=== PATIENT | male | born 1940 | race Caucasian/White ===

== ENCOUNTER 2018-02-28 09:50 | Day surgery (SDC) | payer OTHER, BC ==
[2018-02-28] MEDS ORDERED: TETRACAINE HCL 0.5% 2ML OPTH ONE (10:12)
[2018-02-28] MEDS ORDERED: BUPIVACAINE 0.25% PF 10 ML VIAL ONE (10:12)
[2018-02-28] MEDS ORDERED: LIDOCAINE HCL/PF 3.5% OPTH GEL ONE (10:12)
[2018-02-28] MEDS ORDERED: NA CHLORIDE 0.9% 500 ML ONE (10:12)
[2018-02-28] MEDS ORDERED: LIDOCAINE 2% INJ, MPF 2 ML 0 ML ONE (10:13)
[2018-02-28] MEDS ORDERED: BALANCED SALT IRRIG PLAIN 500 ML BTL IRR ONE (10:25)
[2018-02-28] MEDS ORDERED: DUOVISC 1 KIT OPTH ONE (10:25)
[2018-02-28] MEDS ORDERED: MOXIFLOXACIN HCL 10 DROPS/ML **OR USE OPTH ONE (10:25)
[2018-02-28] MEDS ORDERED: LIDOCAINE 1% MPF 2 ML AMPULE ONE (10:25)
[2018-02-28] MEDS ORDERED: NS 0.9% VIAL 10 ML ONE (10:25)
[2018-02-28] MEDS: PHENYLEPHRINE 10% OPTH 5ML ONE ×3 (10:27→10:37)
[2018-02-28] MEDS: CYCLOPENTOLATE 1% OPTH 2 ML ONE ×3 (10:27→10:37)
[2018-02-28] MEDS ORDERED: MIDAZOLAM HCL 2 MG/2 ML INJ ONE (10:45)
[2018-02-28] MEDS: EPINEPHRINE/PF 1 MG/ML AMP ONE ×2 (11:29→11:30)
--- NOTE | 2018-02-28 11:52 | P.BOP ---
Preoperative diagnosis: Nuclear sclerotic and posterior subcapsular cataract OD Postoperative diagnosis: Same Primary procedure: Phacoemulsification with IOL OD Estimated blood loss: None Anesthesia: Local (Topical with anesthesia for cataract surgery) Complications: None Implants: ZCB00 +21.5 Transferred to: Other (Day surgery) Condition: Good
--- NOTE | 2018-02-28 23:04 | OP ---
Date of Procedure: 02/28/2018 Surgeon: Deb Gutierrez MD Anesthesiologist: 1. Jessenia Torrez CRNA. 2. Galdino Mcknight M.D. Preoperative Diagnosis: Nuclear sclerotic cataract, and/or cortical cataract and/or posterior subcapsular cataract OD (right eye). Operation Performed: Phacoemulsification with intraocular lens implant, right eye. Anesthesia: Per cataract surgery. Complications: None. Description Of Procedure: In the operating room the patient was prepped and draped in the usual sterile fashion for ophthalmic surgery. A lid speculum was placed in the OD. Two paracentesis sites were made superiorly and inferiorly in the limbal cornea. Viscoat was placed in the anterior chamber and a crescent blade was used to make a corneal groove and tunnel, and a keratome was used to enter the anterior chamber. Provisc was placed in the anterior chamber and a 360 degree capsulotomy was performed with a cystitome. The lens was hydrodissected with BSS and rotated freely. The lens was removed with a stop and chop technique. 7.72 phaco CDE was used to remove the lens. Residual cortex was removed with the irrigation and aspiration. Provisc was placed in the capsular bag. A ZCB00 +21.5 lens was placed in the capsular bag without complications. Irrigation and aspiration were used to remove residual viscoelastic. The paracentesis sites were hydrated with BSS. The wound and paracentesis sites were inspected and found to be watertight. Vigamox 0.07 cc was placed intracamerally at the end of the procedure. The eye was irrigated with balanced salt solution. The eye was patched with a soft cotton patch and Gao metal shield. The patient was returned to day surgery in good condition. Comments: Akten was placed in the eye in Day surgery and irrigated out of the eye with BSS in the OR. Preservative-free 1% epinephrine was placed in the anterior chamber prior to Viscoat. 1:5000 epinephrine was placed in the anterior chamber prior to phacoemulsification due to floppy iris. Discharge Instructions: Mr. Fonseca is discharged to home in good condition. He is to follow up with Dr. Gutierrez in the morning. FEROZL/MODL Voice ID: [id number] Report ID: [id number] MTDD
== END 2018-02-28 11:40 | disposition home or self-care (01) ==
LOC: OR 09:50
PROVIDERS: ATTEND Ophthalmology Retina Specialist
PROC: 08RJ3JZ Replacement of Right Lens with Synthetic Substitute, Percutaneous Approach (ICD-10-PCS; principal; 2018-02-28 10:30)
DX: H25.11 Age-related nuclear cataract, right eye (principal); H25.041 Posterior subcapsular polar age-related cataract, right eye; I10 Essential (primary) hypertension; E78.00 Pure hypercholesterolemia, unspecified; I25.2 Old myocardial infarction; Z98.61 Coronary angioplasty status; Z79.82 Long term (current) use of aspirin; I25.10 Atherosclerotic heart disease of native coronary artery without angina pectoris
CPT/HCPCS: 66984; J0171; J2001; J2250; J3490

== ENCOUNTER 2020-08-12 07:34 | Day surgery (SDC) | payer OTHER, BC ==
[2020-08-07 16:31] LABS: Protime INR 0.98
--- NOTE | 2020-08-07 17:41 | RAD REPORT ---
EXAM DESCRIPTION: Rea Corrales (2 Views)08/07/2020 4:50 pm CLINICAL HISTORY: Preop for cardiac catheterization COMPARISON: 2014 FINDINGS: Postsurgical changes involve the left lung. Lungs appear clear of acute infiltrate. The heart is normal size IMPRESSION: No acute abnormalities displayed
[2020-08-12] MEDS ORDERED: NA CHLORIDE 0.9% 500 ML ONE (07:53)
[2020-08-12] MEDS ORDERED: HEPA 1000U/500MLS 1,000 UNIT/500 ML BAG IV ONE (07:56)
[2020-08-12] MEDS ORDERED: MIDAZOLAM HCL 2 MG/2 ML INJ ONE ×2 (08:15→08:26)
[2020-08-12] MEDS ORDERED: ATROPINE SULF 1 MG/10 ML SYR IV ONE (08:16)
[2020-08-12] MEDS ORDERED: FENTANYL CITR 100 MCG/2 ML ONE (08:16)
[2020-08-12] MEDS ORDERED: NA CHLORIDE 0.9% 0 ML ONE (08:16)
--- NOTE | 2020-08-12 09:28 | OP ---
Surgeon: Bentley Ca MD Adhesive Bandage Machine Operator: Sue Schofield. The patient will go home today after 2 hours of bedrest and see me in the office in the next 2 weeks. Procedure Performed: Admitted to my service as an outpatient on 08/12/2020 for left heart catheteriz ation with selective coronary arteriogram. Indication: Unstable angina. History Of Present Illness: Mr. oFnseca is a patient with hypertension, dyslipidemia, CAD, stat us post thrombectomy of the LAD as well as angioplasty and stent in 1994. Has done very well. Had s ymptoms suggestive of unstable angina, abnormal EKG. Procedure In Detail: Brought to the landscaping and groundskeeping laborer today, prepped and draped in the routine sterile fashio n. Given Versed and fentanyl for sedation. Using the Seldinger technique, 10 cc of Xylocaine and 6- Setswana sheath introduced in the right common femoral artery. Angiography there was normal. StarClos e was used to close the case. Leyad catheters 6-Setswana left and right were used to cannulate the l eft main and the right main respectively. He had moderate disease throughout with 20% stenosis in th e proximal circ and proximal LAD as well as proximal RCA. There was about 30% stenosis in the distal LAD and distal circumflex. He was right dominant. There were no complications. Blood Loss: 5 mL. Postoperative Diagnoses: [id number] coronary artery disease. Plan: Plan is for medical therapy. I will probably put him on beta-martita eventually and have incr eased his atorvastatin to 40 mg daily. Anesthesia: Total conscious sedation was 45 minutes. SANDRA/BIANCAL Voice ID: [id number] Report ID: [id number]
[2020-08-12 11:15] VITALS: TEMP 96.1
[2020-08-12 11:16] VITALS: BP 124/59; O2SAT 98
== END 2020-08-12 11:01 | disposition home or self-care (01) ==
LOC: CCL 07:34
DX: I20.0 Unstable angina (principal); I10 Essential (primary) hypertension; E78.5 Hyperlipidemia, unspecified; Z20.822 Contact with and (suspected) exposure to COVID-19
CPT/HCPCS: 36415; 85610; 85730; 71046; 93454; U0002; C1893; C1760; J2250 ×2; J3010; J7040; J1644; J0583

== ENCOUNTER 2021-06-03 15:24 | Emergency (ER) | payer OTHER, BC ==
[2021-06-03 16:24] LABS: Hematocrit 38.3 % (39.6-49.0); Lymphocytes % 15.3 % (15.3-44.8); MPV 7.9 fL (7.6-11.3); RBC Red Blood Cell Count 4.03 M/uL (4.33-5.43)
[2021-06-03 16:30] LABS: Urine Blood Negative (Negative); Urine Glucose Negative (Negative); Urine Protein Negative (Negative)
--- NOTE | 2021-06-03 16:47 | RAD REPORT ---
EXAM DESCRIPTION: RAD - Chest Single View - 06/03/2021 4:29 pm CLINICAL HISTORY: SOB COMPARISON: August 07 TECHNIQUE: AP portable chest image was obtained 06/03/2021 4:29 pm . FINDINGS: Extensive fibrotic lung changes are present. Postsurgical changes are present in the mid a nd upper left hemithorax. Interstitial and alveolar opacification is increased overall but most prono unced in the right upper lobe. Heart size and vasculature are increased slightly from comparison likely due to differences between AP positioning and prior PA positioning. No measurable pleural effusion and no pneumothorax. No acute bony abnormality seen. No acute aortic findings suspected. IMPRESSION: Right upper lobe pneumonia superimposed on chronic interstitial lung disease.
[2021-06-03 16:54] LABS: Albumin 2.6 g/dL (3.4-5.0); Bilirubin Direct 0.1 mg/dL (0-0.2); Bilirubin Total 0.5 mg/dL (0.2-1.0); Potassium 3.5 mmol/L (3.5-5.1); Protein, Total 9.2 g/dL (6.4-8.2); Thyroid Stimulating Hormone 3.22 uIU/mL (0.360-3.740)
[2021-06-03] MEDS ORDERED: NA CHLORIDE 0.9% 500 ML ONE (17:17)
--- NOTE | 2021-06-03 18:12 | ER ---
Nurse's Notes [facility] Name: Durga Fonseca Age: 80 yrs Sex: Male : 1940 Arrival Date: 06/03/2021 Time: 15:29 Bed 15 Private MD: Diagnosis: Hypercalcemia;Pneumonia, unspecified organism Presentation: 06/03 15:35 Chief complaint: Patient states: "I got some blood work yesterday and they called me aa5 today saying that they had a critical lab and to come to the emergency room". Sent here for Calcium 12.2 and diagnosis of malnutrition and weight loss. Coronavirus screen: At this time, the client does not indicate any symptoms associated with coronavirus-19. Ebola Screen: No symptoms or risks identified at this time. Initial Sepsis Screen: Does the patient meet any 2 criteria? No. Patient's initial sepsis screen is negative. Does the patient have a suspected source of infection? No. Patient's initial sepsis screen is negative. Risk Assessment: Do you want to hurt yourself or someone else? Patient reports no desire to harm self or others. Onset of symptoms was May 2021. 15:35 Acuity: АНДРЕЙ 3 aa5 15:35 Method Of Arrival: Ambulatory aa5 Historical: - Allergies: 15:38 No Known Allergies; aa5 - Home Meds: 15:38 aspirin 81 mg Oral tab daily [Active]; atorvastatin 20 mg oral tab 1 tab once daily aa5 [Active]; triamterene-hydrochlorothiazid 37.5-25 mg Oral cap once daily [Active]; amlodipine 5 mg tab once daily [Active]; multivitamin oral [Active]; - PMHx: 15:38 Hypertensive disorder; Hypercholesterolemia; aa5 - Immunization history:: Client reports receiving the 2nd dose of the Covid vaccine, and booster. - Social history:: Smoking status: Patient denies any tobacco usage or history of. Screenin:22 Abuse screen: Denies threats or abuse. Nutritional screening: No deficits noted. jh6 Tuberculosis screening: No symptoms or risk factors identified. Fall Risk None identified. Assessment: 16:21 General: Appears in no apparent distress. Behavior is calm, cooperative, Smells of. jh6 Pain: Denies pain. Neuro: No deficits noted. Cardiovascular: No deficits noted. Respiratory: No deficits noted. GI: No deficits noted. Abd is soft and non tender Abd is soft. : No deficits noted. EENT: No deficits noted. Musculoskeletal: No deficits noted. Vital Signs: 15:35 BP 147 / 91; Pulse 85; Resp 18 S; Temp 98.0(TE); Pulse Ox 97% on R/A; aa5 [place] Coma Score: 16:22 Eye Response: spontaneous(4). Verbal Response: oriented(5). Motor Response: obeys [facility] commands(6). Total: 15. NIH Stroke Scale Scores: 16:22 NIHSS Score: 0 [facility] ED Course: 15:29 Patient arrived in ED. ds1 15:35 Arm band placed on. aa5 15:36 Triage completed. aa5 15:41 Harry Varner NP is PHCP. pm1 15:41 Jonas Schwartz MD is Attending Physician. pm1 15:41 Connie Diggs RN is Primary Nurse. 6 16:00 Call light in reach. Adult w/ patient. jh6 16:12 Inserted saline lock: 18 gauge in right antecubital area, using aseptic technique. dh4 Blood collected. 16:29 Chest Single View XRAY In Process Unspecified. EDMS 18:27 No provider procedures requiring assistance completed. IV discontinued, intact, jh6 bleeding controlled, No redness/swelling at site. Pressure dressing applied. Administered Medications: 18:20 Discontinued: NS 0.9% 500 ml IV at bolus once jh6 17:31 Drug: NS 0.9% 500 ml Route: IV; Rate: bolus; Site: right antecubital; [facility] 18:43 Drug: Rocephin (cefTRIAXone) 1 grams Route: IV; Rate: calculated rate; Site: right [facility] antecubital; Outcome: 18:12 Discharge ordered by . pm1 18:27 Discharged to home ambulatory. jh6 18:27 Condition: stable 18:27 Discharge instructions given to patient, family, Instructed on discharge instructions, follow up and referral plans. Demonstrated understanding of instructions, follow-up care. 19:23 Patient left the ED. 6 NIH Stroke Scale - NIH Stroke Score Date: 06/03/2021 Time: 16:22 Total Score = 0 1a. Level of Consciousness (LOC) - 0(Alert) 1b. Level of Consciousness (LOC) (Month \\T\\ Age) - 0(Both) 1c. LOC Commands (Open \\T\\ Closes Eyes/Manager [employer]ing) - 0(Both) 2. Best Gaze (Lateral Gaze Paresis) - 0(Normal) 3. Visual Field Loss - 0(No visual loss) 4. Facial Palsy - 0(Normal) 5a. Left Arm: Motor (10-second hold) - 0(No drift) 5b. Right Arm: Motor (10-second hold) - 0(No drift) 6a. Left Leg: Motor (5-second hold - always test supine) - 0(No drift) 6b. Right Leg: Motor (5-second hold - always test supine) - 0(No drift) 7. Limb Ataxia (finger/nose \\T\\ heel/henderson - test with eyes open) - 0(Absent) 8. Sensory Loss (pinprick arms/legs/face) - 0(Normal) 9. Best Language: Aphasia (description/naming/reading) - 0(No aphasia) 10. Dysarthria (speech clarity - read or repeat words) - 0(Normal) 11. Extinction and Inattention (visual/tactile/auditory/spatial/personal) - 0(No abnormality) Initials: jh6 Signatures: Dispatcher [employer] [facility] [place] ds1 Tammy Pritchard, RN RN aa5 Harry Varner, OSBALDO CHAIR LIFT OPERATOR pm1 Darshan Brooks 4 Connie Diggs RN RN jh6 Corrections: (The following items were deleted from the chart) 15:38 15:35 Chief complaint: Patient states: "I got some blood work yesterday and aa5 they called me today saying that they had a critical lab and to come to the emergency room" aa5
--- NOTE | 2021-06-03 18:12 | EDPHYS ---
Physician Documentation [facility] Name: Durga Fonseca Age: 80 yrs Sex: Male : 1940 Arrival Date: 06/03/2021 Time: 15:29 Bed 15 Private MD: ED Physician Jonas Schwartz HPI: 06/03 15:51 This 80 yrs old Male presents to ER via Ambulatory with complaints of Abnormal Lab pm1 Results. 15:51 Patient sent into the ER for evaluation after labs at PCP office drawn yesterday showed pm1 hypercalcemia of 12.2. Severity of symptoms: Pain is currently a 0 / 10. The patient has not experienced similar symptoms in the past. The patient has been recently seen by a physician: the patient's primary care provider, yesterday, with similar presenting complaints. Patient presents to the ER with complaints of abnormal lab values, Hypercalcemia. Patient seen at PCP for complaints of exhaustion and myalgia for multiple months post vaccination, third dose.. Historical: - Allergies: 15:38 No Known Allergies; aa5 - Home Meds: 15:38 aspirin 81 mg Oral tab daily [Active]; atorvastatin 20 mg oral tab 1 tab once daily aa5 [Active]; triamterene-hydrochlorothiazid 37.5-25 mg Oral cap once daily [Active]; amlodipine 5 mg tab once daily [Active]; multivitamin oral [Active]; - PMHx: 15:38 Hypertensive disorder; Hypercholesterolemia; aa5 - Immunization history:: Client reports receiving the 2nd dose of the Covid vaccine, and booster. - Social history:: Smoking status: Patient denies any tobacco usage or history of. ROS: 15:51 Eyes: Negative for injury, pain, redness, and discharge, ENT: Negative for injury, pm1 pain, and discharge, Neck: Negative for injury, pain, and swelling, Cardiovascular: Negative for chest pain, palpitations, and edema. 15:51 Abdomen/GI: Negative for abdominal pain, nausea, vomiting, diarrhea, and constipation, Back: Negative for injury and pain, MS/Extremity: Negative for injury and deformity, Skin: Negative for injury, rash, and discoloration. 15:51 Neuro: Negative for headache, weakness, numbness, tingling, and seizure. 15:51 Constitutional: Positive for fatigue, poor PO intake. 15:51 Respiratory: Positive for shortness of breath, on exertion. 15:51 : Positive for Nocturia, Negative for burning with urination. 15:51 All other systems are negative. Exam: 15:51 Constitutional: This is a well developed, well nourished patient who is awake, alert, pm1 and in no acute distress. Head/Face: Normocephalic, atraumatic. 15:51 Back: No spinal tenderness. No costovertebral tenderness. Full range of motion. Skin: Warm, dry with normal turgor. Normal color with no rashes, no lesions, and no evidence of cellulitis. MS/ Extremity: Pulses equal, no cyanosis. Neurovascular intact. Full, normal range of motion. 15:51 ENT: Exam is negative for acute changes, Mouth: no acute changes, Lips: normal, moist, Oral mucosa: normal, pink and intact, moist. 15:51 Cardiovascular: Exam negative for acute changes, Rate: normal, Rhythm: regular, Pulses: no pulse deficits are appreciated. 15:51 Respiratory: Exam negative for acute changes, respiratory distress, shortness of breath, Breath sounds: are clear throughout. 15:51 Neuro: Exam negative for acute changes, Orientation: is normal, Mentation: is normal, Motor: is normal, moves all fours, Gait: is steady, at a normal pace, without difficulty. Vital Signs: 15:35 BP 147 / 91; Pulse 85; Resp 18 S; Temp 98.0(TE); Pulse Ox 97% on R/A; aa5 NIH Stroke Scale Scores: 16:22 NIHSS Score: 0 jh6 [place] Coma Score: 16:22 Eye Response: spontaneous(4). Verbal Response: oriented(5). Motor Response: obeys jh6 commands(6). Total: 15. MDM: 15:42 Patient medically screened. pm1 18:10 Data reviewed: vital signs. Data interpreted: Pulse oximetry: on room air is 97 %. pm1 Interpretation: normal. Counseling: I had a detailed discussion with the patient and/or guardian regarding: the historical points, exam findings, and any diagnostic results supporting the discharge/admit diagnosis, lab results, the need for outpatient follow up, Endocrinology, to return to the emergency department if symptoms worsen or persist or if there are any questions or concerns that arise at home. 06/03 15:51 Order name: Basic Metabolic Panel; Complete Time: 17:08 pm1 06/03 15:51 Order name: CBC with Diff pm1 06/03 15:51 Order name: Hepatic Function; Complete Time: 17:08 pm1 06/03 15:51 Order name: TSH; Complete Time: 17:08 pm1 06/03 16:30 Order name: Urine Dipstick-Ancillary; Complete Time: 16:39 EDMS 06/03 16:59 Order name: LAB Add On bd 06/03 15:51 Order name: EKG; Complete Time: 15:52 pm1 06/03 15:51 Order name: EKG - Nurse/Tech; Complete Time: 17:32 pm1 06/03 15:51 Order name: Chest Single View XRAY; Complete Time: 17:08 pm1 06/03 15:51 Order name: IV Saline Lock; Complete Time: 16:12 pm1 06/03 15:51 Order name: Labs collected and sent; Complete Time: 16:12 pm1 06/03 17:12 Order name: PTH Intact; Complete Time: 18:08 EDMS 06/03 15:51 Order name: Urine Dipstick-Ancillary (obtain specimen); Complete Time: 16:48 pm1 Administered Medications: 18:20 Discontinued: NS 0.9% 500 ml IV at bolus once [facility] 17:31 Drug: NS 0.9% 500 ml Route: IV; Rate: bolus; Site: right antecubital; [facility] 18:43 Drug: Rocephin (cefTRIAXone) 1 grams Route: IV; Rate: calculated rate; Site: right [facility] antecubital; Disposition: 06/04 08:17 Co-signature as Attending Physician, Jonas Schwartz MD I agree with the assessment and kdr plan of care. Disposition Summary: 06/03/21 18:12 Discharge Ordered Location: Home pm1 Problem: new pm1 Symptoms: have improved pm1 Condition: Stable pm1 Diagnosis - Hypercalcemia pm1 - Pneumonia, unspecified organism pm1 Followup: pm1 - With: Emergency Department - When: As needed - Reason: Worsening of condition Followup: pm1 - With: Private Physician - When: 2 - 3 days - Reason: Recheck today's complaints, Continuance of care, Re-evaluation by your physician Discharge Instructions: - Discharge Summary Sheet pm1 - Hypercalcemia pm1 - Community-Acquired Pneumonia, Adult pm1 - Parathyroid Hormone Test pm1 Forms: - Medication Reconciliation Form pm1 - Thank You Letter pm1 - Antibiotic Education pm1 - Prescription Opioid Use pm1 Prescriptions: - Zithromax Z-Maykel 250 mg Oral Tablet - take 1 tablet by ORAL route as directed for 5 days Day 1 - take two (2) tablets pm1 one time. Day 2, 3, 4 , 5 take one (1) tablet once daily.; 6 tablet; Refills: 0, Product Selection Permitted NIH Stroke Scale - NIH Stroke Score Date: 06/03/2021 Time: 16:22 Total Score = 0 1a. Level of Consciousness (LOC) - 0(Alert) 1b. Level of Consciousness (LOC) (Month \T\ Age) - 0(Both) 1c. LOC Commands (Open \T\ Closes Eyes/Sheet Taker) - 0(Both) 2. Best Gaze (Lateral Gaze Paresis) - 0(Normal) 3. Visual Field Loss - 0(No visual loss) 4. Facial Palsy - 0(Normal) 5a. Left Arm: Motor (10-second hold) - 0(No drift) 5b. Right Arm: Motor (10-second hold) - 0(No drift) 6a. Left Leg: Motor (5-second hold - always test supine) - 0(No drift) 6b. Right Leg: Motor (5-second hold - always test supine) - 0(No drift) 7. Limb Ataxia (finger/nose \T\ heel/henderson - test with eyes open) - 0(Absent) 8. Sensory Loss (pinprick arms/legs/face) - 0(Normal) 9. Best Language: Aphasia (description/naming/reading) - 0(No aphasia) 10. Dysarthria (speech clarity - read or repeat words) - 0(Normal) 11. Extinction and Inattention (visual/tactile/auditory/spatial/personal) - 0(No abnormality) Initials: jh6 Signatures: Dispatcher [employer] EDMS Jonas Schwartz MD MD [facility] Tammy Pritchard RN RN aa5 Harry Varner NP EMERGENCY MANAGER pm1 Connie Diggs RN RN jh6
[2021-06-03] MEDS ORDERED: CEFTRIAXONE 1000 MG/VIAL ONE (18:31)
[2021-06-03] MEDS ORDERED: NA CHLORIDE 0.9% 100 ML ONE (18:31)
[2021-06-03 20:34] LABS: Blood Morphology Comment NOT SEEN (NOT SEEN); Platelet Estimate ADEQ
[2021-06-04 03:10] VITALS: BP 147/91; TEMP 98; O2SAT 97
--- NOTE | 2021-06-04 08:04 | EKG ---
Test Date: 2021-06-03 Test Time: 17:25:53 [place] Knitting Machine Operator: MEASUREMENT RESULTS: Intervals: Rate: 70 IN: 168 QRSD: 158 QT: 440 QTc: 475 [place]: P: 20 IN: 168 QRS: 32 T: -38 INTERPRETIVE STATEMENTS: Normal sinus rhythm Right bundle branch block T wave abnormality, consider inferior ischemia Abnormal ECG Compared to ECG 01/29/2005 08:45:00 T-wave abnormality now present Possible ischemia now present Electronically Signed On 06-04-21 08:03:08 RELIEF CAPTAIN by Bentley Ca
== END 2021-06-03 19:23 | disposition home or self-care (01) ==
LOC: ER 15:24
DX: J18.9 Pneumonia, unspecified organism (principal); I10 Essential (primary) hypertension; E78.00 Pure hypercholesterolemia, unspecified; Z79.82 Long term (current) use of aspirin
CPT/HCPCS: 93005; 85025; 80048; 36415; 80076; 84443; 81003; 83970; 71045; 96374; 99284; J7040

== ENCOUNTER 2021-12-13 12:12 | Observation (INO) | payer OTHER, BC ==
--- OUTSIDE RECORDS SUMMARY | 2021-12-13 12:20 | XMS REPORT | Clinical Summary ---
:1940 Author Organization [facility] MD Munoz [facility] Address [address] [place] [address] Care Team Providers Name Role Phone Pretty Rees Unavailable Allergies No known active allergies Medications Medication Sig Dispensed Refills Start Date End Date Status atorvastatin (LIPITOR) Take 40 mg by 0 07/08/2021 Active 40 mg tablet mouth at bedtime. aspirin 81 mg EC tablet Take 81 mg by 0 Active mouth daily. predniSONE (DELTASONE) Take 1 tablet 30 tablet 0 09/19/2021 Active 10 mg tabletIndications: (10 mg) by mouth Immunoglobulin G4 daily. related disease Additional Information Patient taking differently: 5 mg oral Daily, Reason: No longer taking, Reported on 11/25/2021 amLODIPine (NORVASC) Take 10 mg by 0 Active 10 mg tablet mouth daily. traMADol (Ultram) 50 Take 1 tablet (50 15 tablet 0 Active mg tabletIndications: mg) by mouth 022 Primary every 6 (six) 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dism, hours as needed Acute postoperative for moderate pain pain. amLODIPine (NORVASC) 5 Take 5 mg by 0 07/12/ Discontinued mg tablet mouth daily. 021 022 (Reorde r) triamterene-hydroCHLOR Take 1 tablet by 0 Discontinued (Stop Othiazide (MAXZIDE-25) mouth every 021 022 Taking at 37.5 mg-25 mg per morning. Di sofia) tablet amLODIPine (NORVASC) 5 Take 2 tablets 60 tablet 0 Discontinued mg tabletIndications: (10 mg) by mouth 022 0 22 Hypertension daily. amLODIPine (NORVASC) 5 TAKE 2 TABLETS(10 180 tablet 0 Discontinued mg tabletIndications: MG) BY MOUTH 022 022 Hypertension DAILY ipratropium-albuterol Inhale 1 puff by 4 g 0 0 Discontinued (Other (COMBIVENT RESPIMAT) mouth every 6 022 022 ) 20 mcg-100 mcg/puff (six) hours as inhalerIndications: needed for Cough, unspecified wheezing or shortness of breath. HYDROcodone-homatropin Take 5 mL by 473 mL 0 09/15/2 /0 01/10 Discontinued e (HYCODAN) syrup mouth every 6 022 022 5-1.5 (six) hours as mg/5mLIndications: needed for cough. Cough, unspecified HYDROcodone-homatropin Take 5 mL by 473 mL 0 09/15/2 /0 01/10 Discontinued e (HYCODAN) syrup mouth every 6 022 022 5-1.5 (six) hours as mg/5mLIndications: needed for cough. Cough, unspecified HYDROcodone-homatropin Take 5 mL by 473 mL 0 09/15/2 /0 01/10 Discontinued e (HYCODAN) syrup mouth every 6 022 022 5-1.5 (six) hours as mg/5mLIndications: needed for cough. Cough, unspecified HYDROcodone-homatropin Take 5 mL by 473 mL 0 09/15/2 03/0 72 Discontinued e (HYCODAN) syrup mouth every 6 022 022 5-1.5 (six) hours as mg/5mLIndications: needed for cough. Cough, unspecified HYDROcodone-homatropin Take 5 mL by 473 mL 0 //2 03/0 7/2 Discontinued (Stop e (HYCODAN) syrup mouth every 6 022 022 Taking at 5-1.5 (six) hours as Disch arge) mg/5mLIndications: needed for cough. Cough, unspecified HYDROcodone-homatropin Take 5 mL by 473 mL 0 04/0 12/11 Discontinued (Other e (Hydromet) 5 mg-1.5 mouth every 6 022 022 ) mg/5 mL (six) hours as syrupIndications: needed for cough. Cough, unspecified predniSONE (DELTASONE) Take 3 tablets 30 tablet 0 Discontinued 10 mg (30 mg) by mouth 022 022 (Re order) tabletIndications: daily. Immunoglobulin G4 related disease amLODIPine (NORVASC) 5 TAKE 2 TABLETS(10 30 tablet 0 Discontinued mg tabletIndications: MG) BY MOUTH 022 022 (Therapy completed) Hypertension DAILY Active Problems Problem Noted Date Primary 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dism 09/15/2021 Hypercalcemia 09/14/2021 Dyspnea on exertion 09/14/2021 Last Assessment & Plan: Formatting of th is note might be different from the original. Former smoker (16-pack year) with no ebony gnosis of COPD but diagnostic imaging shows signs of emphysema. Clinically, patient reports no respirato ry symptoms since starting on Prednisone. PFTs and 6MWT are within normal limits. Patient will be placed in pending at thi s time. He has been encouraged to contact clinic if any respiratory symptoms develop. 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); 2 MD Primary hyperpa rathyroidism; Hypertension Travel 2 Orders Only Rheumatology Taz Virgen Immunoglobul in G4 2 MD related disease (Primary Dx) Orders Only Rheumatology Taz Virgen Immunoglobul in G4 2 related disease (Primary Dx) Orders Only Endocrine Surgery Rogelio, Primary 2 Katie Geeta, PA hyperparathyr oidism (Primary Dx) Telephone Endocrine Surgery Rogelio, 2 Katie L, PA Orders Only Endocrinology CesarAshley Primary hyper parathyroidism (Primary Dx); 2 E, CAUSTICISER Hypercalcemia; Osteoporosis; Other specified counseling Surgery Ambulatory Surgery Jhon Sonia PARATHYR OIDECTOMY & 2 MD Juan Jose EXPLORATION OF PARATHYROID(S) Anesthesia Event Ambulatory Surgery Jimi Templeton, 2 Ken Encarnacion [facility] Hospital Encounter Ambulatory Surgery Sonia Ferreira Hy percalcemia (Primary Dx); 2 MD Juan Jose Primary hyperpa rathyroidism Orders Only Endocrine Surgery Rogelio, Primary 2 Katie L, PA hyperparathyr oidism (Primary Dx) Orders Only Endocrine Surgery Rogelio, Acute post operative pain (Primary Dx); 2 Katie Connor, PA Primary hyper parathyroidism Travel 2 Anesthesia Event Anesthesiology Kaylynn Nieto, Ayde CAUSTICISER POEM Appointments Anesthesiology Madera, Primary 2 Katie L, PA hyperparathyr oidism Orders Only Internal Medicine Iliescu, Immunoglob ulin G4 2 MD Noa related disease (Primary Dx) Clinical Support Velid Rogelio, Suspicion ( Primary Dx); 2 Katie Geeta, PA Primary 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dism Elizabeth Delgado MA Travel 2 Telemedicine Rheumatology Taz Virgen, 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); 2 Primary hyperpa rathyroidism; Hypertension Office Visit Lymphoma and Lowell Croft, Gammopathy 2 Myeloma Travel 2 Ancillary Radiology Lowell Croft, Non-Hodgkin ly mphoma, unspecified, extranodal and solid organ sites ; 2 Procedure MD Gammopathy; Non-Hodgkin lym phoma, unspecified, extranodal and solid organ sites Travel 2 Telephone Oncology Windy Diane 2 T, RN Office Visit Endocrine Surgery JhonSonia Primary 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dism (Primary Dx); 2 MD Juan Jose Osteoporosis Travel 2 Orders Only Melanoma Surgery Rogelio, Primary 2 JAYA Cole hyperparathyr oidism (Primary Dx) Prep for Surgery Endocrine Surgery Madera, Primar y 2 JAYA Cole hyperparathyr oidism (Primary Dx) Refill Internal Medicine Senechalle Hypertensi on 2 Linda Chand MD Travel 2 Ancillary Radiology Primary 2 Procedure 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 Ancillary Radiology Puls, Ashley Primary 2 Procedure E, CAUSTICISER 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 Travel 2 Telemedicine Rheumatology Taz Virgen, Immunoglobul in G4 2 MD related disease Telemedicine Endocrinology Karen Coates MD Primary hyperp arathyroidism (Primary Dx); 2 Hypercalcemia; Osteoporosis; Other specified counseling; Abnormal result of thyroid function study Telephone Rheumatology Robles, 2 Izabella Santos RN Telephone Endocrinology Puls, Ashley 2 E, CAUSTICISER Ancillary Radiology Puls, Ashley Primary 2 Procedure E, CAUSTICISER 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 Ancillary Radiology Puls, Ashley Primary 2 Procedure E, CAUSTICISER 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 Office Visit Pulmonology Conaty, Jasety Dyspnea on ex ertion (Primary Dx); 2 Y, CAUSTICISER Emphysema, not otherwise specified Hospital Encounter Pulmonology Mackenney, Shortness of breath 2 [facility] En[facility] Pulmonology Mackenney, Shortness of breath 2 AGUSTIN [facility] Encounter Lab Taz Virgen, Immuno globulin G4 related disease; 2 Primary hyperpa rathyroidism Orders Only Internal Medicine Iliescu, Lung mass (Primary Dx) 2 MD Noa Travel 2 Telemedicine Lymphoma and Lowell Croft, Gammopathy (Pr imary Dx); 2 Myeloma Non-Hodgkin lym phoma, unspecified, extranodal and solid organ sites Documentation Lymphoma and Kylee Mcintosh, 2 Myeloma PA Orders Only Endocrinology Ashley Guerrero Primary 2 E, CAUSTICISER 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 (Primary Dx) Telemedicine Internal Medicine Desmond, Immunoglob ulin G4 related disease (Primary Dx); 2 Latira, CAUSTICISER Hypercalcemia; Hyponatremia; Gammopathy; Lymphadenopathy Consult Rheumatology Ang Ayers MD Immunoglobulin G4 2 Taz Virgen, related dise ilana [facility] Encounter Lab Desmond, Hypercalc emia; 2 Latira, CAUSTICISER Hyponatremia Travel 2 Telephone Internal Medicine Alon [facility] kendra 2 Mirta Rader MA Telephone Internal Medicine Clyde, Ayde Latham MD Orders Only Internal Medicine Ilicris, Immunoglob ulin G4 2 MD Noa related disease (Primary Dx) Orders Only Pulmonology Mackenney, Shortness of br eath 2 Lo, PROFESSOR OF ENGINEERING (Primary Dx) Telephone Internal Medicine Ayde Tang MD Orders Only Internal Medicine Desmond, 2 Latira, CAUSTICISER Telephone Frances Flores, Discharge Castro l 2 RN Orders Only Internal Medicine Desmond, Hypercalce jesus (Primary Dx); 2 Latira, CAUSTICISER Hyponatremia Emergency Clinical Decision Ana, Pattie, Lung canc er (Primary Dx); 2 - Cough, unspecified; Chaftari, Dyspnea; 2 MD Harry Hypercalcemia; Emphysema, not otherwise specified Orders Only Lymphoma and Troy, October 2 Myeloma L, 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 Travel 2 Telephone Internal Medicine Ayde Tang MD Orders Only Internal Medicine Ilicris, Immunoglob ulin G4 2 MD Noa related disease (Primary Dx) Ancillary Radiology Stacy April Cancer 2 Joseph Mcmanus MD Telephone Internal Medicine Clyde, Ayde Latham MD Telephone Parisa Verde Discharge Call 2 GINA Arvizu Anesthesia Event Ricardo, MD Brandon Medina Pranthi, MD Surgery David Boyer, BIOPSY OR EXC ISION OF 2 MD LYMPH NODE(S); OPEN, INGUINOFEMORAL NODE(S) Hospital Encounter David Boyer, Lung ma ss found on 2 MD diagnostic imag ing of lung Hospital Encounter Lab Iliescu, Lymphaden opathy 2 MD Noa Travel 2 Orders Only Internal Medicine Iliescu, Lymphadeno chris (Primary 2 MD Noa Dx) Anesthesia Event Anesthesiology Raza, 2 MD Meg POEM Appointments Anesthesiology Lexi Lockett, Media stinal 2 CAUSTICISER lymphadenopathy Clinical Support Covid Leix Lockett, Suspecte d COVID-19 (Primary Dx); 2 CAUSTICISER Lung mass found on diagnostic imaging of lung Man Mina RN Travel 2 Consult Thoracic Surgery David Boyer, Mediastin al 2 lymphadenopathy Travel 2 Documentation Pulmonology Jayesh, Ayde Collins MD Orders Only Internal Medicine Iliescu, Mediastina l 2 MD Noa lymphadenopathy (Primary Dx) Nutrition Nutrition Senechalle Influenza; 2 Sibille, Dehydration; MD Linda Patient on oxygen; Cira, Misty Lung cancer; C, RD Hyposmolality a nd/or hyponatremia; Influenzal pneu monia; Lung mass found on diagnostic imaging of lung; Hypertension; Acute respirato ry failure with hypoxia; Acute kidney in jury due to hypovolemia Anesthesia Event Pulmonology Dorcas Centeno 2 MD Surgery Pulmonology Jayesh, BRONCHOSCOPY WI TH EBUS 2 MD Dennis PERIPHERAL LESI ON-RADIAL PROBE Hospital Encounter Pulmonology Jayesh, Lung mass found on 2 MD Dennis diagnostic imag ing of lung Travel 2 Anesthesia Event Anesthesiology Ranjit, 2 Ann Lo RN Consult Pulmonology Jayesh, Mediastinal lym phadenopathy (Primary Dx); 2 MD Dennis Lung mass found on diagnostic imaging of lung; Abnormal findin gs on diagnostic imaging of lung POEM Appointments Anesthesiology 2 Travel 2 Clinical Support Nelson Leon, Suspicion ( Primary Dx); 2 Lo, PROFESSOR OF ENGINEERING Lung mass found on diagnostic imaging of lung Dior Gant MA Ancillary Radiology Desmond, Lung mass found on 2 Procedure Latira, CAUSTICISER diagnostic imag ing of lung Travel 2 Prep for Surgery Pulmonology Edward, Lung mass f ound on 2 Lo, PROFESSOR OF ENGINEERING diagnostic imag ing of lung (Primary D x) Hospital Encounter Lab Desmond, Lung mass found on 2 Latira, CAUSTICISER diagnostic imag ing of lung Office Visit Internal Medicine Edwardo Tang (Primary Dx); 2 MD Noa Lung mass found on diagnostic imaging of lung; Hyponatremia Travel 2 Ancillary Radiology Senechalle Cancer 2 Procedure Linda Chand MD Ancillary Radiology Senechalle Cancer 2 Procedure Linda Chand MD Ancillary Radiology Senechalle Cancer 2 Procedure Linda Chand MD Ancillary Radiology Senechalle Cancer 2 Procedure Linda Chand MD Ancillary Radiology Senechalle Cancer 2 Procedure Linda Chand MD Refill Internal Medicine Senechalle Hypertensi on 2 Linda Chand MD Anesthesia Event Radiology Ayde Bond III, MD Orders Only Radiology Milan Timmons, Ayde RT Hospital Encounter GIM/Phase 1 Mark Jonas MD Lung mass found on diagnostic imaging of lung (Primary Dx); 2 - Grace Hopeo, Influenza; Dehydration; 2 Pedro Wilson Patient on ox ygen; MD Katherin Lung cancer; Odaro, Orhue, Hyposmolality and/or hyponatremia; Influenzal pneumonia; Senechalle Hypertension; Jarguti, Acute respirato ry failure with hypoxia; MD Linda Acute kidney in jury due to hypovolemia Travel 2 Telephone Patient Access Ayde [employer] Rah Turner RN Travel 2 after 12/13/2020 Immunizations Name Administration Dates Next Due Pfizer SARS-CoV-2 Vaccination 10/14/2021, 03/10/2021, 2020, 08/21/2020 Surgical History Surgery Date Site/Laterality Comments IA [facility] EBUS DX/TX 08/15/2021 Pro cedure: BRONCHOSCOPY WITH INTERVENTION PERPH LES EBUS MELISA PHERAL LESION-RADIAL PROBE; Surgeon: Dennis Mcconnell MD; Lo cation: MAIN PULM PROC; Serv ice: PULMONARY IA OPEN BIOPSY/EXCISION 09/03/2021 Right Procedur e: BIOPSY OR EXCISION INGUINOFEMORAL NODES OF LYMPH NO DE(S); OPEN, INGUINOFEMORAL N ODE(S); Surgeon: David pearce MD; Location: [facility]; Service: THRCV - THORACIC SURGERY IA EXPLORE PARATHYROID 11/25/2021 Neck/Midline Procedure : PARATHYROIDECTOMY & GLANDS EXPLORATION OF P ARATHYROID(S); Surgeon: Sonia Ferreira MD; Location: [facility]; Service: SURG ONC - ENDOC RINE Medical History Medical History Date Comments History of myocardial infarction Hypertension Hyperlipidemia Acute respiratory failure with hypoxia 07/19/2021 Family History Medical History Relation Name Comments -Unknown cancer Father -Unknown cancer Sister 1 -Unknown cancer Sister 2 Relation Name Status Comments Father Sister 1 Sister 2 Social History Tobacco Use Types Packs/Day Years Used Date Former Smoker Cigarettes 0.5 Quit: 07/23/18 80 Smokeless Tobacco: Never Used Alcohol Use Standard Drinks/Week Comments Never 0 (1 standard drink = 0.6 oz pure alcoho l) Alcohol Habits Answer Date Recorded How often do you have a drink containing alcohol? Never 08/07/2021 How many drinks containing alcohol do you have on a typical Not asked day when you are drinking? How often do you have six or more drinks on one occasion? No t asked Comment: Not asked Sex Assigned at Date Recorded Male 07/15/2021 1:01 PM [employer] Job Start Date Occupation Industry Not on file Not on file Not on file COVID-19 Exposure Response Date Recorded In the last 10 days, have you been in contact with No / Unsu re 12/04/2021 2:47 PM CDT someone who was confirmed or suspected to have Coronavirus/COVID-19? Obstetrics History Last Filed Vital Signs Vital Sign Reading Time Taken Comments Blood Pressure 157/73 11/25/2021 11:00 AM CDT Pulse 91 11/25/2021 11:00 AM CDT Temperature 36.6 C (97.9 F) 11/25/2021 10:15 AM CDT Respiratory Rate 18 11/25/2021 11:00 AM CDT Oxygen Saturation 94% 11/25/2021 11:00 AM CDT Inhaled Oxygen Concentration - - Weight 63 kg (138 lb 14.2 oz) 11/13/2021 12:50 PM CDT Height 167.1 cm (5' 5.79") 11/12/2021 10:13 AM CDT Body Mass Index 22.56 11/12/2021 10:13 AM CDT Plan of Treatment Date Type Specialty Care Team Description 12/18/2021 Office Visit Endocrine Surgery Sonia Ferreira MD [address] [place] [address] [phone] (Wo rk) 01/05/2022 Ancillary Procedure Radiology Carla Tang MD [address] [place] [address] [phone] (Wo rk) 01/06/2022 Telemedicine Lymphoma and Myeloma Terrie Croft MD [address] [place] [address] [phone] (Wo rk) 06/11/2022 Lab Lab Katie Mercado PA [facility] [place], [place] 7703 (Wo rk) 06/11/2022 Office Visit Endocrine Surgery Sonia Ferreira MD [address] [place] [address] [phone] (Wo rk) Health Maintenance Due Date Last Done Comments COVID-19 Vaccination Completed 10/14/2021, 03/10/2021, 09/2020, Additional history exists Procedures Procedure Name Priority Date/Time Associated Diagnosis Comme nts IGG SUBCLASSES, SERUM Routine 12/04/2021 Immunoglobulin G4 R esults for 2:57 PM CDT related disease this procedu re are in the results section. C REACTIVE PROTEIN Routine 12/04/2021 Immunoglobulin G4 Resu lts for 2:57 PM CDT related disease this procedu re are in the results section. INTRAOPERATIVE PTHI Now 11/25/2021 Results for SPEC 2 8:25 AM CDT this procedure are in the results section. INTRAOPERATIVE PTHI STAT 11/25/2021 Results for SPEC 1 8:22 AM CDT this procedure are in the results section. PATHOLOGY SURGICAL Routine 11/25/2021 Primary Results f or INTERPRETATION 8:13 AM CDT 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dism this p rocedure are in the results section. INTRAOPERATIVE PTHI STAT 11/25/2021 Results for BASELINE 7:38 AM CDT this procedure are in the results section. PARATHYROIDECTOMY OR 11/25/2021 Primary EXPLORATION OF 6:30 AM CDT 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dism PARATHYROID(S) Case Notes PATIENT PREOPERATIVE ASSESSM ENT/INTERVIEW COMPLETED BY ANTONIO KRAUS RN Special Needs VS [facility] RODRIGUEZ POC GLUCOSE SCREEN Routine 11/25/2021 Results f or 6:28 AM CDT this procedure are in the results section. COVID-19 (SARS-COV-2) Routine 11/21/2021 Suspicion Result s for PCR-ASYMPTOMATIC MC 2:09 PM CDT this procedure are in the results section. PETCT SUBSEQUENT Routine 11/12/2021 Non-Hodgkin lymphoma, Re sults for TREATMENT STRATEGY 12:00 PM CDT unspecified, extranoda l this and solid organ sites procedure are Gammopathy in the results section. .DR. RODRIGUEZ PROT Routine 11/12/2021 Results f or ELEC PATH REVIEW 9:28 AM CDT this procedure are in the results section. .DR. RODRIGUEZ SULEMAN Routine 11/12/2021 Results fo r PATH REVIEW 9:28 AM CDT this procedure are in the results section. IMMUNOFIXATION Routine 11/12/2021 Results for ELECTROPHORESIS 9:28 AM CDT this procedure are in the results section. .GLOMERULAR Routine 11/12/2021 Gammopathy Results for FILTRATION RATE 9:28 AM CDT this procedure are in the results section. SERUM CREATININE Routine 11/12/2021 Gammopathy Results for 9:28 AM CDT this procedure are in the results section. MANUAL DIFFERENTIAL Routine 11/12/2021 Gammopathy Results for 9:28 AM CDT this procedure are in the results section. Results CBC Routine 11/12/2021 Gammopathy Results for 9:28 AM CDT this procedure are in the results section. PROTHROMBIN TIME Routine 11/12/2021 Primary Results for 9:28 AM CDT 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dism this procedure are in the results section. HEMOGLOBIN A1C Routine 11/12/2021 Primary Results for 9:28 AM CDT 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dism this procedure are in the results section. SEDIMENTATION RATE Routine 11/12/2021 Immunoglobulin G4 Resu lts for NON-AUTOMATED 9:28 AM CDT related disease this procedure are in the results section. C REACTIVE PROTEIN Routine 11/12/2021 Immunoglobulin G4 Resu lts for 9:28 AM CDT related disease this procedure are in the results section. C4 COMPLEMENT Routine 11/12/2021 Immunoglobulin G4 Results f or 9:28 AM CDT related disease this procedure are in the results section. C3 COMPLEMENT Routine 11/12/2021 Immunoglobulin G4 Results f or 9:28 AM CDT related disease this procedure are in the results section. BETA 2 MICROGLOBULIN Routine 11/12/2021 Gammopathy Results for 9:28 AM CDT this procedure are in the results section. IMMUNOGLOBULIN G Routine 11/12/2021 Gammopathy Results for SERUM 9:28 AM CDT this procedure are in the results section. IMMUNOGLOBULIN M Routine 11/12/2021 Gammopathy Results for SERUM 9:28 AM CDT this procedure are in the results section. IMMUNOGLOBULIN A Routine 11/12/2021 Gammopathy Results for SERUM 9:28 AM CDT this procedure are in the results section. PROTEIN Routine 11/12/2021 Gammopathy Results for ELECTROPHORESIS, 9:28 AM CDT this SERUM procedure are in the results section. VITAMIN D 25 HYDROXY Routine 11/12/2021 Gammopathy Results for LEVEL 9:28 AM CDT this procedure are in the results section. ELECTROLYTE PANEL Routine 11/12/2021 Gammopathy Results fo r 9:28 AM CDT this procedure are in the results section. ASPARTATE Routine 11/12/2021 Gammopathy Results for AMINOTRANSFERASE 9:28 AM CDT this procedure are in the results section. MAGNESIUM LEVEL Routine 11/12/2021 Gammopathy Results for 9:28 AM CDT this procedure are in the results section. ALANINE Routine 11/12/2021 Gammopathy Results for AMINOTRANSFERASE 9:28 AM CDT this procedure are in the results section. LACTATE DEHYDROGENASE Routine 11/12/2021 Gammopathy Result s for 9:28 AM CDT this procedure are in the results section. ALKALINE PHOSPHATASE Routine 11/12/2021 Gammopathy Results for 9:28 AM CDT this procedure are in the results section. FRACTIONATED Routine 11/12/2021 Gammopathy Results for BILIRUBIN 9:28 AM CDT this procedure are in the results section. URIC ACID Routine 11/12/2021 Gammopathy Results for 9:28 AM CDT this procedure are in the results section. SERUM CREATININE Routine 11/12/2021 Gammopathy 9:28 AM CDT BLOOD UREA NITROGEN Routine 11/12/2021 Gammopathy Results for 9:28 AM CDT this procedure are in the results section. GLUCOSE, RANDOM Routine 11/12/2021 Gammopathy Results for 9:28 AM CDT this procedure are in the results section. PHOSPHORUS LEVEL Routine 11/12/2021 Gammopathy Results for 9:28 AM CDT this procedure are in the results section. CALCIUM LEVEL TOTAL Routine 11/12/2021 Gammopathy Results for 9:28 AM CDT this procedure are in the results section. ALBUMIN LEVEL Routine 11/12/2021 Gammopathy Results for 9:28 AM CDT this procedure are in the results section. TOTAL PROTEIN Routine 11/12/2021 Gammopathy Results for 9:28 AM CDT this procedure are in the results section. COMPLETE BLOOD COUNT Routine 11/12/2021 Gammopathy W/ DIFFERENTIAL 9:28 AM CDT COMPLEMENT TOTAL Routine 11/12/2021 Gammopathy Results for 9:28 AM CDT this procedure are in the results section. IGG SUBCLASSES, SERUM Routine 11/12/2021 Gammopathy Result s for 9:28 AM CDT this procedure are in the results section. EKG, 12-LEAD Routine 11/12/2021 Primary (SCHEDULED) 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dism .TOTAL VOLUME Routine 10/20/2021 Results for 6:00 AM CDT this procedure are in the results section. .TOTAL VOLUME Routine 10/20/2021 Results for 6:00 AM CDT this procedure are in the results section. SODIUM 24 HOUR URINE Routine 10/20/2021 Primary Results for 6:00 AM CDT 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dism this procedure are in the results section. CREATININE 24 HOUR Routine 10/20/2021 Primary Results f or URINE 6:00 AM CDT 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dism this procedure are in the results section. CALCIUM LEVEL 24 HOUR Routine 10/20/2021 Primary Result s for URINE 6:00 AM CDT 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dism this procedure are in the results section. CT 4D NECK Routine 10/16/2021 Primary Results for (ASSOCIATED WITH NM 3:18 PM CDT 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dism t his STUDY) procedure are in the results section. NM SESTAMIBI Routine 10/16/2021 Primary Results for PARATHYROID SPECT/CT 3:17 PM CDT 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dism this (WITH 4D NECK CT) procedure are in the results section. .GLOMERULAR Routine 10/16/2021 Primary Results for FILTRATION RATE 12:25 PM CDT 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dism this procedure are in the results section. SERUM CREATININE Routine 10/16/2021 Primary Results for 12:25 PM CDT 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dism this procedure are in the results section. PTH INTACT Routine 10/16/2021 Primary Results for 12:25 PM CDT 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dism this procedure are in the results section. SERUM CREATININE Routine 10/16/2021 Primary 12:25 PM CDT 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dism BLOOD UREA NITROGEN Routine 10/16/2021 Primary Results for 12:25 PM CDT 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dism this procedure are in the results section. PHOSPHORUS LEVEL Routine 10/16/2021 Primary Results for 12:25 PM CDT 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dism this procedure are in the results section. ALBUMIN LEVEL Routine 10/16/2021 Primary Results for 12:25 PM CDT 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dism this procedure are in the results section. CALCIUM LEVEL TOTAL Routine 10/16/2021 Primary Results for 12:25 PM CDT 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dism this procedure are in the results section. FREE THYROXINE Routine 10/16/2021 Primary Results for 12:25 PM CDT 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d ism this Abnormal result of procedure are thyroid function study in th e results section. THYROID STIMULATING Routine 10/16/2021 Primary Results for HORMONE 12:25 PM CDT 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d ism this Abnormal result of procedure are thyroid function study in th e results section. GENERAL LABORATORY STAT 10/14/2021 Primary Results f or ADD ON TEST 2:12 PM CDT 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d ism this Hypercalcemia procedure are in the results section. DEXA BONE MINERAL Routine 10/13/2021 Primary Results fo r DENSITY BOTH HIPS AND 3:34 PM CDT 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dism this SPINE procedure are in the results section. US HEAD NECK SOFT Routine 10/13/2021 Primary Results fo r TISSUE 10:13 AM CDT 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dism this procedure are in the results section. SPIROMETRY W/O Routine 10/13/2021 Shortness of breath Result s for DILATORS, DLCO AND 8:55 AM CDT this BODY PLETHSMOGRAPHIC procedu re are LUNG VOLUMES in the results section. 6 MINUTE WALK TEST Routine 10/13/2021 Shortness of breath 8:55 AM CDT FRACTIONATED Routine 10/13/2021 Primary Results for BILIRUBIN 7:58 AM CDT 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dism this procedure are in the results section. TOTAL PROTEIN Routine 10/13/2021 Primary Results for 7:58 AM CDT 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dism this procedure are in the results section. ASPARTATE Routine 10/13/2021 Primary Results for AMINOTRANSFERASE 7:58 AM CDT 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dism this procedure are in the results section. ALANINE Routine 10/13/2021 Primary Results for AMINOTRANSFERASE 7:58 AM CDT 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dism this procedure are in the results section. ALKALINE PHOSPHATASE Routine 10/13/2021 Primary Results for 7:58 AM CDT 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dism this procedure are in the results section. ALBUMIN LEVEL Routine 10/13/2021 Primary Results for 7:58 AM CDT 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dism this procedure are in the results section. CALCIUM LEVEL TOTAL Routine 10/13/2021 Primary Results for 7:58 AM CDT 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dism this procedure are in the results section. ELECTROLYTE PANEL Routine 10/13/2021 Primary Results fo r 7:58 AM CDT 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dism this procedure are in the results section. GLUCOSE LEVEL Routine 10/13/2021 Primary Results for 7:58 AM CDT 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dism this procedure are in the results section. 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 SERUM CREATININE Routine 10/13/2021 Immunoglobulin G4 Result s for 7:58 AM CDT related disease this procedure are in the results section. MANUAL DIFFERENTIAL Routine 10/13/2021 Immunoglobulin G4 Res ults for 7:58 AM CDT related disease this procedure are in the results section. Results CBC Routine 10/13/2021 Immunoglobulin G4 Results fo r 7:58 AM CDT related disease this procedure are in the results section. ALKALINE PHOSPHATASE Routine 10/13/2021 Primary Results for BONE 7:58 AM CDT 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dism this procedure are in the results section. OSTEOCALCIN Routine 10/13/2021 Primary Results for 7:58 AM CDT 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dism this procedure are in the results section. CTX BETA CROSSLAPS Routine 10/13/2021 Primary Results f or 7:58 AM CDT 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dism this procedure are in the results section. DIHYDROXY VITAMIN D 1 Routine 10/13/2021 Primary Result s for 25 LEVEL 7:58 AM CDT 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dism this procedure are in the results section. VITAMIN D 25 HYDROXY Routine 10/13/2021 Primary Results for LEVEL 7:58 AM CDT 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dism this procedure are in the results section. PHOSPHORUS LEVEL Routine 10/13/2021 Primary Results for 7:58 AM CDT 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dism this procedure are in the results section. MAGNESIUM LEVEL Routine 10/13/2021 Primary Results for 7:58 AM CDT 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dism this procedure are in the results section. COMPREHENSIVE Routine 10/13/2021 Primary METABOLIC PANEL 7:58 AM CDT 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dism IGG SUBCLASSES, SERUM Routine 10/13/2021 Immunoglobulin G4 R esults for 7:58 AM CDT related disease this procedure are in the results section. C4 COMPLEMENT Routine 10/13/2021 Immunoglobulin G4 Results f or 7:58 AM CDT related disease this procedure are in the results section. C3 COMPLEMENT Routine 10/13/2021 Immunoglobulin G4 Results f or 7:58 AM CDT related disease this procedure are in the results section. LIPASE LEVEL Routine 10/13/2021 Immunoglobulin G4 Results fo r 7:58 AM CDT related disease this procedure are in the results section. AMYLASE LEVEL Routine 10/13/2021 Immunoglobulin G4 Results f or 7:58 AM CDT related disease this procedure are in the results section. RHEUMATOID FACTOR Routine 10/13/2021 Immunoglobulin G4 Resul ts for QUANTITATIVE 7:58 AM CDT related disease this procedure are in the results section. CYCLIC CITRULLINE Routine 10/13/2021 Immunoglobulin G4 Resul ts for ANTIBODY IGG 7:58 AM CDT related disease this procedure are in the results section. SEDIMENTATION RATE Routine 10/13/2021 Immunoglobulin G4 Resu lts for NON-AUTOMATED 7:58 AM CDT related disease this procedure are in the results section. C REACTIVE PROTEIN Routine 10/13/2021 Immunoglobulin G4 Resu lts for 7:58 AM CDT related disease this procedure are in the results section. SERUM CREATININE Routine 10/13/2021 Immunoglobulin G4 7:58 AM CDT related disease COMPLETE BLOOD COUNT Routine 10/13/2021 Immunoglobulin G4 W/ DIFFERENTIAL 7:58 AM CDT related disease BLOOD UREA NITROGEN Routine 10/13/2021 Immunoglobulin G4 Res ults for 7:58 AM CDT related disease this procedure are in the results section. ANCA PANEL FOR Routine 10/13/2021 Immunoglobulin G4 Results for VASCULITIS, SERUM 7:58 AM CDT related disease this procedure are in the results section. FRACTIONATED Routine 09/19/2021 Hypercalcemia Results for BILIRUBIN 8:58 AM CLEAN IN PLACES OPERATOR Hyponatremia this procedure are in the results section. TOTAL PROTEIN Routine 09/19/2021 Hypercalcemia Results for 8:58 AM CLEAN IN PLACES OPERATOR Hyponatremia this procedure are in the results section. ASPARTATE Routine 09/19/2021 Hypercalcemia Results for AMINOTRANSFERASE 8:58 AM CLEAN IN PLACES OPERATOR Hyponatremia this procedure are in the results section. ALANINE Routine 09/19/2021 Hypercalcemia Results for AMINOTRANSFERASE 8:58 AM CLEAN IN PLACES OPERATOR Hyponatremia this procedure are in the results section. ALKALINE PHOSPHATASE Routine 09/19/2021 Hypercalcem ia Results for 8:58 AM CLEAN IN PLACES OPERATOR Hyponatremia this procedure are in the results section. ALBUMIN LEVEL Routine 09/19/2021 Hypercalcemia Results for 8:58 AM CLEAN IN PLACES OPERATOR Hyponatremia this procedure are in the results section. CALCIUM LEVEL TOTAL Routine 09/19/2021 Hypercalcemi a Results for 8:58 AM CLEAN IN PLACES OPERATOR Hyponatremia this procedure are in the results section. .GLOMERULAR Routine 09/19/2021 Hypercalcemia Results for FILTRATION RATE 8:58 AM CLEAN IN PLACES OPERATOR Hyponatremia this procedure are in the results section. SERUM CREATININE Routine 09/19/2021 Hypercalcemia Results for 8:58 AM CLEAN IN PLACES OPERATOR Hyponatremia this procedure are in the results section. ELECTROLYTE PANEL Routine 09/19/2021 Hypercalcemia Results for 8:58 AM CLEAN IN PLACES OPERATOR Hyponatremia this procedure are in the results section. BLOOD UREA NITROGEN Routine 09/19/2021 Hypercalcemi a Results for 8:58 AM CLEAN IN PLACES OPERATOR Hyponatremia this procedure are in the results section. GLUCOSE LEVEL Routine 09/19/2021 Hypercalcemia Results for 8:58 AM CLEAN IN PLACES OPERATOR Hyponatremia this procedure are in the results section. COMPREHENSIVE Routine 09/19/2021 Hypercalcemia METABOLIC PANEL 8:58 AM CLEAN IN PLACES OPERATOR Hyponatremia GENERAL LABORATORY Now 09/15/2021 Results f or ADD ON TEST 7:24 PM CLEAN IN PLACES OPERATOR this procedure are in the results section. SORIANO MISCELLANEOUS STAT 09/15/2021 Results f or TEST 5:04 PM CLEAN IN PLACES OPERATOR this procedure are in the results section. DIHYDROXY VITAMIN D 1 STAT 09/15/2021 Result s for 25 LEVEL 5:04 PM CLEAN IN PLACES OPERATOR this procedure are in the results section. NM LUNG PERFUSION STAT 09/15/2021 Results fo r 10:27 AM CLEAN IN PLACES OPERATOR this procedure are in the results section. GENERAL LABORATORY STAT 09/15/2021 Results f or ADD ON TEST 7:11 AM CLEAN IN PLACES OPERATOR this procedure are in the results section. ALBUMIN LEVEL AM 09/15/2021 Results for 2:42 AM CLEAN IN PLACES OPERATOR this procedure are in the results section. MANUAL DIFFERENTIAL AM 09/15/2021 Results for 2:42 AM CLEAN IN PLACES OPERATOR this procedure are in the results section. Results CBC AM 09/15/2021 Results for 2:42 AM CLEAN IN PLACES OPERATOR this procedure are in the results section. CALCIUM LEVEL TOTAL AM 09/15/2021 Results for 2:42 AM CLEAN IN PLACES OPERATOR this procedure are in the results section. .GLOMERULAR AM 09/15/2021 Results for FILTRATION RATE 2:42 AM CLEAN IN PLACES OPERATOR this procedure are in the results section. SERUM CREATININE AM 09/15/2021 Results for 2:42 AM CLEAN IN PLACES OPERATOR this procedure are in the results section. ELECTROLYTE PANEL AM 09/15/2021 Results fo r 2:42 AM CLEAN IN PLACES OPERATOR this procedure are in the results section. BLOOD UREA NITROGEN AM 09/15/2021 Results for 2:42 AM CLEAN IN PLACES OPERATOR this procedure are in the results section. GLUCOSE LEVEL AM 09/15/2021 Results for 2:42 AM CLEAN IN PLACES OPERATOR this procedure are in the results section. COMPLETE BLOOD COUNT AM 09/15/2021 W/ DIFFERENTIAL 2:42 AM CLEAN IN PLACES OPERATOR PHOSPHORUS LEVEL AM 09/15/2021 Results for 2:42 AM CLEAN IN PLACES OPERATOR this procedure are in the results section. MAGNESIUM LEVEL AM 09/15/2021 Results for 2:42 AM CLEAN IN PLACES OPERATOR this procedure are in the results section. BASIC METABOLIC AM 09/15/2021 PANEL, CALCIUM TOTAL 2:42 AM CLEAN IN PLACES OPERATOR PTH INTACT AM 09/15/2021 Results for 2:42 AM CLEAN IN PLACES OPERATOR this procedure are in the results section. EKG, 12-LEAD STAT 09/15/2021 (PORTABLE) CT CHEST WO CONTRAST STAT 09/14/2021 Results for 8:22 PM CLEAN IN PLACES OPERATOR this procedure are in the results section. TROPONIN T STAT 09/14/2021 Results for 6:14 PM CLEAN IN PLACES OPERATOR this procedure are in the results section. FRACTIONATED Now 09/14/2021 Results for BILIRUBIN 11:04 AM CLEAN IN PLACES OPERATOR this procedure are in the results section. TOTAL PROTEIN Now 09/14/2021 Results for 11:04 AM CLEAN IN PLACES OPERATOR this procedure are in the results section. ASPARTATE Now 09/14/2021 Results for AMINOTRANSFERASE 11:04 AM CLEAN IN PLACES OPERATOR this procedure are in the results section. ALANINE Now 09/14/2021 Results for AMINOTRANSFERASE 11:04 AM CLEAN IN PLACES OPERATOR this procedure are in the results section. ALKALINE PHOSPHATASE Now 09/14/2021 Results for 11:04 AM CLEAN IN PLACES OPERATOR this procedure are in the results section. ALBUMIN LEVEL Now 09/14/2021 Results for 11:04 AM CLEAN IN PLACES OPERATOR this procedure are in the results section. CALCIUM LEVEL TOTAL Now 09/14/2021 Results for 11:04 AM CLEAN IN PLACES OPERATOR this procedure are in the results section. .GLOMERULAR Now 09/14/2021 Results for FILTRATION RATE 11:04 AM CLEAN IN PLACES OPERATOR this procedure are in the results section. SERUM CREATININE Now 09/14/2021 Results for 11:04 AM CLEAN IN PLACES OPERATOR this procedure are in the results section. ELECTROLYTE PANEL Now 09/14/2021 Results fo r 11:04 AM CLEAN IN PLACES OPERATOR this procedure are in the results section. BLOOD UREA NITROGEN Now 09/14/2021 Results for 11:04 AM CLEAN IN PLACES OPERATOR this procedure are in the results section. GLUCOSE LEVEL Now 09/14/2021 Results for 11:04 AM CLEAN IN PLACES OPERATOR this procedure are in the results section. MANUAL DIFFERENTIAL STAT 09/14/2021 Results for 11:04 AM CLEAN IN PLACES OPERATOR this procedure are in the results section. Results CBC STAT 09/14/2021 Results for 11:04 AM CLEAN IN PLACES OPERATOR this procedure are in the results section. D DIMER Now 09/14/2021 Results for 11:04 AM CLEAN IN PLACES OPERATOR this procedure are in the results section. APTT Now 09/14/2021 Results for 11:04 AM CLEAN IN PLACES OPERATOR this procedure are in the results section. PROTHROMBIN TIME Now 09/14/2021 Results for 11:04 AM CLEAN IN PLACES OPERATOR this procedure are in the results section. NT PRO BNP Now 09/14/2021 Results for 11:04 AM CLEAN IN PLACES OPERATOR this procedure are in the results section. CARDIAC PANEL Timed Study 09/14/2021 Results for 11:04 AM CLEAN IN PLACES OPERATOR this procedure are in the results section. PHOSPHORUS LEVEL Now 09/14/2021 Results for 11:04 AM CLEAN IN PLACES OPERATOR this procedure are in the results section. MAGNESIUM LEVEL Now 09/14/2021 Results for 11:04 AM CLEAN IN PLACES OPERATOR this procedure are in the results section. COMPREHENSIVE Now 09/14/2021 METABOLIC PANEL 11:04 AM CLEAN IN PLACES OPERATOR COMPLETE BLOOD COUNT Now 09/14/2021 W/ DIFFERENTIAL 11:04 AM CLEAN IN PLACES OPERATOR RESPIRATORY VIRAL Now 09/14/2021 Results fo r PANEL + COVID-19, 11:04 AM CLEAN IN PLACES OPERATOR this NASOPHARYNGEAL SWAB procedur e are in the results section. XR CHEST 1 VW Routine 09/14/2021 Results for 11:01 AM CLEAN IN PLACES OPERATOR this procedure are in the results section. PATHOLOGY SURGICAL Routine 09/03/2021 Lung mass found on Res ults for INTERPRETATION 3:57 PM CLEAN IN PLACES OPERATOR diagnostic imaging of this lung procedure are in the results section. BIOPSY OR EXCISION OF 09/03/2021 Lung mass found on LYMPH NODE(S); OPEN, 3:05 PM CLEAN IN PLACES OPERATOR diagnostic imaging o f INGUINOFEMORAL lung NODE(S) Special Needs 120minsNY @ [address] RODRIGUEZ SULEMAN PATH Routine 09/03/2021 12:24 R esults for REVIEW PM CLEAN IN PLACES OPERATOR this procedure are in the results section. .DR. RODRIGUEZ PROT Routine 09/03/2021 12:24 Resul ts for ELEC PATH REVIEW PM CLEAN IN PLACES OPERATOR this proced ure are in the results section. FREE KAPPA/FREE LAMBDA Routine 09/03/2021 12:24 R esults for RATIO PM CLEAN IN PLACES OPERATOR this procedure are in the results section. IMMUNOGLOBULIN G SERUM Routine 09/03/2021 12:24 Lymphadenopath y Results for PM CLEAN IN PLACES OPERATOR this procedure are in the results section. JOSEPH JOSEPH VIRUS Routine 09/03/2021 12:24 Lymphadenopathy Re sults for PANEL PM CLEAN IN PLACES OPERATOR this procedure are in the results section. IMMUNOGLOBULIN M SERUM Routine 09/03/2021 12:24 Lymphadenopath y Results for PM CLEAN IN PLACES OPERATOR this procedure are in the results section. IMMUNOGLOBULIN A SERUM Routine 09/03/2021 12:24 Lymphadenopath y Results for PM CLEAN IN PLACES OPERATOR this procedure are in the results section. IMMUNOFIXATION Routine 09/03/2021 12:24 Lymphadenopathy Result s for ELECTROPHORESIS PM CLEAN IN PLACES OPERATOR this procedu re are in the results section. FREE LAMBDA LIGHT Routine 09/03/2021 12:24 Lymphadenopathy Res ults for CHAIN PM CLEAN IN PLACES OPERATOR this procedure are in the results section. FREE KAPPA LIGHT CHAIN Routine 09/03/2021 12:24 Lymphadenopath y Results for PM CLEAN IN PLACES OPERATOR this procedure are in the results section. IGG SUBCLASSES, SERUM Routine 09/03/2021 12:24 Lymphadenopathy Results for PM CLEAN IN PLACES OPERATOR this procedure are in the results section. PROTEIN Routine 09/03/2021 12:24 Lymphadenopathy Results for ELECTROPHORESIS, SERUM PM CLEAN IN PLACES OPERATOR this procedure are in the results section. JOSEPH JOSEPH VIRUS Routine 09/03/2021 12:24 Resul ts for PANEL PATH REVIEW PM CLEAN IN PLACES OPERATOR this proce dure are in the results section. TMP INTERPRETATION Routine 09/01/2021 1:48 Resul ts for MANUAL ANTIBODY SCREEN PM CLEAN IN PLACES OPERATOR this procedure NEGATIVE are in the results section. TMP ABORH DISCREPANCY Routine 09/01/2021 1:48 Re sults for INTERPRETATION PM CLEAN IN PLACES OPERATOR this procedur e are in the results section. CLOT EXPIRATION DATE Routine 09/01/2021 1:48 Res ults for PM CLEAN IN PLACES OPERATOR this procedure are in the results section. ABORH MANUAL Routine 09/01/2021 1:48 Results for PM CLEAN IN PLACES OPERATOR this procedure are in the results section. ANTIBODY SCREEN MANUAL Routine 09/01/2021 1:48 R esults for PM CLEAN IN PLACES OPERATOR this procedure are in the results section. MANUAL DIFFERENTIAL Routine 09/01/2021 1:48 Mediastinal Resu lts for PM CLEAN IN PLACES OPERATOR lymphadenopathy this procedu re are in the results section. Results CBC Routine 09/01/2021 1:48 Mediastinal Results for PM CLEAN IN PLACES OPERATOR lymphadenopathy this procedu re are in the results section. FRACTIONATED BILIRUBIN Routine 09/01/2021 1:48 Mediastinal R esults for PM CLEAN IN PLACES OPERATOR lymphadenopathy this procedu re are in the results section. TOTAL PROTEIN Routine 09/01/2021 1:48 Mediastinal Results fo r PM CLEAN IN PLACES OPERATOR lymphadenopathy this procedu re are in the results section. ASPARTATE Routine 09/01/2021 1:48 Mediastinal Results for AMINOTRANSFERASE PM CLEAN IN PLACES OPERATOR lymphadenopathy this pro cedure are in the results section. ALANINE Routine 09/01/2021 1:48 Mediastinal Results for AMINOTRANSFERASE PM CLEAN IN PLACES OPERATOR lymphadenopathy this pro cedure are in the results section. ALKALINE PHOSPHATASE Routine 09/01/2021 1:48 Mediastinal Res ults for PM CLEAN IN PLACES OPERATOR lymphadenopathy this procedu re are in the results section. ALBUMIN LEVEL Routine 09/01/2021 1:48 Mediastinal Results fo r PM CLEAN IN PLACES OPERATOR lymphadenopathy this procedu re are in the results section. CALCIUM LEVEL TOTAL Routine 09/01/2021 1:48 Mediastinal Resu lts for PM CLEAN IN PLACES OPERATOR lymphadenopathy this procedu re are in the results section. .GLOMERULAR FILTRATION Routine 09/01/2021 1:48 Mediastinal R esults for RATE PM CLEAN IN PLACES OPERATOR lymphadenopathy this procedu re are in the results section. SERUM CREATININE Routine 09/01/2021 1:48 Mediastinal Results for PM CLEAN IN PLACES OPERATOR lymphadenopathy this procedu re are in the results section. ELECTROLYTE PANEL Routine 09/01/2021 1:48 Mediastinal Result s for PM CLEAN IN PLACES OPERATOR lymphadenopathy this procedu re are in the results section. BLOOD UREA NITROGEN Routine 09/01/2021 1:48 Mediastinal Resu lts for PM CLEAN IN PLACES OPERATOR lymphadenopathy this procedu re are in the results section. GLUCOSE LEVEL Routine 09/01/2021 1:48 Mediastinal Results fo r PM CLEAN IN PLACES OPERATOR lymphadenopathy this procedu re are in the results section. COMPREHENSIVE Routine 09/01/2021 1:48 Mediastinal METABOLIC PANEL PM CLEAN IN PLACES OPERATOR lymphadenopathy COMPLETE BLOOD COUNT Routine 09/01/2021 1:48 Mediastinal W/ DIFFERENTIAL PM CLEAN IN PLACES OPERATOR lymphadenopathy THYROID STIMULATING Routine 09/01/2021 1:48 Mediastinal Resu lts for HORMONE PM CLEAN IN PLACES OPERATOR lymphadenopathy this procedu re are in the results section. FREE THYROXINE Routine 09/01/2021 1:48 Mediastinal Results f or PM CLEAN IN PLACES OPERATOR lymphadenopathy this procedu re are in the results section. HEMOGLOBIN A1C Routine 09/01/2021 1:48 Mediastinal Results f or PM CLEAN IN PLACES OPERATOR lymphadenopathy this procedu re are in the results section. APTT Routine 09/01/2021 1:48 Mediastinal Results for PM CLEAN IN PLACES OPERATOR lymphadenopathy this procedu re are in the results section. PROTHROMBIN TIME Routine 09/01/2021 1:48 Mediastinal Results for PM CLEAN IN PLACES OPERATOR lymphadenopathy this procedu re are in the results section. TMP ABORH DISCREPANCY Routine 09/01/2021 1:44 Re sults for INTERPRETATION PM CLEAN IN PLACES OPERATOR this procedur e are in the results section. MANUAL CONFIRM ABORH Routine 09/01/2021 1:44 Res ults for PM CLEAN IN PLACES OPERATOR this procedure are in the results section. COVID-19 Routine 09/01/2021 1:28 Suspected COVID-19 Resul ts for (SARS-COV-2) PCR PM CLEAN IN PLACES OPERATOR this proced ure ASYMPTOMATIC are in the results section. HP FC LYMPHOMA B Routine 08/15/2021 4:45 HODGKIN INTERPRETATION PM CLEAN IN PLACES OPERATOR AND REPORT HP FC FLOW CYTOMETRY Routine 08/15/2021 4:45 Res ults for BLOOD COLLECTION PM CLEAN IN PLACES OPERATOR this proced ure are in the results section. CYTOLOGY IMAGE-GUIDED Routine 08/15/2021 2:05 Lung mass found on Results for FNA INTERPRETATION PM CLEAN IN PLACES OPERATOR diagnostic imaging of this procedure lung are in the results section. CYTOLOGY IMAGE-GUIDED Routine 08/15/2021 1:58 Lung mass found on Results for FNA INTERPRETATION PM CLEAN IN PLACES OPERATOR diagnostic imaging of this procedure lung are in the results section. CYTOLOGY IMAGE-GUIDED Routine 08/15/2021 1:52 Lung mass found on Results for FNA INTERPRETATION PM CLEAN IN PLACES OPERATOR diagnostic imaging of this procedure lung are in the results section. BRONCHOSCOPY WITH EBUS 08/15/2021 1:04 Lung mass foun d on PERIPHERAL PM CLEAN IN PLACES OPERATOR diagnostic imaging of LESION-RADIAL PROBE lung COVID-19 Routine 08/13/2021 10:58 Suspicion Results for (SARS-COV-2) PCR AM CLEAN IN PLACES OPERATOR this proced ure ASYMPTOMATIC are in the results section. SODIUM URINE Routine 08/13/2021 10:35 Hyponatremia Results for AM CLEAN IN PLACES OPERATOR this procedure are in the results section. POTASSIUM LEVEL URINE Routine 08/13/2021 10:35 Hyponatremia Re sults for AM CLEAN IN PLACES OPERATOR this procedure are in the results section. OSMOLALITY URINE Routine 08/13/2021 10:35 Hyponatremia Results for AM CLEAN IN PLACES OPERATOR this procedure are in the results section. CALCIUM LEVEL TOTAL Routine 08/13/2021 10:32 Hyponatremia Resu lts for AM CLEAN IN PLACES OPERATOR this procedure are in the results section. .GLOMERULAR FILTRATION Routine 08/13/2021 10:32 Hyponatremia R esults for RATE AM CLEAN IN PLACES OPERATOR this procedure are in the results section. SERUM CREATININE Routine 08/13/2021 10:32 Hyponatremia Results for AM CLEAN IN PLACES OPERATOR this procedure are in the results section. ELECTROLYTE PANEL Routine 08/13/2021 10:32 Hyponatremia Result s for AM CLEAN IN PLACES OPERATOR this procedure are in the results section. BLOOD UREA NITROGEN Routine 08/13/2021 10:32 Hyponatremia Resu lts for AM CLEAN IN PLACES OPERATOR this procedure are in the results section. GLUCOSE LEVEL Routine 08/13/2021 10:32 Hyponatremia Results fo r AM CLEAN IN PLACES OPERATOR this procedure are in the results section. OSMOLALITY Routine 08/13/2021 10:32 Hyponatremia Results for AM CLEAN IN PLACES OPERATOR this procedure are in the results section. BASIC METABOLIC PANEL, Routine 08/13/2021 10:32 Hyponatremia CALCIUM TOTAL AM CLEAN IN PLACES OPERATOR PETCT INITIAL Routine 08/13/2021 10:09 Lung mass found on Resu lts for TREATMENT STRATEGY AM CLEAN IN PLACES OPERATOR diagnostic imaging of this procedure lung are in the results section. TMP HCVAB INTERP Routine 08/07/2021 12:08 Results for PM CLEAN IN PLACES OPERATOR this procedure are in the results section. HEPATITIS B SURFACE AG Routine 08/07/2021 12:08 R esults for W/CONFIRM PM CLEAN IN PLACES OPERATOR this procedure are in the results section. HEPATITIS B CORE TOTAL Routine 08/07/2021 12:08 R esults for ANTIBODY PM CLEAN IN PLACES OPERATOR this procedure are in the results section. MANUAL DIFFERENTIAL Routine 08/07/2021 12:08 Lung mass found o n Results for PM CLEAN IN PLACES OPERATOR diagnostic imaging of this p rocedure lung are in the results section. Results CBC Routine 08/07/2021 12:08 Lung mass found on Resul ts for PM CLEAN IN PLACES OPERATOR diagnostic imaging of this p rocedure lung are in the results section. FRACTIONATED BILIRUBIN Routine 08/07/2021 12:08 Lung mass foun d on Results for PM CLEAN IN PLACES OPERATOR diagnostic imaging of this p rocedure lung are in the results section. TOTAL PROTEIN Routine 08/07/2021 12:08 Lung mass found on Resu lts for PM CLEAN IN PLACES OPERATOR diagnostic imaging of this p rocedure lung are in the results section. ASPARTATE Routine 08/07/2021 12:08 Lung mass found on Resul ts for AMINOTRANSFERASE PM CLEAN IN PLACES OPERATOR diagnostic imaging of th is procedure lung are in the results section. ALANINE Routine 08/07/2021 12:08 Lung mass found on Resul ts for AMINOTRANSFERASE PM CLEAN IN PLACES OPERATOR diagnostic imaging of th is procedure lung are in the results section. ALKALINE PHOSPHATASE Routine 08/07/2021 12:08 Lung mass found on Results for PM CLEAN IN PLACES OPERATOR diagnostic imaging of this p rocedure lung are in the results section. ALBUMIN LEVEL Routine 08/07/2021 12:08 Lung mass found on Resu lts for PM CLEAN IN PLACES OPERATOR diagnostic imaging of this p rocedure lung are in the results section. CALCIUM LEVEL TOTAL Routine 08/07/2021 12:08 Lung mass found o n Results for PM CLEAN IN PLACES OPERATOR diagnostic imaging of this p rocedure lung are in the results section. .GLOMERULAR FILTRATION Routine 08/07/2021 12:08 Lung mass foun d on Results for RATE PM CLEAN IN PLACES OPERATOR diagnostic imaging of this p rocedure lung are in the results section. SERUM CREATININE Routine 08/07/2021 12:08 Lung mass found on R esults for PM CLEAN IN PLACES OPERATOR diagnostic imaging of this p rocedure lung are in the results section. ELECTROLYTE PANEL Routine 08/07/2021 12:08 Lung mass found on Results for PM CLEAN IN PLACES OPERATOR diagnostic imaging of this p rocedure lung are in the results section. BLOOD UREA NITROGEN Routine 08/07/2021 12:08 Lung mass found o n Results for PM CLEAN IN PLACES OPERATOR diagnostic imaging of this p rocedure lung are in the results section. GLUCOSE LEVEL Routine 08/07/2021 12:08 Lung mass found on Resu lts for PM CLEAN IN PLACES OPERATOR diagnostic imaging of this p rocedure lung are in the results section. PROSTATE SPECIFIC Routine 08/07/2021 12:08 Lung mass found on Results for ANTIGEN PM CLEAN IN PLACES OPERATOR diagnostic imaging of this p rocedure lung are in the results section. THYROID STIMULATING Routine 08/07/2021 12:08 Lung mass found o n Results for HORMONE PM CLEAN IN PLACES OPERATOR diagnostic imaging of this p rocedure lung are in the results section. HEPATITIS C VIRUS Routine 08/07/2021 12:08 Lung mass found on Results for ANTIBODY PM CLEAN IN PLACES OPERATOR diagnostic imaging of this p rocedure lung are in the results section. HEPATITIS B CORE Routine 08/07/2021 12:08 Lung mass found on R esults for ANTIBODY PM CLEAN IN PLACES OPERATOR diagnostic imaging of this p rocedure lung are in the results section. HEPATITIS B SURFACE Routine 08/07/2021 12:08 Lung mass found o n Results for ANTIGEN, SERUM PM CLEAN IN PLACES OPERATOR diagnostic imaging of this procedure lung are in the results section. APTT Routine 08/07/2021 12:08 Lung mass found on Resul ts for PM CLEAN IN PLACES OPERATOR diagnostic imaging of this p rocedure lung are in the results section. PROTHROMBIN TIME Routine 08/07/2021 12:08 Lung mass found on R esults for PM CLEAN IN PLACES OPERATOR diagnostic imaging of this p rocedure lung are in the results section. COMPLETE BLOOD COUNT Routine 08/07/2021 12:08 Lung mass found on W/ DIFFERENTIAL PM CLEAN IN PLACES OPERATOR diagnostic imaging of lung COMPREHENSIVE Routine 08/07/2021 12:08 Lung mass found on METABOLIC PANEL PM CLEAN IN PLACES OPERATOR diagnostic imaging of lung GENERAL LABORATORY ADD STAT 08/07/2021 11:44 Lung mass foun d on Results for ON TEST AM CLEAN IN PLACES OPERATOR diagnostic imaging of this p rocedure lung are in the results section. MANUAL DIFFERENTIAL AM 07/24/2021 6:51 Resu lts for AM CLEAN IN PLACES OPERATOR this procedure are in the results section. Results CBC AM 07/24/2021 6:51 Results for AM CLEAN IN PLACES OPERATOR this procedure are in the results section. FRACTIONATED BILIRUBIN AM 07/24/2021 6:51 R esults for AM CLEAN IN PLACES OPERATOR this procedure are in the results section. TOTAL PROTEIN AM 07/24/2021 6:51 Results fo r AM CLEAN IN PLACES OPERATOR this procedure are in the results section. ASPARTATE AM 07/24/2021 6:51 Results for AMINOTRANSFERASE AM CLEAN IN PLACES OPERATOR this proced ure are in the results section. ALANINE AM 07/24/2021 6:51 Results for AMINOTRANSFERASE AM CLEAN IN PLACES OPERATOR this proced ure are in the results section. ALKALINE PHOSPHATASE AM 07/24/2021 6:51 Res ults for AM CLEAN IN PLACES OPERATOR this procedure are in the results section. ALBUMIN LEVEL AM 07/24/2021 6:51 Results fo r AM CLEAN IN PLACES OPERATOR this procedure are in the results section. CALCIUM LEVEL TOTAL AM 07/24/2021 6:51 Resu lts for AM CLEAN IN PLACES OPERATOR this procedure are in the results section. .GLOMERULAR FILTRATION AM 07/24/2021 6:51 R esults for RATE AM CLEAN IN PLACES OPERATOR this procedure are in the results section. SERUM CREATININE AM 07/24/2021 6:51 Results for AM CLEAN IN PLACES OPERATOR this procedure are in the results section. ELECTROLYTE PANEL AM 07/24/2021 6:51 Result s for AM CLEAN IN PLACES OPERATOR this procedure are in the results section. BLOOD UREA NITROGEN AM 07/24/2021 6:51 Resu lts for AM CLEAN IN PLACES OPERATOR this procedure are in the results section. GLUCOSE LEVEL AM 07/24/2021 6:51 Results fo r AM CLEAN IN PLACES OPERATOR this procedure are in the results section. PROTHROMBIN TIME AM 07/24/2021 6:51 Results for AM CLEAN IN PLACES OPERATOR this procedure are in the results section. COMPREHENSIVE AM 07/24/2021 6:51 METABOLIC PANEL AM CLEAN IN PLACES OPERATOR COMPLETE BLOOD COUNT AM 07/24/2021 6:51 W/ DIFFERENTIAL AM CLEAN IN PLACES OPERATOR PHOSPHORUS LEVEL AM 07/24/2021 6:51 Results for AM CLEAN IN PLACES OPERATOR this procedure are in the results section. MAGNESIUM LEVEL AM 07/24/2021 6:51 Results for AM CLEAN IN PLACES OPERATOR this procedure are in the results section. IR CHEST XRAY 1 VIEW Routine 07/23/2021 2:36 Res ults for PM CLEAN IN PLACES OPERATOR this procedure are in the results section. IR CHEST XRAY 1 VIEW Routine 07/23/2021 11:56 Res ults for AM CLEAN IN PLACES OPERATOR this procedure are in the results section. PATHOLOGY BIOPSY Routine 07/23/2021 11:12 Influenza Results for INTERPRETATION AM CLEAN IN PLACES OPERATOR Dehydration this procedure Patient on oxyge n are in the Lung cancer results Hyposmolality and/or section . 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 MANUAL DIFFERENTIAL AM 07/23/2021 6:10 Resu lts for AM CLEAN IN PLACES OPERATOR this procedure are in the results section. Results CBC AM 07/23/2021 6:10 Results for AM CLEAN IN PLACES OPERATOR this procedure are in the results section. FRACTIONATED BILIRUBIN AM 07/23/2021 6:10 R esults for AM CLEAN IN PLACES OPERATOR this procedure are in the results section. TOTAL PROTEIN AM 07/23/2021 6:10 Results fo r AM CLEAN IN PLACES OPERATOR this procedure are in the results section. ASPARTATE AM 07/23/2021 6:10 Results for AMINOTRANSFERASE AM CLEAN IN PLACES OPERATOR this proced ure are in the results section. ALANINE AM 07/23/2021 6:10 Results for AMINOTRANSFERASE AM CLEAN IN PLACES OPERATOR this proced ure are in the results section. ALKALINE PHOSPHATASE AM 07/23/2021 6:10 Res ults for AM CLEAN IN PLACES OPERATOR this procedure are in the results section. ALBUMIN LEVEL AM 07/23/2021 6:10 Results fo r AM CLEAN IN PLACES OPERATOR this procedure are in the results section. CALCIUM LEVEL TOTAL AM 07/23/2021 6:10 Resu lts for AM CLEAN IN PLACES OPERATOR this procedure are in the results section. .GLOMERULAR FILTRATION AM 07/23/2021 6:10 R esults for RATE AM CLEAN IN PLACES OPERATOR this procedure are in the results section. SERUM CREATININE AM 07/23/2021 6:10 Results for AM CLEAN IN PLACES OPERATOR this procedure are in the results section. ELECTROLYTE PANEL AM 07/23/2021 6:10 Result s for AM CLEAN IN PLACES OPERATOR this procedure are in the results section. BLOOD UREA NITROGEN AM 07/23/2021 6:10 Resu lts for AM CLEAN IN PLACES OPERATOR this procedure are in the results section. GLUCOSE LEVEL AM 07/23/2021 6:10 Results fo r AM CLEAN IN PLACES OPERATOR this procedure are in the results section. PROTHROMBIN TIME AM 07/23/2021 6:10 Results for AM CLEAN IN PLACES OPERATOR this procedure are in the results section. COMPREHENSIVE AM 07/23/2021 6:10 METABOLIC PANEL AM CLEAN IN PLACES OPERATOR COMPLETE BLOOD COUNT AM 07/23/2021 6:10 W/ DIFFERENTIAL AM CLEAN IN PLACES OPERATOR PHOSPHORUS LEVEL AM 07/23/2021 6:10 Results for AM CLEAN IN PLACES OPERATOR this procedure are in the results section. MAGNESIUM LEVEL AM 07/23/2021 6:10 Results for AM CLEAN IN PLACES OPERATOR this procedure are in the results section. XR SHOULDER 2+ VW Routine 07/22/2021 12:46 Result s for RIGHT PM CLEAN IN PLACES OPERATOR this procedure are in the results section. XR HUMERUS 2 VIEWS Routine 07/22/2021 12:43 Resul ts for MINIMUM RIGHT PM CLEAN IN PLACES OPERATOR this procedure are in the results section. MANUAL DIFFERENTIAL AM 07/22/2021 5:27 Resu lts for AM CLEAN IN PLACES OPERATOR this procedure are in the results section. Results CBC AM 07/22/2021 5:27 Results for AM CLEAN IN PLACES OPERATOR this procedure are in the results section. FRACTIONATED BILIRUBIN AM 07/22/2021 5:27 R esults for AM CLEAN IN PLACES OPERATOR this procedure are in the results section. TOTAL PROTEIN AM 07/22/2021 5:27 Results fo r AM CLEAN IN PLACES OPERATOR this procedure are in the results section. ASPARTATE AM 07/22/2021 5:27 Results for AMINOTRANSFERASE AM CLEAN IN PLACES OPERATOR this proced ure are in the results section. ALANINE AM 07/22/2021 5:27 Results for AMINOTRANSFERASE AM CLEAN IN PLACES OPERATOR this proced ure are in the results section. ALKALINE PHOSPHATASE AM 07/22/2021 5:27 Res ults for AM CLEAN IN PLACES OPERATOR this procedure are in the results section. ALBUMIN LEVEL AM 07/22/2021 5:27 Results fo r AM CLEAN IN PLACES OPERATOR this procedure are in the results section. CALCIUM LEVEL TOTAL AM 07/22/2021 5:27 Resu lts for AM CLEAN IN PLACES OPERATOR this procedure are in the results section. .GLOMERULAR FILTRATION AM 07/22/2021 5:27 R esults for RATE AM CLEAN IN PLACES OPERATOR this procedure are in the results section. SERUM CREATININE AM 07/22/2021 5:27 Results for AM CLEAN IN PLACES OPERATOR this procedure are in the results section. ELECTROLYTE PANEL AM 07/22/2021 5:27 Result s for AM CLEAN IN PLACES OPERATOR this procedure are in the results section. BLOOD UREA NITROGEN AM 07/22/2021 5:27 Resu lts for AM CLEAN IN PLACES OPERATOR this procedure are in the results section. GLUCOSE LEVEL AM 07/22/2021 5:27 Results fo r AM CLEAN IN PLACES OPERATOR this procedure are in the results section. VITAMIN D 25 HYDROXY AM 07/22/2021 5:27 Res ults for LEVEL AM CLEAN IN PLACES OPERATOR this procedure are in the results section. COMPREHENSIVE AM 07/22/2021 5:27 METABOLIC PANEL AM CLEAN IN PLACES OPERATOR COMPLETE BLOOD COUNT AM 07/22/2021 5:27 W/ DIFFERENTIAL AM CLEAN IN PLACES OPERATOR PHOSPHORUS LEVEL AM 07/22/2021 5:27 Results for AM CLEAN IN PLACES OPERATOR this procedure are in the results section. MAGNESIUM LEVEL AM 07/22/2021 5:27 Results for AM CLEAN IN PLACES OPERATOR this procedure are in the results section. PTH-RELATED PEPTIDE Routine 07/21/2021 3:30 Resu lts for PM CLEAN IN PLACES OPERATOR this procedure are in the results section. .DR. MERON MOSQUEDAFE PATH Now 07/21/2021 3:00 Res ults for REVIEW PM CLEAN IN PLACES OPERATOR this procedure are in the results section. .DR. CHANCE U PROT ELEC Routine 07/21/2021 3:00 R esults for PATH REVIEW PM CLEAN IN PLACES OPERATOR this procedure are in the results section. IMMUNOFIXATION Now 07/21/2021 3:00 Results f or ELECTROPHORESIS URINE PM CLEAN IN PLACES OPERATOR this p rocedure are in the results section. .TOTAL VOLUME Routine 07/21/2021 3:00 Results fo r PM CLEAN IN PLACES OPERATOR this procedure are in the results section. URINE TOTAL PROTEIN Routine 07/21/2021 3:00 Resu lts for PM CLEAN IN PLACES OPERATOR this procedure are in the results section. PROTEIN Now 07/21/2021 3:00 Results for ELECTROPHORESIS URINE PM CLEAN IN PLACES OPERATOR this p rocedure are in the results section. ECHOCARDIOGRAM 2D Routine 07/21/2021 12:26 Result s for COMPLETE W CONTRAST PM CLEAN IN PLACES OPERATOR this pro cedure are in the results section. .DR. JIMY SHELL PATH Routine 07/21/2021 6:14 Resu lts for REVIEW AM CLEAN IN PLACES OPERATOR this procedure are in the results section. .DR. AHN PROT ELEC Routine 07/21/2021 6:14 Res ults for PATH REVIEW AM CLEAN IN PLACES OPERATOR this procedure are in the results section. IMMUNOFIXATION Routine 07/21/2021 6:14 Results f or ELECTROPHORESIS AM CLEAN IN PLACES OPERATOR this procedu re are in the results section. FREE KAPPA/FREE LAMBDA Routine 07/21/2021 6:14 R esults for RATIO AM CLEAN IN PLACES OPERATOR this procedure are in the results section. MANUAL DIFFERENTIAL AM 07/21/2021 6:14 Resu lts for AM CLEAN IN PLACES OPERATOR this procedure are in the results section. Results CBC AM 07/21/2021 6:14 Results for AM CLEAN IN PLACES OPERATOR this procedure are in the results section. FRACTIONATED BILIRUBIN AM 07/21/2021 6:14 R esults for AM CLEAN IN PLACES OPERATOR this procedure are in the results section. TOTAL PROTEIN AM 07/21/2021 6:14 Results fo r AM CLEAN IN PLACES OPERATOR this procedure are in the results section. ASPARTATE AM 07/21/2021 6:14 Results for AMINOTRANSFERASE AM CLEAN IN PLACES OPERATOR this proced ure are in the results section. ALANINE AM 07/21/2021 6:14 Results for AMINOTRANSFERASE AM CLEAN IN PLACES OPERATOR this proced ure are in the results section. ALKALINE PHOSPHATASE AM 07/21/2021 6:14 Res ults for AM CLEAN IN PLACES OPERATOR this procedure are in the results section. ALBUMIN LEVEL AM 07/21/2021 6:14 Results fo r AM CLEAN IN PLACES OPERATOR this procedure are in the results section. CALCIUM LEVEL TOTAL AM 07/21/2021 6:14 Resu lts for AM CLEAN IN PLACES OPERATOR this procedure are in the results section. .GLOMERULAR FILTRATION AM 07/21/2021 6:14 R esults for RATE AM CLEAN IN PLACES OPERATOR this procedure are in the results section. SERUM CREATININE AM 07/21/2021 6:14 Results for AM CLEAN IN PLACES OPERATOR this procedure are in the results section. ELECTROLYTE PANEL AM 07/21/2021 6:14 Result s for AM CLEAN IN PLACES OPERATOR this procedure are in the results section. BLOOD UREA NITROGEN AM 07/21/2021 6:14 Resu lts for AM CLEAN IN PLACES OPERATOR this procedure are in the results section. GLUCOSE LEVEL AM 07/21/2021 6:14 Results fo r AM CLEAN IN PLACES OPERATOR this procedure are in the results section. COMPREHENSIVE AM 07/21/2021 6:14 METABOLIC PANEL AM CLEAN IN PLACES OPERATOR COMPLETE BLOOD COUNT AM 07/21/2021 6:14 W/ DIFFERENTIAL AM CLEAN IN PLACES OPERATOR PHOSPHORUS LEVEL AM 07/21/2021 6:14 Results for AM CLEAN IN PLACES OPERATOR this procedure are in the results section. MAGNESIUM LEVEL AM 07/21/2021 6:14 Results for AM CLEAN IN PLACES OPERATOR this procedure are in the results section. FREE LAMBDA LIGHT Routine 07/21/2021 6:14 Result s for CHAIN AM CLEAN IN PLACES OPERATOR this procedure are in the results section. FREE KAPPA LIGHT CHAIN Routine 07/21/2021 6:14 R esults for AM CLEAN IN PLACES OPERATOR this procedure are in the results section. PROTEIN Routine 07/21/2021 6:14 Results for ELECTROPHORESIS, SERUM AM CLEAN IN PLACES OPERATOR this procedure are in the results section. PTH INTACT Routine 07/21/2021 6:14 Results for AM CLEAN IN PLACES OPERATOR this procedure are in the results section. MANUAL DIFFERENTIAL AM 07/20/2021 7:14 Resu lts for AM CLEAN IN PLACES OPERATOR this procedure are in the results section. Results CBC AM 07/20/2021 7:14 Results for AM CLEAN IN PLACES OPERATOR this procedure are in the results section. FRACTIONATED BILIRUBIN AM 07/20/2021 7:14 R esults for AM CLEAN IN PLACES OPERATOR this procedure are in the results section. TOTAL PROTEIN AM 07/20/2021 7:14 Results fo r AM CLEAN IN PLACES OPERATOR this procedure are in the results section. ASPARTATE AM 07/20/2021 7:14 Results for AMINOTRANSFERASE AM CLEAN IN PLACES OPERATOR this proced ure are in the results section. ALANINE AM 07/20/2021 7:14 Results for AMINOTRANSFERASE AM CLEAN IN PLACES OPERATOR this proced ure are in the results section. ALKALINE PHOSPHATASE AM 07/20/2021 7:14 Res ults for AM CLEAN IN PLACES OPERATOR this procedure are in the results section. ALBUMIN LEVEL AM 07/20/2021 7:14 Results fo r AM CLEAN IN PLACES OPERATOR this procedure are in the results section. CALCIUM LEVEL TOTAL AM 07/20/2021 7:14 Resu lts for AM CLEAN IN PLACES OPERATOR this procedure are in the results section. .GLOMERULAR FILTRATION AM 07/20/2021 7:14 R esults for RATE AM CLEAN IN PLACES OPERATOR this procedure are in the results section. SERUM CREATININE AM 07/20/2021 7:14 Results for AM CLEAN IN PLACES OPERATOR this procedure are in the results section. ELECTROLYTE PANEL AM 07/20/2021 7:14 Result s for AM CLEAN IN PLACES OPERATOR this procedure are in the results section. BLOOD UREA NITROGEN AM 07/20/2021 7:14 Resu lts for AM CLEAN IN PLACES OPERATOR this procedure are in the results section. GLUCOSE LEVEL AM 07/20/2021 7:14 Results fo r AM CLEAN IN PLACES OPERATOR this procedure are in the results section. COMPREHENSIVE AM 07/20/2021 7:14 METABOLIC PANEL AM CLEAN IN PLACES OPERATOR COMPLETE BLOOD COUNT AM 07/20/2021 7:14 W/ DIFFERENTIAL AM CLEAN IN PLACES OPERATOR PHOSPHORUS LEVEL AM 07/20/2021 7:14 Results for AM CLEAN IN PLACES OPERATOR this procedure are in the results section. MAGNESIUM LEVEL AM 07/20/2021 7:14 Results for AM CLEAN IN PLACES OPERATOR this procedure are in the results section. GENERAL LABORATORY ADD Now 07/19/2021 3:12 R esults for ON TEST PM CLEAN IN PLACES OPERATOR this procedure are in the results section. CT CHEST PULMONARY STAT 07/19/2021 1:15 Resul ts for EMBOLISM W CONTRAST PM CLEAN IN PLACES OPERATOR this pro cedure are in the results section. XR CHEST 1 VW PORTABLE STAT 07/19/2021 11:16 R esults for AM CLEAN IN PLACES OPERATOR this procedure are in the results section. PROCALCITONIN Now 07/19/2021 10:43 Results fo r AM CLEAN IN PLACES OPERATOR this procedure are in the results section. FRACTIONATED BILIRUBIN Now 07/19/2021 10:43 R esults for AM CLEAN IN PLACES OPERATOR this procedure are in the results section. TOTAL PROTEIN Now 07/19/2021 10:43 Results fo r AM CLEAN IN PLACES OPERATOR this procedure are in the results section. ASPARTATE Now 07/19/2021 10:43 Results for AMINOTRANSFERASE AM CLEAN IN PLACES OPERATOR this proced ure are in the results section. ALANINE Now 07/19/2021 10:43 Results for AMINOTRANSFERASE AM CLEAN IN PLACES OPERATOR this proced ure are in the results section. ALKALINE PHOSPHATASE Now 07/19/2021 10:43 Res ults for AM CLEAN IN PLACES OPERATOR this procedure are in the results section. ALBUMIN LEVEL Now 07/19/2021 10:43 Results fo r AM CLEAN IN PLACES OPERATOR this procedure are in the results section. CALCIUM LEVEL TOTAL Now 07/19/2021 10:43 Resu lts for AM CLEAN IN PLACES OPERATOR this procedure are in the results section. .GLOMERULAR FILTRATION Now 07/19/2021 10:43 R esults for RATE AM CLEAN IN PLACES OPERATOR this procedure are in the results section. SERUM CREATININE Now 07/19/2021 10:43 Results for AM CLEAN IN PLACES OPERATOR this procedure are in the results section. ELECTROLYTE PANEL Now 07/19/2021 10:43 Result s for AM CLEAN IN PLACES OPERATOR this procedure are in the results section. BLOOD UREA NITROGEN Now 07/19/2021 10:43 Resu lts for AM CLEAN IN PLACES OPERATOR this procedure are in the results section. GLUCOSE LEVEL Now 07/19/2021 10:43 Results fo r AM CLEAN IN PLACES OPERATOR this procedure are in the results section. MANUAL DIFFERENTIAL STAT 07/19/2021 10:43 Resu lts for AM CLEAN IN PLACES OPERATOR this procedure are in the results section. Results CBC STAT 07/19/2021 10:43 Results for AM CLEAN IN PLACES OPERATOR this procedure are in the results section. D DIMER Now 07/19/2021 10:43 Results for AM CLEAN IN PLACES OPERATOR this procedure are in the results section. APTT Now 07/19/2021 10:43 Results for AM CLEAN IN PLACES OPERATOR this procedure are in the results section. PROTHROMBIN TIME Now 07/19/2021 10:43 Results for AM CLEAN IN PLACES OPERATOR this procedure are in the results section. NT PRO BNP Now 07/19/2021 10:43 Results for AM CLEAN IN PLACES OPERATOR this procedure are in the results section. CARDIAC PANEL Timed Study 07/19/2021 10:43 Results fo r AM CLEAN IN PLACES OPERATOR this procedure are in the results section. PHOSPHORUS LEVEL Now 07/19/2021 10:43 Results for AM CLEAN IN PLACES OPERATOR this procedure are in the results section. MAGNESIUM LEVEL Now 07/19/2021 10:43 Results for AM CLEAN IN PLACES OPERATOR this procedure are in the results section. COMPREHENSIVE Now 07/19/2021 10:43 METABOLIC PANEL AM CLEAN IN PLACES OPERATOR COMPLETE BLOOD COUNT Now 07/19/2021 10:43 W/ DIFFERENTIAL AM CLEAN IN PLACES OPERATOR RESPIRATORY VIRAL Now 07/19/2021 10:43 Result s for PANEL + COVID-19, AM CLEAN IN PLACES OPERATOR this proce dure NASOPHARYNGEAL SWAB are in t he results section. EKG, 12-LEAD STAT 07/19/2021 (PORTABLE) OSI CHEST Routine 07/08/2021 11:55 Cancer Results for PM CLEAN IN PLACES OPERATOR this procedure are in the results section. OSI BONE DENSITY STUDY Routine 07/08/2021 11:54 Cancer R esults for PM CLEAN IN PLACES OPERATOR this procedure are in the results section. OSI CHEST Routine 06/19/2021 11:54 Cancer Results for PM CLEAN IN PLACES OPERATOR this procedure are in the results section. OSI CHEST Routine 06/03/2021 11:55 Cancer Results for PM CLEAN IN PLACES OPERATOR this procedure are in the results section. after 12/13/2020 Results (ABNORMAL) IgG Subclasses (12/04/2021 2:57 PM CDT)Only the most recent of4 resultswithin the time period is included. athologist Signature IgG Total-[place] 4150 (H) 767 - 1590 [place] mg/dL [facility] IgG1-[place] 2850 (H) 341 - 894 [place] mg/dL [facility] IgG2-[place] 288 171 - 632 [place] mg/dL [facility] IgG3-[place] 46.4 18.4 - [place] MD 106.0 [place] mg/dL [facility] IgG4-[place] 28.3 2.4 - [place] 121.0 [place] mg/dL [facility] Comment: Test Performed by: [facility] [address] [place], [place] [address] Laundry Tub Maker: Sajan Field M.D. Ph. D.; CLIA# [id number] Specimen Anatomical Collection Method Collection Time Receive d Time (Source) Location / / Volume Laterality Blood 12/04/2021 2:57 12/04/2021 PM CDT 2:57 PM CDT Taz Virgen MD LAB BLOOD ORDERABLES Performing Organization Address City/State/ZIP Code Phon e Number [facility] Unless otherwise noted, [place] [address] CENTER all lab tests performed by: Division of Pathology and Laboratory Medicine [address] [place] CRP (12/04/2021 2:57 PM CDT)Only the most recent of3 resultswithin the time period is included. athologist Signature CRP 16.03 mg/L [facility] Comment: Reference ranges for HS CRP assay are as follows: Reference ranges when used to assess ca rdiac risk: <1.00 mg/L Low cardiovascular risk 1.00-3.00 mg/L Average cardiovascular risk >3.00 mg/L High cardiovascular risk. Reference ranges when used to assess inf lammatory responses: Less than or equal to 10.00 mg/L. [facility], [address] [place] [id number] Specimen Anatomical Collection Method Collection Time Receive d Time (Source) Location / / Volume Laterality Blood 12/04/2021 2:57 12/04/2021 PM CDT 2:57 PM CDT Taz Virgen MD LAB BLOOD ORDERABLES Performing Organization Address City/[facility] Phon e Number [facility] [place] [address] [place] [address] Intraoperative PTHi Spec 2 (11/25/2021 8:25 AM CDT) athologist Signature IO PTHI S2 35.9 pg/mL [facility] Comment: No reference range has been established Testing Performed at [facility] [employer] Director [facility], [address], Unit [address], [place] [address] % Drop S2 53.4 >=50.0 % [facility] Comment: Note: New Methodology and Reference Ra nge change effective 10/28/2017 at 1400 % drop of intraoperative PTH is calculat ed as: ((Baseline PTH Post Sample) Baseline PTH) x 100 Testing Performed at B [employer] Director [facility], [address], [address], [place] [address] Specimen Anatomical Collection Method Collection Time Receive d Time (Source) Location / / Volume Laterality Blood 11/25/2021 8:25 11/25/2021 AM CDT 8:34 AM CDT Sonia Ferreira MD LAB BLOOD ORDERABLES Performing Organization Address City/[facility]/ZIP [facility] Phon e Number [facility] [address] [facility] [place] [address] [address] (ABNORMAL) Intraoperative PTHi Spec 1 (11/25/2021 8:22 AM CDT) athologist [facility] IO PTHI S1 39.2 pg/mL [facility] Comment: No reference range has been established Testing Performed at [facility], [facility] [facility], [address], [place] [id number] % Drop S1 49.2 (L) >=50.0 % [facility] Comment: Note: New Methodology and Reference Ra nge change effective 10/28/2017 at 1400 % drop of intraoperative PTH is calculat ed as: ((Baseline PTH Post Sample) Baseline PTH) x 100 Testing Performed at [facility] [employer] Director [facility], [address] [facility] [address] [facility], [address], [place] [address] Specimen Anatomical Collection Method Collection Time Receive d Time (Source) Location / / Volume Laterality Blood 11/25/2021 8:22 11/25/2021 AM CDT 8:34 AM CDT Sonia Ferreira MD LAB BLOOD ORDERABLES Performing Organization Address City/[facility] Phon e Number [facility] [address] [facility] [place] [address] [address] Pathology Surgical Interpretation (11/25/2021 8:13 AM CDT)Only the most recent of2 resultswithin the time period is included. Component Value Ref Test Analysis Performed Pathologis t Range Method Time At Signature Submitted Primary 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dism [E21.0] 11/10 [facility] Clinical History 2 9:25 LABS Per EMR: Imaging shows a lar ge abnormal cystic lesion in the RIGHT paravertebral area at the level of the inferior thyroid (sestamibi and CT scan). 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 AM CDT Diagnosis A: Parathyroid gland, right superior, parathyroidectomy: [facility] Electronically Enlarged, hypercellular para thyroid gland consistent with nodular parathyroid hyperplasia 2 9:25 LABS signed by Sayed Size: 3.2 x 1.8 x 0.5 cm AM CDT Jenaro Weight: 1.703 g Remington valencia MD on Percent stromal fat: Less than 5% 11/28/2021 at Cell type: chief cells (70%) and oncocytic cells (30%) 9:25 AM [facility] Gross A: [facility] AP Description Parathyroid, right, right baca perior parathyroid gland: A 3.2 x 1.8 x 0.5 cm medley, partially cystic soft tissue fragment that weighs 1.703 g. Touch prep is performed. 2 9:25 LABS SECTION CODE: A1-representat alexandr sections submitted for frozen section diagnosis and permanent diagnosis; A2-remainder of specimen. KR AM CDT Intraoperative A: [facility] AP Evaluation Parathyroid, right, right superior parathyroid gland: 2 9:25 LABS Hypercellular parathyroid tissue. AM CDT Signed by Dr. Hyman. KR Disclaimer "Some tests reported [facility] here may have been 2 9:25 LABS developed and AM CDT performance characteristics determined by [facility] Pathology and Laboratory Medicine. These tests have not been specifically cleared or approved by the U.S. Food and Drug Administration. If applicable, controls were reviewed and showed appropriate reactivity." Specimen Anatomical Collection Method Collection Time Receive d Time (Source) Location / / Volume Laterality Tissue 11/25/2021 8:13 11/25/2021 (Parathyroid, AM CDT 8:19 AM CDT Right) Comment: [facility] 3 Sonia Ferreira MD LAB PATHOLOGY ORDERABLES Performing Organization Address City/State/ZIP Code Phon e Number [facility] AP LABS [facility] [place] [address] [address] [facility] (ABNORMAL) Intraoperative PTHi Baseline (11/25/2021 7:38 AM CDT) P athologist Signature IO PTHI BL 77.1 (H) 15.0 - 65.0 [facility] pg/mL Comment: Note: New Methodology and Reference Ra nge change effective 10/28/2017 at 1400 Testing Performed at [facility] [employer] Director Bldg, [address] [facility], [address], [place] [address] Specimen Anatomical Collection Method Collection Time Receive d Time (Source) Location / / Volume Laterality Blood 11/25/2021 7:38 11/25/2021 AM CDT 7:46 AM CDT Sonia Ferreira MD LAB BLOOD ORDERABLES Performing Organization Address City/State/ZIP Code Phon e Number [facility] [address] [place] [place] [address] [address] (ABNORMAL) POC Glucose Screen (11/25/2021 6:28 AM CDT) athologist Signature POC Glucose 102 (H) 70 - 99 POC [facility] mg/dL Comment: RN Notified Capillary blood samples, e.g. obtained b y fingerstick, may have inaccurate results in patients with decreased peripheral blood flow. Method description: All results are jeff ured using Electrochemistry test methodology. The glucose in the sample mixes with the reagents on the test strip. The reaction produces an electric current. The amount of current produced is proportion al to the glucose concentration in the blood. PO Sample Type Venous POC [facility] Performing Lab [facility] POC TEL[facility] R Comment: [facility], [address] [place] [id number]; Lab Direct or: Denia Mcclellan MD Specimen Anatomical Collection Method Collection Time Receive d Time (Source) Location / / Volume Laterality Blood 11/25/2021 6:28 11/25/2021 AM CDT 6:28 AM CDT Sonia Ferreira MD POCT ORDERABLES - DEVICE Performing Organization Address City/State/ZIP Code Phon e Number POC [facility] COVID-19 (SARS-CoV-2) PCR-Asymptomatic [facility] (11/21/2021 2:09 PM CDT) [facility] gist Method Time Signature COVID19 (SARS Not Detected Not Detected NIKOLE CHU CoVGiulia2) [facility] Comment: This test is a qualitative reverse-trans criptase polymerase chain reaction (RT- PCR) developed for the [employer] ORA 6800 system and intended for qualitative detection of SARS CoV-2 RNA in nasopharyngeal a nd oropharyngeal swab specimens collecte d from any individuals, including those suspected o f COVID-19 by their healthcare provider, and those without symptoms or other reasons to suspect COVID-19. A fact sheet for patients provided by the paper cap machine operator ( [employer]) can be rev iewed at: https://www.SwipeToSpin.gov/media/060451/downloa d. A fact sheet for Health Care providers is provided by the paper cap machine operator ([employer]) and can be reviewed at: https://www.fda.gov/media/473668/download Results must be interpreted within the c ontext of all relevant clinical and laboratory findings and should not form the sole basis for a diagnosis or treatment decision. Positive results do not rule out bacterial infection or co- infection with other viruses. Negative results do not rule ou t SARS-CoV-2 and must be combined with clinical observations, patient history, and/or epidemiological information. "Presumptive Positive" results are due t o partial amplification of SARS-CoV-2 targets and indicates low amounts of virus present in the specimen at or near the limit of detection. Regardless, individuals with "Presumptive Positive" results should be managed per institutional guidelines as individuals positive for SARS-CoV-2 virus, including use of appropriate infection control protocols. Internal controls are included to assess for possible amplification inhibitors. If inhibition is detected, testing is repeated and if inhibition is confirmed the specimen is resulted as "Invalid". When an "Invalid" result occurs, it is recomm ended to wait 3 days before submitting a new spec imen for testing if clinically indicated. This assay has been approved by the FDA for use only under Emergency Use Authorization (EUA) in laboratories that have been CLIA-certified to perform moderate-complexity and high-complexity tests. The performance characteristics of this assay were verified by the Microbiology Laboratory at [facility], CLIA Accreditation #: [id number] and CAP Accreditation #: [id number]. COVID19 SARS Source CAUSTICISER Swab [place] MD [facility] COVID19 SARS Indication Pre-Out of OR Procedure [facility] Specimen (Source) Anatomical Collection Method Collection Time Re ceived Time Location / / Volume Laterality Nasopharyngeal Swab 11/21/2021 2:09 0509/2021 PM CDT 6:26 PM CDT Sonia Ferreira MD MICROBIOLOGY - GENERAL ORDER GIGI Performing Organization Address City/State/ZIP Code Phon e Number [facility] Unless otherwise noted, [place] [address] CENTER all lab tests performed by: Division of Pathology and Laboratory Medicine [address] [place] PETCT Subsequent Treatment Strategy (11/12/2021 12:00 PM CDT) Anatomical Region Laterality Modality Whole Body Positron Emission To mography (PET) Specimen (Source) Anatomical Collection Method Collection Time Re ceived Time Location / / Volume Laterality 11/13/2021 9:57 AM CDT Impressions 11/13/2021 10:35 AM CDT 1. Interval decrease in the size and FDG uptake of multicompartmental adenopathy above and below the diaphragm. Numerous mildly enlarged nodes remain FDG avid. Lymphoma scale: 4. 2. Interval decrease in the size and F DG uptake of the right lower lobe mass that is consistent with rounded pneumonia/atelectasis. There has been an overall decrease in the FDG uptake of the pulmonar y parenchyma and pleura, consistent with a resolving infectious or inflammatory process. Narrative 11/13/2021 10:35 AM CDT FULL RESULT: Examination: PETCT SUBSEQUENT TREATMENT STRATEGY [[id number]], 11/12/2021 12:00 PM. Clinical History: Non-Hodgkin lymphoma, unspecified, extranodal and solid organ sites Gammopathy Right parathyroid adenoma Indication: Lymphoma Comparison: PET/CT August 13, 2021 Technique: Approximately 1 hour 3 minute s following intravenous administration of 11.3 mCi of F-18 FDG, PET was obtained from the vertex of the skull to the upper thighs. Noncontrast CT was obtained for the purposes of attenuation correction and diagnosis. The dose was administered at the level of the left hand. PETCT SUBSEQUENT TREATMENT STRATEGY [[id number]]. Findings: Head and Neck: The known parathyroid juliana noma is occult on PET/CT. No worrisome cervical adenopathy is currently detected. Chest: Emphysematous changes are again v isualized bilaterally. A mass adjacent to the right posterior mediastinal pleura is again visualized in the right lower lobe with a "swirling" pattern of adjacent bronchovascular structures that is comm only seen with rounded pneumonia/atelectasis. It currently measures approximately 3.0 x 5.2 cm on series 4 image 136 (previously 3.8 x 6.6 cm). SUV max is 4.9 on image 136 (previously 8.6). The lingula is better aerated with decre ased consolidation/atelectasis as compared to August 13, 2021. SUV max is 1.5 (previously 2.8). There has been an overall decrease in inflammatory FDG uptake in the lungs bilaterally. Decreased pleural FDG uptake in the amou nt and extent of metabolic activity. For example, a small residual focus of increased FDG uptake is seen in the posterior pleura of the right lung on image 119 with an SUV max of 4.3 (previously 7.5). The small right-sided pleural effusion h as diminished in size. A small pericardial effusion is again visualized. Interval decrease in the size and FDG up take of axillary and mediastinal adenopathy. The subcarinal node is the most avid with an SUV max of 4.1 on image 120 (previously 5.9). It currently measures appr oximately 2.0 cm (previously approximate ly 2.4 cm). Abdomen/Pelvis: Interval decrease in ret roperitoneal, iliac and inguinal adenopathy. For example, a right periaortic lymph node slightly above the level of the bifurcation currently measures approximate ly 0.9 cm on series 3 image 189. It is u nchanged in size. SUV max is 3.8 (previously 4.8). The most avid node in the pelvis is righ t external iliac adjacent to the medial cortex of the supra-acetabular iliac bone on the right. It measures 1.1 cm on series 3 image 237 (previously 1.3 cm). SUV max is currently 4.7 (previously 6.4). No suspicious uptake in the liver, splee n, adrenal glands, kidneys, pancreas or bowel. Musculoskeletal: No FDG avid intraosseou s lesions. Procedure Note Thalia Guerrero MD - 11/13/2021Forma tting of this note might be different from the original. FULL RESULT: Examination: PETCT SUBSEQUENT TREATMENT STRATEGY [[id number]], 11/12/2021 12:00 PM. Clinical History: Non-Hodgkin lymphoma, unspecified, extranodal and solid organ sites Gammopathy Right parathyroid adenoma Indication: Lymphoma Comparison: PET/CT August 13, 2021 Technique: Approximately 1 hour 3 minute s following intravenous administration of 11.3 mCi of F-18 FDG, PET was obtained from the vertex of the skull to the upper thighs. Noncontrast CT was obtained for the purposes of attenuation correction and d iagnosis. The dose was administered at the level of the left hand. PETCT SUBSEQUENT TREATMENT STRATEGY [[id number]]. Findings: Head and Neck: The known parathyroid juliana noma is occult on PET/CT. No worrisome cervical adenopathy is currently detected. Chest: Emphysematous changes are again v isualized bilaterally. A mass adjacent to the right posterior mediastinal pleura is again visualized in the right lower lobe with a "swirling" pattern of adjacent bronchovascular structures that is commonly seen with ro unded pneumonia/atelectasis. It currently measures approximately 3.0 x 5.2 cm on series 4 image 136 (previously 3.8 x 6.6 cm). SUV max is 4.9 on image 136 (previously 8.6). The lingula is better aerated with decre ased consolidation/atelectasis as compared to August 13, 2021. SUV max is 1.5 (previously 2.8). There has been an overall decrease in inflammatory FDG uptake in the lungs bilaterally. Decreased pleural FDG uptake in the amou nt and extent of metabolic activity. For example, a small residual focus of increased FDG uptake is seen in the posterior pleura of the right lung on image 119 with an SUV max of 4.3 (previously 7.5). The small right-sided pleural effusion h as diminished in size. A small pericardial effusion is again visualized. Interval decrease in the size and FDG up take of axillary and mediastinal adenopathy. The subcarinal node is the most avid with an SUV max of 4.1 on image 120 (previously 5.9). It currently measures approximately 2.0 cm (previously approximately 2.4 cm). Abdomen/Pelvis: Interval decrease in ret roperitoneal, iliac and inguinal adenopathy. For example, a right periaortic lymph node slightly above the level of the bifurcation currently measures approximately 0.9 cm on series 3 image 189. It is unchanged in size. BACA V max is 3.8 (previously 4.8). The most avid node in the pelvis is righ t external iliac adjacent to the medial cortex of the supra-acetabular iliac bone on the right. It measures 1.1 cm on series 3 image 237 (previously 1.3 cm). SUV max is currently 4.7 (previously 6.4). No suspicious uptake in the liver, splee n, adrenal glands, kidneys, pancreas or bowel. Musculoskeletal: No FDG avid intraosseou s lesions. IMPRESSION: 1. Interval decrease in the size and FD G uptake of multicompartmental adenopathy above and below the diaphragm. Numerous mildly enlarged nodes remain FDG avid. Lymphoma scale: 4. 2. Interval decrease in the size and FD G uptake of the right lower lobe mass that is consistent with rounded pneumonia/atelectasis. There has been an overall decrease in the FDG uptake of the pulmonary parenchyma and pleura, consistent with a resolving infe ctious or inflammatory process. Lowell Croft MD IMG PETCT ORDERABLES Glucose, Random (11/12/2021 9:28 AM CDT) athologist Signature Glucose Random 98 70 - 199 [facility] mg/dL Comment: Effective 02/05/16, the glucose reference intervals have been updated based on [place] [employer] guidelines (Standards of Medical Care in Diabetes 2016. Diabetes Care 2016; 39: S13-S22) Fasting blood glucose: Normal: 70-99 mg/dL Impaired fasting glucose (increased risk for diabetes or pre-diabetes): 100-125 mg/dL Diabetes mellitus: >/= 126 mg/dL Random blood glucose: Normal: 70-199 mg/dL Note: Random glucose >100 mg/dL is assoc iated with increased risk for diabetes [facility], [address] [place] [address] Specimen Anatomical Collection Method Collection Time Receive d Time (Source) Location / / Volume Laterality Blood 11/12/2021 9:28 11/12/2021 AM CDT 9:29 AM CDT Lowell Croft MD LAB BLOOD ORDERABLES Performing Organization Address City/State/ZIP Code Phon e Number TANISHA RIZO MD [facility] [place] [address] [place] [address] .Serum Creatinine (11/12/2021 9:28 AM CDT)Only the most recent of15 results within the time period is included. athologist Signature Creatinine 1.05 0.67 - 1.17 [facility] mg/dL Comment: Testing performed at [facility], [address] [place] [address] Specimen Anatomical Collection Method Collection Time Receive d Time (Source) Location / / Volume Laterality Blood 11/12/2021 9:28 11/12/2021 AM CDT 9:29 AM CDT Lowell Croft MD LAB BLOOD ORDERABLES Performing Organization Address City/State/ZIP Code Phon e Number [facility], [place] [address] [place] [address] (ABNORMAL) .CBC (11/12/2021 9:28 AM CDT)Only the most recent of12 resultswithin the time period is included. athologist Signature WBC 8.1 4.0 - 11.0 [facility] K/uL Comment: All components of the CBC perfo rmed at [facility], [address] [place] [address] 77 3 RBC 3.95 (L) 4.50 - 6.00 M/uL [facility] Comment: All components of the CBC perfo rmed at [facility], [address] [place] [address] 77 3 Hgb 13.1 (L) 14.0 - 18.0 gm/dL [facility] Comment: As part of CBC or as an individ ual orderable testing performed at [facility], [address] [place] [address], [place] [address] Hct 38.9 (L) 40.0 - 54.0 % [facility] Comment: As part of CBC testing performe d at [facility], [address] [place] [address] MCV 98 82 - 98 fL [facility] Comment: As part of CBC testing performe d at [facility], [address] [place] [address] MCH 33.2 (H) 27.0 - 31.0 pg [facility] Comment: As part of CBC testing performe d at [facility], [address] [place] [address] MCHC 33.7 31.0 - 36.0 gm/dL [facility] Comment: As part of CBC testing performe d at [facility], [address] [place] [address], [place] [address] RDW-SD 51.1 (H) 35.1 - 46.3 fL [facility] Comment: As part of CBC testing performe d at [facility], [address] [place] [address], [place] [address] RDW-CV 14.9 12.0 - 15.5 % [facility] Comment: As part of CBC testing performe d at [facility], [address] [place] [address], [place] [address] Platelet count 346 140 - 440 K/uL [facility] Y Comment: As part of CBC or an individual orderable testing performed at [facility], [address] [place] [address] MPV 8.9 4.0 - 10.4 fL [facility] Comment: As part of CBC testing performe d at [facility], [address] [place] [address] Specimen Anatomical Collection Method Collection Time Receive d Time (Source) Location / / Volume Laterality Blood 11/12/2021 9:28 11/12/2021 AM CDT 9:29 AM CDT Lowell Croft MD LAB BLOOD ORDERABLES Performing Organization Address City/State/ZIP Code Phon e Number [place], [place] [id number] [place] [address] Protein Electrophoresis Path Review (11/12/2021 9:28 AM CDT)Only the most recent of2 resultswithin the time period is included. 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 If a paraproteinemia is suspected clinically, serum free light chain bahman NIKOLE Whyte dies, serum protein SULEMAN studies, serum immunoglobulin MARYA quantitation and urine Bence-Mancia protein studies are recom mended. [facility] Comment: MD Giulia BONILLA Dictated by: MD Giulia BONILLA Dictated Date/Time: 11.16.2021 17:04 PM CDT Transcribed Date/Time: 11.16.2021 17:04 PM CDT Electronically Signed By: MD Giulia DANIEL on 11.16.2021 17:04 PM Specimen Anatomical Collection Method Collection Time Receive d Time (Source) Location / / Volume Laterality Blood 11/12/2021 9:28 11/13/2021 AM CDT 12:57 PM CDT Lowell Croft MD LAB BLOOD ORDERABLES Performing Organization Address City/State/ZIP Code Phon e Number [place] [facility] Unless otherwise noted, [address] all lab tests performed by: Division of Pathology and Laboratory Medicine [facility]5 [facility] SULEMAN Path Review (11/12/2021 9:28 AM CDT)Only the most recent of2 resultswithin the time period is included. Component Value Ref Test Analysis Performed At [facility] gist Range Method Time Signature SULEMAN Path Int The follow-up serum protein immunofixation electrophoretic patterns NIKOLE CHU obtained with the use of antisera against IgG, IgA, IgM, MARYA bound kappa and bound lambda light chain proteins do not show definite evidence of a monoclonal gammopathy, although the application point is prominent with IgA, IgM and bound kappa light chain antisera CANCER and there are indistinct linear densities seen CENTER with bound lambda light luis antonio n antiserum. The significance of these findings is unknown. Suggest close follow up, if clinically indicated. Comment: MD Giulia BONILLA Dictated by: MD Giulia BONILLA Dictated Date/Time: 11.16.2021 17:04 PM CDT Transcribed Date/Time: 11.16.2021 17:04 PM CDT Electronically Signed By: MD Giulia DANIEL on 11.16.2021 17:04 PM Specimen Anatomical Collection Method Collection Time Receive d Time (Source) Location / / Volume Laterality Blood 11/12/2021 9:28 11/13/2021 AM CDT 12:57 PM CDT Lowell Croft MD LAB BLOOD ORDERABLES Performing Organization Address City/State/ZIP Code Phon e Number [facility] Unless otherwise noted, [place] [address] [place] all lab tests performed by: Division of Pathology and Laboratory Medicine [address] [facility] Glomerular Filtration Rate (11/12/2021 9:28 AM CDT)Only the most recent of15 resultswithin the time period is included. athologist Signature eGFR-AA 76 >=60 [facility] mL/min/1.73 sq. m Comment: Normal eGFR >= 60 mL/min/1.73 m2 Note: The eGFR is calculated using the C KD-EPI equation. The eGFR declines with age. eGFR <60 mL/min/1.73 m2 is considered as "decreased". This equation should only be used for patients 18 and older. According to the National Kidney Foundat ion's Kidney Disease Outcome Quality Initiative (KDOQI) classification and 2012 Kidney Disease Improving Global Outcomes (KDIGO) Clinical Practice Guideline, the stage of CKD should be categorized based on estimated GFR. Stage Description GFR mL/min/1. 73 m2 1 Normal or high GFR >=90 2 Mildly decreased GFR 60-89 3a Mildly to moderately decreased GFR 45-59 3b Moderately to severely decreased GFR 30-44 4 Severely decreased GFR 15-29 5 Kidney failure <15 [facility], [address] [place] [address] eGFR-TRACI 63 >=60 mL/min/1.73 sq. m WALDO Comment: Normal eGFR >= 60 mL/min/1.73 m2 Note: The eGFR is calculated using the C KD-EPI equation. The eGFR declines with age. eGFR <60 mL/min/1.73 m2 is considered as "decreased". This equation should only be used for patients 18 and older. According to the National Kid[employer] ion's Kidney Disease Outcome Quality Initiative (KDOQI) classification and 2012 Kidney Disease Improving Global Outcomes (KDIGO) Clinical Practice Guideline, the stage of CKD should be categorized based on estimated GFR. Stage Description GFR mL/min/1. 73 m2 1 Normal or high GFR >=90 2 Mildly decreased GFR 60-89 3a Mildly to moderately decreased GFR 45-59 3b Moderately to severely decreased GFR 30-44 4 Severely decreased GFR 15-29 5 Kidney failure <15 Testing performed at [facility], [address] [place] [address] Specimen Anatomical Collection Method Collection Time Receive d Time (Source) Location / / Volume Laterality Blood 11/12/2021 9:28 11/12/2021 AM CDT 9:29 AM CDT Lowell Croft MD LAB BLOOD ORDERABLES Performing Organization Address City/State/[place] [address] [place] [address] Fractionated Bilirubin (11/12/2021 9:28 AM CDT)Only the most recent of12 resultswithin the time period is included. athologist Signature Bili Total 0.5 <=1.2 mg/dL WALDO Comment: Indocyanine Green (ICG) may cause falsel y elevated bilirubin results. Total and direct bilirubin must not be measured from samples containing indocyanine green. False elevation of total bilirubin can b e seen in patients with IgG concentrations above 28 g/L. Testing performed at [facility], [address] [place] [address] Bili Direct <0.2 <=0.3 mg/dL WALDO Comment: Indocyanine Green (ICG) may cause falsel y elevated bilirubin results. Total and direct bilirubin must not be measured from samples containing indocyanine green. Testing performed at [facility], [address] [place] [address] Bili Indirect See Note 0.0 - 0.9 mg/dL [facility] Y Comment: Unable to calculate Indirect Bilirubin r esult due to some parameters are outside reportable range Testing performed at [facility], [address] [place] [address] Specimen Anatomical Collection Method Collection Time Receive d Time (Source) Location / / Volume Laterality Blood 11/12/2021 9:28 11/12/2021 AM CDT 9:29 AM CDT Lowell Croft MD LAB BLOOD ORDERABLES Performing Organization Address City/[facility]/[place] [address] [place] [address] Vitamin D 25OH (11/12/2021 9:28 AM CDT)Only the most recent of3 resultswithin the time period is included. athologist [facility] Vitamin D 25 OH 49 30 - 100 WALDO ng/mL Comment: Reference Range: Deficiency: <10 ng/mL Insufficiency: 10-29 ng/mL Sufficiency: 30-100 ng/mL Potential toxicity: >100 ng/mL Testing performed at [facility], [address] [place] [address] Specimen Anatomical Collection Method Collection Time Receive d Time (Source) Location / / Volume Laterality Blood 11/12/2021 9:28 11/12/2021 AM CDT 9:29 AM CDT Lowell Croft MD LAB BLOOD ORDERABLES Performing Organization Address City/[facility]/[place] [address] [place] [address] (ABNORMAL) Differential (11/12/2021 9:28 AM CDT)Only the most recent of12 resultswithin the time period is included. athologist [facility] Neutrophil % 75.2 (H) 42.0 - WALDO 66.0 % Comment: All components of the Different ial performed at [facility], [address] [place], [place] [id number] Lymphocyte % 13.6 (L) 24.0 - 44.0 % WALDO Comment: As part of the Differential miguel ting performed at [facility], [address] [place] [address] Monocyte % 8.8 (H) 2.0 - 7.0 % WALDO Comment: As part of the Differential miguel ting performed at [facility], [address] [place] [address] Eosinophil % 1.6 1.0 - 4.0 % WALDO Comment: As part of the Differential miguel ting performed at [facility], [address] [place] [address] Basophil % 0.6 0.0 - 1.0 % WALDO Comment: As part of the Differential migeul ting performed at [facility], [address] [place] [address] IGRE % 0.2 0.0 - 0.4 % WALDO Comment: IGRE % count includes Metamyelocytes, My elocytes, and Promyelocytes. As part of the Differential testing perf ormed at [facility], [address] [place] [address] Neutrophil Abs 6.09 1.70 - 7.30 K/uL [facility] Comment: As part of the Differential miguel ting performed at [facility], [address] [place] [address] Lymphocyte Abs 1.10 1.00 - 4.80 K/uL [facility] ITY Comment: As part of the Differential miguel ting performed at [facility], [address] [place] [address] Monocyte Abs 0.71 (H) 0.08 - 0.70 K/uL [facility] Comment: As part of the Differential miguel ting performed at [facility], [address] [place] [address] Eosinophil Abs 0.13 0.04 - 0.40 K/uL [facility] Comment: As part of the Differential miguel ting performed at [facility], [address] [place] [address] Basophil Abs 0.05 0.00 - 0.10 K/uL [facility] Comment: As part of the Differential miguel ting performed at [facility], [address] [place] [address] IG Abs 0.02 0.00 - 0.04 K/uL WALDO Comment: As part of the Differential miguel ting performed at [facility], [address] [place] [address] Specimen Anatomical Collection Method Collection Time Receive d Time (Source) Location / / Volume Laterality Blood 11/12/2021 9:28 11/12/2021 AM CDT 9:29 AM CDT Lowell Croft MD LAB BLOOD ORDERABLES Performing Organization Address City/[facility] Phon e Number [place], [place] [id number] [place] [address] (ABNORMAL) Sed Rate (11/12/2021 9:28 AM CDT)Only the most recent of2 results within the time period is included. athologist Signature Sed Rate 35 (H) 0 - 9 mm/hr WALDO Comment: Performed at [facility], [address] [place] [address] Specimen Anatomical Collection Method Collection Time Receive d Time (Source) Location / / Volume Laterality Blood 11/12/2021 9:28 11/12/2021 AM CDT 9:29 AM CDT Taz Virgen MD LAB BLOOD ORDERABLES Performing Organization Address City/[facility] Code Phon e Number [address] (ABNORMAL) Prothrombin Time with INR (11/12/2021 9:28 AM CDT)Only the most recent of7 resultswithin the time period is included. athologist Signature PT 14.0 (H) 11.5 - 13.9 WALDO second(s) Comment: Testing performed at [facility], [address] [place] [address] INR 1.11 (H) 0.90 - 1.10 WALDO Comment: Testing performed at [facility], [address] [place] [address] Specimen Anatomical Collection Method Collection Time Receive d Time (Source) Location / / Volume Laterality Blood 11/12/2021 9:28 11/12/2021 AM CDT 9:29 AM CDT Narrative WALDO - 11/12/2021 9:54 AM CDT This lab cannot be scheduled at the [facility] locations due to collection/proccessing restrictions: [facility] and [facility]. [place] LAB BLOOD ORDERABLES Performing Organization Address City/State/ZIP Code Phon e Number [facility] [place] [address] [address] [facility] SULEMAN (11/12/2021 9:28 AM CDT)Only the most recent of3 resultswithin the time period is included. athologist [facility] SULEMAN See Comment [facility] Specimen Anatomical Collection Method Collection Time Receive d Time (Source) Location / / Volume Laterality Blood 11/12/2021 9:28 11/12/2021 AM CDT 2:17 PM CDT Lowell Croft MD LAB BLOOD ORDERABLES Performing Organization Address City/[facility]/ZIP Code Phon e Number [facility] CANCER Unless otherwise noted, [address] all lab tests performed by: Division of Pathology and Laboratory Medicine [address] [place] (ABNORMAL) Complement Total (11/12/2021 9:28 AM CDT) athologist [facility] Complement <3 (L) 30 - 75 [facility] Tot-Soriano unit/mL [facility] Comment: Test Performed by: [facility] [employer] [address] [address] 90 Laundry Tub Maker: Sajan Field M.D. Ph. D.; CLIA# [id number] Specimen Anatomical Collection Method Collection Time Receive d Time (Source) Location / / Volume Laterality Blood 11/12/2021 9:28 11/12/2021 AM CDT 9:29 AM CDT Lowell Croft MD LAB BLOOD ORDERABLES Performing Organization Address City/State/ZIP Code Phon e Number [facility] CANCER Unless otherwise noted, [address] all lab tests performed by: Division of Pathology and Laboratory Medicine [address] [place] (ABNORMAL) C3 Complement (11/12/2021 9:28 AM CDT)Only the most recent of2 resultswithin the time period is included. athologist Signature C3-[place] 64 (L) 75 - 175 [facility] mg/dL [facility] Comment: Test Performed by: [facility] [place] [address] Laundry Tub Maker: Sajan Field M.D. Ph. D.; CLIA# [id number] Specimen Anatomical Collection Method Collection Time Receive d Time (Source) Location / / Volume Laterality Blood 11/12/2021 9:28 11/12/2021 AM CDT 9:29 AM CDT Taz Virgen MD LAB BLOOD ORDERABLES Performing Organization Address City/[facility] Phon e Number [facility] CANCER Unless otherwise noted, [address] all lab tests performed by: Division of Pathology and Laboratory Medicine [facility] [place] (ABNORMAL) C4 Complement (11/12/2021 9:28 AM CDT)Only the most recent of2 resultswithin the time period is included. athologist Signature C4-Soriano <3 (L) 14 - 40 [facility] mg/dL [facility] Comment: Test Performed by: [place] [address] Laundry Tub Maker: Sajan Field M.D. Ph. D.; CLIA# [id number] Specimen Anatomical Collection Method Collection Time Receive d Time (Source) Location / / Volume Laterality Blood 11/12/2021 9:28 11/12/2021 AM CDT 9:29 AM CDT Taz Virgen MD LAB BLOOD ORDERABLES Performing Organization Address City/[facility] Phon e Number [facility] CANCER Unless otherwise noted, [address] all lab tests performed by: Division of Pathology and Laboratory Medicine [facility] [address] [place] Uric Acid (11/12/2021 9:28 AM CDT) athologist Signature Uric Acid 5.2 3.4 - 7.0 WALDO mg/dL Comment: Testing performed at [facility], [address] [place] [address] Specimen Anatomical Collection Method Collection Time Receive d Time (Source) Location / / Volume Laterality Blood 11/12/2021 9:28 11/12/2021 AM CDT 9:29 AM CDT Lowell Croft MD LAB BLOOD ORDERABLES Performing Organization Address City/State/[facility] Phon [place], [place] [address] [place] [address] BUN (11/12/2021 9:28 AM CDT)Only the most recent of15 resultswithin the time period is included. P athologist Signature BUN 16 6 - 23 mg/dL [facility]ALDO Comment: Testing performed at [facility], [address] [place] [address] Specimen Anatomical Collection Method Collection Time Receive d Time (Source) Location / / Volume Laterality Blood 11/12/2021 9:28 11/12/2021 AM CDT 9:29 AM CDT Lowell Croft MD LAB BLOOD ORDERABLES Performing Organization Address City/[facility] Phon e [address] Alanine Aminotransferase (11/12/2021 9:28 AM CDT)Only the most recent of12 resultswithin the time period is included. athologist Signature ALT 14 <=41 U/L WALDO Comment: Testing performed at [facility], [address] [place] [address] Specimen Anatomical Collection Method Collection Time Receive d Time (Source) Location / / Volume Laterality Blood 11/12/2021 9:28 11/12/2021 AM CDT 9:29 AM CDT Lowell Croft MD LAB BLOOD ORDERABLES Performing Organization Address City/[facility] Phon e [address] Aspartate Aminotransferase (11/12/2021 9:28 AM CDT)Only the most recent of12 resultswithin the time period is included. P athologist Signature AST 20 <=40 U/L WALDO Comment: Testing performed at [facility], [address] [place] [address] Specimen Anatomical Collection Method Collection Time Receive d Time (Source) Location / / Volume Laterality Blood 11/12/2021 9:28 11/12/2021 AM CDT 9:29 AM CDT Lowell Croft MD LAB BLOOD ORDERABLES Performing Organization Address City/[facility]/ZIP Code Phon e Number [facility] [place] [address] [address] [facility] (ABNORMAL) SPEP (11/12/2021 9:28 AM CDT)Only the most recent of3 resultswithin the time period is included. P athologist Signature TOT PROTEIN 10.0 (H) 6.4 - 8.3 [place] MD gm/dL [facility] Albumin 3.4 (L) 3.6 - 5.4 [place] MD gm/dL [facility] Alpha 1 0.4 0.2 - 0.4 [facility] Globulin gm/dL [facility] Alpha 2 1.1 (H) 0.5 - 1.0 [facility] Globulin gm/dL [facility] Beta Globulin 1.1 0.5 - 1.1 [facility] gm/dL [facility] Gamma Globulin 4.0 (H) 0.7 - 1.6 [facility] gm/dL [facility] Specimen Anatomical Collection Method Collection Time Receive d Time (Source) Location / / Volume Laterality Blood 11/12/2021 9:28 11/12/2021 AM CDT 2:17 PM CDT Lowell Croft MD LAB BLOOD ORDERABLES Performing Organization Address City/[facility]/ZIP Code Phon e Number [facility] CANCER Unless otherwise noted, [place] [address] [place] all lab tests performed by: Division of Pathology and Laboratory Medicine [address] [place] [address] (ABNORMAL) Total Protein (11/12/2021 9:28 AM CDT)Only the most recent of12 resultswithin the time period is included. P athologist Signature Total Protein 10.0 (H) 6.4 - 8.3 WALDO g/dL Comment: Testing performed at [facility], [address] [place] [address], [place] [address] Specimen Anatomical Collection Method Collection Time Receive d Time (Source) Location / / Volume Laterality Blood 11/12/2021 9:28 11/12/2021 AM CDT 9:29 AM CDT Lowell Croft MD LAB BLOOD ORDERABLES Performing Organization Address City/State/[facility] Phon e Number [address] (ABNORMAL) Phosphorus Level (11/12/2021 9:28 AM CDT)Only the most recent of11 resultswithin the time period is included. athologist Signature Phosphorus 2.4 (L) 2.5 - 4.5 WALDO mg/dL Comment: Testing performed at [facility], [address] [place] [address] Specimen Anatomical Collection Method Collection Time Receive d Time (Source) Location / / Volume Laterality Blood 11/12/2021 9:28 11/12/2021 AM CDT 9:29 AM CDT Lowell Croft MD LAB BLOOD ORDERABLES Performing Organization Address City/[facility]/ZIP [facility] Phon e Number [address] Alkaline Phosphatase (11/12/2021 9:28 AM CDT)Only the most recent of12 results within the time period is included. athologist Signature Alk Phos 75 40 - 129 U/L [facility]ALDO Comment: Testing performed at [facility], [address] [place] [address] Specimen Anatomical Collection Method Collection Time Receive d Time (Source) Location / / Volume Laterality Blood 11/12/2021 9:28 11/12/2021 AM CDT 9:29 AM CDT Lowell Croft MD LAB BLOOD ORDERABLES Performing Organization Address City/[facility]/ZIP Code Phon e Number [address] Magnesium Level (11/12/2021 9:28 AM CDT)Only the most recent of10 resultswithin the time period is included. athologist Signature Magnesium 2.2 1.6 - 2.6 WALDO mg/dL Comment: Testing performed at [facility], [address] [place] [address] Specimen Anatomical Collection Method Collection Time Receive d Time (Source) Location / / Volume Laterality Blood 11/12/2021 9:28 11/12/2021 AM CDT 9:29 AM CDT Lowell Croft MD LAB BLOOD ORDERABLES Performing Organization Address City/State/ZIP Code Phon e Number [place], [place] [phone] [place] [address] LDH (11/12/2021 9:28 AM CDT) athologist Signature LDH 214 135 - 225 WALDO U/L Comment: Results greater than 1651 U/L may not be reliable due to matrix effect with extended dilution as it exceeds the paper cap machine operator's recommended limit. Caution should be exercised when interpreting such values and done in conjunction with clinical context. Testing performed at [facility], [address] [place] [address] Specimen Anatomical Collection Method Collection Time Receive d Time (Source) Location / / Volume Laterality Blood 11/12/2021 9:28 11/12/2021 AM CDT 9:29 AM CDT Lowell Crfot MD LAB BLOOD ORDERABLES Performing Organization Address City/[facility]/ZIP Code Phon e Number [place], [place] [phone] [place] [address] Hemoglobin A1c (11/12/2021 9:28 AM CDT)Only the most recent of2 resultswithin the time period is included. [facility] Signature A1C 5.3 4.3 - 5.6 % WALDO Comment: HbA1c values >=6.5% are diagnostic of di abetes mellitus. Diagnosis should be confirmed by repeat testing. Therapeutic Action suggested: >8.0% HbA1 c; Goal of therapy: <7.0% HbA1c Testing performed at [facility], [address] [place] [address] Specimen Anatomical Collection Method Collection Time Receive d Time (Source) Location / / Volume Laterality Blood 11/12/2021 9:28 11/12/2021 AM CDT 9:29 AM CDT [place] LAB BLOOD ORDERABLES Performing Organization Address City/[facility]/[place] [address] [address] [facility] IgA (11/12/2021 9:28 AM CDT)Only the most recent of2 resultswithin the time period is included. P athologist Signature IgA 273 85 - 499 [facility] mg/dL [facility] Specimen Anatomical Collection Method Collection Time Receive d Time (Source) Location / / Volume Laterality Blood 11/12/2021 9:28 11/12/2021 AM CDT 2:17 PM CDT Lowell Croft MD LAB BLOOD ORDERABLES Performing Organization Address City/State/ZIP Code Phon e Number [facility] CANCER Unless otherwise noted, [address] all lab tests performed by: Division of Pathology and Laboratory Medicine [facility] [address] [place] IgM (11/12/2021 9:28 AM CDT)Only the most recent of2 resultswithin the time period is included. athologist Signature IgM 79 35 - 242 [facility] mg/dL [facility] Specimen Anatomical Collection Method Collection Time Receive d Time (Source) Location / / Volume Laterality Blood 11/12/2021 9:28 11/12/2021 AM CDT 2:17 PM CDT Lowell Croft MD LAB BLOOD ORDERABLES Performing Organization Address City/[facility]/ZIP Code Phon e Number [facility] CANCER Unless otherwise noted, [address] all lab tests performed by: Division of Pathology and Laboratory Medicine [facility] [address] [place] (ABNORMAL) IgG (11/12/2021 9:28 AM CDT)Only the most recent of2 resultswithin the time period is included. athologist Signature IgG 3,950 (H) 610 - 1,616 [facility] mg/dL [facility] Specimen Anatomical Collection Method Collection Time Receive d Time (Source) Location / / Volume Laterality Blood 11/12/2021 9:28 11/12/2021 AM CDT 2:17 PM CDT Lowell Croft MD LAB BLOOD ORDERABLES Performing Organization Address City/State/ZIP Code Phon e Number [facility] CANCER Unless otherwise noted, [address] all lab tests performed by: Division of Pathology and Laboratory Medicine [facility] [place] (ABNORMAL) Calcium Level (11/12/2021 9:28 AM CDT)Only the most recent of15 resultswithin the time period is included. athologist Signature Calcium Lvl 10.3 (H) 8.4 - 10.2 [facility]DO mg/dL Comment: Testing performed at [facility], [address] [place] [address] Specimen Anatomical Collection Method Collection Time Receive d Time (Source) Location / / Volume Laterality Blood 11/12/2021 9:28 11/12/2021 AM CDT 9:29 AM CDT Lowell Croft MD LAB BLOOD ORDERABLES Performing Organization Address City/State/ZIP Code Phon e Number [address] (ABNORMAL) Beta 2 Microglobulin (11/12/2021 9:28 AM CDT) athologist Signature Beta2 4.8 (H) 0.8 - 2.3 [facility] Microglob mg/L [facility] Specimen Anatomical Collection Method Collection Time Receive d Time (Source) Location / / Volume Laterality Blood 11/12/2021 9:28 11/12/2021 AM CDT 2:17 PM CDT Lowell Croft MD LAB BLOOD ORDERABLES Performing Organization Address City/State/ZIP Code Phon e Number [facility] CANCER Unless otherwise noted, [address] all lab tests performed by: Division of Pathology and Laboratory Medicine [address] [place] Albumin Level (11/12/2021 9:28 AM CDT)Only the most recent of14 resultswithin the time period is included. athologist Signature Albumin Lvl 3.6 3.5 - 5.2 [facility]DO gm/dL Comment: Testing performed at [facility], [address] [place] [address] Specimen Anatomical Collection Method Collection Time Receive d Time (Source) Location / / Volume Laterality Blood 11/12/2021 9:28 11/12/2021 AM CDT 9:29 AM CDT Lowell Croft MD LAB BLOOD ORDERABLES Performing Organization Address [facility] Phon e Number [place], [place] [phone] [place] [address] (ABNORMAL) Electrolyte Panel (11/12/2021 9:28 AM CDT)Only the most recent of14 resultswithin the time period is included. athologist Signature Sodium Lvl 135 (L) 136 - 145 [facility] mEq/L Comment: Testing performed at [facility], [address] [place] [address] Potassium Lvl 4.0 3.5 - 5.1 mEq/L [facility] CIT Y Comment: Testing performed at [facility], [address] [place] [address] Chloride 103 98 - 107 mEq/L [facility]DO Comment: Testing performed at [facility], [address] [place] [address] CO2 24 22 - 29 mEq/L [facility] Comment: Testing performed at [facility], [address] [place] [address] Anion Gap 8 4 - 14 mEq/L [facility] Comment: Testing performed at [facility], [address] [place] [address] Specimen Anatomical Collection Method Collection Time Receive d Time (Source) Location / / Volume Laterality Blood 11/12/2021 9:28 11/12/2021 AM CDT 9:29 AM CDT Lowell Croft MD LAB BLOOD ORDERABLES Performing Organization Address City/[facility]/ZIP Code Phon e Number [place], [place] [phone] [place] [address] EKG, 12-Lead (Scheduled) (11/12/2021) Specimen (Source) Anatomical Location Collection Method / Collectio n Time Received Time / Laterality Volume Narrative This result has an attachment that is no t available. [place] ECG ORDERABLES Performing Organization Address City/[facility]/ZIP Code Phon e Number ADAN IECG (ABNORMAL) Total Volume (10/20/2021 6:00 AM CDT)Only the most recent of3 resultswithin the time period is included. athologist Signature Total Volume 2,050 (H) 1,200 - [facility] [place] 1,500 [place] mL/24 h [facility] Comment: Collection date/time has been modified t o: 06:00:00. Previous collection date/time: 09:24:15. Corrected from 2049 mL/24 h [HI] on 10/10 08/02 15:19:05 CDT by Kena Thompson. Hrs Collected [facility] Comment: Collection date/time has been modified t o: 06:00:00. Previous collection date/time: 09:24:15. Corrected from [NA] on 10/20/21 15:19 :05 CDT by Kena Thompson. Start Date 10/19/2021 [facility] Comment: Collection date/time has been modified t o: 06:00:00. Previous collection date/time: 09:24:15. Corrected from 10/19/21 0:00:00 CDT [NA] on 10/20/21 15:19:05 CDT by eKna Thompson. End Date 10/20/2021 [facility] Comment: Collection date/time has been modified t o: 06:00:00. Previous collection date/time: 09:24:15. Corrected from 10/20/21 0:00:00 CDT [NA] on 10/20/21 15:19:05 CDT by Kena Thompson. U24 Comment 6am to 6am [place] [facility] Comment: Collection date/time has been modified t o: 06:00:00. Previous collection date/time: 09:24:15. Corrected from 6am to 6am [NA] on 15:19:05 CDT by Kena Thompson. Specimen Anatomical Collection Method Collection Time Receive d Time (Source) Location / / Volume Laterality Urine 24 Hr 10/20/2021 6:00 10/20/2021 AM CDT 3:18 PM CDT Karen Coates MD URINE ORDERABLES Performing Organization Address City/State/ZIP Code Phon e Number [facility] Unless otherwise noted, [address] all lab tests performed by: Division of Pathology and Laboratory Medicine Yogesh Hughes Sodium 24 HR Urine (10/20/2021 6:00 AM CDT) athologist Signature U Sodium 94 mEq/L [facility] Comment: Normal range not available for collections less than 24 hours in duration. U24 Sodium 193 40 - 220 mEq/24 hr [place] MD [facility] Specimen Anatomical Collection Method Collection Time Receive d Time (Source) Location / / Volume Laterality Urine 24 Hr 10/20/2021 6:00 10/20/2021 AM CDT 4:16 PM CDT Narrative [facility] - 2 6:00 PM CDT Drop off urine on 10/20 at [facility] Karen Coates MD URINE ORDERABLES Performing Organization Address City/State/ZIP Code Phon e Number [facility] Unless otherwise noted, [address] all lab tests performed by: Division of Pathology and Laboratory Medicine Yogesh Hughes (ABNORMAL) Calcium 24 HR Urine (10/20/2021 6:00 AM CDT) athologist Signature U Calcium 3.0 mg/dL [facility] Comment: Normal range not available for collections less than 24 hours in duration. U24 Calcium 61.5 (L) 100.0 - 300.0 mg/24hr [facility] Specimen Anatomical Collection Method Collection Time Receive d Time (Source) Location / / Volume Laterality Urine 24 Hr 10/20/2021 6:00 10/20/2021 AM CDT 4:16 PM CDT Narrative [facility] - 2 6:00 PM CDT Drop off urine on 10/20 at [facility] Karen Coates MD URINE ORDERABLES Performing Organization Address City/State/ZIP Code Phon e Number [facility] Unless otherwise noted, [address] all lab tests performed by: Division of Pathology and Laboratory Medicine [address] [facility] Creatinine 24 HR Urine (10/20/2021 6:00 AM CDT) athologist Signature U Creatinine 48.8 40.0 - [facility] 278.0 mg/dL [facility] Comment: The reference range listed is f or first morning urine collection. U24 Creatinine 1,000.4 980.0 - 2,200.0 mg/24hr U [facility] Specimen Anatomical Collection Method Collection Time Receive d Time (Source) Location / / Volume Laterality Urine 24 Hr 10/20/2021 6:00 10/20/2021 AM CDT 4:16 PM CDT Narrative [facility] - 6:00 PM CDT Drop off urine on 10/20 at [facility] Karen Coates MD URINE ORDERABLES Performing Organization Address City/State/ZIP Code Phon e Number [facility] Unless otherwise noted, [place] [address] [place] all lab tests performed by: Division of Pathology and Laboratory Medicine [address] [facility] [place] CT 4D Neck (associated with Sestamibi Parathyroid) (10/16/2021 3:18 PM CDT) Anatomical Region Laterality Modality Neck Single-Photon Emissi on Computed Tomography (SPECT) Specimen (Source) Anatomical Collection Method Collection Time Re ceived Time Location / / Volume Laterality 10/20/2021 6:23 AM CDT Impressions 10/20/2021 8:04 AM CDT 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 Narrative 10/20/2021 8:04 AM CDT FULL RESULT: Examination: CT 4D NECK (ASSOCIATED WITH NM STUDY) on 10/16/2021 3:18 PM Clinical History: Primary hyperparathyro idism; Indication: primary 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dism; localization of abnormal parathyroid gland. Comparison: None Technique: Axial CT images were acquired from the aortic aortic arch to the mandible without and with contrast in a multiphasic fashion. Multiplanar maximal intensity projection images were generated on an independent workstation for interpretation. Findings: A cystic 1.4 x 1.3 cm extrathyroidal les ion with mural nodule that demonstrates avid early contrast enhancement with washout is present in RIGHT paraesophageal region deep and slightly inferior to the t hyroid gland (series 7 image 73). The le esequiel measures 1.8 cm in craniocaudal dimension and suspected for parathyroid adenoma. I would classify this as a type B or C superior gland. No definite parathyro id lesion is detected on the contralater al side based on enhancement characteristics. Small lymph nodes in the RIGHT tracheoesophageal groove. Patient has emphysematous changes in the upper lungs. Procedure Note Vince Babcock MD - 10/20/2021 FULL RESULT: Examination: CT 4D NECK (ASSOCIATED WITH NM STUDY) on 10/16/2021 3:18 PM Clinical History: Primary hyperparathyro idism; Indication: primary 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dism; localization of abnormal parathyroid gland. Comparison: None Technique: Axial CT images were acquired from the aortic aortic arch to the mandible without and with contrast in a multiphasic fashion. Multiplanar maximal intensity projection images were generated on an independent workstation for interpretation. Findings: A cystic 1.4 x 1.3 cm extrathyroidal les ion with mural nodule that demonstrates avid early contrast enhancement with washout is present in RIGHT paraesophageal region deep and slightly inferior to the thyroid gland (series 7 image 73). The lesion me asures 1.8 cm in craniocaudal dimension and suspected for parathyroid adenoma. I would classify this as a type B or C superior gland. No definite parathyroid lesion is detected on the contralateral side based on enhan cement characteristics. Small lymph nodes in the RIGHT tracheoesophageal groove. Patient has emphysematous changes in the upper lungs. 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 Ashley Geurrero NP IMG CT ORDERABLES NM Sestamibi Parathyroid SPECT/CT (With 4D Neck CT) (10/16/2021 3:17 PM CDT) Anatomical Region Laterality Modality Neck Single-Photon Emissi on Computed Tomography (SPECT) Specimen (Source) Anatomical Collection Method Collection Time Re ceived Time Location / / Volume Laterality 10/16/2021 4:48 PM CDT Impressions 10/16/2021 4:59 PM CDT Parathyroid adenoma is seen along the right tracheoesophageal groove. Narrative 10/16/2021 4:59 PM CDT FULL RESULT: Examination: Parathyroid Scintigraphy, 10/16/2021 3:17 PM Clinical History: 51-year-old patient wi primary 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dism Indication: Localization of parathyroid adenoma Comparison: Ultrasound of the neck Technique: Following the intravenous adm inistration of 25.0 mCi of technetium- 99m sestamibi, early and delayed anterior and posterior images of the neck and upper thorax were obtained. SPECT/CT images of the thorax were obtained prior to th e delayed planar image. Findings: 1.5 cm soft tissue nodule is s een in the right tracheoesophageal groove with increased MIBI retention in keeping with a parathyroid adenoma. Additional CT findings: Please see the d iagnostic CT scan of the neck performed today. Procedure Note Christopher Hale MD - 10/16/2021Format ting of this note might be different from the original. FULL RESULT: Examination: Parathyroid Scintigraphy, 10/16/2021 3:17 PM Clinical History: 51-year-old patient wi primary 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dism Indication: Localization of parathyroid adenoma Comparison: Ultrasound of the neck Technique: Following the intravenous adm inistration of 25.0 mCi of technetium- 99m sestamibi, early and delayed anterior and posterior images of the neck and upper thorax were obtained. SPECT/CT images of the thorax were obtained prior to the delayed plana r image. Findings: 1.5 cm soft tissue nodule is s een in the right tracheoesophageal groove with increased MIBI retention in keeping with a parathyroid adenoma. Additional CT findings: Please see the d iagnostic CT scan of the neck performed today. IMPRESSION: Parathyroid adenoma is seen along the ri t tracheoesophageal groove. Ashley Guerrero NP IMG NM ORDERABLES (ABNORMAL) PTH Intact (10/16/2021 12:25 PM CDT)Only the most recent of3 results within the time period is included. athologist Signature PTH Intact 112.5 (H) 15.0 - [facility] 65.0 pg/mL [facility] Specimen Anatomical Collection Method Collection Time Receive d Time (Source) Location / / Volume Laterality Blood 10/16/2021 12:25 10/16/2021 PM CDT 8:02 PM CDT Narrative [facility] - 8:17 PM CDT At [facility] Karen Coates MD LAB BLOOD ORDERABLES Performing Organization Address City/State/ZIP Code Phon e Number [facility] Unless otherwise noted, [place] [address] CENTER all lab tests performed by: Division of Pathology and Laboratory Medicine [address] TSH (10/16/2021 12:25 PM CDT)Only the most recent of3 resultswithin the time period is included. athologist Signature TSH 3.56 0.27 - 4.20 [place] mcunit/mL Comment: Testing performed at [facility], [address] [place] [address] Specimen Anatomical Collection Method Collection Time Receive d Time (Source) Location / / Volume Laterality Blood 10/16/2021 12:25 10/16/2021 PM CDT 12:37 PM CDT [facility] - 10/16/2021 1:13 PM CDT At [facility] Karen Coates MD LAB BLOOD ORDERABLES Performing Organization Address City/State/ZIP Code Phon e Number [place], [place] [id number] [place] [address] Free T4 (10/16/2021 12:25 PM CDT)Only the most recent of2 resultswithin the time period is included. [facility] T4 Free 1.15 0.93 - 1.70 [place] ng/dL Comment: Testing performed at [facility], [address] [place] [id number] Specimen Anatomical Collection Method Collection Time Receive d Time (Source) Location / / Volume Laterality Blood 10/16/2021 12:25 10/16/2021 PM CDT 12:37 PM CDT [facility] - 10/16/2021 1:13 PM CDT At [facility] Karen Coates MD LAB BLOOD ORDERABLES Performing Organization Address City/State/ZIP Code Phon e Number [place], [place] [id number] [place] [address] General Laboratory Add-On Test (10/14/2021 2:12 PM CDT)Only the most recent of5 resultswithin the time period is included. P athologist Signature Ordered Test Not [facility] Comment: no specimen container to add it on to, notified Ashley Guerrero 10/14/2021 2:29:19 PM CDT. JPA Test Needed PTH [facility] Specimen Anatomical Collection Method Collection Time Receive d Time (Source) Location / / Volume Laterality Existing 10/14/2021 2:12 10/14/2021 PM CDT 2:12 PM CDT Ashley Guerrero CAUSTICISER LAB BLOOD ORDERABLES Performing Organization Address City/State/ZIP Code Phon e Number [facility] Unless otherwise noted, [place] [address] [place] all lab tests performed by: Division of Pathology and Laboratory Medicine [address] [facility] Bone Mineral Density Both Hips and Spine (10/13/2021 3:34 PM CDT) Anatomical Region Laterality Modality Spine Nuclear Medicine Specimen (Source) Anatomical Collection Method Collection Time Re ceived Time Location / / Volume Laterality 10/13/2021 3:38 PM CDT Impressions 10/13/2021 3:54 PM CDT Osteoporosis. I personally reviewed these image(s) aline monteiro with the resident's/fellow's interpretations, certify that if a procedure was performed I was physically present, and agree with the final report. Narrative 10/13/2021 3:54 PM CDT Examination: Bone Mineral Density (DXA), 10/13/2021 Clinical History: 81-year-old male patie nt with primary 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dism. Indication: Assessment of bone mineral d ensity. Comparison: None. Technique: Bone mineral density was obta ined using Hologic dual-energy X-ray absorptiometry. The nondominant left distal forearm was included for imaging and analysis. Findings: The findings are provided in t he below table(s). FULL RESULT: Bone Density: Region Exam Date BMD T- Z- g/cm2 Score Score AP Spine (L1-L4) 10/13/2021 0. 783 -2.8 -1.5 Femoral Neck (Left) 10/13/2021 0. 480 -3.3 -1.7 Total Hip (Left) 10/13/2021 0. 538 -3.3 -2.1 Femoral Neck (Right) 10/13/2021 0. 561 -2.7 -1.1 Total Hip (Right) 10/13/2021 0. 607 -2.8 -1.6 1/3 Forearm (Left) 10/13/2021 0. 462 -6.7 -4.4 For postmenopausal women and men age 50 and over, the World Health Organization criteria for BMD interpreta tion classify patients as: Normal (T-score at or above -1.0), Osteopenia ( T-score between -1.0 and -2.5), or Osteoporosis (T-score at or be low -2.5). Procedure Note Christopher Hale MD - 10/13/2021Format ting of this note might be different from the original. Examination: Bone Mineral Density (DXA), 10/13/2021 Clinical History: 81-year-old male patie nt with primary 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dism. Indication: Assessment of bone mineral d ensity. Comparison: None. Technique: Bone mineral density was obta ined using Hologic dual-energy X-ray absorptiometry. The nondominant left distal forearm was included for imaging and analysis. Findings: The findings are provided in t he below table(s). FULL RESULT: Bone Density: Region Exam Date BMD T- Z- g/c m2 Score Score AP Spine (L1-L4) 10/13/2021 0.783 -2. 8 -1.5 Femoral Neck (Left) 10/13/2021 0.480 -3. 3 -1.7 Total Hip (Left) 10/13/2021 0.538 -3. 3 -2.1 Femoral Neck (Right) 10/13/2021 0.561 -2. 7 -1.1 Total Hip (Right) 10/13/2021 0.607 -2. 8 -1.6 1/3 Forearm (Left) 10/13/2021 0.462 -6. 7 -4.4 For postmenopausal women and men age 50 and over, the World Health Organization criteria for BMD interpreta tion classify patients as: Normal (T-score at or above -1.0), Osteopenia ( T-score between -1.0 and -2.5), or Osteoporosis (T-score at or be low -2.5). IMPRESSION: Osteoporosis. I personally reviewed these image(s) aline monteiro with the resident's/fellow's interpretations, certify that if a procedure was performed I was physically present, and agree with the final report. Ashley Guerrero NP IMG DXA ORDERABLES US Head Neck Soft Tissue (10/13/2021 10:13 AM CDT) Anatomical Region Laterality Modality Head, Neck Ultrasound Specimen (Source) Anatomical Collection Method Collection Time Re ceived Time Location / / Volume Laterality 10/13/2021 9:52 AM CDT Impressions 10/13/2021 10:28 AM CDT 1. A 1.2 cm hypervascular nodule sandwiched between the left mid thyroid lobe and left common carotid artery is compatible with a parathyroid adenoma. 2. No suspicious thyroid nodule. 3. No suspicious cervical adenopathy. Narrative 10/13/2021 10:28 AM CDT FULL RESULT: Examination: ULTRASOUND SOFT TISSUE HEAD &NECK on 10/13/2021 9:52 AM Clinical History: Primary hyperparathyro idism 81-year-old male with history of primary 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dism. Indication: Other:, primary hyperparathy roidism Comparison: None. This is a baseline Pretty [place]so [place] examination. Technique: Grayscale and color Doppler u ltrasound of the soft tissues of the neck. Findings: Sandwiched between the left mid thyroid lobe and the left common carotid artery, there is a mixed solid cystic nodule measuring 1.2 x 1.1 x 0.3 cm. It is associated with a prominent polar feeding vessel and is compatible with a parathyroid adenoma. No definable thyroid nodule is identifie d. The right lobe of the thyroid gland measures 4.2 x 1.3 x 1.3 cm. The left lobe of the thyroid gland measures 3.8 x 1.2 x 0.9 cm. There is no suspicious adenopathy in the lateral compartment of the neck. No suspicious submandibular, submental, delphian, or suprasternal lymph node is seen. Procedure Note Daivd Kang MD - 10/13/2021 FULL RESULT: Examination: ULTRASOUND SOFT TISSUE HEAD &NECK on 10/13/2021 9:52 AM Clinical History: Primary hyperparathyro idism 81-year-old male with history of primary 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dism. Indication: Other:, primary hyperparathy roidism Comparison: None. This is a baseline [place] examination. Technique: Grayscale and color Doppler u ltrasound of the soft tissues of the neck. Findings: Sandwiched between the left mid thyroid lobe and the left common carotid artery, there is a mixed solid cystic nodule measuring 1.2 x 1.1 x 0.3 cm. It is associated with a prominent polar feeding vessel and is compatible with a parathyroid adenoma. No definable thyroid nodule is identifie d. The right lobe of the thyroid gland measures 4.2 x 1.3 x 1.3 cm. The left lobe of the thyroid gland measures 3.8 x 1.2 x 0.9 cm. There is no suspicious adenopathy in the lateral compartment of the neck. No suspicious submandibular, submental, delphian, or suprasternal lymph node is seen. IMPRESSION: 1. A 1.2 cm hypervascular nodule sandwi ched between the left mid thyroid lobe and left common carotid artery is compatible with a parathyroid adenoma. 2. No suspicious thyroid nodule. 3. No suspicious cervical adenopathy. Ashley Guerrero NP IMDanny US ORDERABLES (ABNORMAL) SPIROMETRY W/O DILATORS, DLCO AND BODY PLETHSMOGRAPHIC LUNG VOLUMES (10/13/2021 8:55 AM CDT) Analysis Performed At Patho logist Time Signature FVC (L) pre 3.495 2.384 - 10/13/2021 [place] 4.028 L 8:51 AM CDT FEV1 (L) pre 2.390 1.524 - 10/13/2021 [place] 2.914 L 8:51 AM CDT FEV1/FVC (%) 68.393 61.240 - 10/13/2021 [place] pre 80.596 % 8:51 AM CDT DLCO_SB 10.835 4.507 - 10/13/2021 [place] ml/(min*mmHg) 21.093 8:51 AM CDT ml/(min*mm Hg) TLC (L) 5.592 5.112 - 10/13/2021 [place] 7.415 L 8:51 AM CDT RV (L) 2.007 (L) 2.109 - 10/13/2021 [place] 3.458 L 8:51 AM CDT RV/TLC (%) 35.891 (L) 37.348 - 10/13/2021 [place] 55.312 % 8:51 AM CDT FVC (% pred) 109 % 10/13/2021 [place] pre 8:51 AM CDT FEV1 (%pred) 108 % 10/13/2021 [place] pre 8:51 AM CDT FEV1/FVC (% 96 % 10/13/2021 [place] pred) pre 8:51 AM CDT TLC (% pred) 89 % 10/13/2021 [place] 8:51 AM CDT RV (% pred) 72 % 10/13/2021 [place] 8:51 AM CDT RV/TLC (% 77 % 10/13/2021 [place] pred) 8:51 AM CDT DLCO_SB (% 85 % 10/13/2021 [place] pred) 8:51 AM CDT Specimen (Source) Anatomical Collection Method Collection Time Re ceived Time Location / / Volume Laterality 10/13/2021 8:12 AM CDT Narrative This result has an attachment that is no t available. Lo Leon PROFESSOR OF ENGINEERING PFT ORDERABLES Performing Organization Address City/State/ZIP Code Phon e Number [place] 6 minute walk test (10/13/2021 8:55 AM CDT) Specimen (Source) Anatomical Collection Method Collection Time Re ceived Time Location / / Volume Laterality 10/13/2021 8:24 AM CDT Narrative This result has an attachment that is no t available. Lo Leon PROFESSOR OF ENGINEERING PFT ORDERABLES Performing Organization Address City/State/ZIP Code Phon e Number [place] Dihydroxyvitamin D 1,25 Level (10/13/2021 7:58 AM CDT)Only the most recent of2 resultswithin the time period is included. athologist Signature 1,25-Vitamin 55 18 - 64 [place] MARY[place] D-[place] pg/mL [facility]ENTER Comment: ADDITIONAL INFORMATIO N This test was developed and its performa nce characteristics determined by [facility] in a manner co nsistent with CLIA requirements. This test has not been tristan ared or approved by the U.S. Food and Drug Administration. Test Performed by: [facility] [address] [place] [phone] Laundry Tub Maker: Sajan Field M.D. Ph. D.; CLIA# [id number] Specimen Anatomical Collection Method Collection Time Receive d Time (Source) Location / / Volume Laterality Blood 10/13/2021 7:58 10/13/2021 AM CDT 9:16 AM CDT Ashley Guerrero CAUSTICISER LAB BLOOD ORDERABLES Performing Organization Address City/[facility]/ZIP Code Phon e Number [facility] Unless otherwise noted, [address] all lab tests performed by: Division of Pathology and Laboratory Medicine [address] [place] [address] CTX Beta Crosslaps (10/13/2021 7:58 AM CDT) athologist [facility] CTX 159 10 - 854 [facility] pg/mL [facility]ENTER Comment: Males: <30 years: not established 30-50 years: 16 - 584 pg/mL 51-70 years: 10 - 704 pg/mL >70 years: 10 - 854 pg/mL Females: Premenopausal: 25 - 573 pg/mL Postmenopausal: 104 - 1008 pg/mL Specimen Anatomical Collection Method Collection Time Receive d Time (Source) Location / / Volume Laterality Blood 10/13/2021 7:58 10/13/2021 AM CDT 8:50 AM CDT Ashley Guerrero CAUSTICISER LAB BLOOD ORDERABLES Performing Organization Address City/[facility]/ZIP Code Phon e Number [facility] Unless otherwise noted, [address] all lab tests performed by: Division of Pathology and Laboratory Medicine [address] [place] [address] Anti-Neutrophil Cytoplasmic Antibodies Vascultitis Panel (10/13/2021 7:58 AM CDT) athologist Signature Myeloperox <0.2 <0.4 [facility] (Negative) CAN[facility]ER CENTER Units Proteinase 3 <0.2 <0.4 [facility] (Negative) CAN[facility]ER CENTER Units Comment: Test Performed by: [facility] [address] [place], [place] [address] Laundry Tub Maker: Sajan Field M.D. Ph. D.; CLIA# [id number] Specimen Anatomical Collection Method Collection Time Receive d Time (Source) Location / / Volume Laterality Blood 10/13/2021 7:58 10/13/2021 AM CDT 9:16 AM CDT Taz Virgen MD LAB BLOOD ORDERABLES Performing Organization Address City/State/ZIP Code Phon e Number [facility] Unless otherwise noted, [address] all lab tests performed by: Division of Pathology and Laboratory Medicine [address] [place] [address] Cyclic Citrullinated Peptide Ab (10/13/2021 7:58 AM CDT) [place] Hospitalologist [facility] CCP Ab-[place] <15.6 <20.0 [facility] (Negative) CAN[facility]ER CENTER Units Comment: Test Performed by: [facility] [address] [place] [address] Laundry Tub Maker: Sajan Field M.D. Ph. D.; CLIA# [id number] Specimen Anatomical Collection Method Collection Time Receive d Time (Source) Location / / Volume Laterality Blood 10/13/2021 7:58 10/13/2021 AM CDT 9:16 AM CDT Taz Virgen MD LAB BLOOD ORDERABLES Performing Organization Address City/State/ZIP Code Phon e Number [facility] Unless otherwise noted, [address] all lab tests performed by: Division of Pathology and Laboratory Medicine [address] [place] [address] Alk Phos Bone (10/13/2021 7:58 AM CDT) athologist [facility] AlkPhos 8.8 0 - 20 [facility] [place] mcg/L [facility] Comment: ADDITIONAL INFORMATIO N Liver-derived alkaline phosphatase (ALP) increases apparent measured bone alkaline phosphatase (BAP) in this assay by 2.5 mcg/L to 5.8 mcg/L for every 100 U/L of liver ALP. Accordingly, serum specimens with signif icant elevations of liver ALP activity may yield artificiall y elevated results in the BAP assay. Test Performed by: [facility] [address] [address] Laundry Tub Maker: Sajan Field M.D. Ph. D.; CLIA# [id number] Specimen Anatomical Collection Method Collection Time Receive d Time (Source) Location / / Volume Laterality Blood 10/13/2021 7:58 10/13/2021 AM CDT 9:16 AM CDT Ashley Guerrero NP LAB BLOOD ORDERABLES Performing Organization Address City/[facility]/ZIP Code Phon e Number [facility] CANCER Unless otherwise noted, [address] all lab tests performed by: Division of Pathology and Laboratory Medicine [address] [place] Osteocalcin (10/13/2021 7:58 AM CDT) athologist Signature Osteocalcin 10 9 - 42 [facility] ng/mL [facility] CENTER Specimen Anatomical Collection Method Collection Time Receive d Time (Source) Location / / Volume Laterality Blood 10/13/2021 7:58 10/13/2021 AM CDT 8:49 AM CDT Ashley Guerrero NP LAB BLOOD ORDERABLES Performing Organization Address [facility] Phon e Number [facility] Unless otherwise noted, [address] all lab tests performed by: Division of Pathology and Laboratory Medicine [facility] [place] (ABNORMAL) Rheumatoid Factor Quant (10/13/2021 7:58 AM CDT) athologist Signature Rheumatoid 75 (H) <=14 IU/mL [facility] Specimen Anatomical Collection Method Collection Time Receive d Time (Source) Location / / Volume Laterality Blood 10/13/2021 7:58 10/13/2021 AM CDT 8:50 AM CDT Taz Virgen MD LAB BLOOD ORDERABLES Performing Organization Address City/[facility]/ZIP Code Phon e Number [facility] CANCER Unless otherwise noted, [address] all lab tests performed by: Division of Pathology and Laboratory Medicine [address] [place] Lipase Level (10/13/2021 7:58 AM CDT) athologist Signature Lipase Lvl 34 13 - 60 U/L [facility] Specimen Anatomical Collection Method Collection Time Receive d Time (Source) Location / / Volume Laterality Blood 10/13/2021 7:58 10/13/2021 AM CDT 8:18 AM CDT Taz Virgen MD LAB BLOOD ORDERABLES Performing Organization Address City/[facility]/ZIP Code Phon e Number [facility] DIAGNOSTIC Unless otherwise noted, [address] all lab tests performed by: Division of Pathology and Laboratory Medicine [address] [place] (ABNORMAL) Glucose Level (10/13/2021 7:58 AM CDT)Only the most recent of13 resultswithin the time period is included. athologist Signature Glucose Level 102 (H) 70 - 99 [facility] mg/dL DIAGNOSTIC CENTER Comment: Effective 02/05/16, the glucose reference intervals have been updated based on [place] [employer] guidelines (Standards of Medical Care in Diabetes 2016. Diabetes Care 2016; 39: S13-S22). Fasting blood glucose: Normal: 70-99 mg/dL Impaired fasting glucose (increased risk for diabetes or pre-diabetes): 100- 125 mg/dL Diabetes mellitus: >/=126 mg/dL Random blood glucose: Normal: 70-199 mg/dL Note: Random glucose >100 mg/dL is assoc iated with increased risk for diabetes Specimen Anatomical Collection Method Collection Time Receive d Time (Source) Location / / Volume Laterality Blood 10/13/2021 7:58 10/13/2021 AM CDT 8:17 AM CDT Ashley Guerrero NP LAB BLOOD ORDERABLES Performing Organization Address City/[facility]/ZIP Code Phon e Number [facility] DIAGNOSTIC Unless otherwise noted, [address] all lab tests performed by: Division of Pathology and Laboratory Medicine [address] [place] Amylase Level (10/13/2021 7:58 AM CDT) athologist Signature Amylase Lvl 75 28 - 100 [facility] U/L DIAGNOSTIC CENTER Specimen Anatomical Collection Method Collection Time Receive d Time (Source) Location / / Volume Laterality Blood 10/13/2021 7:58 10/13/2021 AM CDT 8:18 AM CDT Taz Virgen MD LAB BLOOD ORDERABLES Performing Organization Address City/[facility]/ZIP Code Phon e Number [facility] DIAGNOSTIC Unless otherwise noted, [address] all lab tests performed by: Division of Pathology and Laboratory Medicine [address] [place] (ABNORMAL) Soriano Miscellaneous Test (09/15/2021 5:04 PM CLEAN IN PLACES OPERATOR) [place] gist Method Time Signature [place] RL Test See Footnote [facility] (A) [facility] Comment: Test Result Flag Unit RefValue Immunoglobulin Subclass 1610 .0 H mg/dL 2.4 - 121.0 IgG4, S Test Performed by: [facility] [address] [place] [address] Laundry Tub Maker: Sajan Iglesias Ph.D.; CLIA# [id number] Specimen Anatomical Collection Method Collection Time Receive d Time (Source) Location / / Volume Laterality Varies 09/15/2021 5:04 09/16/2021 PM CLEAN IN PLACES OPERATOR 7:18 PM CLEAN IN PLACES OPERATOR Narrative [facility] - 5:44 PM CLEAN IN PLACES OPERATOR Immunoglobulin Subclass IgG4 Bolivar Crisostomo NP LAB BLOOD ORDERABLES Performing Organization Address City/State/ZIP Code Phon e Number [facility] CANCER Unless otherwise noted, [place] [address] [place] all lab tests performed by: Division of Pathology and Laboratory Medicine [address] [place] [address] Lung Perfusion (09/15/2021 10:27 AM CLEAN IN PLACES OPERATOR) Anatomical Region Laterality Modality Lung Single-Photon Emissi on Computed Tomography (SPECT) Specimen (Source) Anatomical Collection Method Collection Time Re ceived Time Location / / Volume Laterality 09/15/2021 10:49 AM CLEAN IN PLACES OPERATOR Impressions 09/15/2021 10:52 AM CLEAN IN PLACES OPERATOR Low probability of pulmonary embolism. Narrative 09/15/2021 10:52 AM CLEAN IN PLACES OPERATOR FULL RESULT: Examination: Lung Perfusion Study, 022 10:27 AM Clinical History: Patient with shortness of breath and lung cancer Indication: Evaluation for PE. Comparison: CT scan of the chest Technique: Following the intravenous adm inistration of 5.5 mCi of technetium-99m MAA, multiple planar and SPECT/CTimages of the thorax were obtained. Findings: The planar images show areas o f reduced perfusion in the superior segment of the right lower lobe. Nonsegmental perfusion defects are seen particularly in the major fissure of the left lung. S PECT-CT scan demonstrates reduced perfus ion corresponding to areas of consolidation in the right lower lung which may represent tumor effect on perfusion. Procedure Note Christopher Hale MD - 09/15/2021Format ting of this note might be different from the original. FULL RESULT: Examination: Lung Perfusion Study, 10:27 AM Clinical History: Patient with shortness of breath and lung cancer Indication: Evaluation for PE. Comparison: CT scan of the chest Technique: Following the intravenous adm inistration of 5.5 mCi of technetium-99m MAA, multiple planar and SPECT/CTimages of the thorax were obtained. Findings: The planar images show areas o f reduced perfusion in the superior segment of the right lower lobe. Nonsegmental perfusion defects are seen particularly in the major fissure of the left lung. SPECT-CT scan demonstrates reduced perfusion correspon ding to areas of consolidation in the right lower lung which may represent tumor effect on perfusion. IMPRESSION: Low probability of pulmonary embolism. Christopher Hale MD IMG NM ORDERABLES EKG, 12-Lead (09/15/2021)Only the most recent of2 resultswithin the time period is included. Specimen (Source) Anatomical Location Collection Method / Collectio n Time Received Time / Laterality Volume Narrative This result has an attachment that is no t available. Bolivar Crisostomo NP ECG ORDERABLES Performing Organization Address City/State/ZIP Code Phon e Number [facility] IECG CT Chest without Contrast (09/14/2021 8:22 PM CLEAN IN PLACES OPERATOR) Anatomical Region Laterality Modality Chest Computed Tomography Specimen (Source) Anatomical Collection Method Collection Time Re ceived Time Location / / Volume Laterality 09/14/2021 9:06 PM CLEAN IN PLACES OPERATOR Impressions 09/14/2021 9:16 PM CLEAN IN PLACES OPERATOR Tumor and treatment effects are essentia lly stable over the past couple of months but some individual lesions slightly better and worse. No superimposed pneumonia. Narrative 09/14/2021 9:16 PM CLEAN IN PLACES OPERATOR FULL RESULT: Examination: CT CHEST WO CONTRAST, 8:22 PM Clinical History: Lung cancer Indication: Negative COVID-19 Test Resul t, shortness of breath. Cough. Comparison: PET/CT 08/13/[address] 07/19/2021 Technique: CT of the chest was performed without intravenous contrast. Findings: Small to borderline bilateral axillary l ymph nodes are seen again and were mildly FDG avid in August. Numerous small mediastinal lymph nodes are present again with enlarged subcarinal and borderline r ight and left paratracheal lymph nodes a s before. Many of these were FDG avid in August presumably representing tumor involvement. Cardiac chamber sizes are normal. Severe multivessel coronary calcifi cations are present. A small pericardial effusion is present, increased from August. Consolidation in the posterior lower right lung is seen again including a inferior masslike component in these prob ably represent a combination of tumor an d treatment effects, not obviously changed back to July. Severe emphysema and scarring in both lungs is seen again.. Multiple nodular lesions are seen in both lungs including relatively well-defined nodules and others spiculated nodules with air bronchograms. These are not significantly changed from the July exam overall although some individual lesions are slightly larger and others slightly smaller today. No new areas of consolidation. No pleural effusion. The visualized upper abdomen is unremarkable. Degenerative disc changes in the spine. No suspicious bone lesions. Procedure Note Hitesh Hernandez MD - 09/14/2021Formatt ing of this note might be different from the original. FULL RESULT: Examination: CT CHEST WO CONTRAST, 022 8:22 PM Clinical History: Lung cancer Indication: Negative COVID-19 Test Resul t, shortness of breath. Cough. Comparison: PET/CT 08/13/[address] 07/19/2021 Technique: CT of the chest was performed without intravenous contrast. Findings: Small to borderline bilateral axillary l ymph nodes are seen again and were mildly FDG avid in August. Numerous small mediastinal lymph nodes are present again with enlarged subcarinal and borderline right and left paratracheal lymph nodes as before. Many of these were FDG avid in August presumably representing tumor involvement. Cardiac chamber sizes are normal. Severe multivessel coronary calcifications are present. A small pericardial effusion is present, i ncreased from August. Consolidation in the posterior lower right lung is seen again including a inferior masslike component in these probably represent a combination of tumor and treatment effects, not obvious ly changed back to July. Severe emphysema and scarring in both lungs is seen again.. Multiple nodular lesions are seen in both lungs including relatively well-defined nodules and others spiculated nodules with air b ronchograms. These are not significantly changed from the July exam overall although some individual lesions are slightly larger and others slightly smaller today. No new areas of consolidation. No pleural effusion. The visualized upper abdomen is unremarkable. Degenerative disc changes in the spine. No suspicious bone lesions. IMPRESSION: Tumor and treatment effects are essentia lly stable over the past couple of months but some individual lesions slightly better and worse. No superimposed pneumonia. Bolivar Crisostomo NP IMG CT ORDERABLES (ABNORMAL) Troponin T (In-House) (09/14/2021 6:14 PM CLEAN IN PLACES OPERATOR) athologist Signature Troponin T 26 (H) <=18 ng/L [facility] Comment: < 19 ng/L Suggest retest at 3 to 6 hours later to rule out myocardial infarction >= 19 to <=52 ng/L Pos sible myocardial injury. Suggest retest at 3 hours. - a change of < 20 ng/L, retest at 6 hours - a change of >= 20 ng/L, suggestive of myocardial infarction > 52 ng/L Suggestive of myocardial infarction Critical value will be reported when cTn T is > 52 ng/L and only reported for the first in a series. Hemolyzed specimens with Hemolysis Index >100 (100 mg/dl or moderate hemolysis) may cause interferences and falsely low results. Specimen Anatomical Collection Method Collection Time Receive d Time (Source) Location / / Volume Laterality Blood 09/14/2021 6:14 09/14/2021 PM CLEAN IN PLACES OPERATOR 6:21 PM CLEAN IN PLACES OPERATOR Bolivar Crisostomo NP LAB BLOOD ORDERABLES Performing Organization Address City/State/ZIP Code Phon e Number [facility] CANCER Unless otherwise noted, [place] [address] [place] all lab tests performed by: Division of Pathology and Laboratory Medicine [facility] [place] Respiratory Viral Panel + COVID-19, Nasopharyngeal Swab (09/14/2021 11:04 AM CLEAN IN PLACES OPERATOR)Only the most recent of2 resultswithin the time period is included. Patholo gist Method Time Signature Adenovirus Not Not NIKOLE CHU Detected Detected [facility] Coronavirus 229E Not Not NIKOLE CHU Detected Detected [facility] Coronavirus HKU1 Not Not [facility] MD Detected Detected [facility] Coronavirus NL63 Not Not [facility] MD Detected Detected [facility] Coronavirus OC43 Not Not [facility] MD Detected Detected [facility] COVID19 Not Not [facility] (SARS-CoV-2) Detected Detected [facility] Human Not Not [facility] MD Metapneumovirus Detected Detected [facility] Human Not Not [facility] MD Rhinovirus/Enterov Detected Detected [facility] Influenza A Not Not [facility] MD Detected Detected [facility] Influenza A H1 Not Not [facility] MD Detected Detected [facility] Influenza A H1 Not Not [facility] MD 2009 Detected Detected [facility] Influenza A H3 Not Not [facility] MD Detected Detected [facility] Influenza B Not Not [facility] MD Detected Detected [facility] Parainfluenza 1 Not Not [facility] MD Detected Detected [facility] Parainfluenza 2 Not Not [facility] MD Detected Detected [facility] Parainfluenza 3 Not Not [facility] MD Detected Detected [facility] Parainfluenza 4 Not Not [facility] MD Detected Detected [facility] Respiratory Not Not [facility] MD Syncytial Virus Detected Detected [facility] Bordetella Not Not [facility] Parapertussis Detected Detected [facility] Bordetella Not Not [facility] MD pertussis Detected Detected [facility] Chlamydiophila Not Not [facility] pneumoniae Detected Detected [facility] Mycoplasma Not Not [facility] MD pneumoniae Detected Detected [facility] Specimen (Source) Anatomical Collection Method Collection Time Re ceived Time Location / / Volume Laterality Nasopharyngeal Swab 09/14/2021 11:04 03/0 12/2021 AM CLEAN IN PLACES OPERATOR 11:15 AM CLEAN IN PLACES OPERATOR Narrative [facility] - 12:13 PM CLEAN IN PLACES OPERATOR The BioFire RP2.1 is a real-time, nested multiplexed polymerase chain reaction test designed to simul taneously identify nucleic acids from 22 different viruses and bacteria associated with respiratory tract infection, including SARS-CoV-2, from a single nasopharyngeal swab (EYELET CUTTER) specimen obtai vini from individuals suspected of respiratory tract infections, including COVID-19. Results must be interpreted within the c ontext of all relevant clinical and laboratory findings and should not form the sole basis for a diagnosis or treatment decision. Positive results do not rule out coninfection with other organisms. Nega tive results in the setting of a respiratory illness may be due to infection with pathogens that are not detected by this panel, or a lower respiratory tract infection that may not be detected by an EYELET CUTTER specimen. Internal controls are used to monitor al l stages of the test process and assess for possible amplification inhibitors. If inhibition is detected, testing is repeated and if inhibition is confirmed the s pecimen is resulted as "Invalid". When a n "Invalid" result occurs, it is recommended to wait 3 days before submitting a new specimen for testing if clinically indicated. This assay has been approved by the FDA for use in laboratories that have been CLIA-certified to perform moderate-complexity and high-complexity tests. The Microbiology Laboratory at [facility], CLIA Accreditation #[id number] and CAP Accreditation #[id number], verified the per formance characteristics of this assay. [facility]biology Laboratory at [facility] performs the assay using the [employer] System. Pattie Perez MD MICROBIOLOGY - GENERAL ORDER GIGI Performing Organization Address City/State/ZIP Code Phon e Number [facility] CANCER Unless otherwise noted, [place] [address] [place] all lab tests performed by: Division of Pathology and Laboratory Medicine [address] [facility] (ABNORMAL) Cardiac Panel (09/14/2021 11:04 AM CLEAN IN PLACES OPERATOR)Only the most recent of2 resultswithin the time period is included. P athologist Signature CK 18 (L) 39 - 308 [facility] U/L [facility] CK MB <2.0 <=10.4 [facility] ng/mL [facility] Troponin T 29 (H) <=18 ng/L [facility] Comment: < 19 ng/L Suggest retest at 3 to 6 hours later to rule out myocardial infarction >= 19 to <=52 ng/L Pos sible myocardial injury. Suggest retest at 3 hours. - a change of < 20 ng/L, retest at 6 hours - a change of >= 20 ng/L, suggestive of myocardial infarction > 52 ng/L Suggestive of myocardial infarction Critical value will be reported when cTn T is > 52 ng/L and only reported for the first in a series. Hemolyzed specimens with Hemolysis Index >100 (100 mg/dl or moderate hemolysis) may cause interferences and falsely low results. Specimen Anatomical Collection Method Collection Time Receive d Time (Source) Location / / Volume Laterality Blood 09/14/2021 11:04 09/14/2021 AM CLEAN IN PLACES OPERATOR 11:24 AM CLEAN IN PLACES OPERATOR Pattie Perez MD LAB BLOOD ORDERABLES Performing Organization Address [facility] Phon e Number [facility] CANCER Unless otherwise noted, [address] all lab tests performed by: Division of Pathology and Laboratory Medicine [address] (ABNORMAL) aPTT (09/14/2021 11:04 AM CLEAN IN PLACES OPERATOR)Only the most recent of4 resultswithin the time period is included. P athologist Signature aPTT 23.7 (L) 24.7 - 36.[address] [facility](s) [facility] Specimen Anatomical Collection Method Collection Time Receive d Time (Source) Location / / Volume Laterality Blood 09/14/2021 11:04 09/14/2021 AM CLEAN IN PLACES OPERATOR 11:14 AM CLEAN IN PLACES OPERATOR Pattie Perez MD LAB BLOOD ORDERABLES Performing Organization Address [facility] Phon e Number [facility] CANCER Unless otherwise noted, [address] all lab tests performed by: Division of Pathology and Laboratory Medicine [facility] (ABNORMAL) NT-Pro BNP (In-House) (09/14/2021 11:04 AM CLEAN IN PLACES OPERATOR)Only the most recent of2 resultswithin the time period is included. athologist Signature NT ProBNP 953 (H) <=450 pg/mL [facility] Specimen Anatomical Collection Method Collection Time Receive d Time (Source) Location / / Volume Laterality Blood 09/14/2021 11:04 09/14/2021 AM CLEAN IN PLACES OPERATOR 11:18 AM CLEAN IN PLACES OPERATOR Pattie Perez MD LAB BLOOD ORDERABLES Performing Organization Address [facility] Phon e Number [facility] CANCER Unless otherwise noted, [address] all lab tests performed by: Division of Pathology and Laboratory Medicine [facility] (ABNORMAL) D-dimer (09/14/2021 11:04 AM CLEAN IN PLACES OPERATOR)Only the most recent of2 results within the time period is included. P athologist Signature D-Dimer 1.08 (H) 0.10 - 0.50 [facility] mcg/ml U CAN[facility]ER CENTER Comment: The cut off value for exclusion of venou s thromboembolism is <0.51 mcg/mL FEUs (fibrinogen equival ent units). Specimen Anatomical Collection Method Collection Time Receive d Time (Source) Location / / Volume Laterality Blood 09/14/2021 11:04 09/14/2021 AM CLEAN IN PLACES OPERATOR 11:14 AM CLEAN IN PLACES OPERATOR Pattie Perez MD LAB BLOOD ORDERABLES Performing Organization Address City/State/ZIP Code Phon e Number [facility] CANCER Unless otherwise noted, [place] [address] CENTER all lab tests performed by: Division of Pathology and Laboratory Medicine [address] [place] X-ray Chest 1 View (09/14/2021 11:01 AM CLEAN IN PLACES OPERATOR) Anatomical Region Laterality Modality Chest Digital Radiography Specimen (Source) Anatomical Collection Method Collection Time Re ceived Time Location / / Volume Laterality 09/14/2021 11:24 AM CLEAN IN PLACES OPERATOR Impressions 09/14/2021 11:27 AM CLEAN IN PLACES OPERATOR Right hilar mass and parahilar opacities. Bilateral pulmonary parenchymal opacities similar prior studies of July 23, 2021. Narrative 09/14/2021 11:27 AM CLEAN IN PLACES OPERATOR FULL RESULT: Examination: XR CHEST 1 VW, 09/14/2021 11: 01 AM Clinical History: Lung cancer shortness of breath Indication: Other:, Chest pain/Shortness of Breath Comparison: Chest radiography July. Technique: Anteroposterior radiograph of the chest. Findings: Right hilar mass extending in the right parahilar lung as well as multiple bilateral pulmonary parenchymal reticulonodular opacities similar to prior studies of July 23, 2021. There is no pleural eff usion or pneumothorax. Cardiac silhoue tte is stable. Procedure Note Mark Bentley MD - 09/14/2021Formattin g of this note might be different from the original. FULL RESULT: Examination: XR CHEST 1 VW, 09/14/2021 11: 01 AM Clinical History: Lung cancer shortness of breath Indication: Other:, Chest pain/Shortness of Breath Comparison: Chest radiography July. Technique: Anteroposterior radiograph of the chest. Findings: Right hilar mass extending in the right parahilar lung as well as multiple bilateral pulmonary parenchymal reticulonodular opacities similar to prior studies of July 23, 2021. There is no pleural effusion or pneumothorax. Cardiac silhouette is stable. IMPRESSION: Right hilar mass and parahilar opacities . Bilateral pulmonary parenchymal opacities similar prior studies of July 23, 2021. Pattie Perez MD IMG DIAGNOSTIC IMAGING ORDER GIGI (ABNORMAL) Free Megargel/Free Lambda Ratio (09/03/2021 12:24 PM CLEAN IN PLACES OPERATOR)Only the most recent of2 resultswithin the time period is included. P athologist Signature FKap/FLam RT 3.75 (H) 0.26 - [place] MD [facility] Specimen Anatomical Collection Method Collection Time Receive d Time (Source) Location / / Volume Laterality Blood 09/03/2021 12:24 09/03/2021 PM CLEAN IN PLACES OPERATOR 1:08 PM CLEAN IN PLACES OPERATOR Nao Tang MD LAB BLOOD ORDERABLES Performing Organization Address City/State/ZIP Code Phon e Number [place] MD [facility] Unless otherwise noted, [place], [place] [id number] [place] [address] all lab tests performed by: Division of Pathology and Laboratory Medicine [facility] Joseph Joseph Virus Panel Path Review (09/03/2021 12:24 PM CLEAN IN PLACES OPERATOR) Component Value Ref Test Analysis Performed At Patholo gist Range Method Time Signature EBV Panel IA EBV serology (positive VCA I gG & EBNA IgG) most compatible with past infection. Interpret with caution if the patient is receiving IVIG. [place] MD Praful [facility] Reviewed and Electronically signed by Pathologist: CANCER Zana Quiñones MD, PhD #[id number] CE NTER Comment: Test performed by immunoassay intended f or the qualitative detection of IgG and IgM antibodies to the viral capsid antigen (VCA) of the Joseph-Joseph virus (EBV) and IgG antibodies to the EBV nuclear antigen (EBNA). When equivocal results are obtained, ano ther specimen should be collected 10-14 days later. ZANA QUIÑONES MD, PhD - [id number] Dictated by: ZANA QUIÑONES MD, PhD - [phone] Dictated Date/Time: 09.07.2021 11:43 AM CLEAN IN PLACES OPERATOR Transcribed Date/Time: 09.07.2021 11:43 AM CLEAN IN PLACES OPERATOR Electronically Signed By: ZANA QUIÑONES MD, PhD - [id number] on 09.07.2021 11:43 AM Specimen Anatomical Collection Method Collection Time Receive d Time (Source) Location / / Volume Laterality Blood 09/03/2021 12:24 09/05/2021 PM CLEAN IN PLACES OPERATOR 8:54 AM CLEAN IN PLACES OPERATOR Noa Tang MD MICROBIOLOGY - GENERAL ORDER GIGI Performing Organization Address City/[facility] Phon e Number [facility]CER Unless otherwise noted, [address] all lab tests performed by: Division of Pathology and Laboratory Medicine [facility] [place] Ellen (ABNORMAL) Free Lambda Light Chain (09/03/2021 12:24 PM CLEAN IN PLACES OPERATOR)Only the most recent of2 resultswithin the time period is included. athologist Signature Free Lambda 240.29 (H) 5.71 - [facility] 26.30 mg/L [facility] Specimen Anatomical Collection Method Collection Time Receive d Time (Source) Location / / Volume Laterality Blood 09/03/2021 12:24 09/03/2021 PM CLEAN IN PLACES OPERATOR 1:08 PM CLEAN IN PLACES OPERATOR Noa Tang MD LAB BLOOD ORDERABLES Performing Organization Address City/[facility] Phon e Number [facility] Unless otherwise noted, [address] all lab tests performed by: Division of Pathology and Laboratory Medicine [facility] Lalojorge Hughes (ABNORMAL) Free Megargel Light Chain (09/03/2021 12:24 PM CLEAN IN PLACES OPERATOR)Only the most recent of2 resultswithin the time period is included. athologist Signature Free Megargel 901.50 (H) 3.30 - [facility] 19.40 mg/L [facility] Specimen Anatomical Collection Method Collection Time Receive d Time (Source) Location / / Volume Laterality Blood 09/03/2021 12:24 09/03/2021 PM CLEAN IN PLACES OPERATOR 1:08 PM CLEAN IN PLACES OPERATOR Noa Tang MD LAB BLOOD ORDERABLES Performing Organization Address City/[facility] Phon e Number [facility] CANCER Unless otherwise noted, [address] all lab tests performed by: Division of Pathology and Laboratory Medicine [address] [place] [address] [place] (ABNORMAL) EBV Antibody Panel (09/03/2021 12:24 PM CLEAN IN PLACES OPERATOR) athologist Signature VCA-M Int Negative Negative [facility] VCA-G Int Positive (A) Negative [facility] EBNA Int Positive (A) Negative [facility] Specimen Anatomical Collection Method Collection Time Receive d Time (Source) Location / / Volume Laterality Blood 09/03/2021 12:24 09/03/2021 PM CLEAN IN PLACES OPERATOR 3:43 PM CLEAN IN PLACES OPERATOR Noa Tang MD LAB BLOOD ORDERABLES Performing Organization Address City/[facility]/ZIP [facility] Phon e Number [facility] Unless otherwise noted, [address] all lab tests performed by: Division of Pathology and Laboratory Medicine [address] [place], [place] [address]ulevard TMP Interpretation Manual Antibody Screen Negative (09/01/2021 1:48 PM CLEAN IN PLACES OPERATOR) [facility] TMP Neg ABSC At the [facility] patient plasma shows no evidence of RBC alloantibodi es. Comment: MD Giulia RAMON [id number] Dictated by: MD Giulia RAMON [id number] Dictated Date/Time: 09.02.2021 12:52 PM CLEAN IN PLACES OPERATOR Transcribed Date/Time: 09.02.2021 12:52 PM CLEAN IN PLACES OPERATOR Electronically Signed By: MD Giulia ARMON [id number] on 09.02.2021 12:52 PM Specimen Anatomical Collection Method Collection Time Receive d Time (Source) Location / / Volume Laterality Blood 09/01/2021 1:48 09/01/2021 PM CLEAN IN PLACES OPERATOR 8:03 PM CLEAN IN PLACES OPERATOR Lexi Lockett NP BLOOD BANK TEST ORDERABLES Performing Organization Address City/[facility]/ZIP Code Phon e Number [facility] Unless otherwise noted, [address] all lab tests performed by: Division of Pathology and Laboratory Medicine [address] [place] [address] Ellen Clot Expiration Date (09/01/2021 1:48 PM CLEAN IN PLACES OPERATOR) [facility] Signature T & S 09/04/2021 [facility] Specimen Anatomical Collection Method Collection Time Receive d Time (Source) Location / / Volume Laterality Blood 09/01/2021 1:48 09/01/2021 PM CLEAN IN PLACES OPERATOR 8:03 PM CLEAN IN PLACES OPERATOR Lexi Levy CAUSTICISER BLOOD BANK TEST ORDERABLES Performing Organization Address City/State/ZIP Code Phon e Number [facility] Unless otherwise noted, [address] all lab tests performed by: Division of Pathology and Laboratory Medicine [address] [facility] Antibody Screen Manual (09/01/2021 1:48 PM CLEAN IN PLACES OPERATOR) Patholo gist Method Time Signature ABSC Interp Negative ABSC [facility] Specimen Anatomical Collection Method Collection Time Receive d Time (Source) Location / / Volume Laterality Blood 09/01/2021 1:48 09/01/2021 PM CLEAN IN PLACES OPERATOR 8:03 PM CLEAN IN PLACES OPERATOR Lexi Lockett CAUSTICISER BLOOD BANK TEST ORDERABLES Performing Organization Address City/[facility]/ZIP [facility] Phon e Number [facility] Unless otherwise noted, [address] all lab tests performed by: Division of Pathology and Laboratory Medicine [address] [facility] ABORh Manual (09/01/2021 1:48 PM CLEAN IN PLACES OPERATOR) P athologist Signature ABORh Manual A POS [facility] Specimen Anatomical Collection Method Collection Time Receive d Time (Source) Location / / Volume Laterality Blood 09/01/2021 1:48 09/01/2021 PM CLEAN IN PLACES OPERATOR 8:03 PM CLEAN IN PLACES OPERATOR Lexi Levy CAUSTICISER BLOOD BANK TEST ORDERABLES Performing Organization Address City/[facility]/ZIP [facility] Phon e Number [facility] Unless otherwise noted, [address] all lab tests performed by: Division of Pathology and Laboratory Medicine [address] [facility] TMP Interpretation ABORh Discrepancy (09/01/2021 1:48 PM CLEAN IN PLACES OPERATOR)Only the most recent of2 resultswithin the time period is included. P athologist Signature TMP ABORh Disc . [facility] Comment: REMIGIOMD Giulia OQUENDO [id number] Dictated by: MD Giulia RAMON [id number] Dictated Date/Time: 09.02.2021 12:52 PM CLEAN IN PLACES OPERATOR Transcribed Date/Time: 09.02.2021 12:52 PM CLEAN IN PLACES OPERATOR Electronically Signed By: MD Giulia RAMON [id number] on 09.02.2021 12:52 PM Specimen Anatomical Collection Method Collection Time Receive d Time (Source) Location / / Volume Laterality Blood 09/01/2021 1:48 09/01/2021 PM CLEAN IN PLACES OPERATOR 8:03 PM CLEAN IN PLACES OPERATOR Lexi Lockett NP BLOOD BANK TEST ORDERABLES Performing Organization Address City/State/ZIP Code Phon e Number [facility] Unless otherwise noted, [address] all lab tests performed by: Division of Pathology and Laboratory Medicine Yogesh Hughes Manual Confirm ABORh (09/01/2021 1:44 PM CLEAN IN PLACES OPERATOR) athologist Signature Confirm ABORh A POS [facility] Specimen Anatomical Collection Method Collection Time Receive d Time (Source) Location / / Volume Laterality Blood 09/01/2021 1:44 09/01/2021 PM CLEAN IN PLACES OPERATOR 8:03 PM CLEAN IN PLACES OPERATOR Lexi Lockett NP BLOOD BANK TEST ORDERABLES Performing Organization Address City/State/ZIP Code Phon e Number [facility]ER Unless otherwise noted, [address] all lab tests performed by: Division of Pathology and Laboratory Medicine Yogesh Hughes MD COVID-19 (JAMEL-CoV-2) PCR Asymptomatic (09/01/2021 1:28 PM CLEAN IN PLACES OPERATOR)Only the most recent of2 resultswithin the time period is included. Component Value Ref Range Test Analysis Performed Pathologis t Method Time At Signature COVID19 SARS Pre-OR Procedure UT Indication [facility] COVID19 SARS Not Detected Not NIKOLE CHU Result Detected [facility] COVID19 SARS SARS-CoV-2 NOT Detected. [place] Interpretation [place] Reference Range: Not Detected [facility] Methodology: The [employer] Real Time SARS-CoV-2 assay is a qualitative real-time reverse gunstock repairer polymerase chain reaction (wireless sales consultant-PCR) test to detect RNA from SARS-CoV-2 in nasal, nasopharyngeal and oropharyngeal swabs from patients with signs and symptoms of infection who ar e suspected of COVID-19 by their health care provider. The [employer] RealTime SARS-CoV-2 performed on the [employer] System is a dual target assay with primers and probes for the RdRp and N genes. Results must be interpreted within the context of all relevant clinical and laboratory findings, and epidemiological risk factors. Positive results are indicative of the presence of SARS-CoV-2 RNA; clinical correlation with patient history and other diagnostic information is ne cessary to determine patient infection status. Positive results do not rule out bacterial infection or co-infection with other viruses. Negative results do not preclude SARS- CoV-2 infection and should not be used as the sole basis for patient management decisions. The [employer] RealTime SARS-CoV -2 assay is for in vitro diagnostic use under FDA Emergency Use Authorization only. Testing is limited to laboratories certified under the Clinical Laboratory Improvement Tanya ndments of 1988 (CLIA), 42U.S.C. 263a, to perform high complexity tests. The T est was performed by the CLIA-certified, high- complexity Molecular Diagnostics Laboratory (MDL) at [facility] under the Food and Drug Administration (FDA) s Emergency Use Authorization. Factsheet for patients: https://www.TandemLaunchnderson.org/AbbottFac tSheetPatients Factsheet for healthcare pro viders: https://www.mdanderson.org/AbbottFactSheetHCP Test performed by: The [facility] Molecular Diagnostic Lab [address] [place] [address] Specimen (Source) Anatomical Collection Method Collection Time Re ceived Time Location / / Volume Laterality Nasopharyngeal Swab 09/01/2021 1:28 08/13 PM CLEAN IN PLACES OPERATOR 5:56 PM CLEAN IN PLACES OPERATOR David Boyer MD MICROBIOLOGY - GENERAL ORDER GIGI Performing Organization Address City/State/ZIP Code Phon e Number [facility] CANCER Unless otherwise noted, [place] [id number] [place] all lab tests performed by: Division of Pathology and Laboratory Medicine [facility]5 Lalo CARTER Lymphoma B Hodgkin Interpretation and Report (08/15/2021 4:45 PM CLEAN IN PLACES OPERATOR) Specimen Anatomical Collection Method Collection Time Receive d Time (Source) Location / / Volume Laterality 08/15/2021 4:45 08/15/2021 PM CLEAN IN PLACES OPERATOR 5:58 PM CLEAN IN PLACES OPERATOR Narrative This result has an attachment that is no t available. Dennis Mcconnell MD, MDA HP FLOW CYTOMETRY (HP FC ) Flow Cytometry Specimen Collection -Fine Needle Asp (08/15/2021 4:45 PM CLEAN IN PLACES OPERATOR) P athologist Signature Flow Cytometry Yes [facility] (Received) [facility]ENTER Comment: Test performed by: The [facility] Flow Cytometry Laboratory [address] [place] [address] Beaker Ap Link [id number] [facility] Specimen Anatomical Collection Method Collection Time Receive d Time (Source) Location / / Volume Laterality Fine Needle Asp 08/15/2021 4:45 08/15/19 22 PM CLEAN IN PLACES OPERATOR 5:58 PM CLEAN IN PLACES OPERATOR Dennis Mcconnell MD, MDA HP FC NONBLOOD COLLECTIO NS Performing Organization Address City/State/ZIP Code Phon e Number [facility] CANCER Unless otherwise noted, [place] [address] CENTER all lab tests performed by: Division of Pathology and Laboratory Medicine [address] [place] [address] Cytology Image-Guided FNA Interpretation (08/15/2021 2:05 PM CLEAN IN PLACES OPERATOR)Only the most recent of3 resultswithin the time period is included. Component Value Ref Test Analysis Performed Pathologis t Range Method Time At Signature Gross A: 08/19/2021 [facility] Description Specimens procured: 4:13 PM 5 Diff Quik; 5 Pap Stain Slides CLEAN IN PLACES OPERATOR 5 ml, slightly bloody fluid in RPMI 1 Cell Block Date/Time Placed in Formalin: 08/15/21 6:09 PM Size: 1.52 cm Specimen adequacy was performed by CARLOS Geronimo(ASCP). Immediate Adequate 08/19/2021 [facility] Assessment cellularity 4:13 PM CLEAN IN PLACES OPERATOR Major [facility]/benign 08/19/2021 [facility] Elect ronically Classification 4:13 PM gerson d by Ina Sun MD on 08/19/2021 a t 4:13 PM Diagnosis A. Lymph node, left interlobar, 11L, fine needle aspir ation: 08/19/2021 [facility] Electronically 4:13 PM signed by Ina No metastatic carcinoma identified CHANTEL Sun MD on Polymorphous lymphocytes and scattered tingible-body macrophages present, favor reactive lymph node (see comment) 08/19/2021 at 4:13 PM Comment The aspirate smears show a p olymorphous lymphoid population consisting of predominantly small lymphocytes and scattered tingible-body macrophages. No atypical large cells are seen to suggest Hodgkin lym 0 08/19/2021 [facility] phoma. No granulomatous dise ase or metastatic carcinoma is present. No foci of necrosis or acute inflammation are present. Flow cytometry performed on the concurrent lymph node fine needle aspiration (C 4:13 PM [id number]) shows no immunophenotypic support for a B-cell ne oplasm. CLEAN IN PLACES OPERATOR The cell block preparation w as not contributory towards making the above diagnosis. Retained/Biomark SR: 10 S, 2 CB 08/19/2021 [facility] er Testing 4:13 PM CLEAN IN PLACES OPERATOR Informational Some tests 08/19/2021 [facility] Points reported here may 4:13 PM have been CLEAN IN PLACES OPERATOR developed and performance characteristics determined by [facility] Pathology and Laboratory Medicine. These tests have not been specifically cleared or approved by the U.S. Food and Drug Administration. Specimen Anatomical Collection Method Collection Time Receive d Time (Source) Location / / Volume Laterality Fine Needle Asp 08/15/2021 2:05 08/15/19 22 (Lymph Node(s), PM CLEAN IN PLACES OPERATOR 5:17 PM CLEAN IN PLACES OPERATOR Left, Interlobar, 11L) Comment: 11L - 15.2 mm Dennis Mcconnell MD LAB CYTOLOGY ORDERABLES Performing Organization Address City/State/ZIP Code Phon e Number [facility] [place] [address] [address] [place] Sodium Level, Urine (08/13/2021 10:35 AM CLEAN IN PLACES OPERATOR) athologist Signature U Sodium 47 mEq/L [facility] Comment: Normal range not available for collections less than 24 hours in duration. Specimen Anatomical Collection Method Collection Time Receive d Time (Source) Location / / Volume Laterality Urine 08/13/2021 10:35 08/13/2021 AM CLEAN IN PLACES OPERATOR 2:14 PM CLEAN IN PLACES OPERATOR Chalo Logan NP URINE ORDERABLES Performing Organization Address City/[facility]/ZIP Code Phon e Number [facility] CANCER Unless otherwise noted, [place] [address] CENTER all lab tests performed by: Division of Pathology and Laboratory Medicine [address] [place] Potassium Urine (08/13/2021 10:35 AM CLEAN IN PLACES OPERATOR) athologist Signature U Potassium 29 mEq/L [facility] Comment: Normal range not available for collections less than 24 hours in duration. Specimen Anatomical Collection Method Collection Time Receive d Time (Source) Location / / Volume Laterality Urine 08/13/2021 10:35 08/13/2021 AM CLEAN IN PLACES OPERATOR 2:14 PM CLEAN IN PLACES OPERATOR Chalo Logan CAUSTICISER URINE ORDERABLES Performing Organization Address [facility] Phon e Number [facility] CANCER Unless otherwise noted, [address] all lab tests performed by: Division of Pathology and Laboratory Medicine [address] [place] [address] [place] Osmolality Urine (08/13/2021 10:35 AM CLEAN IN PLACES OPERATOR) athologist Signature U Osmolality 259 50 - 1,400 [facility] mOsm/kg H2O [facility] Comment: Urinary osmolality may vary widely, depe nding on the state of hydration. Random urine osmolality can range from 50 to 1400 mOsm/kg H2O depending on fluid intake. In individuals on average fluid intake, urine osmolality is typically 300-900 mO sm/kg H2O. Units of measure: mOsm per Kg of water. Specimen Anatomical Collection Method Collection Time Receive d Time (Source) Location / / Volume Laterality Urine 08/13/2021 10:35 08/13/2021 AM CLEAN IN PLACES OPERATOR 2:03 PM CLEAN IN PLACES OPERATOR Chalo Logan CAUSTICISER URINE ORDERABLES Performing Organization Address [facility] Phon e Number [facility] CANCER Unless otherwise noted, [address] all lab tests performed by: Division of Pathology and Laboratory Medicine [address] [place] [address] [place] Osmolality (08/13/2021 10:32 AM CLEAN IN PLACES OPERATOR) athologist Signature Osmolality 291 275 - 300 [facility] mOsm/kg H2O [facility] Comment: Units in mOsm per kg of water. Specimen Anatomical Collection Method Collection Time Receive d Time (Source) Location / / Volume Laterality Blood 08/13/2021 10:32 08/13/2021 AM CLEAN IN PLACES OPERATOR 2:03 PM CLEAN IN PLACES OPERATOR Chalo Logan NP LAB BLOOD ORDERABLES Performing Organization Address [facility] Phon e Number [facility] CANCER Unless otherwise noted, [address] all lab tests performed by: Division of Pathology and Laboratory Medicine [address] [place] [address] Ellen PETCT Initial Treatment Strategy (08/13/2021 10:09 AM CLEAN IN PLACES OPERATOR) Anatomical Region Laterality Modality Whole Body Positron Emission To mography (PET) Specimen (Source) Anatomical Collection Method Collection Time Re ceived Time Location / / Volume Laterality 08/13/2021 12:25 PM CLEAN IN PLACES OPERATOR Impressions 08/13/2021 1:11 PM CLEAN IN PLACES OPERATOR There are consolidative opacities in the lungs suspicious for infection. The masslike consolidation in the right lower lobe may represent an area of rounded pneumonia or rounded atelectasis. There are enlarged lymph nodes in the me diastinum and prominent lymph nodes in the abdomen and pelvis suspicious for lymphoproliferative disorder. Narrative 08/13/2021 1:11 PM CLEAN IN PLACES OPERATOR FULL RESULT: Examination: FDG PET/CT, 08/13/2021 10:09 AM Clinical History: Lung malignancy Indication: Evaluation of disease status for treatment strategy Comparison: 07/19/2021 Technique: F-18 fluorodeoxyglucose (FDG) 9.1 mCi was administered intravenously via right hand. To allow for distribution and uptake of radiotracer, the patient was asked to rest quietly for approxima tely 60-90 minutes. PET/CT imaging was performed from the skull to the thighs . Serum blood glucose at the time of the injection was 104 mg/dL. CT scanning was done for attenuation correction, image r egistration, and diagnosis with scan par ameters optimized to minimize radiation exposure to the patient. SUV measurements are reported as maximum SUV based on body weight unless otherwise specified. Findings: Head and Neck: Small lymph nodes with lo w grade FDG uptake. Chest: There are extensive emphysematous changes of the lungs. There are dense consolidative opacities with increase in metabolic activity, involving the posterior and peripheral aspect of the upper lob es, lingula and superior segment of the right lower lobe suspicious for infectious process. Nodular opacity in the left upper lung on image 129,1.0 cm and irregular nodular opacity in the middle lobe on image 150, 2.9cm may represent part of same infectious process. Elongated masslike consolidation in the paramediastinal aspect of the right lower lobe with air bronchogram and homogeneous FDG uptake (SUV 8.8) is stable in size, biopsy was negative for malignancy. There are multicompartmental mediastinal lymph nodes with increase in metabolic activity. For example, upper mediastinal lymph node on image 97 measures 1.1 cm (SUV 4.3), subcarinal lymph node measures 1.6 cm (SUV 6.0) and left paratracheal l ymph node measures 1.6 cm (SUV 4.7). The right ventricle is dilated. There is a stable small loculated right pleural effusion. Unchanged small pericardial effusion. There are postsurgical changes in the le ft lower lung. Abdomen and Pelvis: No FDG avid lesions in the liver, spleen or adrenal glands. No hydronephrosis. There are lymph nodes in the upper abdomen and retroperitoneum less than 10 mm in short axis with low g rade FDG uptake. For example, a lymph no de adjacent to the celiac axis on image 165 measures 0.7 cm (SUV 2.4), left parahilar aortic lymph node on image 199 measures 0.9 cm (SUV 3.7), interaortocaval ly mph node on image 179 measures 0.9 cm (S UV 4.8). There are also FDG-avid common, internal and external iliac lymph nodes. Lymph nodes in the inguinal regions jeff uring up to 0.8 cm (SUV 2.8). Diverticular disease. No diverticulitis. There is diffuse FDG uptake in the prostate gland with areas of calcification. Musculoskeletal: No FDG avid lesions. Procedure Note Hortencia Reno MD - 08/13/19 22 FULL RESULT: Examination: FDG PET/CT, 08/13/2021 10:09 AM Clinical History: Lung malignancy Indication: Evaluation of disease status for treatment strategy Comparison: 07/19/2021 Technique: F-18 fluorodeoxyglucose (FDG) 9.1 mCi was administered intravenously via right hand. To allow for distribution and uptake of radiotracer, the patient was asked to rest quietly for approximately 60-90 minutes. PET/CT imaging was performed f rom the skull to the thighs . Serum blood glucose at the time of the injection was 104 mg/dL. CT scanning was done for attenuation correction, image registration, and diagnosis with scan parameters optimized to minimize radiation exposure to the patient. SUV measurements are reported as maximum SUV based on body weight unless otherwise specified. Findings: Head and Neck: Small lymph nodes with lo w grade FDG uptake. Chest: There are extensive emphysematous changes of the lungs. There are dense consolidative opacities with increase in metabolic activity, involving the posterior and peripheral aspect of the upper lobes, lingula and superior segment of the right lower lobe suspicious for infectious process. Nodular opacity in the left upper lung on image 129,1.0 cm and irregular nodular opacity in the middle lobe on image 150, 2.9cm may represent part of same infectious proces s. Elongated masslike consolidation in the paramediastinal aspect of the right lower lobe with air bronchogram and homogeneous FDG uptake (SUV 8.8) is stable in size, biopsy was negative for malignancy. There are multicompartmental mediastinal lymph nodes with increase in metabolic activity. For example, upper mediastinal lymph node on image 97 measures 1.1 cm (SUV 4.3), subcarinal lymph node measures 1.6 cm (SUV 6.0) and left paratracheal lymph node measure s 1.6 cm (SUV 4.7). The right ventricle is dilated. There is a stable small loculated right pleural effusion. Unchanged small pericardial effusion. There are postsurgical changes in the le ft lower lung. Abdomen and Pelvis: No FDG avid lesions in the liver, spleen or adrenal glands. No hydronephrosis. There are lymph nodes in the upper abdomen and retroperitoneum less than 10 mm in short axis with low grade FDG uptake. For example, a lymph node adjacent to th e celiac axis on image 165 measures 0.7 cm (SUV 2.4), left parahilar aortic lymph node on image 199 measures 0.9 cm (SUV 3.7), interaortocaval lymph node on image 179 measures 0.9 cm (SUV 4.8). There are als o FDG-avid common, internal and external iliac lymph nodes. Lymph nodes in the inguinal regions jeff uring up to 0.8 cm (SUV 2.8). Diverticular disease. No diverticulitis. There is diffuse FDG uptake in the prostate gland with areas of calcification. Musculoskeletal: No FDG avid lesions. IMPRESSION: There are consolidative opacities in the lungs suspicious for infection. The masslike consolidation in the right lower lobe may represent an area of rounded pneumonia or rounded atelectasis. There are enlarged lymph nodes in the me diastinum and prominent lymph nodes in the abdomen and pelvis suspicious for lymphoproliferative disorder. Chalo Logan NP IMG PETCT ORDERABLES Hepatitis B Core Total Antibody (08/07/2021 12:08 PM CLEAN IN PLACES OPERATOR) P athologist Signature HBc Total Negative Negative [facility] Comment: Test Performed by: [facility] [address] [place], [place] [address] Laundry Tub Maker: Sajan Field M.D. Ph. D.; CLIA# [id number] Specimen Anatomical Collection Method Collection Time Receive d Time (Source) Location / / Volume Laterality Blood 08/07/2021 12:08 08/07/2021 PM CLEAN IN PLACES OPERATOR 1:23 PM CLEAN IN PLACES OPERATOR Chalo Logan NP LAB BLOOD ORDERABLES Performing Organization Address City/State/ZIP Code Phon e Number [facility] Unless otherwise noted, [place] [address] CENTER all lab tests performed by: Division of Pathology and Laboratory Medicine [address] [place] [address] HCV Ab Path Interp (08/07/2021 12:08 PM CLEAN IN PLACES OPERATOR) [facility] Signature HCV Ab Path There is NO [facility] serologic [facility]ENTER evidence of Hepatitis C virus antibody. Comment: MD Giulia RAMON [id number] Dictated by: MD Giulia RAMON [id number] Dictated Date/Time: 08.08.2021 8:[address] Transcribed Date/Time: 08.08.2021 8:21 AM CLEAN IN PLACES OPERATOR Electronically Signed By: MD Giulia RAMON [id number] on 08.08.2021 8:21 AM C Specimen Anatomical Collection Method Collection Time Receive d Time (Source) Location / / Volume Laterality Blood 08/07/2021 12:08 08/07/2021 PM CLEAN IN PLACES OPERATOR 5:53 PM CLEAN IN PLACES OPERATOR Chalo Logan NP LAB BLOOD ORDERABLES Performing Organization Address City/State/ZIP Code Phon e Number [facility] [place] [address] [place] [address] Hepatitis C Virus Ab (08/07/2021 12:08 PM CLEAN IN PLACES OPERATOR) Patholo gist Method Time Signature HCVAb. Non Reactive Non Reactive [facility] [place] Comment: Antibody detection in the immunocompromi sed and immunosuppressed population may be delayed or absent entirely. Therefore serial testing, correlation with other clinical findings, and supplemental testin g (if available) should be taken into co nsideration when interpreting the results. Performed at: [facility] [address] [place] [id number] Specimen Anatomical Collection Method Collection Time Receive d Time (Source) Location / / Volume Laterality Blood 08/07/2021 12:08 08/07/2021 PM CLEAN IN PLACES OPERATOR 5:53 PM CLEAN IN PLACES OPERATOR Chalo Logan NP LAB BLOOD ORDERABLES Performing Organization Address City/[facility]/ZIP Code Phon e Number [facility] [address] [address] Hepatitis B Surface Ag w/Confirm (08/07/2021 12:08 PM CLEAN IN PLACES OPERATOR) athologist [facility] Hep Bs Ag-[place] Negative Negative [facility] Comment: Test Performed by: [facility] [address] [place] [id number] Laundry Tub Maker: Sajan Field M.D. Ph. D.; CLIA# [id number] Specimen Anatomical Collection Method Collection Time Receive d Time (Source) Location / / Volume Laterality Blood 08/07/2021 12:08 08/07/2021 PM CLEAN IN PLACES OPERATOR 1:23 PM CLEAN IN PLACES OPERATOR Chalo Logan NP LAB BLOOD ORDERABLES Performing Organization Address City/State/ZIP Code Phon e Number [facility] Unless otherwise noted, [place], [place] [id number] [place] [address] all lab tests performed by: Division of Pathology and Laboratory Medicine [address] [place] [address] Hepatitis B Total Ig Core Ab (SCREENING) (anti-HBc total Ig; HBcAb total Ig) (08/07/2021 12:08 PM CLEAN IN PLACES OPERATOR) athologist [facility] HBcAb Received See Note [facility] Comment: HBcAb was sent to a reference l ab for testing. Expect results on Hepatitis B Core Total Ab within 96 hours. Specimen Anatomical Collection Method Collection Time Receive d Time (Source) Location / / Volume Laterality Blood 08/07/2021 12:08 08/07/2021 PM CLEAN IN PLACES OPERATOR 1:23 PM CLEAN IN PLACES OPERATOR Chalo Logan NP LAB BLOOD ORDERABLES Performing Organization Address City/[facility]/ZIP Code Phon e Number [facility] Unless otherwise noted, [address] all lab tests performed by: Division of Pathology and Laboratory Medicine [address] [place] [address] Hepatitis B Surface Ag (08/07/2021 12:08 PM CLEAN IN PLACES OPERATOR) athologist Signature HBsAg Received See Note [facility] Comment: HBsAg was sent to a reference l ab for testing. Expect results on Hepatitis B Surface Antigen w/ Confirm within 96 h ours. Specimen Anatomical Collection Method Collection Time Receive d Time (Source) Location / / Volume Laterality Blood 08/07/2021 12:08 08/07/2021 PM CLEAN IN PLACES OPERATOR 1:23 PM CLEAN IN PLACES OPERATOR Chalo Logan NP LAB BLOOD ORDERABLES Performing Organization Address [facility] Phon e Number [facility] Unless otherwise noted, [address] all lab tests performed by: Division of Pathology and Laboratory Medicine [address] [place] [address] PSA (08/07/2021 12:08 PM CLEAN IN PLACES OPERATOR) athologist [facility] PSA 0.1 0.0 - 4.0 [facility] ng/mL CANCER CENTER Comment: Results greater than 4519 ng/mL may not be reliable due to matrix effect with extended dilution as it exceeds the paper cap machine operator's recommended limit. Caution should be exercised when interpreting baca ch values and done in conjunction with clinical context. PSA Indication Screening [facility] Specimen Anatomical Collection Method Collection Time Receive d Time (Source) Location / / Volume Laterality Blood 08/07/2021 12:08 08/07/2021 PM CLEAN IN PLACES OPERATOR 12:29 PM CLEAN IN PLACES OPERATOR Chalo Logan NP LAB BLOOD ORDERABLES Performing Organization Address City/[facility]/ZIP [facility] Phon e Number [facility] Unless otherwise noted, [address] all lab tests performed by: Division of Pathology and Laboratory Medicine [address] [place] [address] IR CHEST XRAY 1 VIEW (07/23/2021 2:36 PM CLEAN IN PLACES OPERATOR)Only the most recent of2 results within the time period is included. Anatomical Region Laterality Modality Chest Digital Radiography Specimen (Source) Anatomical Location Collection Method / Collectio n Time Received Time / Laterality Volume Narrative 07/24/2021 9:26 AM CLEAN IN PLACES OPERATOR Date of Procedure: 07/23/21 Attending Physician: Dr. Vogel Sustainability Officer: Chidi Woodard Pre Procedure Diagnosis: Lung mass fou nd on diagnostic imaging of lung [[id number]] Post Procedure Diagnosis: Unchanged Indication: New mass / nodule for tiss ue diagnosis Protocol Number: N/A Title of Procedure: Percutaneous CT-Guided Biopsy Operative Findings: 1. Percutaneous image-guided biopsy of 8 .7 x 3.6 cm lesion in the posterior medial aspect of the right low er lobe, pleural based 2. The follow-up chest x-rays show no ev idence of pneumothorax Consent: The procedure, risks, indicat ions and alternatives were explained. All questions were answered a nd informed consent was obtained. I have reviewed the history and physical dictated by the mid-level practitioner/fellow. Sedation/Anesthesia: Anesthesia provid ed by Anesthesia Department. Procedure in Detail: A time out was performed prior to the st art of the procedure and the correct patient, procedure, presence of consent, site, and side were confirmed with all members of the team. With the patient in the prone position, the skin overlying the area of interest was prepped and draped in the u sual sterile fashion. Lidocaine 1% was used for local anesthesia. Using a posterior approach under CT imag e-guidance, a 19 gauge needle was advanced down to the lesion in the right lung. An image was obtained and placed into the medical record. Samples were obtained for evaluation. Sampling: Core Biopsy: A 20 gauge needle used to obtain samples for surgical pathology evaluation. Total number of samples: 4 Biosentry: N/A Post-biopsy radiographs: 1. The initial follow-up chest radiograp h demonstrates: No pneumothorax. 2. A subsequent follow-up chest radiogra ph was obtained 3 hours after the initial and demonstrates: No pneumotho rax. Specimens Disposition: Diagnostic Biopsy: The biopsy sampl es were submitted to pathology. Additional Comments: None Estimated Blood Loss: Minimal Immediate Complications: None Disposition: PACU Plan: No follow-up with Interventional Radi ology required. Linda Chand MD IMG IR ORDERABLES Pathology Biopsy Interpretation (07/23/2021 11:12 AM CLEAN IN PLACES OPERATOR) Component Value Ref Test Analysis Performed Pathologis t Range Method Time At Signature Submitted Influenza [J11.1] 07/24/2021 [facility] Clinical Dehydration [E86.0] 8:28 AM History Patient on oxygen [Z99.81] CLEAN IN PLACES OPERATOR Lung cancer [C34.90] Hyposmolality and/or hyponatremia [E87.1] Influenzal pneumonia [J12.9] Lung mass found on diagnostic imaging of lung [R91.8] Diagnosis A. Lung, right lower lobe, biopsy: 07/24 [facility] Electronically 8:28 AM signed by Fragments of lung parenchyma with extensive sclerotic scarring; negative for tumor CLEAN IN PLACES OPERATOR Alvarado Ghosh MD AW/FMT on 07/24/19 22 at 07/24/2021 8:28 AM Gross A: 07/24/2021 [facility] Description Lung, right lower lobe, biop sy: Four white-medley soft tissue cores ranging from 0.6cm to 1.4 cm in length and 0.1 cm in diameter, entirely submitted in A1. ET 8:28 AM CLEAN IN PLACES OPERATOR Biomarker N/A. 07/24/2021 [facility] Block(s) 8:28 AM CLEAN IN PLACES OPERATOR Disclaimer "Some tests 07/24/2021 [facility] reported here may 8:28 AM have been CLEAN IN PLACES OPERATOR developed and performance characteristics determined by [facility] Pathology and Laboratory Medicine. These tests have not been specifically cleared or approved by the U.S. Food and Drug Administration. If applicable, controls were reviewed and showed appropriate reactivity." Specimen Anatomical Collection Method Collection Time Receive d Time (Source) Location / / Volume Laterality Tissue (Lung, 07/23/2021 11:12 07/23/2021 Right Lower AM CLEAN IN PLACES OPERATOR 12:09 PM CLEAN IN PLACES OPERATOR Lobe) Maryanne Blanco MD LAB PATHOLOGY ORDERABLES Performing Organization Address City/State/ZIP Code Phon e Number [facility] [place] [address] [address] [facility] [address] GUIDED BIOPSY LUNG/MEDIASTINAL (07/23/2021 11:01 AM CLEAN IN PLACES OPERATOR) Anatomical Region Laterality Modality Chest Computed Tomography Specimen (Source) Anatomical Location Collection Method / Collectio n Time Received Time / Laterality Volume Narrative 07/24/2021 9:26 AM CLEAN IN PLACES OPERATOR Date of Procedure: 07/23/21 Attending Physician: Dr. Vogel Sustainability Officer: Chidi Woodard Pre Procedure Diagnosis: Lung mass fou nd on diagnostic imaging of lung [[id number]] Post Procedure Diagnosis: Unchanged Indication: New mass / nodule for tiss ue diagnosis Protocol Number: N/A Title of Procedure: Percutaneous CT-Guided Biopsy Operative Findings: 1. Percutaneous image-guided biopsy of 8 .7 x 3.6 cm lesion in the posterior medial aspect of the right low er lobe, pleural based 2. The follow-up chest x-rays show no ev idence of pneumothorax Consent: The procedure, risks, indicat ions and alternatives were explained. All questions were answered a nd informed consent was obtained. I have reviewed the history and physical dictated by the mid-level practitioner/fellow. Sedation/Anesthesia: Anesthesia provid ed by Anesthesia Department. Procedure in Detail: A time out was performed prior to the st art of the procedure and the correct patient, procedure, presence of consent, site, and side were confirmed with all members of the team. With the patient in the prone position, the skin overlying the area of interest was prepped and draped in the u sual sterile fashion. Lidocaine 1% was used for local anesthesia. Using a posterior approach under CT imag e-guidance, a 19 gauge needle was advanced down to the lesion in the right lung. An image was obtained and placed into the medical record. Samples were obtained for evaluation. Sampling: Core Biopsy: A 20 gauge needle used to obtain samples for surgical pathology evaluation. Total number of samples: 4 Biosentry: N/A Post-biopsy radiographs: 1. The initial follow-up chest radiograp h demonstrates: No pneumothorax. 2. A subsequent follow-up chest radiogra ph was obtained 3 hours after the initial and demonstrates: No pneumotho rax. Specimens Disposition: Diagnostic Biopsy: The biopsy sampl es were submitted to pathology. Additional Comments: None Estimated Blood Loss: Minimal Immediate Complications: None Disposition: PACU Plan: No follow-up with Interventional Radi ology required. Maryanne Blanco MD IMG IR ORDERABLES X-ray Shoulder 2+ Views Right (07/22/2021 12:46 PM CLEAN IN PLACES OPERATOR) Anatomical Region Laterality Modality Shoulder, Extremity Digital Radiography Specimen (Source) Anatomical Collection Method Collection Time Re ceived Time Location / / Volume Laterality 07/22/2021 12:53 PM CLEAN IN PLACES OPERATOR Impressions 07/22/2021 12:59 PM CLEAN IN PLACES OPERATOR 1. No acute bone or joint abnormality. 2. Glenohumeral and acromioclavicular joint osteoarthritis. 3. No suspicious bone lesion on conven tional radiography. Narrative 07/22/2021 12:59 PM CLEAN IN PLACES OPERATOR FULL RESULT: Examination: XR SHOULDER 2+ VW RIGHT, XR HUMERUS 2 VIEWS MINIMUM RIGHT, 07/22/2021 12:46 PM. Clinical history: Lung cancer. Indication: "Right arm pain." Comparison: CT chest from 07/19/2021 (no p rior dedicated imaging of the right shoulder or humerus). Technique: A total of 7 images, portable technique. 1. Frontal (internal and external rota tion) and Y views of the right shoulder. 2. Frontal and lateral views of the ri ght humerus. Findings: Right shoulder: There is no acute fractu re or dislocation. No suspicious bone lesion is identified. There is acromioclavicular joint osteophyte formation with impingement on the superior rotator cuff. T here is moderate glenohumeral joint oste oarthritis. The visualized portions of the right ribs are unremarkable. There is diffuse emphysema and an area of ill- defined opacity in the right lower lobe that are better assessed on CT from 07/19/2021. Right humerus: There is no acute fractur e or dislocation. No suspicious bone lesion is identified on conventional radiography. There is moderate glenohumeral joint osteoarthritis. The visualized portion s of the right ribs are unremarkable. Th ere is diffuse emphysema and an area of ill-defined opacity in the right lower lobe that are better assessed on CT from 07/19/2021. Procedure Note Kaylee Tomlin MD PhD - 07/22/2021Forma tting of this note might be different from the original. FULL RESULT: Examination: XR SHOULDER 2+ VW RIGHT, XR HUMERUS 2 VIEWS MINIMUM RIGHT, 07/22/2021 12:46 PM. Clinical history: Lung cancer. Indication: "Right arm pain." Comparison: CT chest from 07/19/2021 (no p rior dedicated imaging of the right shoulder or humerus). Technique: A total of 7 images, portable technique. 1. Frontal (internal and external rotat ion) and Y views of the right shoulder. 2. Frontal and lateral views of the rig ht humerus. Findings: Right shoulder: There is no acute fractu re or dislocation. No suspicious bone lesion is identified. There is acromioclavicular joint osteophyte formation with impingement on the superior rotator cuff. There is moderate glenohumeral joint osteoarthritis. The v isualized portions of the right ribs are unremarkable. There is diffuse emphysema and an area of ill-defined opacity in the right lower lobe that are better assessed on CT from 07/19/2021. Right humerus: There is no acute fractur e or dislocation. No suspicious bone lesion is identified on conventional radiography. There is moderate glenohumeral joint osteoarthritis. The visualized portions of the right ribs are unremarkable. There is diffuse emphysema and an area of ill-defined opacity in the right lower lobe that are better assessed on CT from 07/19/2021. IMPRESSION: 1. No acute bone or joint abnormality. 2. Glenohumeral and acromioclavicular j oint osteoarthritis. 3. No suspicious bone lesion on convent ional radiography. Linda Chand MD [facility] DIAGNOSTIC IMAGING ORDERABLES XR Humerus 2 Views Minimum Right (07/22/2021 12:43 PM CLEAN IN PLACES OPERATOR) Anatomical Region Laterality Modality Arm, Extremity Digital Radiography Specimen (Source) Anatomical Collection Method Collection Time Re ceived Time Location / / Volume Laterality 07/22/2021 12:53 PM CLEAN IN PLACES OPERATOR Impressions 07/22/2021 12:59 PM CLEAN IN PLACES OPERATOR 1. No acute bone or joint abnormality. 2. Glenohumeral and acromioclavicular joint osteoarthritis. 3. No suspicious bone lesion on conven tional radiography. Narrative 07/22/2021 12:59 PM CLEAN IN PLACES OPERATOR FULL RESULT: Examination: XR SHOULDER 2+ VW RIGHT, XR HUMERUS 2 VIEWS MINIMUM RIGHT, 07/22/2021 12:46 PM. Clinical history: Lung cancer. Indication: "Right arm pain." Comparison: CT chest from 07/19/2021 (no p rior dedicated imaging of the right shoulder or humerus). Technique: A total of 7 images, portable technique. 1. Frontal (internal and external rota tion) and Y views of the right shoulder. 2. Frontal and lateral views of the ri ght humerus. Findings: Right shoulder: There is no acute fractu re or dislocation. No suspicious bone lesion is identified. There is acromioclavicular joint osteophyte formation with impingement on the superior rotator cuff. T here is moderate glenohumeral joint oste oarthritis. The visualized portions of the right ribs are unremarkable. There is diffuse emphysema and an area of ill- defined opacity in the right lower lobe that are better assessed on CT from 07/19/2021. Right humerus: There is no acute fractur e or dislocation. No suspicious bone lesion is identified on conventional radiography. There is moderate glenohumeral joint osteoarthritis. The visualized portion s of the right ribs are unremarkable. Th ere is diffuse emphysema and an area of ill-defined opacity in the right lower lobe that are better assessed on CT from 07/19/2021. Procedure Note Kaylee Tomlin MD PhD - 07/22/2021Forma tting of this note might be different from the original. FULL RESULT: Examination: XR SHOULDER 2+ VW RIGHT, XR HUMERUS 2 VIEWS MINIMUM RIGHT, 07/22/2021 12:46 PM. Clinical history: Lung cancer. Indication: "Right arm pain." Comparison: CT chest from 07/19/2021 (no p rior dedicated imaging of the right shoulder or humerus). Technique: A total of 7 images, portable technique. 1. Frontal (internal and external rotat ion) and Y views of the right shoulder. 2. Frontal and lateral views of the rig ht humerus. Findings: Right shoulder: There is no acute fractu re or dislocation. No suspicious bone lesion is identified. There is acromioclavicular joint osteophyte formation with impingement on the superior rotator cuff. There is moderate glenohumeral joint osteoarthritis. The v isualized portions of the right ribs are unremarkable. There is diffuse emphysema and an area of ill-defined opacity in the right lower lobe that are better assessed on CT from 07/19/2021. Right humerus: There is no acute fractur e or dislocation. No suspicious bone lesion is identified on conventional radiography. There is moderate glenohumeral joint osteoarthritis. The visualized portions of the right ribs are unremarkable. There is diffuse emphysema and an area of ill-defined opacity in the right lower lobe that are better assessed on CT from 07/19/2021. IMPRESSION: 1. No acute bone or joint abnormality. 2. Glenohumeral and acromioclavicular j oint osteoarthritis. 3. No suspicious bone lesion on convent ional radiography. Linda Chand MD IMG DIAGNOSTIC IMAGING ORDERABLES PTH-Related Peptide (07/21/2021 3:30 PM CLEAN IN PLACES OPERATOR) P athologist Signature PTH 0.7 < or = 4.2 [place] MD MALHOTRA Peptide-[place] pmol/L [facility] Comment: ADDITIONAL INFORMATIO N This test was developed and its performa nce characteristics determined by [facility] in a manner co nsistent with CLIA requirements. This test has not been tristan ared or approved by the U.S. Food and Drug Administration. Test Performed by: [facility] [address] [place] [id number] Laundry Tub Maker: Sajan Field M.D. Ph. D.; CLIA# [id number] Specimen Anatomical Collection Method Collection Time Receive d Time (Source) Location / / Volume Laterality Blood 07/21/2021 3:30 07/21/2021 PM CLEAN IN PLACES OPERATOR 4:50 PM CLEAN IN PLACES OPERATOR Linda Chand MD LAB BLOOD ORDERABLES Performing Organization Address City/State/ZIP Code Phon e Number [place] MD [facility] Unless otherwise noted, [place] [address] [place] all lab tests performed by: Division of Pathology and Laboratory Medicine [address] [place] [address] Urine SULEMAN Path Review (07/21/2021 3:00 PM CLEAN IN PLACES OPERATOR) Component Value Ref Test Analysis Performed At Patholo gist Range Method Time Signature UIFE Path Int The urine protein immunofixa tion electrophoretic patterns obtained with the use of antisera against IgG, IgA, IgM, bound kappa and bound lambda light chains, free kappa and free lambda light chains show AK diffuse polyclonal-appearing protein, but do not MARYA show definitive evidence of a Bence-Mancia proteinuria. Follow-up Bence-Mancia protein studies are suggested, however, if clinically indicated. [facility] Comment: MD Giulia CHEN [id number] Dictated by: MD Giulia [id number] Dictated Date/Time: 07.29.2021 10:50 AM CLEAN IN PLACES OPERATOR Transcribed Date/Time: 07.29.2021 10:50 AM CLEAN IN PLACES OPERATOR Electronically Signed By: MD Giulia CHEN84 on 07.29.2021 10:50 AM Specimen Anatomical Collection Method Collection Time Receive d Time (Source) Location / / Volume Laterality Urine 24 Hr 07/21/2021 3:00 07/24/2021 PM CLEAN IN PLACES OPERATOR 10:21 AM CLEAN IN PLACES OPERATOR Maryanne Blanco MD URINE ORDERABLES Performing Organization Address City/[facility] Phon e Number [facility] Unless otherwise noted, [address] all lab tests performed by: Division of Pathology and Laboratory Medicine Sandra Lalo Hughes Urine Prot Electrophoresis Path Review (07/21/2021 3:00 PM CLEAN IN PLACES OPERATOR) Component Value Ref Test Analysis Performed At [facility] gist Range Method Time Signature U ProE Path The urine protein [place] [facility] pattern shows CANCER indistinct peaks CENTER from the alpha-1 through the gamma region. Please see concurrent immunofixation results. Comment: MD Giulia CHEN [id number] Dictated by: MD Giulia CHEN [id number] Dictated Date/Time: 07.29.2021 10:50 AM CLEAN IN PLACES OPERATOR Transcribed Date/Time: 07.29.2021 10:50 AM CLEAN IN PLACES OPERATOR Electronically Signed By: MD Giulia CHEN84 on 07.29.2021 10:50 AM Specimen Anatomical Collection Method Collection Time Receive d Time (Source) Location / / Volume Laterality Urine 24 Hr 07/21/2021 3:00 07/24/2021 PM CLEAN IN PLACES OPERATOR 10:21 AM CLEAN IN PLACES OPERATOR Maryanne Blanco MD URINE ORDERABLES Performing Organization Address City/[facility]/ZIP Code Phon e Number [facility] Unless otherwise noted, [address] all lab tests performed by: Division of Pathology and Laboratory Medicine [facility] [place] (ABNORMAL) 24hr Urine Total Protein (07/21/2021 3:00 PM CLEAN IN PLACES OPERATOR) athologist [facility] UTP 47 mg/dL [facility] Comment: Caution is advised when interpreting campos ues greater than 555 mg/dL. Results requiring extended dilution beyo nd the paper cap machine operator's recommended limit may not dilute linearly due to pot ential matrix effect. Correlation with clinical context is rec ommended. UTP 24 728 (H) <=149 mg/24hr [facility] Specimen Anatomical Collection Method Collection Time Receive d Time (Source) Location / / Volume Laterality Urine 24 Hr 07/21/2021 3:00 07/22/2021 PM CLEAN IN PLACES OPERATOR 11:50 AM CLEAN IN PLACES OPERATOR Maryanne Blanco MD URINE ORDERABLES Performing Organization Address City/[facility] Phon e Number [facility] Unless otherwise noted, [address] all lab tests performed by: Division of Pathology and Laboratory Medicine [facility] [place] Protein Electrophoresis Urine (07/21/2021 3:00 PM CLEAN IN PLACES OPERATOR) [facility] U Albumin % 9.3 % [facility] U Globulin% 90.7 % [facility] Specimen Anatomical Collection Method Collection Time Receive d Time (Source) Location / / Volume Laterality Urine 24 Hr 07/21/2021 3:00 07/22/2021 PM CLEAN IN PLACES OPERATOR 12:41 PM CLEAN IN PLACES OPERATOR Maryanne Blanco MD URINE ORDERABLES Performing Organization Address City/[facility]/ZIP [facility] Phon e Number [facility] Unless otherwise noted, [address] all lab tests performed by: Division of Pathology and Laboratory Medicine [address] [place] SULEMAN Urine (07/21/2021 3:00 PM CLEAN IN PLACES OPERATOR) athologist [facility] UIFE See Comment [facility] Specimen Anatomical Collection Method Collection Time Receive d Time (Source) Location / / Volume Laterality Urine 24 Hr 07/21/2021 3:00 07/22/2021 PM CLEAN IN PLACES OPERATOR 12:41 PM CLEAN IN PLACES OPERATOR Maryanne Blanco MD URINE ORDERABLES Performing Organization Address City/[facility] Phon e Number [facility] Unless otherwise noted, [address] all lab tests performed by: Division of Pathology and Laboratory Medicine [address] [place] Echocardiogram 2D Complete with Contrast (07/21/2021 12:26 PM CLEAN IN PLACES OPERATOR) Specimen (Source) Anatomical Collection Method Collection Time Re ceived Time Location / / Volume Laterality 07/21/2021 11:37 AM CLEAN IN PLACES OPERATOR Narrative ISCV - 07/21/2021 3:28 PM CLEAN IN PLACES OPERATOR Echocardiographic Report Interpretation Summary A two-dimensional transthoracic echocard iogram with M-mode and Doppler was performed. The study was technically adequate. There is no comparison study available. Normal left ventricular size and systoli c function. LV ejection fraction calculated using th e bi-plane method of disks is 60-65%. The RV is dilated. The right ventricular systolic function is normal. There is mild to moderate tricuspid regu rgitation. Right ventricular systolic pressure is e levated at 40-50mmHg. Minimal pericardial effusion with no ech o evidence of Tamponade. Left Ventricle: Normal left ventricular size and systoli c function. LV ejection fraction calculated using the bi-plane method of disks is 60-65%. I WMSI = 1.00 % Normal = 1 00 Segments Size X - Cannot 2 - 1-2 small Interpret 1 - Normal Hypokine tic 3 - Akinetic 4 - Dyskinetic3- 5 moderate 5 - Aneurysmal 6-14 large 15-16 diffuse Diastology: The transmitral spectral Doppler flow pa ttern is suggestive of impaired LV relaxation. Right Ventricle: The RV is dilated. The right ventricular systolic function is normal. Atria: Atria are normal in size. Mitral Valve: The mitral valve is normal. There is tra ce mitral regurgitation. Tricuspid Valve: The tricuspid valve is not well visualiz ed, but is grossly normal. Right ventricular systolic pressure is elevated at 40-50mmHg. There is mild to moderate tricuspid regurgitation. Aortic Valve: The aortic valve is trileaflet. The aort ic valve opens well. Pulmonic Valve: The pulmonic valve is not well visualize d. Great Vessels: The aortic root is normal size. The infe rior vena cava demonstrates normal size and normal respiratory variation. Pericardium/Pleural: Minimal pericardial effusion with no ech o evidence of Tamponade. MMode/2D Measurements IVSd: 0.62 cm LVIDd: 3.6 cm LVIDs: 2.5 cm LVPWd: 0.63 cm FS: 31.8 % Ao root diam: 3.2 cm Ao root area: 8.2 cm2 LVOT diam: 2.3 cm EDV(MOD-A4C): 64.2 ml LVOT area: 4.0 cm2 ESV(MOD-A4C): 21.5 ml EF(MOD-A4C): 66.6 % EDV(MOD-A2C): 57.2 ml ESV(MOD-A2C): 20.2 ml EDV(MOD-bp): 62.2 ml EF(MOD-A2C): 64.7 % ESV(MOD-bp): 22.1 ml EF(MOD-bp): 64.5 % EDV (MOD-bp) Index: 37.0 ml/m2 ESV (MOD-bp) Index: 13.2 ml/m2 RWT: 0.35 cm TAPSE (>1.6): 2.1 cm Doppler Measurements MV E max ravin: 51.4 cm/sec MV V2 max: 83.0 cm/sec MV A max ravin: 76.9 cm/sec MV max P.8 mmHg MV E/A: 0.67 MV V2 mean: 44.6 cm/sec MV mean P.89 mmHg MV V2 VTI: 13.9 cm MVA(VTI): 5.0 cm2 MV P1/2t max ravin: 51.4 cm/sec Ao V2 max: 109.4 cm/sec MV P1/2t: 85.2 msec Ao max P.8 mmHg Ao V2 mean: 74.6 cm/sec MVA(P1/2t): 2.6 cm2 Ao mean P.4 mmHg MV dec slope: 176.8 cm/sec2 Ao V2 VTI: 19.5 cm ANABELA(I,D): 3.6 cm2 ANABELA(V,D): 3.6 cm2 LV V1 max P.8 mmHg SV(LVOT): 70.1 ml LV V1 mean P.9 mmHg LV V1 max: 97.1 cm/sec LV V1 mean: 66.9 cm/sec LV V1 VTI: 17.3 cm PA V2 max: 77.1 cm/sec Med Peak E' Ravin: 7.9 cm/sec PA max P.4 mmHg PA V2 mean: 51.9 cm/sec PA mean P.2 mmHg PA V2 VTI: 13.0 cm Lat Peak E' Ravin: 8.3 cm/sec TR max ravin: 307.3 cm/sec TR max P.8 mmHg RVSP(TR): 40.8 mmHg RAP systole: 3.0 mmHg ANABELA Index (I,D): 2.1 ANABELA Index (V,D): 2.1 Dimensionless Index: 0.89 E/e' (avg): 6.3 E/e' (lat): 6.2 E/e' (sept): 6.5 Procedure Note Devang Joe MD - 07/21/2021Formatti ng of this note might be different from the original. Echocardiographic Report Interpretation Summary A two-dimensional transthoracic echocard iogram with M-mode and Doppler was performed. The study was technically adequate. There is no comparison study available. Normal left ventricular size and systoli c function. LV ejection fraction calculated using th e bi-plane method of disks is 60-65%. The RV is dilated. The right ventricular systolic function is normal. There is mild to moderate tricuspid regu rgitation. Right ventricular systolic pressure is e levated at 40-50mmHg. Minimal pericardial effusion with no ech o evidence of Tamponade. Left Ventricle: Normal left ventricular size and systoli c function. LV ejection fraction calculated using the bi-plane method of disks is 60-65%. I WMSI = 1.00 % Normal = 100 Segments Size X - Cannot 2 - 1-2 small Interpret 1 - Normal Hypokinetic 3 - Akinetic 4 - Dyskinetic3-5 moderate 5 - Aneurysmal 6-14 large 15-16 diffuse Diastology: The transmitral spectral Doppler flow pa ttern is suggestive of impaired LV relaxation. Right Ventricle: The RV is dilated. The right ventricular systolic function is normal. Atria: Atria are normal in size. Mitral Valve: The mitral valve is normal. There is tra ce mitral regurgitation. Tricuspid Valve: The tricuspid valve is not well visualiz ed, but is grossly normal. Right ventricular systolic pressure is elevated at 40-50mmHg. There is mild to moderate tricuspid regurgitation. Aortic Valve: The aortic valve is trileaflet. The aort ic valve opens well. Pulmonic Valve: The pulmonic valve is not well visualize d. Great Vessels: The aortic root is normal size. The infe rior vena cava demonstrates normal size and normal respiratory variation. Pericardium/Pleural: Minimal pericardial effusion with no ech o evidence of Tamponade. MMode/2D Measurements IVSd: 0.62 cm LVIDd: 3.6 cm LVIDs: 2.5 cm LVPWd: 0.63 cm FS: 31.8 % Ao root diam: 3 .2 cm Ao root area: 8 .2 cm2 LVOT diam: 2.3 cm EDV(MOD-A4C): 6 4.2 ml LVOT area: 4.0 cm2 ESV(MOD-A4C): 2 1.5 ml EF(MOD-A4C): 66 .6 % EDV(MOD-A2C): 57.2 ml ESV(MOD-A2C): 20.2 ml EDV(MOD-bp): 62 .2 ml EF(MOD-A2C): 64.7 % ESV(MOD-bp): 22 .1 ml EF(MOD-bp): 64. 5 % EDV (MOD-bp) Index: 37.0 ml/m2 ESV (MOD-bp) In dex: 13.2 ml/m2 RWT: 0.35 cm TAPSE (>1.6): 2 .1 cm Doppler Measurements MV E max ravin: 51.4 cm/sec MV V2 max: 83.0 cm/sec MV A max ravin: 76.9 cm/sec MV max P.8 mmHg MV E/A: 0.67 MV V2 mean: 44.6 cm/sec MV amish n P.89 mmHg MV V2 VTI: 13.9 cm MVA(VT I): 5.0 cm2 MV P1/2t max ravin: 51.4 cm/sec Ao V2 max: 109.4 cm/sec MV P1/2t: 85.2 msec Ao max P.8 mmHg Ao V2 mean: 74.6 cm/sec MVA(P1/2t): 2.6 cm2 Ao amish n P.4 mmHg MV dec slope: 176.8 cm/sec2 Ao V2 VTI: 19.5 cm ANABELA(I, D): 3.6 cm2 ANABELA(V, D): 3.6 cm2 LV V1 max P.8 mmHg SV(LVO T): 70.1 ml LV V1 mean P.9 mmHg LV V1 max: 97.1 cm/sec LV V1 mean: 66.9 cm/sec LV V1 VTI: 17.3 cm PA V2 max: 77.1 cm/sec Med Pe ak E' Ravin: 7.9 cm/sec PA max P.4 mmHg PA V2 mean: 51.9 cm/sec PA mean P.2 mmHg PA V2 VTI: 13.0 cm Lat Peak E' Ravin: 8.3 cm/sec TR max ravin: 307.3 cm/sec TR max P.8 mmHg RVSP(T R): 40.8 mmHg RAP systole: 3.0 mmHg ANABELA In dex (I,D): 2.1 ANABELA Index (V,D): 2.1 Dimens ionless Index: 0.89 E/e' (avg): 6.3 E/e' ( lat): 6.2 E/e' (sept): 6.5 Maryanne Blanco MD CV ECHO ORDERABLES Performing Organization Address City/State/ZIP Code Phon e Number [facility] Protein Electrophoresis Path Review (07/21/2021 6:14 AM CLEAN IN PLACES OPERATOR) Component Value Ref Test Analysis Performed Pathologis t Range Method Time At Signature SPE Path 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 There is no definitive evidence of an M- protein peak. AK Interp If a paraproteinemia is susp ected clinically, serum protein immunofixation, serum immunoglobulin quantification, and urine Bence-Mancia protein studies are recommended. [facility] Comment: [place] [id number] Dictated by: [place] [id number] Dictated Date/Time: 07.25.2021 10:38 AM CLEAN IN PLACES OPERATOR Transcribed Date/Time: 07.25.2021 10:38 AM CLEAN IN PLACES OPERATOR Electronically Signed By: [place] [id number] on 07.25.2021 10:38 AM Specimen Anatomical Collection Method Collection Time Receive d Time (Source) Location / / Volume Laterality Blood 07/21/2021 6:14 07/21/2021 AM CLEAN IN PLACES OPERATOR 2:57 PM CLEAN IN PLACES OPERATOR Maryanne Blanco MD LAB BLOOD ORDERABLES Performing Organization Address City/[facility] Phon e Number [place] [facility] Unless otherwise noted, [address] all lab tests performed by: Division of Pathology and Laboratory Medicine [address] [place] [address] SULEMAN Path Review (07/21/2021 6:14 AM CLEAN IN PLACES OPERATOR) Component Value Ref Test Analysis Performed At [facility] gist Range Method Time Signature SULEMAN Path Int The serum protein immunofixa tion electrophoretic patterns obtained with the use of antisera against IgG, IgA, IgM, bound Megargel and bound Lambda light chain proteins show intense but diffuse staining in NIKOLE CHU the IgG, kappa, and lambda lanes despite dilution. MARYA Although there is no definit alexandr evidence of a monoclonal gammopathy clinical correlation and close follow-up studies are recommended. [facility] Comment: [place] [id number] Dictated by: [place] [id number] Dictated Date/Time: 07.25.2021 10:38 AM CLEAN IN PLACES OPERATOR Transcribed Date/Time: 07.25.2021 10:38 AM CLEAN IN PLACES OPERATOR Electronically Signed By: [place] [id number] on 07.25.2021 10:38 AM Specimen Anatomical Collection Method Collection Time Receive d Time (Source) Location / / Volume Laterality Blood 07/21/2021 6:14 07/21/2021 AM CLEAN IN PLACES OPERATOR 2:57 PM CLEAN IN PLACES OPERATOR Maryanne Blanco MD LAB BLOOD ORDERABLES Performing Organization Address City/[facility] Phon e Number [place] [facility] Unless otherwise noted, [address] all lab tests performed by: Division of Pathology and Laboratory Medicine [address] [place] [address] CT Chest Pulmonary Embolism with Contrast (07/19/2021 1:15 PM CLEAN IN PLACES OPERATOR) Anatomical Region Laterality Modality Chest Computed Tomography Specimen (Source) Anatomical Collection Method Collection Time Re ceived Time Location / / Volume Laterality 07/19/2021 1:28 PM CLEAN IN PLACES OPERATOR Impressions 07/19/2021 1:46 PM CLEAN IN PLACES OPERATOR 1. No evidence of pulmonary thromboemb olic disease. 2. Right atrial and ventricular dilata tion may reflect chronic right heart disease. Echocardiography may be helpful. 3. Right lower lobe paravertebral mass is suspicious for a primary lung malignancy. Superimposed pneumonia is not excluded. Multifocal bilateral lung opacities may represent pneumonia versus metastatic or synchronous disease. 4. Right paratracheal, subcarinal and right hilar lymphadenopathy. 5. Small right pleural effusion. Small pericardial effusion. Narrative 07/19/2021 1:46 PM CLEAN IN PLACES OPERATOR FULL RESULT: Examination: CT CHEST PULMONARY EMBOLISM W CONTRAST, 07/19/2021 1:15 PM Clinical History: Hypercalcemia of unkno wn etiology COVID-19 PCR test on 07/19/2021 is negat alexandr. Respiratory viral panel 07/19/2021 is po sitive for influenza A and A H3 Indication: D-dimer elevated, 5 days of productive cough and shortness of breath Comparison: Chest portable 07/19/2021 Technique: Spiral CT of the chest is per formed using intravenous contrast. Findings: The pulmonary arteries arteries are well -opacified. No intravascular filling defect is identified. The main pulmonary trunk is top normal in diameter. The heart demonstrates dilatation of the right atrium and ventricle. The RV: LV ratio is greater than 1. 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 The thoracic aorta has normal caliber. A right lower paratracheal lymph node is 17 mm (image 176, series 8). A subcarinal lymph node is 20 mm (image 199). Right hilar adenopathy is 16 mm (image 198) and there is right inferior hilar adenopat hy (image 243). A left hilar node is 13 mm (image 189). The lungs are emphysematous. There is a consolidative opacity in the paravertebral right lower lobe measuring 74 x 36 x 71 mm (AP x TR x CC) (image 255, series 8 and coronal image 155, series 12). Assoc iated subsegmental airways are occluded. There is irregular subpleural opacity in the posterior segment right upper lobe (image 72, series 13) and irregular focal consolidations in the left upper lobe ( images 49-65) and the superior segment l eft lower lobe (image 59). A discrete 14 mm left upper lobe nodule is partially calcified (image 70). An irregular peribronchial left upper lobe lesion is 27 mm (image 76). Small right pleural fluid is present. The esophagus is nondistended and normal in course. Images through the upper abdomen demonstrate normal adrenal gland morphology. The spleen is normal in size. No focal hepatic lesion on early arterial phase imaging. The bones are osteopenic. 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 No bone lesion or acute bone fracture in the thorax. Gynecomastia is asymmetric to the right. Procedure Note Mariah Caceres MD - 07/19/2021Forma tting of this note might be different from the original. FULL RESULT: Examination: CT CHEST PULMONARY EMBOLISM W CONTRAST, 07/19/2021 1:15 PM Clinical History: Hypercalcemia of unkno wn etiology COVID-19 PCR test on 07/19/2021 is negat alexandr. Respiratory viral panel 07/19/2021 is po sitive for influenza A and A H3 Indication: D-dimer elevated, 5 days of productive cough and shortness of breath Comparison: Chest portable 07/19/2021 Technique: Spiral CT of the chest is per formed using intravenous contrast. Findings: The pulmonary arteries arteries are well -opacified. No intravascular filling defect is identified. The main pulmonary trunk is top normal in diameter. The heart demonstrates dilatation of the right atrium and ventricle. The RV: LV ratio is greater than 1. 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 The thoracic aorta has normal caliber. A right lower paratracheal lymph node is 17 mm (image 176, series 8). A subcarinal lymph node is 20 mm (image 199). Right hilar adenopathy is 16 mm (image 198) and there is right inferior hilar adenopathy (image 243). A left hilar node is 13 mm (image 189). The lungs are emphysematous. There is a consolidative opacity in the paravertebral right lower lobe measuring 74 x 36 x 71 mm (AP x TR x CC) (image 255, series 8 and coronal image 155, series 12). Associated subsegmental airways are occluded. There is irregular subpleural opacity in the posterior segment right upper lobe (image 72, series 13) and irregular focal consolidations in the left upper lobe (images 49-65) and the superior segment left lower lobe (im age 57). A discrete 14 mm left upper lobe nodule is partially calcified (image 70). An irregular peribronchial left upper lobe lesion is 27 mm (image 76). Small right pleural fluid is present. The esophagus is nondistended and normal in course. Images through the upper abdomen demonstrate normal adrenal gland morphology. The spleen is normal in size. No focal hepatic lesion on early arterial phase imaging. The bones are osteopenic. 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 No bone lesion or acute bone fracture in the thorax. Gynecomastia is asymmetric to the right. IMPRESSION: 1. No evidence of pulmonary thromboembo lic disease. 2. Right atrial and ventricular dilatat ion may reflect chronic right heart disease. Echocardiography may be helpful. 3. Right lower lobe paravertebral mass is suspicious for a primary lung malignancy. Superimposed pneumonia is not excluded. Multifocal bilateral lung opacities may represent pneumonia versus metastatic or synchronous disease. 4. Right paratracheal, subcarinal and r ight hilar lymphadenopathy. 5. Small right pleural effusion. Small pericardial effusion. Mark Jonas MD IMG CT ORDERABLES XR Chest 1 View Portable (07/19/2021 11:16 AM CLEAN IN PLACES OPERATOR) Anatomical Region Laterality Modality Chest Digital Radiography Specimen (Source) Anatomical Collection Method Collection Time Re ceived Time Location / / Volume Laterality 07/19/2021 11:51 AM CLEAN IN PLACES OPERATOR Impressions 07/19/2021 11:56 AM CLEAN IN PLACES OPERATOR 1. Bilateral interstitial-type pulmonary opacities are suspicious for emphysema. Superimposed infiltrate cannot be excluded. Comparison to prior chest imaging would be helpful. 2. A mass is visualized in the right l ower lung field that is worrisome for tumor. Chest CT is recommended for further evaluation. Narrative 07/19/2021 11:56 AM CLEAN IN PLACES OPERATOR FULL RESULT: Examination: XR CHEST 1 VW PORTABLE, 07/19 11:16 AM Clinical History: Shortness of breath Indication: Shortness of Breath, Suspect ed COVID-19, Results Pending, 2 Comparison: None Technique: Single portable anteroposteri or radiograph of the chest. Findings: Bilateral interstitial-type pulmonary op acities may represent emphysema. A superimposed infiltrate cannot be excluded. The opacities also diminished the sensitivity of the examination for the detection of pulmonary nodules. A mass measuring at least 7 cm is visual ized in the medial aspect of the right lower lung field and is worrisome for tumor. Surgical staple lines are visualized in the left upper and the left mid lung vazquez, consistent with prior left thoracotomy. Please correlate clinically. Procedure Note Thalia Guerrero MD - 07/19/2021Forma tting of this note might be different from the original. FULL RESULT: Examination: XR CHEST 1 VW PORTABLE, 07/19 11:16 AM Clinical History: Shortness of breath Indication: Shortness of Breath, Suspect ed COVID-19, Results Pending, 2 Comparison: None Technique: Single portable anteroposteri or radiograph of the chest. Findings: Bilateral interstitial-type pulmonary op acities may represent emphysema. A superimposed infiltrate cannot be excluded. The opacities also diminished the sensitivity of the examination for the detection of pulmonary nodules. A mass measuring at least 7 cm is visual ized in the medial aspect of the right lower lung field and is worrisome for tumor. Surgical staple lines are visualized in the left upper and the left mid lung vazquez, consistent with prior left thoracotomy. Please correlate clinically. IMPRESSION: 1. Bilateral interstitial-type pulmonar y opacities are suspicious for emphysema. Superimposed infiltrate cannot be excluded. Comparison to prior chest imaging would be helpful. 2. A mass is visualized in the right lo wer lung field that is worrisome for tumor. Chest CT is recommended for further evaluation. Mark Jonas MD [facility] DIAGNOSTIC IMAGING ORDER GIGI (ABNORMAL) Procalcitonin (07/19/2021 10:43 AM CLEAN IN PLACES OPERATOR) P athologist Signature Procalcitonin 0.13 (H) <=0.08 AK ng/mL [facility] Comment: Procalcitonin > 2.00 ng/mL: Procalcit onin levels above 2.00 ng/mL are highly suggestive of a high risk for systematic bacterial infection/ severe sepsis and/or septic shock. Procalcitonin < 0.50 ng/mL: Procalcito kathryn levels below 0.50 ng/mL are at low risk for progression to severe sepsis and/ or septic shock. Procalcitonin (ProCT) between 0.15 and 2 .0 ng/mL do not exclude infection, because localized infections (without systemic signs) may be associated with such low levels. Results greater than 400 ng/mL may not b e reliable due to the matrix effect with extended dilution as it exceeds the paper cap machine operator's recommended limit. Caution should be exercised when interpreting such values and done in conjunction with clinical context. Specimen Anatomical Collection Method Collection Time Receive d Time (Source) Location / / Volume Laterality Blood 07/19/2021 10:43 07/19/2021 AM CLEAN IN PLACES OPERATOR 11:01 AM CLEAN IN PLACES OPERATOR Mark Jonas MD LAB BLOOD ORDERABLES Performing Organization Address City/State/ZIP Code Phon e Number [facility] Unless otherwise noted, [address] all lab tests performed by: Division of Pathology and Laboratory Medicine [address] [facility] OSI Chest (07/08/2021 11:55 PM CLEAN IN PLACES OPERATOR)Only the most recent of3 resultswithin the time period is included. Specimen (Source) Anatomical Location Collection Method / Collectio n Time Received Time / Laterality Volume Narrative Systemgenerated, Documentation - 022 11:55 PM CLEAN IN PLACES OPERATOR Study acquired at another institution. For comparison only. No MD Malhotra originated interpretation requested or a vailable. Linda Chand MD IMG OUTSIDE IMAGE ORDER GIGI OSI Bone Density Study (07/08/2021 11:54 PM CLEAN IN PLACES OPERATOR) Specimen (Source) Anatomical Location Collection Method / Collectio n Time Received Time / Laterality Volume Narrative Systemgenerated, Documentation - 022 11:54 PM CLEAN IN PLACES OPERATOR Study acquired at another institution. For comparison only. No MD Malhotra originated interpretation requested or a vailable. 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
--- OUTSIDE RECORDS SUMMARY | 2021-12-13 12:21 | XMS REPORT | Continuity of Care Document ---
:1940 Author Organization [facility] Address [address] [place] [address] [address] [place] [address] Care Team Providers Name Role Phone SYSTEM, NOT IN Attending Clinician Unavailable ZIYAD CARRION Attending Clinician Unavailable Juan Jose GONZALEZ Attending Clinician Unavailable HORTENCIA Attending Clinician Unavailable HARPREET Attending Clinician Unavailable PULS, E Attending Clinician Unavailable PELON Attending Clinician Unavailable Michelet KENT Attending Clinician Unavailable JOCELINE Attending Clinician Unavailable ADAMA Attending Clinician Unavailable RADHA Attending Clinician Unavailable SIDNEY VAN Attending Clinician Unavailable LEONOR Attending Clinician Unavailable JACINTA Attending Clinician Unavailable YUE Attending Clinician Unavailable DON HUNT Attending Clinician Unavailable SHIKHA Attending Clinician Unavailable GURMEET Attending Clinician Unavailable Juan Jose GONZALEZ Admitting Clinician Unavailable RADHA Admitting Clinician Unavailable LEONOR Admitting Clinician Unavailable SHIKHA Admitting Clinician Unavailable JERROD Admitting Clinician Unavailable Payers Payer Name Policy Type Policy Number Effective Date Expiration Date [facility] PART A AND [id number] 2003 B 00:00:00 BCBS NON CONTRACTED [id number] 2014 00:00:00 Problems This patient has no known problems. Allergies, Adverse Reactions, Alerts This patient has no known allergies or adverse reactions. Medications This patient has no known medications. Procedures This patient has no known procedures. Encounters Start End Encounter Admission Attending Care Care Encounter Source Date/Time Date/Time Type Type Clinicians Facility Department ID 2021-11-04 Outpatient SYSTEMSREEDHAR MDA [id number] 10:20:16 PROVIDER Estuardo morris 2021-09-08 Outpatient SYSTEMSREEDHAR MDA [id number] 09:27:17 PROVIDER Estuardo morris 2021-07-10 Outpatient SYSTEMSREEDHAR MDA [id number] 18:01:53 PROVIDER Estuardo morris 2021-12-04 2021-12-04 Outpatient EL YASSINE CARRION MDA MDA [id number] 14:48:15 14:50:55 Estuardo o arturo 2021-11-25 2021-11-25 Outpatient EL CARLOS, MDA Adonis Endo [id number] MD 05:53:00 14:06:00 RAMÓN Hammonders o arturo 2021-11-13 2021-11-13 Outpatient EL HORTENCIA, MDA MDA [id number] 12:47:31 12:47:31 DANIEL Marte o arturo 2021-10-22 2021-10-22 Outpatient EL CARLOS, MDA MDA [id number] 09:48:47 11:12:17 RAMÓN Marte o arturo 2021-10-20 2021-10-20 Outpatient EL HARPREET GREY MDA MDA [id number] 09:17:54 09:21:00 Estuardo o arturo 2021-10-16 2021-10-16 Outpatient EL MDA MDA [id number] 14:16:43 14:16:43 Estuardo o arturo 2021-10-16 2021-10-16 Outpatient EL PULS, MDA MDA [id number] 12:42:04 12:42:04 BIENVENIDO Marte o arturo 2021-10-16 2021-10-16 Outpatient STACY BENSONI MDA MDA [id number] 12:25:35 12:31:18 Estuardo o arturo 2021-10-15 2021-10-15 Outpatient YASSINE WEAVER MDA MDA [id number] 13:02:17 13:31:07 Estuardo o arturo 2021-10-15 2021-10-15 Outpatient NABIL MULLINS, GREY MDA MDA [id number] 10:22:48 11:08:46 Estuardo o arturo 2021-10-13 2021-10-13 Outpatient EL MACKENNEMichelet, MDA MDA [id number] 08:03:39 23:59:00 ITZ Marte o arturo 2021-10-13 2021-10-13 Outpatient EL PULS, MDA MDA [id number] 14:13:58 14:13:58 BIENVENIDO Marte o arturo 2021-10-13 2021-10-13 Outpatient EL CONATY, MDA MDA [id number] 12:06:48 13:20:00 KODI ford arturo 2021-10-13 2021-10-13 Outpatient EL PULS, MDA MDA [id number] MD 09:16:58 09:16:58 BIENVENIDOKENNY Marte o arturo 2021-10-13 2021-10-13 Outpatient EL PELON, MDA MDA [id number] 08:00:00 08:02:00 ITZ Marte o arturo 2021-10-13 2021-10-13 Outpatient EL SHEYLA, SANG MDA MDA [id number] 07:41:46 07:59:00 Estuardo o arturo 2021-09-30 2021-09-30 Outpatient EL BURNETT, MDA MDA [id number] MD 09:35:47 10:14:14 DANIEL Marte o arturo 2021-09-19 2021-09-19 Outpatient EL JOCELINE, MDA MDA [id number] 08:36:44 23:59:00 ALY Marte o arturo 2021-09-19 2021-09-19 Outpatient EL ZACLEONOR MOSELEY MDA MDA [id number] 09:04:36 09:52:43 Estuardo o arturo 2021-09-14 2021-09-15 Outpatient ER RADHA, MDA Emergency [id number] 10:04:00 18:15:00 ROBERTH Maret o arturo 2021-09-05 2021-09-05 Outpatient EL CARLOTA, MDA MDA [id number] 11:17:44 11:17:44 VALERY Marte o arturo 2021-09-03 2021-09-03 Outpatient EL SEPESI, MDA Thoracic [id number] 12:36:00 18:29:00 ALANNA Marte o arturo 2021-09-03 2021-09-03 Outpatient EL ILIMALIHACU, MDA MDA [id number] 12:15:42 12:35:00 FIONA Marte o arturo 2021-09-02 2021-09-02 Outpatient EL YUE, MDA MDA [id number] 07:27:06 07:27:06 SKYLAR Munoz so n 2021-09-01 2021-09-01 Outpatient EL YUE, MDA MDA [id number] 13:14:49 13:45:54 SKYLAR Munoz so n 2021-09-01 2021-09-01 Outpatient EL YUE, MDA MDA [id number] MD 13:35:53 13:36:17 SKYLAR Munoz so n 2021-08-26 2021-08-26 Outpatient EL LEONOR, MDA MDA [id number] MD 10:25:28 12:11:52 ALANNA Marte o arturo 2021-08-18 2021-08-18 Outpatient EL DON MDA MDA [id number] 11:20:27 11:20:27 Alexander HUNT 2021-08-15 2021-08-15 Outpatient EL SHIKHA, MDA Pul Med [id number] MD 09:49:00 15:54:00 WAYNE Marte o arturo 2021-08-14 2021-08-14 Outpatient EL SHIKHA, MDA MDA [id number] 13:40:49 15:35:35 WAYNE Marte o arturo 2021-08-14 2021-08-14 Outpatient EL MDA MDA [id number] 07:13:20 07:13:20 Estuardo o arturo 2021-08-13 2021-08-13 Outpatient EL PELON, MDA MDA [id number] 10:35:52 10:58:13 ITZ Marte o arturo 2021-08-13 2021-08-13 Outpatient EL JOCELINE, MDA MDA [id number] 10:15:05 10:24:59 ALY Marte o arturo 2021-08-13 2021-08-13 Outpatient EL JOCELINE, MDA MDA [id number] 08:18:42 08:18:42 ALY Marte o arturo 2021-08-07 2021-08-07 Outpatient EL JOCELINE, MDA MDA [id number] 11:47:19 23:59:00 ALY Marte o arturo 2021-08-07 2021-08-07 Outpatient EL JACINTA, MDA MDA [id number] MD 10:00:50 11:37:50 FIONA Marte o arturo 2021-07-29 2021-07-29 Outpatient EL MAHNAZE MDA MDA [id number] 21:49:30 21:49:30 Alexander HUNT 2021-07-29 2021-07-29 Outpatient EL SENECHALLE MDA MDA [id number] 21:49:29 21:49:29 Alexander HUNT 2021-07-29 2021-07-29 Outpatient EL SENECHALLE MDA MDA [id number] 21:49:28 21:49:28 Alexander HUNT 2021-07-29 2021-07-29 Outpatient EL SENECHALLE MDA MDA [id number] 21:49:28 21:49:28 Alexander HUNT 2021-07-29 2021-07-29 Outpatient EL SENECHALLE MDA MDA [id number] 21:49:27 21:49:27 Alexander HUNT 2021-07-19 2021-07-24 Inpatient UR SENABIGAILALLE MDA Hosp Med [id number] 10:08:00 14:35:00 Alexander HUNT 2021-07-23 2021-07-23 Inpatient EL GURMEET, MDA MDA [id number] 08:54:06 16:34:03 RUCHI morris 2021-07-22 2021-07-22 Inpatient EL SENECHALLE MDA MDA [id number] 15:42:48 16:07:21 Alexander HUNT Results This patient has no known results.
[2021-12-13] MEDS ORDERED: ONDANSETRON 4 MG/2 ML VIAL ONE ×2 (12:38→15:57)
[2021-12-13] MEDS ORDERED: NA CHLORIDE 0.9% 1,000 ML ONE (12:38)
[2021-12-13] MEDS ORDERED: MORPHINE 4 MG/ML SYR ONE ×2 (12:38→15:57)
[2021-12-13 13:07] LABS: Absolute Lymphocytes (CBC) 2.4 K/uL (0.7-4.9); Hematocrit 36.8 % (39.6-49.0); Lymphocytes % 24.5 % (15.3-44.8); MPV 7.7 fL (7.6-11.3); RBC Red Blood Cell Count 3.98 M/uL (4.33-5.43)
[2021-12-13 13:15] LABS: Albumin 2.7 g/dL (3.4-5.0); Bilirubin Total 0.7 mg/dL (0.2-1.0); Potassium 3.4 mmol/L (3.5-5.1); Protein, Total 10.7 g/dL (6.4-8.2)
--- NOTE | 2021-12-13 14:07 | RAD REPORT ---
EXAM DESCRIPTION: CT - Abdomen Pelvis Wo Contrast - 12/13/2021 1:52 pm CLINICAL HISTORY: Abdominal pain COMPARISON: None TECHNIQUE: Computed axial tomography of the abdomen and pelvis was obtained. IV and oral contrast we re not requested. All CT scans are performed using dose optimization technique as appropriate and may include automated exposure control or mA/KV adjustment according to patient size. FINDINGS: The evaluation of solid organs, vessels and bowel is limited secondary to the lack of con trast administration. Multiple small gallstones. Gallbladder wall does not appear thickened The liver, spleen, pancreas, adrenals and right kidney appear grossly normal. Tiny nonobstructing left renal calculus The appendix is normal. There is no evidence of diverticulitis. Small to moderate pericardial effusion Spondylosis lumbar spine results in spinal stenosis IMPRESSION: Cholelithiasis Small to moderate pericardial effusion
--- NOTE | 2021-12-13 14:55 | RAD REPORT ---
EXAM DESCRIPTION: US - Abdomen Exam Limited - 12/13/2021 2:38 pm CLINICAL HISTORY: Abdominal pain. COMPARISON: None. FINDINGS: The gallbladder wall is not thickened. The patient's known small gallstones are not visualized on this exam The biliary tree is normal caliber. IMPRESSION: No evidence of cholecystitis. Patient's small gallstones seen on December 13, 2021 cat scan are not visualized on this exam likely secon seymour to technical factors.
--- NOTE | 2021-12-13 15:45 | ER ---
Nurse's Notes [facility] Name: Durga Fonseca Age: 81 yrs Sex: Male : 1940 Arrival Date: 12/13/2021 Time: 12:15 Bed 14 Private MD: Diagnosis: Acute Pancreatitis Presentation: 12/13 12:26 Chief complaint: Patient states: Abd pain with nausea all morning, and had 1 episode ll1 yesterday afternoon. No known fever. Parathyroid SX November 25. Coronavirus screen: Vaccine status: Patient reports receiving the 2nd dose of the covid vaccine. Client denies travel out of the [place] in the last 14 days. fatigue, nausea, Client presents with at least one sign or symptom that may indicate coronavirus-19. Standard/surgical mask placed on the client. Ebola Screen: Patient denies travel to an Ebola-affected area in the 21 days before illness onset. Initial Sepsis Screen: Does the patient meet any 2 criteria? HR > 90 bpm. No. Patient's initial sepsis screen is negative. Does the patient have a suspected source of infection? Yes: Acute abdominal pain. Risk Assessment: Do you want to hurt yourself or someone else? Patient reports no desire to harm self or others. Onset of symptoms was December 12, 2021. 12:26 Method Of Arrival: Wheelchair ll1 12:26 Acuity: АНДРЕЙ 3 ll1 Triage Assessment: 12:28 General: Appears uncomfortable, ill, Behavior is cooperative, appropriate for age. ll1 Pain: Complains of pain in abdomen Pain currently is 10 out of 10 on a pain scale. Quality of pain is described as aching, pressure. GI: Reports lower abdominal pain, upper abdominal pain, nausea. Historical: - Allergies: 12:26 No Known Allergies; ll1 - PMHx: 12:26 Hypercholesterolemia; Hypertensive disorder; IgG4; ll1 - PSHx: 12: Parathyroid SX; ll1 - Immunization history:: Adult Immunizations up to date. - Social history:: Smoking status: Patient/guardian denies using tobacco, the patient reports quitting approximately 40 years ago. Screenin:05 Abuse screen: Denies threats or abuse. Denies injuries from another. Nutritional ph screening: No deficits noted. Tuberculosis screening: No symptoms or risk factors identified. Fall Risk None identified. Assessment: 13:00 General: Appears in no apparent distress. uncomfortable, slender, well groomed, ph Behavior is cooperative, appropriate for age, Denies fever, chills. Pain: Complains of pain in right lower quadrant. Neuro: Level of Consciousness is awake, alert, obeys commands, Oriented to person, place, time, situation. Cardiovascular: Capillary refill < 3 seconds in bilateral fingers Patient's skin is warm and dry. Respiratory: Airway is patent Respiratory effort is even, unlabored. GI: Abdomen is flat, non-distended, Reports lower abdominal pain, nausea, Patient currently denies diarrhea, vomiting. :. Derm: Skin is intact, is healthy with good turgor, Skin is pink, warm \\T\\ dry. Musculoskeletal: Circulation, motion, and sensation intact. Range of motion: intact in all extremities. 14:46 Reassessment: Patient appears in no apparent distress at this time. Patient and/or ph family updated on plan of care and expected duration. Pain level reassessed. Patient is alert, oriented x 3, equal unlabored respirations, skin warm/dry/pink. 16:00 Reassessment: Patient appears in no apparent distress at this time. Patient and/or ph family updated on plan of care and expected duration. Pain level reassessed. Patient is alert, oriented x 3, equal unlabored respirations, skin warm/dry/pink. Pt reports that pain is increasing, also c/o nausea, ERP notified, see MAR. Vital Signs: 12:26 BP 158 / 63; Pulse 91; Resp 19; Temp 98.3; Weight 62.6 kg; Height 5 ft. 9 in. (175.26 ll1 cm); Pain 10/10; 12:28 Pulse Ox 96% on R/A; ph 13:05 BP 143 / 63; Pulse 93; Resp 16; Pulse Ox 89% on R/A; ph 14:47 BP 132 / 58; Pulse 95; Resp 18; Pulse Ox 97% on R/A; ph 16:10 BP 153 / 63; Pulse 101; Resp 18; Pulse Ox 96% on R/A; ph 17:00 BP 147 / 64; Pulse 92; Resp 18; Temp 98.5; Pulse Ox 97% on 2 lpm NC; ph 12:26 Body Mass Index 20.38 (62.60 kg, 175.26 cm) ll1 13:05 after IV morphine, pt placed on NC at 2L ph ED Course: 12:15 Patient arrived in ED. jj6 12:18 Mariah Alvarez, RN is Primary Nurse. ph 12:19 Jose Carlos Coulter PA is PHCP. jmm 12:19 Vladimir Schmitt MD is Attending Physician. jmm 12:26 Arm band placed on Patient placed in an exam room, on a stretcher. ll1 12:28 Triage completed. ll1 12:45 Initial lab(s) drawn, by me, sent to lab. Inserted saline lock: 22 gauge in right ph forearm, using aseptic technique. Blood collected. 13:05 Patient has correct armband on for positive identification. Bed in low position. Call ph light in reach. Side rails up X 1. Pulse ox on. NIBP on. Door closed. Noise minimized. Warm blanket given. 13:54 Abdomen In Process Unspecified. EDMS 14:40 US Abdomen Limited In Process Unspecified. EDMS 14:59 Troponin High Sensitivity Sent. mb7 15:43 Anders Noel is Hospitalizing Provider. jmm 16:02 SARS-COV-2 RT PCR (Document "Date of Onset" if Symptomatic) Sent. mb7 18:30 No provider procedures requiring assistance completed. Patient admitted, IV remains in ww place. Administered Medications: 12:45 Drug: NS 0.9% 1000 ml Route: IV; Rate: 1 bolus; Site: right forearm; ph 15:00 Follow up: Response: No adverse reaction; IV Intake: 1000ml ph 15:00 Follow up: IV Status: Completed infusion ph 12:45 Drug: Zofran (Ondansetron) 4 mg Route: IVP; Site: right forearm; ph 13:00 Follow up: Response: No adverse reaction ph 12:47 Drug: morphine 4 mg Route: IVP; Infused Over: 4 mins; Site: right forearm; ph 13:15 Follow up: Response: No adverse reaction; RASS: Drowsy (-1) ph 16:09 Drug: Zofran (Ondansetron) 4 mg Route: IVP; Site: right antecubital; ph 16:30 Follow up: Response: No adverse reaction; Nausea is decreased ph 16:11 Drug: morphine 4 mg Route: IVP; Infused Over: 4 mins; Site: right antecubital; ph 16:30 Follow up: Response: No adverse reaction; Pain is decreased; RASS: Drowsy (-1) ph Medication: 13:05 VIS not applicable for this client. ph Intake: 15:00 IV: 1000ml; Total: 1000ml. ph Outcome: 15:44 Decision to Hospitalize by Provider. paris 18:30 Admitted to Med/surg Report called to Lissa gee 18:30 Condition: stable 18:30 Instructed on the need for admit. 18:47 Patient left the ED. eb Signatures: Dispatcher [employer] EDMS Jose Carlos Coulter PA PA jmm Hall, Patricia, RN RN Gwendolyn Vasquez Lynsay RN RN ll1 Connie Oakley Mary mb7 Wood, Whitney, RN RN ww Corrections: (The following items were deleted from the chart) 12:32 12:26 Social history: Smoking status: Patient denies any tobacco usage or history of. ll1 ll1 12:33 12:26 BP 158 / 63; Pulse 91bpm; Resp 19bpm; Temp 98.3F; Pain 10/10; ll1 ll1
--- NOTE | 2021-12-13 15:45 | EDPHYS ---
Physician Documentation [facility] Name: Durga Fonseca Age: 81 yrs Sex: Male : 1940 Arrival Date: 12/13/2021 Time: 12:15 Bed 14 Private MD: MACHO Physician Vladimir Schmitt HPI: 12/13 12:21 This 81 yrs old Male presents to ER via Wheelchair with complaints of Nausea/Vomiting, jmm Abdominal Cramping, Chest Pain, Post Surgical Pain. 12:21 The patient presents to the emergency department with nausea, vomiting, abdominal pain. jmm Onset: The symptoms/episode began/occurred acutely, last night. Possible causes: unknown. The symptoms are aggravated by nothing. The symptoms are alleviated by nothing. Associated signs and symptoms: Pertinent positives: abdominal pain. This is an 81 year old male with a history of IgG4, htn, hlp that presents to the ED with complaints of diffuse abdominal pain, vomiting beginning last night. Patient is approx 3 week s/p parathyroidectomy performed at [facility]. . Historical: - Allergies: 12:26 No Known Allergies; ll1 - PMHx: 12:26 Hypercholesterolemia; Hypertensive disorder; IgG4; ll1 - PSHx: 12:26 Parathyroid SX; ll1 - Immunization history:: Adult Immunizations up to date. - Social history:: Smoking status: Patient/guardian denies using tobacco, the patient reports quitting approximately 40 years ago. ROS: 12:21 Constitutional: Negative for fever, chills, and weight loss, Cardiovascular: Negative jmm for chest pain, palpitations, and edema, Respiratory: Negative for shortness of breath, cough, wheezing, and pleuritic chest pain. 12:21 Abdomen/GI: Positive for abdominal pain, nausea and vomiting. 12:21 All other systems are negative. Exam: 12:21 Constitutional: This is a well developed, well nourished patient who is awake, alert, jmm and in no acute distress. Head/Face: atraumatic. Eyes: EOMI, no conjunctival erythema appreciated ENT: Moist Mucus Membranes Neck: Trachea midline, Supple Chest/axilla: Normal chest wall appearance and motion. Cardiovascular: Regular rate and rhythm. No edema appreciated Respiratory: Normal respirations, no respiratory distress appreciated 12:21 Back: Normal ROM Skin: General appearance color normal MS/ Extremity: Moves all extremities, no obvious deformities appreciated, no edema noted to the lower extremities Neuro: Awake and alert Psych: Behavior is normal, Mood is normal, Patient is cooperative and pleasant 12:21 Abdomen/GI: Inspection: abdomen appears normal, Bowel sounds: normal, Palpation: soft, moderate abdominal tenderness, in the right lower quadrant and left lower quadrant. Vital Signs: 12:26 BP 158 / 63; Pulse 91; Resp 19; Temp 98.3; Weight 62.6 kg; Height 5 ft. 9 in. (175.26 ll1 cm); Pain 10/10; 12:28 Pulse Ox 96% on R/A; ph 13:05 BP 143 / 63; Pulse 93; Resp 16; Pulse Ox 89% on R/A; ph 14:47 BP 132 / 58; Pulse 95; Resp 18; Pulse Ox 97% on R/A; ph 16:10 BP 153 / 63; Pulse 101; Resp 18; Pulse Ox 96% on R/A; ph 17:00 BP 147 / 64; Pulse 92; Resp 18; Temp 98.5; Pulse Ox 97% on 2 lpm NC; ph 12:26 Body Mass Index 20.38 (62.60 kg, 175.26 cm) ll1 13:05 after IV morphine, pt placed on NC at 2L ph MDM: 12:21 Patient medically screened. alva 15:42 Data reviewed: vital signs, nurses notes. Counseling: I had a detailed discussion with [facility] the patient and/or guardian regarding: the historical points, exam findings, and any diagnostic results supporting the discharge/admit diagnosis, lab results, the need for further work-up and treatment in the hospital. ED course: I discussed the patient with Dr. Matute and Dr. Noel whom accepted the patient for admission. . 12/13 12:26 Order name: CBC with Diff; Complete Time: 13:[address] [facility] 12/13 12:26 Order name: CMP; Complete Time: 13:[address] [facility] 12/13 12:26 Order name: Lipase; Complete Time: 13:[address] [facility] 12/13 12:36 Order name: CT Abd/Pelvis - IV Contrast Only [facility] 12/13 14:50 Order name: Troponin High Sensitivity; Complete Time: 15:[address] [facility] 12/13 15:40 Order name: SARS-COV-2 RT PCR (Document "Date of Onset" if Symptomatic); Complete Time: [facility] 16:56 12/13 13:18 Order name: US Abdomen Limited; Complete Time: 15:[address] [facility] 12/13 13:22 Order name: Abdomen ; Complete Time: 14:49 [facility] 12/13 12:26 Order name: IV Saline Lock; Complete Time: 13:[address] [facility] 12/13 12:26 Order name: Labs collected and sent; Complete Time: 13:[address] [facility] Administered Medications: 12:45 Drug: NS 0.9% 1000 ml Route: IV; Rate: 1 bolus; Site: right forearm; ph 15:00 Follow up: Response: No adverse reaction; IV Intake: 1000ml ph 15:00 Follow up: IV Status: Completed infusion ph 12:45 Drug: Zofran (Ondansetron) 4 mg Route: IVP; Site: right forearm; ph 13:00 Follow up: Response: No adverse reaction ph 12:47 Drug: morphine 4 mg Route: IVP; Infused Over: 4 mins; Site: right forearm; ph 13:15 Follow up: Response: No adverse reaction; RASS: Drowsy (-1) ph 16:09 Drug: Zofran (Ondansetron) 4 mg Route: IVP; Site: right antecubital; ph 16:30 Follow up: Response: No adverse reaction; Nausea is decreased ph 16:11 Drug: morphine 4 mg Route: IVP; Infused Over: 4 mins; Site: right antecubital; ph 16:30 Follow up: Response: No adverse reaction; Pain is decreased; RASS: Drowsy (-1) ph Disposition Summary: 12/13/21 15:44 Hospitalization Ordered Hospitalization Status: Observation [facility] Provider: Anders Noel Location: Telemetry/MedSurg (observation) [facility] Condition: Stable [facility] Problem: new [facility] Symptoms: are unchanged [facility] Bed/Room Type: Standard [facility] Room Assignment: 211(12/13/21 17:48) eb Diagnosis - Acute Pancreatitis [facility] Forms: - Medication Reconciliation Form [facility] - SBAR form [facility] Signatures: Dispatcher [employer] EDVladimir Li MD MD cha Mickail, Joel, PA PA jm Mariah Alvarez RN RN Vasquez, Gwendolyn eb Sascha, Lynsay, RN RN ll1 Corrections: (The following items were deleted from the chart) 12:32 12:26 Social history: Smoking status: Patient denies any tobacco usage or history of. ll1 ll1 13:22 12:40 Abdomen ordered. EDMS EDMS 17:48 15:44 jmm eb
--- NOTE | 2021-12-13 17:30 | P.HP ---
Certification for Inpatient Patient admitted to: Inpatient With expected LOS: >2 Midnights Practitioner: I am a practitioner with admitting privileges, knowledge of patient current condition, hospital course, and medical plan of care. Services: Services provided to patient in accordance with Admission requirements found in Title 42 Section 412.3 of the Code of Federal Regulations Patient History Date of Service: 12/13/21 Reason for admission: Abdominal pain History of Present Illness: 81-year-old gentleman with a history of IgA for gammaglobulin anemia presented to the emergency department with a complaint of abdominal pain of sudden onset this morning. Patient reported excruciating abdominal pain, no relieving or aggravating factors, associated with nausea and diarrhea. Patient denied any fever. Blood work done in the emergency department demonstrated elevated lipase. CT abdomen and pelvis demonstrated cholelithiasis, normal caliber CBD, no radiographic evidence of pancreatitis. Patient was still experiencing abdominal pain during my examination in the ED. He is hospitalized for further management of acute pancreatitis. Allergies No Known Allergies Allergy (Verified 08/07/20 16:35) Home Medications: Amlodipine Besylate 5 mg PO DAILY 02/25/18 Aspirin [Aspirin EC 81 MG] 81 mg PO DAILY 02/25/18 Atorvastatin Calcium [Lipitor*] 20 mg PO BEDTIME 02/25/18 Multivitamin [Multivitamins] 1 each PO DAILY 02/25/18 Triamterene/Hydrochlorothiazid [Triamterene-Hctz 37.5-25 mg Cp] 1 each PO DAILY 02/25/18 - Past Medical/Surgical History -: IgG4, gammaglobulinemia -: Hypertension -: Hyperlipidemia - Family History Father -: Cancer - Social History Smoking Status: Former smoker CD- Drugs: No Place of Residence: Home Review of Systems Other: Except as documented, all other systems reviewed and negative. Physical Examination - Physical Exam General: Alert, In no apparent distress, Oriented x3 HEENT: Mucous membr. moist/pink Neck: Supple, JVD not distended Respiratory: Clear to auscultation bilaterally, Normal air movement Cardiovascular: No edema, Regular rate/rhythm, Normal S1 S2, No murmurs Gastrointestinal: Normal bowel sounds, Soft and benign, Non-distended, Tenderness (Mid abdomen) Musculoskeletal: No swelling Integumentary: No rashes Neurological: Normal speech, Normal strength at 5/5 x4 extr, Cranial nerves 3-12 intact Lymphatics: No axilla or inguinal lymphadenopathy - Studies Laboratory Data (last 24 hrs) 12/13/21 12:45: Sodium 136, Potassium 3.4 L, BUN 19 H, Creatinine 1.79 H, Glucose 163 H, Total Bilirubin 0.7, AST 23, ALT 18, Alkaline Phosphatase 78, Lipase 1073 H 12/13/21 12:45: WBC 9.8, Hgb 12.5 L, Hct 36.8 L, Plt Count 403 Assessment and Plan - Problems (Diagnosis) (1) Acute pancreatitis Current Visit: Yes Status: Acute (2) IgG4-related pancreatitis Current Visit: Yes Status: Acute (3) 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 Admit to the medical floor. Supportive measures with IV fluid. Keep n.p.o. today. Monitor lipase level Check lipid profile Hold oral medications for now. Monitor electrolytes. Opioids as needed for pain, antiemetics. - Advance Directives Does patient have a Living Will: Yes Does patient have a Durable POA for Healthcare: Yes
[2021-12-13 20:15] LABS: Urine Appearance Clear (Clear); Urine Bilirubin Negative (Negative); Urine Blood Negative (Negative); Urine Color Yellow (Yellow); Urine Glucose Negative (Negative); Urine Protein 1+ (Negative); Urine Specific Gravity 1.025 (1.005-1.030); Urine Urobilinogen 0.2 mg/dL (0.2-1.0); Urine pH 5.5 (5.0-7.0)
[2021-12-13 20:24] LABS: Urine Microscopic Reflex ORDER UMIC
[2021-12-13] MEDS: HYDROMORPHONE HCL 1 MG/ML INJ IV PRN (20:36)
[2021-12-13] MEDS: D5 0.9 NS 1,000 ML IV SCH (20:37)
[2021-12-13 21:00] VITALS: BMI 22.5
[2021-12-13 21:26] LABS: Urine Bacteria <20 /HPF (NONE SEEN); Urine RBC NONE SEEN /HPF (NONE SEEN)
[2021-12-14] MEDS: D5 0.9 NS 1,000 ML IV SCH ×2 (04:00→11:17)
[2021-12-14 06:15] LABS: Absolute Lymphocytes (CBC) 0.5 K/uL (0.7-4.9); Hematocrit 33.1 % (39.6-49.0); Lymphocytes % 5.9 % (15.3-44.8); MPV 7.3 fL (7.6-11.3); RBC Red Blood Cell Count 3.39 M/uL (4.33-5.43)
[2021-12-14 06:30] LABS: Protime INR 1.22
[2021-12-14 06:34] LABS: Albumin 1.9 g/dL (3.4-5.0); Bilirubin Total 0.4 mg/dL (0.2-1.0); Phosphorus 2.4 mg/dL (2.5-4.9); Potassium 3.7 mmol/L (3.5-5.1); Protein, Total 8.1 g/dL (6.4-8.2); Thyroid Stimulating Hormone 0.984 uIU/mL (0.360-3.740)
[2021-12-14] MEDS ORDERED: POTASSIUM PHOS 22 MEQ in NA CHLORIDE 0.9% 250 ML IV ONE (08:30)
[2021-12-14] MEDS: HYDROMORPHONE HCL 1 MG/ML INJ IV PRN (09:21)
[2021-12-14 09:29] LABS: Urine Appearance Clear (Clear); Urine Bilirubin Negative (Negative); Urine Blood Trace-intact (Negative); Urine Color Yellow (Yellow); Urine Glucose Negative (Negative); Urine Protein 1+ (Negative); Urine Specific Gravity 1.025 (1.005-1.030); Urine Urobilinogen 0.2 mg/dL (0.2-1.0); Urine pH 5.5 (5.0-7.0)
[2021-12-14 09:58] LABS: Urine Microscopic Reflex ORDER UMIC
[2021-12-14 10:12] LABS: Urine Bacteria <20 /HPF (NONE SEEN); Urine Mucus 1+ /HPF (NONE SEEN); Urine RBC <5 /HPF (NONE SEEN)
[2021-12-14 10:38] VITALS: O2SAT 91
[2021-12-14 11:09] LABS: Albumin 1.9 g/dL (3.4-5.0); Bilirubin Total 0.4 mg/dL (0.2-1.0); Protein, Total 8.1 g/dL (6.4-8.2)
--- NOTE | 2021-12-14 11:31 | CON ---
Date of Consultation: 12/14/2021 Brief History Of Present Illness: The patient is an 81-year-old male with a medical history signific ant for IgG hypergammaglobulinemia diagnosis at [facility] recently. The patient had presented with complaints of abdominal pain in the general infraumbilical position in a bandlike distribution, anjana p, severe and unrelenting. It had a crescendo-decrescendo type characteristic and he had associated diarrhea. No other associated complaints. The pain is significantly improved since being presented to the hospital with IV medications; however, the pain continues to be present, but is less severe as it was yesterday upon this initiation. He did not note any food triggers, any associations with amish ls, timing of meals. No sick contacts. No recent travel. No new food exposures. Past Medical History: Significant for IgG gammaglobulinemia, hypertension, hyperlipidemia. Allergies: NO KNOWN DRUG ALLERGIES. Home Medications: Include amlodipine, aspirin, Lipitor, multivitamins, hydrochlorothiazide/triamtere ne. Review of Systems: Ten-point review of systems other than HPI, denies. Social History: He is a former smoker. Denies alcohol or recreational drug use. Laboratory Data: He had a laboratory exam, which revealed a white blood cell count of 9.8, hemoglobi n 12.5, hematocrit 36.8, platelet count was 403. PT 13.5, INR 1.22. His sodium was 136, potassium 3 .4, chloride 106, carbon dioxide 18, BUN 19, creatinine 1.79, glucose is 163. His total bilirubin is 0.7, direct component was not measured. AST 23, ALT 18, alkaline phosphatase is 78. Troponin was 7 .8. His lipase was 1073. He had imaging performed, which included an abdomen and pelvis CT and an a bdominal ultrasound. The abdomen and pelvis CT were officially read as cholelithiasis and small-to-m oderate pericardial effusion. Additionally, he had an ultrasound of the abdomen, officially read as no evidence of cholecystitis. The patient has small gallstones seen in December 13, 2021 CAT scan, not vi sualized on this exam secondary to technical factors. Biliary tree is normal in caliber. Gallbladde r wall is not thickened. Assessment And Plan: This is an 81-year-old male, who comes in with signs and symptoms of pancreatit is. I suspect the pancreatitis is likely due to his hypergammaglobulinemia as this is an autoimmune condi tion and these are often associated with autoimmune pancreatitis. As such, I recommend supportive ca re with IV fluid hydration, ice chips and non-stimulation of the pancreas, serial abdominal exams. C ontinue medical management per Dr. Noel. I have explained the risks, benefits, and alternatives of the above noted plan and the patient agrees to proceed as indicated. KELLI/TRINA Voice ID: [id number] Report ID: [id number]
[2021-12-14 13:14] LABS: C.diff Antigen/Toxin Ag neg : Tox neg (NEG : NEG)
--- NOTE | 2021-12-14 14:34 | P.PN ---
Subjective Date of Service: 12/14/21 Chief Complaint: Abdominal pain Subjective: Improving (Significant improvement of abdominal pain, no nausea, not pain free yet) Physical Examination - Vital Signs Temperature: 99.0 F Blood Pressure: 115/57 Pulse: 91 Respirations: 16 Pulse Ox (%): 90 - Physical Exam General: Alert, In no apparent distress, Cooperative Respiratory: Clear to auscultation bilaterally, Normal air movement Cardiovascular: Regular rate/rhythm Gastrointestinal: Other (soft, mild epigastric TTP, ND, no rebound, no guarding.) Assessment And Plan - Current Problems (Diagnosis) (1) IgG4-related pancreatitis Current Visit: Yes Status: Acute Plan: - Advance diet to low fat diet - ok to DC from surgical standpoint, medical management per - lipase now normal
[2021-12-14 16:10] VITALS: BP 129/61; TEMP 99.4
--- NOTE | 2021-12-14 16:39 | P.DS ---
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 Patient reported excruciating abdominal pain, no relieving or aggravating factors, associated with nausea and diarrhea. Patient denied any fever. Blood work done in the emergency department demonstrated elevated li pase. CT abdomen and pelvis demonstrated cholelithiasis, normal caliber CBD, no radiographic evidence of pancreatitis. Patient was still experiencing abdominal pain during my examination in the ED. He was hospitalized for further management of acute pancreatitis. Hospital Course: Patient admitted to the medical floor and started on supportive measures for acute pancreatitis. He was treated with IV fluids, kept n.p.o. overnight. Lipase level improved to normal within 24 hours. Patient's pain also significantly improved. He tolerated liquid diet, eating solid diet. He was seen by general surgery and no recommendation for gallstones at this time. His acute pancreatitis is likely secondary to hyperproteinemia from IgG4 gammopathy. Patient states he feels much better and request to go home. He is discharged and advised to stick to full liquid diet for the next couple of days and then advance as tolerated. Vital Signs/Physical Exam: Temp Pulse Resp BP Pulse Ox 99.4 F 96 H 17 129/61 91 12/14/21 16:00 12/14/21 16:00 12/14/21 16:00 12/14/21 16:00 12/14/21 16:00 General: Alert, In no apparent distress, Oriented x3 HEENT: Mucous membr. moist/pink Neck: JVD not distended Respiratory: Clear to auscultation bilaterally, Normal air movement Cardiovascular: No edema, Regular rate/rhythm, Normal S1 S2 Gastrointestinal: Normal bowel sounds, Soft and benign, Non-distended, No tenderness Musculoskeletal: No swelling Integumentary: No rashes, No erythema Neurological: Normal speech, Normal strength at 5/5 x4 extr Laboratory Data at Discharge: WBC 9.2 K/uL (4.3-10.9) 12/14/21 05:53 Hgb 11.1 g/dL (13.6-17.9) L 12/14/21 05:53 Hct 33.1 % (39.6-49.0) L 12/14/21 05:53 Plt Count 286 K/uL (152-406) D 12/14/21 05:53 PT 13.5 SECONDS (9.5-12.5) H 12/14/21 05:53 INR 1.22 12/14/21 05:53 Sodium 141 mmol/L (136-145) 12/14/21 10:30 Potassium 4.0 mmol/L (3.5-5.1) 12/14/21 10:30 BUN 17 mg/dL (7-18) 12/14/21 10:30 Creatinine 1.23 mg/dL (0.55-1.3) 12/14/21 10:30 Glucose 111 mg/dL (74-106) H 12/14/21 10:30 Phosphorus 2.4 mg/dL (2.5-4.9) L 12/14/21 05:53 Magnesium 2.0 mg/dL (1.8-2.4) 12/14/21 05:53 Total Bilirubin 0.4 mg/dL (0.2-1.0) 12/14/21 10:30 AST 19 U/L (15-37) 12/14/21 10:30 ALT 15 U/L (12-78) 12/14/21 10:30 Alkaline Phosphatase 62 U/L (45-117) 12/14/21 10:30 Triglycerides 63 mg/dL (<150) 12/14/21 05:53 Cholesterol 88 mg/dL (<200) 12/14/21 05:53 HDL Cholesterol 30 mg/dL (40-60) L 12/14/21 05:53 Cholesterol/HDL Ratio 2.93 12/14/21 05:53 Lipase 86 U/L (73-393) 12/14/21 10:30 Home Medications: Amlodipine Besylate 10 mg PO DAILY 02/25/18 Aspirin [Aspirin EC 81 MG] 81 mg PO DAILY 02/25/18 Atorvastatin Calcium [Lipitor*] 40 mg PO BEDTIME 02/25/18 Diet: Regular (Full liquid diet for the next couple of days and advance to solid diet as tolerated.) Activity: Ad bradford Followup: Unknown,U [Primary Care Provider] - 1 Week
== END 2021-12-14 17:40 | disposition home or self-care (01) ==
LOC: ER 12:12 → ERHOLD 16:56 → INTOOBSV 16:56 → 2ND 18:41
PROVIDERS: ADMIT Internal Medicine; ATTEND Internal Medicine
DX: K85.90 Acute pancreatitis without necrosis or infection, unspecified (principal); I10 Essential (primary) hypertension; E78.5 Hyperlipidemia, unspecified; D89.2 Hypergammaglobulinemia, unspecified; K80.20 Calculus of gallbladder without cholecystitis without obstruction; Z20.822 Contact with and (suspected) exposure to COVID-19; Z87.891 Personal history of nicotine dependence; Z79.82 Long term (current) use of aspirin; Z79.899 Other long term (current) drug therapy; Z80.9 Family history of malignant neoplasm, unspecified
CPT/HCPCS: 85025 ×2; 36415; 83735; 84100; 85610; 80061; 84443; 87324; 84484; 83690 ×2; 80053 ×3; 87449; 74176; 76705; 94760 ×2; 99285; U0003; J1170 ×2; J7042 ×2; J7050; J7030; J2405 ×2; G0378 ×3; 81003; 81015

== ENCOUNTER 2022-03-09 10:10 | Inpatient (IN) | payer OTHER, BC ==
--- OUTSIDE RECORDS SUMMARY | 2022-03-09 10:27 | XMS REPORT | Clinical Summary ---
:1940 Author Organization [facility] MD [facility] Address [address] [place] [address] Care Team Providers Name Role Phone Hali Rees ARCGIS DEVELOPER Unavailable Taz Virgen MD Primary Care Provider Allergies No known active allergies Medications Medication Sig Dispensed Refills Start End Date Status Date atorvastatin Take 40 mg by 0 Act alexandr (LIPITOR) 40 mg mouth at 1 tablet bedtime. aspirin 81 mg EC Take 81 mg by 0 Active tablet mouth daily. amLODIPine Take 10 mg by 0 Activ e (NORVASC) 10 mg mouth daily. tablet predniSONE Take 2 tablets 60 tablet 1 Acti ve (DELTASONE) 5 mg (10 mg) by 2 tabletIndications: mouth daily. Immunoglobulin G4 related disease, Primary 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dism , Hypertension amLODIPine Take 5 mg by 0 07/24/19 Discon tinued (NORVASC) 5 mg mouth daily. 1 22 (R eorder) tablet triamterene-hydroCH Take 1 tablet 0 Discontinued LOROthiazide by mouth every 1 22 (S top Taking at (MAXZIDE-25) 37.5 morning. Di scharge) mg-25 mg per tablet amLODIPine Take 2 tablets 60 tablet 0 07/24/19 Disc ontinued (NORVASC) 5 mg (10 mg) by 2 22 tabletIndications: mouth daily. Hypertension amLODIPine TAKE 2 180 tablet 0 10/22/19 Disconti nued (NORVASC) 5 mg TABLETS(10 MG) 2 22 tabletIndications: BY MOUTH DAILY Hypertension ipratropium-albuter Inhale 1 puff 4 g 0 Discontinued ol (COMBIVENT by mouth every 2 22 ( Other ) RESPIMAT) 20 6 (six) hours mcg-100 mcg/puff as needed for inhalerIndications: wheezing or Cough, unspecified shortness of breath. HYDROcodone-homatro Take 5 mL by 473 mL 0 0 Discontinued pine (HYCODAN) mouth every 6 2 22 syrup 5-1.5 (six) hours as mg/5mLIndications: needed for Cough, unspecified cough. HYDROcodone-homatro Take 5 mL by 473 mL 0 0 Discontinued pine (HYCODAN) mouth every 6 2 22 syrup 5-1.5 (six) hours as mg/5mLIndications: needed for Cough, unspecified cough. HYDROcodone-homatro Take 5 mL by 473 mL 0 0 Discontinued pine (HYCODAN) mouth every 6 2 22 syrup 5-1.5 (six) hours as mg/5mLIndications: needed for Cough, unspecified cough. HYDROcodone-homatro Take 5 mL by 473 mL 0 0 Discontinued pine (HYCODAN) mouth every 6 2 22 syrup 5-1.5 (six) hours as mg/5mLIndications: needed for Cough, unspecified cough. HYDROcodone-homatro Take 5 mL by 473 mL 0 0 Discontinued pine (HYCODAN) mouth every 6 2 22 ( Stop Taking at syrup 5-1.5 (six) hours as Dis charge) mg/5mLIndications: needed for Cough, unspecified cough. HYDROcodone-homatro Take 5 mL by 473 mL 0 0 Discontinued pine (Hydromet) 5 mouth every 6 2 22 (Other ) mg-1.5 mg/5 mL (six) hours as syrupIndications: needed for Cough, unspecified cough. predniSONE Take 3 tablets 30 tablet 0 09/20/19 Disc ontinued (DELTASONE) 10 mg (30 mg) by 2 22 ( Reorder) tabletIndications: mouth daily. Immunoglobulin G4 related disease predniSONE Take 1 tablet 30 tablet 0 12/26/19 Disco ntinued (DELTASONE) 10 mg (10 mg) by 2 22 tabletIndications: mouth daily. Immunoglobulin G4 related disease amLODIPine TAKE 2 30 tablet 0 11/14/19 Discontin ued (NORVASC) 5 mg TABLETS(10 MG) 2 (Therapy tabletIndications: BY MOUTH DAILY completed) Hypertension traMADol (Ultram) Take 1 tablet 15 tablet 0 12/26/19 Discontinued 50 mg (50 mg) by 2 22 tabletIndications: mouth every 6 Primary (six) hours as 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dism needed for , Acute moderate pain. 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 Primary 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dism 09/15/2021 Hypercalcemia 09/14/2021 Dyspnea on [...] found on diagnostic imaging of lung 07/20/19 Influenzal pneumonia 07/19/2021 Acute kidney injury due to hypovolemia 07/19/2021 Hyposmolality and/or hyponatremia 07/19/2021 Resolved Problems Problem Noted Date Resolved Date Acute respiratory failure with hypoxia 07/19/2021 0 10/22/2021 Encounters Date Type Specialty Care Team Description Orders Only Lymphoma and Kylee Mcintosh, Immunoglobuli n G4 2 Myeloma PA related disease (Primary Dx) Telemedicine Lymphoma and Croft, Lowell, Immunoglobulin G4 2 Myeloma MD related disease Orders Only Lymphoma and Kylee Mcintosh, Immunoglobuli n G4 2 Myeloma PA related disease (Primary Dx) Orders Only Lymphoma and Kylee Mcintosh, Immunoglobuli n G4 2 Myeloma PA related disease (Primary Dx) Orders Only Lymphoma and Kylee Mcintosh, Immunoglobuli n G4 2 Myeloma PA related disease (Primary Dx) Orders Only Lymphoma and Croft, Lowell, Immunoglobulin G4 2 Myeloma MD related disease (Primary Dx) Telemedicine Lymphoma and Terrie Croftt, Lymphadenopath y 2 Myeloma Ancillary Radiology Kylee Mcintosh, Lymphadenopat hy 2 Procedure PA Travel 2 Orders Only Lymphoma and Kylee Mcintosh, Lymphadenopat hy (Primary 2 Myeloma PA Dx) Travel 2 Orders Only Rheumatology Taz Virgen, Immunoglobul in G4 2 MD related disease (Primary Dx) Orders Only Rheumatology Taz Virgen, Immunoglobul in G4 2 MD related disease (Primary Dx) Telemedicine Lymphoma and Lowell Croft, Gammopathy 2 Myeloma Telephone Lymphoma and Arevalo, Sincy 2 Myeloma GINA Yin Orders Only Lymphoma and Kylee Mcintosh, Lymphadenopat hy (Primary 2 Myeloma PA Dx) Ancillary Radiology Iliescu, Immunoglobulin G4 2 Procedure MD Noa related disease Travel 2 Orders Only Rheumatology Taz Virgen 2 MD Office Visit Endocrine Surgery Sonia Ferreira Primary 2 B, 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 Travel 2 Orders Only Rheumatology Ayde Weller RN Telemedicine Rheumatology Taz Virgen, 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); 2 MD Primary hyperpa rathyroidism; Hypertension Travel 2 Orders Only Rheumatology Taz Virgen, Immunoglobul in G4 2 MD related disease (Primary Dx) Orders Only Rheumatology Taz Virgen, Immunoglobul in G4 2 MD related disease (Primary Dx) Orders Only Endocrine Surgery Childress, Primary 2 Katie L, PA hyperparathyr oidism (Primary Dx) Telephone Endocrine Surgery Childress, 2 Katie Geeta, PA Orders Only Endocrinology CesarAshley Primary hyper parathyroidism (Primary Dx); 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, 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 Hypercalcemia; Osteoporosis; Other specified counseling Surgery Ambulatory Surgery Sonia Ferreira PARATHYR OIDECTOMY & 2 MD Juan Jose EXPLORATION OF PARATHYROID(S) Anesthesia Event Ambulatory Surgery Jimi Templeton, 2 Ken Encarnacion [facility] Hospital Encounter Ambulatory Surgery Sonia Ferreira Hy percalcemia (Primary Dx); 2 MD Juan Jose Primary hyperpa rathyroidism Orders Only Endocrine Surgery Rogelio, Primary 2 Katie L, PA hyperparathyr oidism (Primary Dx) Orders Only Endocrine Surgery Childress, Acute post operative pain (Primary Dx); 2 Katie L, PA Primary hyper parathyroidism Travel 2 Anesthesia Event Anesthesiology Kaylynn Nieto, Ayde 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 POEM Appointments Anesthesiology Rogelio, Primary 2 Katie L, PA hyperparathyr oidism Orders Only Internal Medicine Iliescu, Immunoglob ulin G4 2 MD Noa related disease (Primary Dx) Clinical Support Velid Rogelio, Suspicion ( Primary Dx); 2 Katie L, PA Primary 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dism Elizabeth Delgado MA Travel 2 Telemedicine Rheumatology Taz Virgen, 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); 2 Primary hyperpa rathyroidism; Hypertension Office Visit Lymphoma and Lowell Croft, Gammopathy 2 Myeloma Travel 2 Ancillary Radiology Lowell Croft, Non-Hodgkin ly mphoma, unspecified, extranodal and solid organ sites ; 2 Procedure Gammopathy; Non-Hodgkin lym phoma, unspecified, extranodal and solid organ sites Travel 2 Telephone Oncology Windy Diane 2 T, RN Office Visit Endocrine Surgery Sonia Ferreira Primary 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dism (Primary Dx); 2 MD Juan Jose Osteoporosis Travel 2 Orders Only Melanoma Surgery Rogelio, Primary 2 JAYA Cole hyperparathyr oidism (Primary Dx) Prep for Surgery Endocrine Surgery Childress, Primar y 2 JAYA Cole hyperparathyr oidism (Primary Dx) Refill Internal Medicine Senechalle Hypertensi on 2 Linda Chand MD Travel 2 Ancillary Radiology Primary 2 Procedure 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 Ancillary Radiology Puls, Ashley Primary 2 Procedure E, 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 Travel 2 Telemedicine Rheumatology Taz Virgen, Immunoglobul in G4 2 MD related disease Telemedicine Endocrinology Karen Coates MD Primary hyperp arathyroidism (Primary Dx); 2 Hypercalcemia; Osteoporosis; Other specified counseling; Abnormal result of thyroid function study Telephone Rheumatology Robles, 2 Izabella Santos RN Telephone Endocrinology Puls, Ashley 2 E, 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 Ancillary Radiology Puls, Ashley Primary 2 Procedure E, 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 Ancillary Radiology Puls, Ashley Primary 2 Procedure E, 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 Office Visit Pulmonology Conaty, Jasety Dyspnea on ex ertion (Primary Dx); 2 Y, 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 Emphysema, not otherwise specified Hospital Encounter Pulmonology Mackenney, Shortness of breath 2 Lo, ARCGIS DEVELOPER Hospital Encounter Pulmonology Mackenney, Shortness of breath 2 [facility] Encounter Lab Taz Virgen, Immuno globulin G4 related disease; 2 MD Primary hyperpa rathyroidism Orders Only Internal Medicine Iliescu, Lung mass (Primary Dx) 2 MD Noa Travel 2 Telemedicine Lymphoma and Lowell Croft, Gammopathy (Pr imary Dx); 2 Myeloma Non-Hodgkin lym phoma, unspecified, extranodal and solid organ sites Documentation Lymphoma and Kylee Mcintosh, 2 Myeloma PA Orders Only Endocrinology Ashley Guerrero Primary 2 E, 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 (Primary Dx) Telemedicine Internal Medicine Desmond, Immunoglob ulin G4 related disease (Primary Dx); 2 Latira, 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 Hypercalcemia; Hyponatremia; Gammopathy; Lymphadenopathy Consult Rheumatology Ang Ayers MD Immunoglobulin G4 2 Taz Virgen, related dise ilana [facility] Encounter Lab Desmond, Hypercalc emia; 2 Latira, 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 Hyponatremia Travel 2 Telephone Internal Medicine Megan Chi 2 Mirta Rader MA Telephone Internal Medicine Ayde Tang MD Orders Only Internal Medicine Clyde, Immunoglob ulin G4 2 MD Noa related disease (Primary Dx) Orders Only Pulmonology Mackenney, Shortness of br eath 2 Lo, ARCGIS DEVELOPER (Primary Dx) Telephone Internal Medicine Ayde Tang MD Orders Only Internal Medicine Desmond, 2 Latira, 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 Telephone Frances Flores, Discharge Castro l 2 RN Orders Only Internal Medicine Desmond, Hypercalce jesus (Primary Dx); 2 Latira, 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 Hyponatremia Emergency Clinical Decision Ana, Besim, Lung canc er (Primary Dx); 2 - Cough, unspecified; Chaftari, Dyspnea; 2 MD Harry Hypercalcemia; Emphysema, not otherwise specified Orders Only Lymphoma and Troyoctober 2 Myeloma L, 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 Travel 2 Telephone Internal Medicine Ayde Tang MD Orders Only Internal Medicine Clyde, Immunoglob ulin G4 2 MD Noa related disease (Primary Dx) Ancillary Radiology April Kumar Cancer 2 Joseph Mcmanus MD Telephone Internal Medicine Clyde, 2 MD Noa Telephone Parisa Verde Discharge Call 2 GINA Arvizu Anesthesia Event Ayde Silva MD Gullapalli, Pranthi, MD Surgery David Boyer, BIOPSY OR EXC ISION OF 2 MD LYMPH NODE(S); OPEN, INGUINOFEMORAL NODE(S) Hospital Encounter David Boyer, Lung ma ss found on 2 MD diagnostic imag ing of lung Hospital Encounter Lab Ilicris, Lymphaden opathy 2 MD Noa Travel 2 Orders Only Internal Medicine Ilicris, Lymphadeno chris (Primary 2 MD Noa Dx) Anesthesia Event Anesthesiology Ayde Person MD POEM Appointments Anesthesiology Lexi Lockett, Media stinal 2 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 lymphadenopathy Clinical Support Covid Lexi Lockett, Suspecte d COVID-19 (Primary Dx); 2 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 Lung mass found on diagnostic imaging of [...] due to hypovolemia Anesthesia Event Pulmonology Dorcas Centeno, Ayde [facility] Surgery Pulmonology Jayesh, BRONCHOSCOPY WI TH EBUS 2 MD Dennis PERIPHERAL LESI ON-RADIAL PROBE Hospital Encounter Pulmonology Jayesh, Lung mass found on 2 MD Dennis diagnostic imag ing of lung Travel 2 Anesthesia Event Anesthesiology Ranjit, 2 Ann Lo, RN Consult Pulmonology Jayesh, Mediastinal lym phadenopathy (Primary Dx); 2 MD Dennis Lung mass found on diagnostic imaging of lung; Abnormal findin gs on diagnostic imaging of lung POEM Appointments Anesthesiology 2 Travel 2 Clinical Support Nelson Leon, Suspicion ( Primary Dx); 2 Lo, ARCGIS DEVELOPER Lung mass found on diagnostic imaging of lung Dior Gant MA Ancillary Radiology Desmond, Lung mass found on 2 Procedure Latira, 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 diagnostic imag ing of lung Travel 2 Prep for Surgery Pulmonology Edward, Lung mass f ound on 2 Lo, ARCGIS DEVELOPER diagnostic imag ing of lung (Primary D x) Hospital Encounter Lab Desmond, Lung mass found on 2 Latira, 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 diagnostic imag ing of lung Office Visit [...] 2 Linda Chand MD Anesthesia Event Radiology Varun, 2 Khalif Curry III, MD Orders Only Radiology Milan Timmons, Ayde RT Hospital Encounter GIM/Phase 1 Mark Jonas MD Lung mass found on diagnostic imaging of lung (Primary Dx); 2 - Michela Hope, Influenza; Dehydration; 2 Pedro Wilson Patient on ox ygen; MD Katherin Lung cancer; Maryanne Blanco, Hyposmolality and/or hyponatremia; Influenzal pneumonia; Senechalle Hypertension; Cindaille, Acute respirato ry failure with hypoxia; MD Linda Acute kidney in jury due to hypovolemia Travel 2 Telephone Patient Access Ayde [facility] Rah Turner RN Travel 2 after 03/09/2021 Immunizations Name Administration Dates Next Due Pfizer SARS-CoV-2 Vaccination 10/14/2021, 03/10/2021, 09/11, (Purple Cap) 08/21/2020 Surgical History Surgery Date Site/Laterality Comments LA BRNSCHSC TNDSC EBUS DX/TX 08/15/2021 Pro cedure: BRONCHOSCOPY WITH INTERVENTION PERPH LES EBUS MELISA PHERAL LESION-RADIAL PROBE; Surgeon: Dennis Mcconnell MD; Location: [place] [facility]; Service: PULMONA RY LA OPEN BIOPSY/EXCISION 09/03/2021 Right Procedur e: BIOPSY OR EXCISION INGUINOFEMORAL NODES OF LYMPH NO DE(S); OPEN, INGUINOFEMORAL N ODE(S); Surgeon: David pearce MD; Location: [facility]; Service: THRCV - THORACIC SURGERY LA EXPLORE PARATHYROID 11/25/2021 Neck/Midline Procedure : PARATHYROIDECTOMY & GLANDS EXPLORATION OF P ARATHYROID(S); Surgeon: Sonia Ferreira MD; Location: [facility]; Service: SURG ONC - ENDOC [...] at Date Recorded 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 Industry Not on file Not on file Not on file Obstetrics History Last Filed Vital Signs Vital Sign Reading Time Taken Comments Blood Pressure 130/74 12/25/2021 9:36 AM CDT Pulse 80 12/25/2021 9:36 AM CDT Temperature 36.7 C (98.1 F) 12/25/2021 9:36 AM CDT Respiratory Rate 20 12/25/2021 9:36 AM CDT Oxygen Saturation 97% 12/25/2021 9:36 AM CDT Inhaled Oxygen Concentration - - Weight 63.3 kg (139 lb 8.8 oz) 12/25/2021 9:36 AM CDT Height 170 cm (5' 6.93") 12/25/2021 9:36 AM CDT Body Mass Index 21.9 12/25/2021 9:36 AM CDT Plan of Treatment Date Type Specialty Care Team Description 03/17/2022 Appointment Lab Kylee Mcintosh P A [address] [place] [address] [phone] (Wo rk) 03/17/2022 Office Visit Lymphoma and Myeloma Terrie Croft MD [address] [place] [address] [phone] (Wo rk) 03/17/2022 Appointment Infusion Services Lowell Croft MD [address] [place] [address] [phone] (Wo rk) 03/24/2022 Infusion Infusion Services Kylee Mcintosh PA [address] [place] [address] [phone] (Wo rk) 03/27/2022 Telemedicine Rheumatology Taz Virgen MD [address] [place] [phone] (Wo rk) 03/31/2022 Infusion Infusion Services Kylee Mcintosh PA [address] [place], [place] 7703 (Wo rk) 04/07/2022 Infusion Infusion Services Kylee Mcintosh PA [address] [place], [place] 7703 (Wo rk) 06/11/2022 Lab Lab Thom Mercado PA [address] [place], [place] 7703 (Wo rk) 06/11/2022 Office Visit Endocrine Surgery Sonia Ferreira MD [address] [place], [place] 7703 (Wo rk) 06/11/2022 Office Visit Lymphoma and Myeloma Terrie Croft MD [address] [place], [place] 7703 (Wo rk) Health Maintenance Due Date Last Done Comments COVID-19 Vaccination (5 - Booster 02/13/2022 10/14/2021, , for Pfizer series) 09/11/2020, Additional histor y exists Procedures Procedure Name Priority Date/Time Associated Diagnosis Comme nts CT CHEST ABDOMEN PELVIS Routine 01/27/2022 9:06 Lymphadenopath y Results for W CONTRAST LYMPHOMA AM CDT this pro cedure are in the results section. CT NECK W CONTRAST Routine 01/27/2022 9:06 Lymphadenopathy Res ults for LYMPHOMA AM CDT this procedure are in the results section. TMP ABORH DISCREPANCY Routine 01/27/2022 7:15 Res ults for INTERPRETATION AM CDT this procedur e are in the results section. CLOT EXPIRATION DATE Routine 01/27/2022 7:15 Resu lts for AM CDT this procedure are in the results section. TMP INTERPRETATION Routine 01/27/2022 7:15 Result s for MANUAL ANTIBODY SCREEN AM CDT this procedure NEGATIVE are in the results section. ABORH MANUAL Routine 01/27/2022 7:15 Results for AM CDT this procedure are in the results section. ANTIBODY SCREEN MANUAL Routine 01/27/2022 7:15 Re sults for AM CDT this procedure are in the results section. FRACTIONATED BILIRUBIN Routine 01/27/2022 7:15 Lymphadenopathy Results for AM CDT this procedure are in the results section. TOTAL PROTEIN Routine 01/27/2022 7:15 Lymphadenopathy Results for AM CDT this procedure are in the results section. ASPARTATE Routine 01/27/2022 7:15 Lymphadenopathy Results f or AMINOTRANSFERASE AM CDT this proced ure are in the results section. ALANINE Routine 01/27/2022 7:15 Lymphadenopathy Results f or AMINOTRANSFERASE AM CDT this proced ure are in the results section. ALKALINE PHOSPHATASE Routine 01/27/2022 7:15 Lymphadenopathy R esults for AM CDT this procedure are in the results section. ALBUMIN LEVEL Routine 01/27/2022 7:15 Lymphadenopathy Results for AM CDT this procedure are in the results section. CALCIUM LEVEL TOTAL Routine 01/27/2022 7:15 Lymphadenopathy Re sults for AM CDT this procedure are in the results section. .GLOMERULAR FILTRATION Routine 01/27/2022 7:15 Lymphadenopathy Results for RATE AM CDT this procedure are in the results section. SERUM CREATININE Routine 01/27/2022 7:15 Lymphadenopathy Resul ts for AM CDT this procedure are in the results section. ELECTROLYTE PANEL Routine 01/27/2022 7:15 Lymphadenopathy Resu lts for AM CDT this procedure are in the results section. BLOOD UREA NITROGEN Routine 01/27/2022 7:15 Lymphadenopathy Re sults for AM CDT this procedure are in the results section. GLUCOSE LEVEL Routine 01/27/2022 7:15 Lymphadenopathy Results for AM CDT this procedure are in the results section. MANUAL DIFFERENTIAL Routine 01/27/2022 7:15 Lymphadenopathy Re sults for AM CDT this procedure are in the results section. Results CBC Routine 01/27/2022 7:15 Lymphadenopathy Results f or AM CDT this procedure are in the results section. PHOSPHORUS LEVEL Routine 01/27/2022 7:15 Lymphadenopathy Resul ts for AM CDT this procedure are in the results section. URIC ACID Routine 01/27/2022 7:15 Lymphadenopathy Results f or AM CDT this procedure are in the results section. MAGNESIUM LEVEL Routine 01/27/2022 7:15 Lymphadenopathy Result s for AM CDT this procedure are in the results section. LACTATE DEHYDROGENASE Routine 01/27/2022 7:15 Lymphadenopathy Results for AM CDT this procedure are in the results section. COMPREHENSIVE METABOLIC Routine 01/27/2022 7:15 Lymphadenopath y PANEL AM CDT COMPLETE BLOOD COUNT W/ Routine 01/27/2022 7:15 Lymphadenopath y DIFFERENTIAL AM CDT IGG SUBCLASSES, SERUM Routine 01/16/2022 9:11 Immunoglobulin G 4 Results for AM CDT related disease this procedu re are in the results section. C4 COMPLEMENT Routine 01/16/2022 9:11 Immunoglobulin G4 Result s for AM CDT related disease this procedu re are in the results section. C3 COMPLEMENT Routine 01/16/2022 9:11 Immunoglobulin G4 Result s for AM CDT related disease this procedu re are in the results section. MANUAL DIFFERENTIAL Routine 01/16/2022 9:02 Immunoglobulin G4 Results for AM CDT related disease this procedu re are in the results section. Results CBC Routine 01/16/2022 9:02 Immunoglobulin G4 Results for AM CDT related disease this procedu re are in the results section. .GLOMERULAR FILTRATION Routine 01/16/2022 9:02 Immunoglobulin G4 Results for RATE AM CDT related disease this procedu re are in the results section. SERUM CREATININE Routine 01/16/2022 9:02 Immunoglobulin G4 Res ults for AM CDT related disease this procedu re are in the results section. LIPASE LEVEL Routine 01/16/2022 9:02 Immunoglobulin G4 Results for AM CDT related disease this procedu re are in the results section. AMYLASE LEVEL Routine 01/16/2022 9:02 Immunoglobulin G4 Result s for AM CDT related disease this procedu re are in the results section. THYROID STIMULATING Routine 01/16/2022 9:02 Immunoglobulin G4 Results for HORMONE AM CDT related disease this procedu re are in the results section. SEDIMENTATION RATE Routine 01/16/2022 9:02 Immunoglobulin G4 R esults for NON-AUTOMATED AM CDT related disease this proced ure are in the results section. C REACTIVE PROTEIN Routine 01/16/2022 9:02 Immunoglobulin G4 R esults for AM CDT related disease this procedu re are in the results section. SERUM CREATININE Routine 01/16/2022 9:02 Immunoglobulin G4 AM CDT related disease COMPLETE BLOOD COUNT W/ Routine 01/16/2022 9:02 Immunoglobulin G4 DIFFERENTIAL AM CDT related disease BLOOD UREA NITROGEN Routine 01/16/2022 9:02 Immunoglobulin G4 Results for AM CDT related disease this procedu re are in the results section. CT CHEST W CONTRAST Routine 01/05/2022 9:16 Immunoglobulin G4 Results for AM CDT related disease this procedu re are in the results section. POC CREATININE Routine 01/05/2022 8:38 Results fo r AM CDT this procedure are in the results section. IGG SUBCLASSES, SERUM Routine 12/04/2021 2:57 Immunoglobulin G 4 Results for PM CDT related disease this procedu re are in the results section. C REACTIVE PROTEIN Routine 12/04/2021 2:57 Immunoglobulin G4 R esults for PM CDT related disease this procedu re are in the results section. INTRAOPERATIVE PTHI Now 11/25/2021 8:25 Resul ts for SPEC 2 AM CDT this procedure are in the results section. INTRAOPERATIVE PTHI STAT 11/25/2021 8:22 Resul ts for SPEC 1 AM CDT this procedure are in the results section. PATHOLOGY SURGICAL Routine 11/25/2021 8:13 Primary Result s for INTERPRETATION AM CDT 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dism this p rocedure are in the results section. INTRAOPERATIVE PTHI STAT 11/25/2021 7:38 Resul ts for BASELINE AM CDT this procedure are in the results section. PARATHYROIDECTOMY OR 11/25/2021 6:30 Primary EXPLORATION OF AM CDT 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dism PARATHYROID(S) Case Notes PATIENT PREOPERATIVE ASSESSM ENT/INTERVIEW COMPLETED BY ANTONIO KRAUS RN Special Needs VS [address] [facility] POC GLUCOSE SCREEN Routine 11/25/2021 6:28 Result s for AM CDT this procedure are in the results section. COVID-19 (SARS-COV-2) Routine 11/21/2021 2:09 Suspicion Res ults for PCR-ASYMPTOMATIC [facility] PM CDT this procedure are in the results section. PETCT SUBSEQUENT Routine 11/12/2021 Non-Hodgkin lymphoma, Re sults for TREATMENT STRATEGY 12:00 PM CDT unspecified, extranoda l this and solid organ sites procedure are Gammopathy in the results section. .DR. [facility] PROT Routine 11/12/2021 9:28 Result s for ELEC PATH REVIEW AM CDT this procedure are in the results section. .DR. [facility] SULEMAN Routine 11/12/2021 9:28 Results for PATH REVIEW AM CDT this procedure are in the results section. IMMUNOFIXATION Routine 11/12/2021 9:28 Results fo r ELECTROPHORESIS AM CDT this procedure are in the results section. .GLOMERULAR Routine 11/12/2021 9:28 Gammopathy Results for FILTRATION RATE AM CDT this procedure are in the results section. SERUM CREATININE Routine 11/12/2021 9:28 Gammopathy Results for AM CDT this procedure are in the results section. MANUAL DIFFERENTIAL Routine 11/12/2021 Gammopathy Results for 9:28 AM CDT this procedure are in the results section. Results CBC Routine 11/12/2021 9:28 Gammopathy Results for AM CDT this procedure are in the results section. PROTHROMBIN TIME Routine 11/12/2021 9:28 Primary Results for AM CDT 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dism this procedure are in the results section. HEMOGLOBIN A1C Routine 11/12/2021 9:28 Primary Results fo r AM CDT 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dism this procedure are in the results section. SEDIMENTATION RATE Routine 11/12/2021 9:28 Immunoglobulin G4 R esults for NON-AUTOMATED AM CDT related disease this procedure are in the results section. 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 C4 COMPLEMENT Routine 11/12/2021 9:28 Immunoglobulin G4 Result s for AM CDT related disease this procedure are in the results section. C3 COMPLEMENT Routine 11/12/2021 9:28 Immunoglobulin G4 Result s for AM CDT related disease this procedure are in the results section. BETA 2 MICROGLOBULIN Routine 11/12/2021 9:28 Gammopathy Resu lts for AM CDT this procedure are in the results section. IMMUNOGLOBULIN G Routine 11/12/2021 9:28 Gammopathy Results for SERUM AM CDT this procedure are in the results section. IMMUNOGLOBULIN M Routine 11/12/2021 9:28 Gammopathy Results for SERUM AM CDT this procedure are in the results section. IMMUNOGLOBULIN A Routine 11/12/2021 9:28 Gammopathy Results for SERUM AM CDT this procedure are in the results section. PROTEIN Routine 11/12/2021 9:28 Gammopathy Results for ELECTROPHORESIS, AM CDT this SERUM procedure are in the results section. VITAMIN D 25 HYDROXY Routine 11/12/2021 9:28 Gammopathy Resu lts for LEVEL AM CDT this procedure are in the results section. ELECTROLYTE PANEL Routine 11/12/2021 9:28 Gammopathy Results for AM CDT this procedure are in the results section. ASPARTATE Routine 11/12/2021 9:28 Gammopathy Results for AMINOTRANSFERASE AM CDT this procedure are in the results section. MAGNESIUM LEVEL Routine 11/12/2021 9:28 Gammopathy Results f or AM CDT this procedure are in the results section. ALANINE Routine 11/12/2021 9:28 Gammopathy Results for AMINOTRANSFERASE AM CDT this procedure are in the results section. LACTATE DEHYDROGENASE Routine 11/12/2021 9:28 Gammopathy Res ults for AM CDT this procedure are in the results section. ALKALINE PHOSPHATASE Routine 11/12/2021 9:28 Gammopathy Resu lts for AM CDT this procedure are in the results section. FRACTIONATED Routine 11/12/2021 Gammopathy Results for BILIRUBIN 9:28 AM CDT this procedure are in the results section. URIC ACID Routine 11/12/2021 9:28 Gammopathy Results for AM CDT this procedure are in the results section. SERUM CREATININE Routine 11/12/2021 9:28 Gammopathy AM CDT BLOOD UREA NITROGEN Routine 11/12/2021 9:28 Gammopathy Resul ts for AM CDT this procedure are in the results section. GLUCOSE, RANDOM Routine 11/12/2021 9:28 Gammopathy Results f or AM CDT this procedure are in the results section. PHOSPHORUS LEVEL Routine 11/12/2021 9:28 Gammopathy Results for AM CDT this procedure are in the results section. CALCIUM LEVEL TOTAL Routine 11/12/2021 9:28 Gammopathy Resul ts for AM CDT this procedure are in the results section. ALBUMIN LEVEL Routine 11/12/2021 9:28 Gammopathy Results for AM CDT this procedure are in the results section. TOTAL PROTEIN Routine 11/12/2021 9:28 Gammopathy Results for AM CDT this procedure are in the results section. COMPLETE BLOOD COUNT Routine 11/12/2021 9:28 Gammopathy W/ DIFFERENTIAL AM CDT COMPLEMENT TOTAL Routine 11/12/2021 9:28 Gammopathy Results for AM CDT this procedure are in the results section. IGG SUBCLASSES, SERUM Routine 11/12/2021 9:28 Gammopathy Res ults for AM CDT this procedure are in the results section. EKG, 12-LEAD Routine 11/12/2021 Primary (SCHEDULED) 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dism .TOTAL VOLUME Routine 10/20/2021 6:00 Results for AM CDT this procedure are in the results section. .TOTAL VOLUME Routine 10/20/2021 6:00 Results for AM CDT this procedure are in the results section. SODIUM 24 HOUR URINE Routine 10/20/2021 6:00 Primary Resu lts for AM CDT 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dism this procedure are in the results section. CREATININE 24 HOUR Routine 10/20/2021 6:00 Primary Result s for URINE AM CDT 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dism this procedure are in the results section. CALCIUM LEVEL 24 HOUR Routine 10/20/2021 6:00 Primary Res ults for URINE AM CDT 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dism this procedure are in the results section. CT 4D NECK Routine 10/16/2021 3:18 Primary Results for (ASSOCIATED WITH NM PM CDT 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dism t his STUDY) procedure are in the results section. NM SESTAMIBI Routine 10/16/2021 3:17 Primary Results for PARATHYROID SPECT/CT PM CDT 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dism this (WITH 4D NECK [...] e results section. GENERAL LABORATORY STAT 10/14/2021 2:12 Primary Result s for ADD ON TEST PM CDT 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d ism this Hypercalcemia procedure are in the results section. DEXA BONE MINERAL Routine 10/13/2021 3:34 Primary Results for DENSITY BOTH HIPS AND PM CDT 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dism this SPINE procedure are in the results section. US HEAD NECK SOFT Routine 10/13/2021 Primary Results fo r TISSUE 10:13 AM CDT 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dism this procedure are in the results section. SPIROMETRY W/O Routine 10/13/2021 8:55 Shortness of breath Res ults for DILATORS, DLCO AND AM CDT this BODY PLETHSMOGRAPHIC procedu re are LUNG VOLUMES in the results section. 6 MINUTE WALK TEST Routine 10/13/2021 8:55 Shortness of breath AM CDT FRACTIONATED Routine 10/13/2021 7:58 Primary Results for BILIRUBIN AM CDT 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dism this procedure are in the results section. TOTAL PROTEIN Routine 10/13/2021 7:58 Primary Results for AM CDT 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dism this procedure are in the results section. ASPARTATE Routine 10/13/2021 7:58 Primary Results for AMINOTRANSFERASE AM CDT 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dism this procedure are in the results section. ALANINE Routine 10/13/2021 7:58 Primary Results for AMINOTRANSFERASE AM CDT 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dism this procedure are in the results section. ALKALINE PHOSPHATASE Routine 10/13/2021 7:58 Primary Resu lts for AM CDT 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dism this procedure are in the results section. ALBUMIN LEVEL Routine 10/13/2021 7:58 Primary Results for AM CDT 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dism this procedure are in the results section. CALCIUM LEVEL TOTAL Routine 10/13/2021 7:58 Primary Resul ts for AM CDT 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dism this procedure are in the results section. ELECTROLYTE PANEL Routine 10/13/2021 7:58 Primary Results for AM CDT 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dism this procedure are in the results section. GLUCOSE LEVEL Routine 10/13/2021 7:58 Primary Results for AM CDT 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dism this procedure are in the results section. .GLOMERULAR Routine 10/13/2021 7:58 Immunoglobulin G4 Results for FILTRATION RATE AM CDT related disease this procedure are in the results section. 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 MANUAL DIFFERENTIAL Routine 10/13/2021 7:58 Immunoglobulin G4 Results for AM CDT related disease this procedure are in the results section. Results CBC Routine 10/13/2021 7:58 Immunoglobulin G4 Results for AM CDT related disease this procedure are in the results section. ALKALINE PHOSPHATASE Routine 10/13/2021 7:58 Primary Resu lts for BONE AM CDT 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dism this procedure are in the results section. OSTEOCALCIN Routine 10/13/2021 7:58 Primary Results for AM CDT 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dism this procedure are in the results section. CTX BETA CROSSLAPS Routine 10/13/2021 7:58 Primary Result s for AM CDT 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dism this procedure are in the results section. DIHYDROXY VITAMIN D 1 Routine 10/13/2021 7:58 Primary Res ults for 25 LEVEL AM CDT 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dism this procedure are in the results section. VITAMIN D 25 HYDROXY Routine 10/13/2021 7:58 Primary Resu lts for LEVEL AM CDT 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dism this procedure are in the results section. PHOSPHORUS LEVEL Routine 10/13/2021 7:58 Primary Results for AM CDT 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dism this procedure are in the results section. MAGNESIUM LEVEL Routine 10/13/2021 7:58 Primary Results f or AM CDT 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dism this procedure are in the results section. COMPREHENSIVE Routine 10/13/2021 7:58 Primary METABOLIC PANEL AM CDT 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dism IGG SUBCLASSES, SERUM Routine 10/13/2021 7:58 Immunoglobulin G 4 Results for AM CDT related disease this procedure are in the results section. C4 COMPLEMENT Routine 10/13/2021 7:58 Immunoglobulin G4 Result s for AM CDT related disease this procedure are in the results section. C3 COMPLEMENT Routine 10/13/2021 7:58 Immunoglobulin G4 Result s for AM CDT related disease this procedure are in the results section. LIPASE LEVEL Routine 10/13/2021 7:58 Immunoglobulin G4 Results for AM CDT related disease this procedure are in the results section. AMYLASE LEVEL Routine 10/13/2021 7:58 Immunoglobulin G4 Result s for AM CDT related disease this procedure are in the results section. RHEUMATOID FACTOR Routine 10/13/2021 7:58 Immunoglobulin G4 Re sults for QUANTITATIVE AM CDT related disease this procedure are in the results section. CYCLIC CITRULLINE Routine 10/13/2021 7:58 Immunoglobulin G4 Re sults for ANTIBODY IGG AM CDT related disease this procedure are in the results section. SEDIMENTATION RATE Routine 10/13/2021 7:58 Immunoglobulin G4 R esults for NON-AUTOMATED AM CDT related disease this procedure are in the results section. C REACTIVE PROTEIN Routine 10/13/2021 7:58 Immunoglobulin G4 R esults for AM CDT related disease this procedure are in the results section. SERUM CREATININE Routine 10/13/2021 7:58 Immunoglobulin G4 AM CDT related disease COMPLETE BLOOD COUNT Routine 10/13/2021 7:58 Immunoglobulin G4 W/ DIFFERENTIAL AM CDT related disease BLOOD UREA NITROGEN Routine 10/13/2021 7:58 Immunoglobulin G4 Results for AM CDT related disease this procedure are in the results section. ANCA PANEL FOR Routine 10/13/2021 7:58 Immunoglobulin G4 Resul ts for VASCULITIS, SERUM AM CDT related disease this procedure are in the results section. FRACTIONATED Routine 09/19/2021 8:58 Hypercalcemia Results for BILIRUBIN AM [employer]ANDARIN TEACHER Hyponatremia this procedure are in the results section. TOTAL PROTEIN Routine 09/19/2021 8:58 Hypercalcemia Results for AM [employer]ANDARIN TEACHER Hyponatremia this procedure are in the results section. ASPARTATE Routine 09/19/2021 8:58 Hypercalcemia Results for AMINOTRANSFERASE AM [employer]ANDARIN TEACHER Hyponatremia this procedure are in the results section. ALANINE Routine 09/19/2021 8:58 Hypercalcemia Results for AMINOTRANSFERASE AM [employer]ANDARIN TEACHER Hyponatremia this procedure are in the results section. ALKALINE PHOSPHATASE Routine 09/19/2021 8:58 Hypercalcem ia Results for AM MANDARIN TEACHER Hyponatremia this procedure are in the results section. ALBUMIN LEVEL Routine 09/19/2021 8:58 Hypercalcemia Results for AM MANDARIN TEACHER Hyponatremia this procedure are in the results section. CALCIUM LEVEL TOTAL Routine 09/19/2021 8:58 Hypercalcemi a Results for AM [employer]ANDARIN TEACHER Hyponatremia this procedure are in the results section. .GLOMERULAR Routine 09/19/2021 8:58 Hypercalcemia Results for FILTRATION RATE AM [employer]ARIN TE[employer]ER Hyponatremia this procedure are in the results section. SERUM CREATININE Routine 09/19/2021 8:58 Hypercalcemia Results for AM MANDARIN TEACHER Hyponatremia this procedure are in the results section. ELECTROLYTE PANEL Routine 09/19/2021 8:58 Hypercalcemia Results for AM MANDARIN TEACHER Hyponatremia this procedure are in the results section. BLOOD UREA NITROGEN Routine 09/19/2021 8:58 Hypercalcemi a Results for AM MANDARIN TEACHER Hyponatremia this procedure are in the results section. GLUCOSE LEVEL Routine 09/19/2021 8:58 Hypercalcemia Results for AM MANDARIN TEACHER Hyponatremia this procedure are in the results section. COMPREHENSIVE Routine 09/19/2021 8:58 Hypercalcemia METABOLIC PANEL AM [employer]ANDARIN TEACHER Hyponatremia GENERAL LABORATORY Now 09/15/2021 7:24 Result s for ADD ON TEST PM MANDARIN TEACHER this procedure are in the results section. SORIANO MISCELLANEOUS STAT 09/15/2021 5:04 Result s for TEST PM MANDARIN TEACHER this procedure are in the results section. DIHYDROXY VITAMIN D 1 STAT 09/15/2021 5:04 Res ults for 25 LEVEL PM [employer]ANDARIN TEACHER this procedure are in the results section. NM LUNG PERFUSION STAT 09/15/2021 Results fo r 10:27 AM MANDARIN TEACHER this procedure are in the results section. GENERAL LABORATORY STAT 09/15/2021 7:11 Result s for ADD ON TEST AM MANDARIN TEACHER this procedure are in the results section. ALBUMIN LEVEL AM 09/15/2021 2:42 Results for AM MANDARIN TEACHER this procedure are in the results section. MANUAL DIFFERENTIAL AM 09/15/2021 2:42 Resul ts for AM MANDARIN TEACHER this procedure are in the results section. Results CBC AM 09/15/2021 2:42 Results for AM MANDARIN TEACHER this procedure are in the results section. CALCIUM LEVEL TOTAL AM 09/15/2021 2:42 Resul ts for AM MANDARIN TEACHER this procedure are in the results section. .GLOMERULAR AM 09/15/2021 2:42 Results for FILTRATION RATE AM MANDARIN TE[employer]ER this procedure are in the results section. SERUM CREATININE AM 09/15/2021 2:42 Results for AM MANDARIN TEACHER this procedure are in the results section. ELECTROLYTE PANEL AM 09/15/2021 2:42 Results for AM MANDARIN TEACHER this procedure are in the results section. BLOOD UREA NITROGEN AM 09/15/2021 2:42 Resul ts for AM MANDARIN TEACHER this procedure are in the results section. GLUCOSE LEVEL AM 09/15/2021 2:42 Results for AM MANDARIN TEACHER this procedure are in the results section. COMPLETE BLOOD COUNT AM 09/15/2021 2:42 W/ DIFFERENTIAL AM [employer]ANDARIN TE[employer]ER PHOSPHORUS LEVEL AM 09/15/2021 2:42 Results for AM MANDARIN TEACHER this procedure are in the results section. MAGNESIUM LEVEL AM 09/15/2021 2:42 Results f or AM MANDARIN TE[employer]ER this procedure are in the results section. BASIC METABOLIC AM 09/15/2021 2:42 PANEL, CALCIUM TOTAL AM MANDARIN TEACHER PTH INTACT AM 09/15/2021 2:42 Results for AM MANDARIN TEACHER this procedure are in the results section. EKG, 12-LEAD STAT 09/15/2021 (PORTABLE) CT CHEST WO CONTRAST STAT 09/14/2021 8:22 Resu lts for PM MANDARIN TEACHER this procedure are in the results section. TROPONIN T STAT 09/14/2021 6:14 Results for PM [employer]ANDARIN TEACHER this procedure are in the results section. FRACTIONATED Now 09/14/2021 Results for BILIRUBIN 11:04 AM [employer]ANDARIN TEACHER this procedure are in the results section. TOTAL PROTEIN Now 09/14/2021 Results for 11:04 AM MANDARIN TEACHER this procedure are in the results section. ASPARTATE Now 09/14/2021 Results for AMINOTRANSFERASE 11:04 AM MANDARIN TEACHER this procedure are in the results section. ALANINE Now 09/14/2021 Results for AMINOTRANSFERASE 11:04 AM MANDARIN TEACHER this procedure are in the results section. ALKALINE PHOSPHATASE Now 09/14/2021 Results for 11:04 AM MANDARIN TEACHER this procedure are in the results section. ALBUMIN LEVEL Now 09/14/2021 Results for 11:04 AM MANDARIN TEACHER this procedure are in the results section. CALCIUM LEVEL TOTAL Now 09/14/2021 Results for 11:04 AM MANDARIN TEACHER this procedure are in the results section. .GLOMERULAR Now 09/14/2021 Results for FILTRATION RATE 11:04 AM MANDARIN TEACHER this procedure are in the results section. SERUM CREATININE Now 09/14/2021 Results for 11:04 AM MANDARIN TEACHER this procedure are in the results section. ELECTROLYTE PANEL Now 09/14/2021 Results fo r 11:04 AM MANDARIN TEACHER this procedure are in the results section. BLOOD UREA NITROGEN Now 09/14/2021 Results for 11:04 AM MANDARIN TEACHER this procedure are in the results section. GLUCOSE LEVEL Now 09/14/2021 Results for 11:04 AM MANDARIN TEACHER this procedure are in the results section. MANUAL DIFFERENTIAL STAT 09/14/2021 Results for 11:04 AM MANDARIN TEACHER this procedure are in the results section. Results CBC STAT 09/14/2021 Results for 11:04 AM MANDARIN TEACHER this procedure are in the results section. D DIMER Now 09/14/2021 Results for 11:04 AM MANDARIN TEACHER this procedure are in the results section. APTT Now 09/14/2021 Results for 11:04 AM MANDARIN TEACHER this procedure are in the results section. PROTHROMBIN TIME Now 09/14/2021 Results for 11:04 AM MANDARIN TEACHER this procedure are in the results section. NT PRO BNP Now 09/14/2021 Results for 11:04 AM MANDARIN TEACHER this procedure are in the results section. CARDIAC PANEL Timed Study 09/14/2021 Results for 11:04 AM MANDARIN TE[employer]ER this procedure are in the results section. PHOSPHORUS LEVEL Now 09/14/2021 Results for 11:04 AM MANDARIN TEACHER this procedure are in the results section. MAGNESIUM LEVEL Now 09/14/2021 Results for 11:04 AM MANDARIN TEACHER this procedure are in the results section. COMPREHENSIVE Now 09/14/2021 METABOLIC PANEL 11:04 AM MANDARIN TEACHER COMPLETE BLOOD COUNT Now 09/14/2021 W/ DIFFERENTIAL 11:04 AM MANDARIN TEACHER RESPIRATORY VIRAL Now 09/14/2021 Results fo r PANEL + COVID-19, 11:04 AM MANDARIN TEACHER this NASOPHARYNGEAL SWAB procedur e are in the results section. XR CHEST 1 VW Routine 09/14/2021 Results for 11:01 AM MANDARIN TEACHER this procedure are in the results section. PATHOLOGY SURGICAL Routine 09/03/2021 3:57 Lung mass found on Results for INTERPRETATION PM [employer]ANDARIN TEACHER diagnostic imaging of this lung procedure are in the results section. BIOPSY OR EXCISION OF 09/03/2021 3:05 Lung mass found on LYMPH NODE(S); OPEN, PM [employer]ANDARIN TEACHER diagnostic imaging o f INGUINOFEMORAL lung NODE(S) Special Needs 120minsNY @ [address] RODRIGUEZ SULEMAN PATH Routine 09/03/2021 12:24 R esults for REVIEW PM [employer]ANDARIN TEACHER this procedure are in the results section. .DR. RODRIGUEZ PROT Routine 09/03/2021 12:24 Resul ts for ELEC PATH REVIEW PM MANDARIN TEACHER this proced ure are in the results section. FREE KAPPA/FREE LAMBDA Routine 09/03/2021 12:24 R esults for RATIO PM [employer]ANDARIN TEACHER this procedure are in the results section. IMMUNOGLOBULIN G SERUM Routine 09/03/2021 12:24 Lymphadenopath y Results for PM MANDARIN TEACHER this procedure are in the results section. JOSEPH JOSEPH VIRUS Routine 09/03/2021 12:24 Lymphadenopathy Re sults for PANEL PM [employer]ANDARIN TEACHER this procedure are in the results section. IMMUNOGLOBULIN M SERUM Routine 09/03/2021 12:24 Lymphadenopath y Results for PM MANDARIN TEACHER this procedure are in the results section. IMMUNOGLOBULIN A SERUM Routine 09/03/2021 12:24 Lymphadenopath y Results for PM MANDARIN TEACHER this procedure are in the results section. IMMUNOFIXATION Routine 09/03/2021 12:24 Lymphadenopathy Result s for ELECTROPHORESIS PM MANDARIN TEACHER this procedu re are in the results section. FREE LAMBDA LIGHT Routine 09/03/2021 12:24 Lymphadenopathy Res ults for CHAIN PM [employer]ARIN TEACHER this procedure are in the results section. FREE KAPPA LIGHT CHAIN Routine 09/03/2021 12:24 Lymphadenopath y Results for PM MANDARIN TEACHER this procedure are in the results section. IGG SUBCLASSES, SERUM Routine 09/03/2021 12:24 Lymphadenopathy Results for PM MANDARIN TEACHER this procedure are in the results section. PROTEIN Routine 09/03/2021 12:24 Lymphadenopathy Results for ELECTROPHORESIS, SERUM PM MANDARIN TEACHER this procedure are in the results section. JOSEPH JOSEPH VIRUS Routine 09/03/2021 12:24 Resul ts for PANEL PATH REVIEW PM [employer]ANDARIN TEACHER this proce dure are in the results section. TMP INTERPRETATION Routine 09/01/2021 1:48 Result s for MANUAL ANTIBODY SCREEN PM [employer]ANDARIN TEACHER this procedure NEGATIVE are in the results section. TMP ABORH DISCREPANCY Routine 09/01/2021 1:48 Res ults for INTERPRETATION PM MANDARIN TEACHER this procedur e are in the results section. CLOT EXPIRATION DATE Routine 09/01/2021 1:48 Resu lts for PM MANDARIN TEACHER this procedure are in the results section. ABORH MANUAL Routine 09/01/2021 1:48 Results for PM MANDARIN TEACHER this procedure are in the results section. ANTIBODY SCREEN MANUAL Routine 09/01/2021 1:48 Re sults for PM MANDARIN TEACHER this procedure are in the results section. MANUAL DIFFERENTIAL Routine 09/01/2021 1:48 Mediastinal Resul ts for PM MANDARIN TEACHER lymphadenopathy this procedu re are in the results section. Results CBC Routine 09/01/2021 1:48 Mediastinal Results for PM MANDARIN TEACHER lymphadenopathy this procedu re are in the results section. FRACTIONATED BILIRUBIN Routine 09/01/2021 1:48 Mediastinal Re sults for PM MANDARIN TEACHER lymphadenopathy this procedu re are in the results section. TOTAL PROTEIN Routine 09/01/2021 1:48 Mediastinal Results for PM MANDARIN TEACHER lymphadenopathy this procedu re are in the results section. ASPARTATE Routine 09/01/2021 1:48 Mediastinal Results for AMINOTRANSFERASE PM MANDARIN TEACHER lymphadenopathy this pro cedure are in the results section. ALANINE Routine 09/01/2021 1:48 Mediastinal Results for AMINOTRANSFERASE PM MANDARIN TEACHER lymphadenopathy this pro cedure are in the results section. ALKALINE PHOSPHATASE Routine 09/01/2021 1:48 Mediastinal Resu lts for PM MANDARIN TEACHER lymphadenopathy this procedu re are in the results section. ALBUMIN LEVEL Routine 09/01/2021 1:48 Mediastinal Results for PM MANDARIN TEACHER lymphadenopathy this procedu re are in the results section. CALCIUM LEVEL TOTAL Routine 09/01/2021 1:48 Mediastinal Resul ts for PM MANDARIN TEACHER lymphadenopathy this procedu re are in the results section. .GLOMERULAR FILTRATION Routine 09/01/2021 1:48 Mediastinal Re sults for RATE PM MANDARIN TEACHER lymphadenopathy this procedu re are in the results section. SERUM CREATININE Routine 09/01/2021 1:48 Mediastinal Results for PM MANDARIN TEACHER lymphadenopathy this procedu re are in the results section. ELECTROLYTE PANEL Routine 09/01/2021 1:48 Mediastinal Results for PM MANDARIN TEACHER lymphadenopathy this procedu re are in the results section. BLOOD UREA NITROGEN Routine 09/01/2021 1:48 Mediastinal Resul ts for PM MANDARIN TEACHER lymphadenopathy this procedu re are in the results section. GLUCOSE LEVEL Routine 09/01/2021 1:48 Mediastinal Results for PM MANDARIN TEACHER lymphadenopathy this procedu re are in the results section. COMPREHENSIVE Routine 09/01/2021 1:48 Mediastinal METABOLIC PANEL PM MANDARIN TEACHER lymphadenopathy COMPLETE BLOOD COUNT Routine 09/01/2021 1:48 Mediastinal W/ DIFFERENTIAL PM MANDARIN TEACHER lymphadenopathy THYROID STIMULATING Routine 09/01/2021 1:48 Mediastinal Resul ts for HORMONE PM MANDARIN TEACHER lymphadenopathy this procedu re are in the results section. FREE THYROXINE Routine 09/01/2021 1:48 Mediastinal Results fo r PM MANDARIN TEACHER lymphadenopathy this procedu re are in the results section. HEMOGLOBIN A1C Routine 09/01/2021 1:48 Mediastinal Results fo r PM MANDARIN TE[employer]ER lymphadenopathy this procedu re are in the results section. APTT Routine 09/01/2021 1:48 Mediastinal Results for PM MANDARIN TEACHER lymphadenopathy this procedu re are in the results section. PROTHROMBIN TIME Routine 09/01/2021 1:48 Mediastinal Results for PM MANDARIN TEACHER lymphadenopathy this procedu re are in the results section. TMP ABORH DISCREPANCY Routine 09/01/2021 1:44 Res ults for INTERPRETATION PM MANDARIN TEACHER this procedur e are in the results section. MANUAL CONFIRM ABORH Routine 09/01/2021 1:44 Resu lts for PM MANDARIN TEACHER this procedure are in the results section. COVID-19 Routine 09/01/2021 1:28 Suspected COVID-19 Result s for (SARS-COV-2) PCR PM MANDARIN TEACHER this proced ure ASYMPTOMATIC are in the results section. HP FC LYMPHOMA B Routine 08/15/2021 4:45 HODGKIN INTERPRETATION PM MANDARIN TEACHER AND REPORT HP FC FLOW CYTOMETRY Routine 08/15/2021 4:45 Resu lts for BLOOD COLLECTION PM MANDARIN TEACHER this proced ure are in the results section. CYTOLOGY IMAGE-GUIDED Routine 08/15/2021 2:05 Lung mass found on Results for FNA INTERPRETATION PM MANDARIN TEACHER diagnostic imaging of this procedure lung are in the results section. CYTOLOGY IMAGE-GUIDED Routine 08/15/2021 1:58 Lung mass found on Results for FNA INTERPRETATION PM MANDARIN TEACHER diagnostic imaging of this procedure lung are in the results section. CYTOLOGY IMAGE-GUIDED Routine 08/15/2021 1:52 Lung mass found on Results for FNA INTERPRETATION PM MANDARIN TEACHER diagnostic imaging of this procedure lung are in the results section. 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 POTASSIUM LEVEL URINE Routine 08/13/2021 10:35 Hyponatremia Re sults for AM [employer]IN [employer] this procedure are in the results section. OSMOLALITY URINE Routine 08/13/2021 10:35 Hyponatremia Results for AM [employer] TE[employer] this procedure are in the results section. CALCIUM LEVEL TOTAL Routine 08/13/2021 10:32 Hyponatremia Resu lts for AM [employer]IN TE[employer] this procedure are in the results section. .GLOMERULAR FILTRATION Routine 08/13/2021 10:32 Hyponatremia R esults for RATE AM [employer] this procedure are in the results section. SERUM CREATININE Routine 08/13/2021 10:32 Hyponatremia Results for AM [employer]ARIN TE[employer] this procedure are in the results section. ELECTROLYTE PANEL Routine 08/13/2021 10:32 Hyponatremia Result s for AM [employer]IN TE[employer] this procedure are in the results section. BLOOD UREA NITROGEN Routine 08/13/2021 10:32 Hyponatremia Resu lts for AM [employer]IN TE[employer] this procedure are in the results section. GLUCOSE LEVEL Routine 08/13/2021 10:32 Hyponatremia Results fo r AM [employer] this procedure are in the results section. OSMOLALITY Routine 08/13/2021 10:32 Hyponatremia Results for AM [employer] TE[employer] this procedure are in the results section. BASIC METABOLIC PANEL, Routine 08/13/2021 10:32 Hyponatremia CALCIUM TOTAL AM [employer] PETCT INITIAL Routine 08/13/2021 10:09 Lung mass found on Resu lts for TREATMENT STRATEGY AM [employer] diagnostic imaging of this procedure lung are in the results section. TMP HCVAB INTERP Routine 08/07/2021 12:08 Results for PM [employer]IN TE[employer] this procedure are in the results section. HEPATITIS B SURFACE AG Routine 08/07/2021 12:08 R esults for W/CONFIRM PM [employer] this procedure are in the results section. HEPATITIS B CORE TOTAL Routine 08/07/2021 12:08 R esults for ANTIBODY PM [employer] this procedure are in the results section. MANUAL DIFFERENTIAL Routine 08/07/2021 12:08 Lung mass found o n Results for PM [employer] diagnostic imaging of this p rocedure lung are in the results section. Results CBC Routine 08/07/2021 12:08 Lung mass found on Resul ts for PM [employer]IN [employer] diagnostic imaging of this p rocedure lung are in the results section. FRACTIONATED BILIRUBIN Routine 08/07/2021 12:08 Lung mass foun d on Results for PM [employer] diagnostic imaging of this p rocedure lung are in the results section. TOTAL PROTEIN Routine 08/07/2021 12:08 Lung mass found on Resu lts for PM [employer] TE[employer] diagnostic imaging of this p rocedure lung are in the results section. ASPARTATE Routine 08/07/2021 12:08 Lung mass found on Resul ts for AMINOTRANSFERASE PM [employer] diagnostic imaging of th is procedure lung are in the results section. ALANINE Routine 08/07/2021 12:08 Lung mass found on Resul ts for AMINOTRANSFERASE PM [employer] diagnostic imaging of th is procedure lung are in the results section. ALKALINE PHOSPHATASE Routine 08/07/2021 12:08 Lung mass found on Results for PM [employer]IN TE[employer] diagnostic imaging of this p rocedure lung are in the results section. ALBUMIN LEVEL Routine 08/07/2021 12:08 Lung mass found on Resu lts for PM [employer]IN [employer] diagnostic imaging of this p rocedure lung are in the results section. CALCIUM LEVEL TOTAL Routine 08/07/2021 12:08 Lung mass found o n Results for PM [employer] diagnostic imaging of this p rocedure lung are in the results section. .GLOMERULAR FILTRATION Routine 08/07/2021 12:08 Lung mass foun d on Results for RATE PM [employer] diagnostic imaging of this p rocedure lung are in the results section. SERUM CREATININE Routine 08/07/2021 12:08 Lung mass found on R esults for PM [employer] diagnostic imaging of this p rocedure lung are in the results section. ELECTROLYTE PANEL Routine 08/07/2021 12:08 Lung mass found on Results for PM [employer]IN TE[employer] diagnostic imaging of this p rocedure lung are in the results section. BLOOD UREA NITROGEN Routine 08/07/2021 12:08 Lung mass found o n Results for PM [employer] diagnostic imaging of this p rocedure lung are in the results section. GLUCOSE LEVEL Routine 08/07/2021 12:08 Lung mass found on Resu lts for PM [employer] TE[employer] diagnostic imaging of this p rocedure lung are in the results section. PROSTATE SPECIFIC Routine 08/07/2021 12:08 Lung mass found on Results for ANTIGEN PM [employer] diagnostic imaging of this p rocedure lung are in the results section. THYROID STIMULATING Routine 08/07/2021 12:08 Lung mass found o n Results for HORMONE PM [employer] diagnostic imaging of this p rocedure lung are in the results section. HEPATITIS C VIRUS Routine 08/07/2021 12:08 Lung mass found on Results for ANTIBODY PM [employer] diagnostic imaging of this p rocedure lung are in the results section. HEPATITIS B CORE Routine 08/07/2021 12:08 Lung mass found on R esults for ANTIBODY PM [employer] diagnostic imaging of this p rocedure lung are in the results section. HEPATITIS B SURFACE Routine 08/07/2021 12:08 Lung mass found o n Results for ANTIGEN, SERUM PM [employer] diagnostic imaging of this procedure lung are in the results section. APTT Routine 08/07/2021 12:08 Lung mass found on Resul ts for PM [employer] diagnostic imaging of this p rocedure lung are in the results section. PROTHROMBIN TIME Routine 08/07/2021 12:08 Lung mass found on R esults for PM [employer] diagnostic imaging of this p rocedure lung are in the results section. COMPLETE BLOOD COUNT Routine 08/07/2021 12:08 Lung mass found on W/ DIFFERENTIAL PM [employer] diagnostic imaging of lung COMPREHENSIVE Routine 08/07/2021 12:08 Lung mass found on METABOLIC PANEL PM [employer] diagnostic imaging of lung GENERAL LABORATORY ADD STAT 08/07/2021 11:44 Lung mass foun d on Results for ON TEST AM [employer] diagnostic imaging of this p rocedure lung are in the results section. MANUAL DIFFERENTIAL AM 07/24/2021 6:51 Resul ts for AM [employer]IN TE[employer] this procedure are in the results section. Results CBC AM 07/24/2021 6:51 Results for AM [employer]IN TE[employer] this procedure are in the results section. FRACTIONATED BILIRUBIN AM 07/24/2021 6:51 Re sults for AM [employer]IN TE[employer] this procedure are in the results section. TOTAL PROTEIN AM 07/24/2021 6:51 Results for AM [employer]IN TE[employer] this procedure are in the results section. ASPARTATE AM 07/24/2021 6:51 Results for AMINOTRANSFERASE AM [employer]IN TE[employer]ER this proced ure are in the results section. ALANINE AM 07/24/2021 6:51 Results for AMINOTRANSFERASE AM [employer] TE[employer]ER this proced ure are in the results section. ALKALINE PHOSPHATASE AM 07/24/2021 6:51 Resu lts for AM [employer]IN TE[employer] this procedure are in the results section. ALBUMIN LEVEL AM 07/24/2021 6:51 Results for AM [employer]ARIN TE[employer]ER this procedure are in the results section. CALCIUM LEVEL TOTAL AM 07/24/2021 6:51 Resul ts for AM [employer]ARIN TE[employer] this procedure are in the results section. .GLOMERULAR FILTRATION AM 07/24/2021 6:51 Re sults for RATE AM [employer] this procedure are in the results section. SERUM CREATININE AM 07/24/2021 6:51 Results for AM [employer]IN TE[employer] this procedure are in the results section. ELECTROLYTE PANEL AM 07/24/2021 6:51 Results for AM [employer]IN TE[employer] this procedure are in the results section. BLOOD UREA NITROGEN AM 07/24/2021 6:51 Resul ts for AM [employer]IN TE[employer] this procedure are in the results section. GLUCOSE LEVEL AM 07/24/2021 6:51 Results for AM [employer] TE[employer] this procedure are in the results section. PROTHROMBIN TIME AM 07/24/2021 6:51 Results for AM [employer]IN TE[employer]ER this procedure are in the results section. COMPREHENSIVE AM 07/24/2021 6:51 METABOLIC PANEL AM [employer] COMPLETE BLOOD COUNT AM 07/24/2021 6:51 W/ DIFFERENTIAL AM [employer] PHOSPHORUS LEVEL AM 07/24/2021 6:51 Results for AM [employer]IN TE[employer]ER this procedure are in the results section. MAGNESIUM LEVEL AM 07/24/2021 6:51 Results f or AM [employer] this procedure are in the results section. IR CHEST XRAY 1 VIEW Routine 07/23/2021 2:36 Resu lts for PM [employer]IN TE[employer] this procedure are in the results section. IR CHEST XRAY 1 VIEW Routine 07/23/2021 11:56 Res ults for AM [employer]IN TE[employer] this procedure are in the results section. PATHOLOGY BIOPSY Routine 07/23/2021 11:12 Influenza Results for INTERPRETATION AM [employer]IN TE[employer] Dehydration this procedure Patient on oxyge n are in the Lung cancer results Hyposmolality and/or section . hyponatremia Influenzal pneum onia Lung mass found on diagnostic imaging of lung IR CT GUIDED BIOPSY Routine 07/23/2021 11:01 Lung mass found o n Results for LUNG/MEDIASTINAL AM [employer] diagnostic imaging of th is procedure lung are in the results section. MANUAL DIFFERENTIAL AM 07/23/2021 6:10 Resul ts for AM [employer]IN TE[employer] this procedure are in the results section. Results CBC AM 07/23/2021 6:10 Results for AM [employer]IN TE[employer]ER this procedure are in the results section. FRACTIONATED BILIRUBIN AM 07/23/2021 6:10 Re sults for AM [employer]ARIN TE[employer]ER this procedure are in the results section. TOTAL PROTEIN AM 07/23/2021 6:10 Results for AM [employer]IN TE[employer] this procedure are in the results section. ASPARTATE AM 07/23/2021 6:10 Results for AMINOTRANSFERASE AM [employer]IN TE[employer]ER this proced ure are in the results section. ALANINE AM 07/23/2021 6:10 Results for AMINOTRANSFERASE AM [employer] TE[employer]ER this proced ure are in the results section. ALKALINE PHOSPHATASE AM 07/23/2021 6:10 Resu lts for AM [employer]IN TE[employer]ER this procedure are in the results section. ALBUMIN LEVEL AM 07/23/2021 6:10 Results for AM [employer]IN TE[employer]ER this procedure are in the results section. CALCIUM LEVEL TOTAL AM 07/23/2021 6:10 Resul ts for AM [employer]ARIN TE[employer]ER this procedure are in the results section. .GLOMERULAR FILTRATION AM 07/23/2021 6:10 Re sults for RATE AM [employer]IN TE[employer] this procedure are in the results section. SERUM CREATININE AM 07/23/2021 6:10 Results for AM [employer]IN TE[employer]ER this procedure are in the results section. ELECTROLYTE PANEL AM 07/23/2021 6:10 Results for AM [employer]ARIN TE[employer]ER this procedure are in the results section. BLOOD UREA NITROGEN AM 07/23/2021 6:10 Resul ts for AM [employer]IN TE[employer] this procedure are in the results section. GLUCOSE LEVEL AM 07/23/2021 6:10 Results for AM [employer]ARIN TE[employer] this procedure are in the results section. PROTHROMBIN TIME AM 07/23/2021 6:10 Results for AM [employer]ARIN TE[employer] this procedure are in the results section. COMPREHENSIVE AM 07/23/2021 6:10 METABOLIC PANEL AM [employer] COMPLETE BLOOD COUNT AM 07/23/2021 6:10 W/ DIFFERENTIAL AM [employer] TE[employer]ER PHOSPHORUS LEVEL AM 07/23/2021 6:10 Results for AM [employer]ARIN TE[employer]ER this procedure are in the results section. MAGNESIUM LEVEL AM 07/23/2021 6:10 Results f or AM [employer] TE[employer] this procedure are in the results section. XR SHOULDER 2+ VW Routine 07/22/2021 12:46 Result s for RIGHT PM [employer] this procedure are in the results section. XR HUMERUS 2 VIEWS Routine 07/22/2021 12:43 Resul ts for MINIMUM RIGHT PM [employer] this procedure are in the results section. MANUAL DIFFERENTIAL AM 07/22/2021 5:27 Resul ts for AM [employer]IN TE[employer] this procedure are in the results section. Results CBC AM 07/22/2021 5:27 Results for AM [employer]ARIN TE[employer] this procedure are in the results section. FRACTIONATED BILIRUBIN AM 07/22/2021 5:27 Re sults for AM [employer]ARIN TE[employer]ER this procedure are in the results section. TOTAL PROTEIN AM 07/22/2021 5:27 Results for AM [employer]ARIN TE[employer]ER this procedure are in the results section. ASPARTATE AM 07/22/2021 5:27 Results for AMINOTRANSFERASE AM [employer]IN TE[employer]ER this proced ure are in the results section. ALANINE AM 07/22/2021 5:27 Results for AMINOTRANSFERASE AM [employer]IN TE[employer]ER this proced ure are in the results section. ALKALINE PHOSPHATASE AM 07/22/2021 5:27 Resu lts for AM [employer]ARIN TE[employer]ER this procedure are in the results section. ALBUMIN LEVEL AM 07/22/2021 5:27 Results for AM [employer]ARIN TE[employer]ER this procedure are in the results section. CALCIUM LEVEL TOTAL AM 07/22/2021 5:27 Resul ts for AM [employer]IN TE[employer]ER this procedure are in the results section. .GLOMERULAR FILTRATION AM 07/22/2021 5:27 Re sults for RATE AM [employer]IN TE[employer] this procedure are in the results section. SERUM CREATININE AM 07/22/2021 5:27 Results for AM [employer]ARIN TE[employer]ER this procedure are in the results section. ELECTROLYTE PANEL AM 07/22/2021 5:27 Results for AM [employer]ARIN TE[employer]ER this procedure are in the results section. BLOOD UREA NITROGEN AM 07/22/2021 5:27 Resul ts for AM [employer]IN TE[employer] this procedure are in the results section. GLUCOSE LEVEL AM 07/22/2021 5:27 Results for AM [employer]IN TE[employer]ER this procedure are in the results section. VITAMIN D 25 HYDROXY AM 07/22/2021 5:27 Resu lts for LEVEL AM [employer] this procedure are in the results section. COMPREHENSIVE AM 07/22/2021 5:27 METABOLIC PANEL AM [employer] TE[employer]ER COMPLETE BLOOD COUNT AM 07/22/2021 5:27 W/ DIFFERENTIAL AM [employer]ER PHOSPHORUS LEVEL AM 07/22/2021 5:27 Results for AM [employer]IN TE[employer]ER this procedure are in the results section. MAGNESIUM LEVEL AM 07/22/2021 5:27 Results f or AM [employer] TE[employer] this procedure are in the results section. PTH-RELATED PEPTIDE Routine 07/21/2021 3:30 Resul ts for PM [employer]IN TE[employer] this procedure are in the results section. .DR. MERON MOSQUEDAFE PATH Now 07/21/2021 3:00 Resu lts for REVIEW PM [employer] TE[employer] this procedure are in the results section. .DR. CHANCE U PROT ELEC Routine 07/21/2021 3:00 Re sults for PATH REVIEW PM [employer] this procedure are in the results section. IMMUNOFIXATION Now 07/21/2021 3:00 Results fo r ELECTROPHORESIS URINE PM [employer]IN TE[employer] this p rocedure are in the results section. .TOTAL VOLUME Routine 07/21/2021 3:00 Results for PM [employer]IN TE[employer] this procedure are in the results section. URINE TOTAL PROTEIN Routine 07/21/2021 3:00 Resul ts for PM [employer]ARIN TE[employer] this procedure are in the results section. PROTEIN Now 07/21/2021 3:00 Results for ELECTROPHORESIS URINE PM [employer]IN TE[employer] this p rocedure are in the results section. ECHOCARDIOGRAM 2D Routine 07/21/2021 12:26 Result s for COMPLETE W CONTRAST PM [employer] this pro cedure are in the results section. .DR. JIMY SHELL PATH Routine 07/21/2021 6:14 Resul ts for REVIEW AM [employer]IN TE[employer] this procedure are in the results section. .DR. INGRAM PROT ELEC Routine 07/21/2021 6:14 Resu lts for PATH REVIEW AM [employer] TE[employer] this procedure are in the results section. IMMUNOFIXATION Routine 07/21/2021 6:14 Results fo r ELECTROPHORESIS AM [employer] TE[employer] this procedu re are in the results section. FREE KAPPA/FREE LAMBDA Routine 07/21/2021 6:14 Re sults for RATIO AM [employer]IN TE[employer]ER this procedure are in the results section. MANUAL DIFFERENTIAL AM 07/21/2021 6:14 Resul ts for AM [employer]IN TE[employer] this procedure are in the results section. Results CBC AM 07/21/2021 6:14 Results for AM [employer]IN TE[employer]ER this procedure are in the results section. FRACTIONATED BILIRUBIN AM 07/21/2021 6:14 Re sults for AM [employer]ARIN TE[employer]ER this procedure are in the results section. TOTAL PROTEIN AM 07/21/2021 6:14 Results for AM [employer]IN TE[employer]ER this procedure are in the results section. ASPARTATE AM 07/21/2021 6:14 Results for AMINOTRANSFERASE AM [employer]IN TE[employer]ER this proced ure are in the results section. ALANINE AM 07/21/2021 6:14 Results for AMINOTRANSFERASE AM [employer]ARIN TE[employer]ER this proced ure are in the results section. ALKALINE PHOSPHATASE AM 07/21/2021 6:14 Resu lts for AM [employer]ARIN TE[employer]ER this procedure are in the results section. ALBUMIN LEVEL AM 07/21/2021 6:14 Results for AM [employer]IN TE[employer]ER this procedure are in the results section. CALCIUM LEVEL TOTAL AM 07/21/2021 6:14 Resul ts for AM [employer]ARIN TE[employer]ER this procedure are in the results section. .GLOMERULAR FILTRATION AM 07/21/2021 6:14 Re sults for RATE AM [employer]IN TE[employer] this procedure are in the results section. SERUM CREATININE AM 07/21/2021 6:14 Results for AM [employer]ARIN TE[employer]ER this procedure are in the results section. ELECTROLYTE PANEL AM 07/21/2021 6:14 Results for AM [employer]ARIN TE[employer]ER this procedure are in the results section. BLOOD UREA NITROGEN AM 07/21/2021 6:14 Resul ts for AM [employer]IN TE[employer]ER this procedure are in the results section. GLUCOSE LEVEL AM 07/21/2021 6:14 Results for AM [employer]ARIN TE[employer]ER this procedure are in the results section. COMPREHENSIVE AM 07/21/2021 6:14 METABOLIC PANEL AM [employer]IN TE[employer]ER COMPLETE BLOOD COUNT AM 07/21/2021 6:14 W/ DIFFERENTIAL AM [employer]IN TE[employer]ER PHOSPHORUS LEVEL AM 07/21/2021 6:14 Results for AM [employer]ARIN TE[employer]ER this procedure are in the results section. MAGNESIUM LEVEL AM 07/21/2021 6:14 Results f or AM [employer]IN TE[employer] this procedure are in the results section. FREE LAMBDA LIGHT Routine 07/21/2021 6:14 Results for CHAIN AM [employer]IN TE[employer] this procedure are in the results section. FREE KAPPA LIGHT CHAIN Routine 07/21/2021 6:14 Re sults for AM [employer]ARIN TE[employer]ER this procedure are in the results section. PROTEIN Routine 07/21/2021 6:14 Results for ELECTROPHORESIS, SERUM AM [employer]IN TE[employer] this procedure are in the results section. PTH INTACT Routine 07/21/2021 6:14 Results for AM [employer]IN TE[employer]ER this procedure are in the results section. MANUAL DIFFERENTIAL AM 07/20/2021 7:14 Resul ts for AM [employer]IN TE[employer]ER this procedure are in the results section. Results CBC AM 07/20/2021 7:14 Results for AM [employer]IN TE[employer]ER this procedure are in the results section. FRACTIONATED BILIRUBIN AM 07/20/2021 7:14 Re sults for AM [employer]ARIN TE[employer]ER this procedure are in the results section. TOTAL PROTEIN AM 07/20/2021 7:14 Results for AM [employer]ARIN TE[employer]ER this procedure are in the results section. ASPARTATE AM 07/20/2021 7:14 Results for AMINOTRANSFERASE AM [employer]ARIN TE[employer]ER this proced ure are in the results section. ALANINE AM 07/20/2021 7:14 Results for AMINOTRANSFERASE AM [employer]ARIN TE[employer]ER this proced ure are in the results section. ALKALINE PHOSPHATASE AM 07/20/2021 7:14 Resu lts for AM [employer]ARIN TE[employer]ER this procedure are in the results section. ALBUMIN LEVEL AM 07/20/2021 7:14 Results for AM [employer]IN TE[employer]ER this procedure are in the results section. CALCIUM LEVEL TOTAL AM 07/20/2021 7:14 Resul ts for AM [employer]ARIN TE[employer]ER this procedure are in the results section. .GLOMERULAR FILTRATION AM 07/20/2021 7:14 Re sults for RATE AM [employer]IN TE[employer]ER this procedure are in the results section. SERUM CREATININE AM 07/20/2021 7:14 Results for AM [employer]ARIN TE[employer]ER this procedure are in the results section. ELECTROLYTE PANEL AM 07/20/2021 7:14 Results for AM [employer]ARIN TE[employer]ER this procedure are in the results section. BLOOD UREA NITROGEN AM 07/20/2021 7:14 Resul ts for AM [employer]ARIN TE[employer]ER this procedure are in the results section. GLUCOSE LEVEL AM 07/20/2021 7:14 Results for AM [employer]ARIN TE[employer]ER this procedure are in the results section. COMPREHENSIVE AM 07/20/2021 7:14 METABOLIC PANEL AM [employer]IN TE[employer]ER COMPLETE BLOOD COUNT AM 07/20/2021 7:14 W/ DIFFERENTIAL AM [employer]IN TE[employer]ER PHOSPHORUS LEVEL AM 07/20/2021 7:14 Results for AM [employer]ARIN TE[employer]ER this procedure are in the results section. MAGNESIUM LEVEL AM 07/20/2021 7:14 Results f or AM [employer]IN TE[employer] this procedure are in the results section. GENERAL LABORATORY ADD Now 07/19/2021 3:12 Re sults for ON TEST PM [employer] TE[employer] this procedure are in the results section. CT CHEST PULMONARY STAT 07/19/2021 1:15 Result s for EMBOLISM W CONTRAST PM [employer] this pro cedure are in the results section. XR CHEST 1 VW PORTABLE STAT 07/19/2021 11:16 R esults for AM [employer]IN TE[employer]ER this procedure are in the results section. PROCALCITONIN Now 07/19/2021 10:43 Results fo r AM [employer] TE[employer] this procedure are in the results section. FRACTIONATED BILIRUBIN Now 07/19/2021 10:43 R esults for AM [employer]ARIN TE[employer]ER this procedure are in the results section. TOTAL PROTEIN Now 07/19/2021 10:43 Results fo r AM [employer]IN TE[employer] this procedure are in the results section. ASPARTATE Now 07/19/2021 10:43 Results for AMINOTRANSFERASE AM [employer]ARIN TE[employer]ER this proced ure are in the results section. ALANINE Now 07/19/2021 10:43 Results for AMINOTRANSFERASE AM [employer]ARIN TE[employer]ER this proced ure are in the results section. ALKALINE PHOSPHATASE Now 07/19/2021 10:43 Res ults for AM [employer]ARIN TE[employer]ER this procedure are in the results section. ALBUMIN LEVEL Now 07/19/2021 10:43 Results fo r AM [employer]IN TE[employer] this procedure are in the results section. CALCIUM LEVEL TOTAL Now 07/19/2021 10:43 Resu lts for AM [employer]ARIN TE[employer]ER this procedure are in the results section. .GLOMERULAR FILTRATION Now 07/19/2021 10:43 R esults for RATE AM [employer]IN TE[employer]ER this procedure are in the results section. SERUM CREATININE Now 07/19/2021 10:43 Results for AM [employer]ARIN TE[employer]ER this procedure are in the results section. ELECTROLYTE PANEL Now 07/19/2021 10:43 Result s for AM [employer]ARIN TE[employer]ER this procedure are in the results section. BLOOD UREA NITROGEN Now 07/19/2021 10:43 Resu lts for AM [employer]ARIN TE[employer]ER this procedure are in the results section. GLUCOSE LEVEL Now 07/19/2021 10:43 Results fo r AM [employer]IN TE[employer] this procedure are in the results section. MANUAL DIFFERENTIAL STAT 07/19/2021 10:43 Resu lts for AM [employer]ARIN TE[employer]ER this procedure are in the results section. Results CBC STAT 07/19/2021 10:43 Results for AM [employer]IN TE[employer]ER this procedure are in the results section. D DIMER Now 07/19/2021 10:43 Results for AM [employer]IN TE[employer]ER this procedure are in the results section. APTT Now 07/19/2021 10:43 Results for AM [employer]ARIN TE[employer]ER this procedure are in the results section. PROTHROMBIN TIME Now 07/19/2021 10:43 Results for AM [employer]IN TE[employer]ER this procedure are in the results section. NT PRO BNP Now 07/19/2021 10:43 Results for AM [employer]IN TE[employer] this procedure are in the results section. CARDIAC PANEL Timed Study 07/19/2021 10:43 Results fo r AM [employer] this procedure are in the results section. PHOSPHORUS LEVEL Now 07/19/2021 10:43 Results for AM [employer]IN TE[employer]ER this procedure are in the results section. MAGNESIUM LEVEL Now 07/19/2021 10:43 Results for AM [employer]ARIN TE[employer]ER this procedure are in the results section. COMPREHENSIVE Now 07/19/2021 10:43 METABOLIC PANEL AM [employer]IN TE[employer]ER COMPLETE BLOOD COUNT Now 07/19/2021 10:43 W/ DIFFERENTIAL AM [employer]IN TE[employer]ER RESPIRATORY VIRAL Now 07/19/2021 10:43 Result s for PANEL + COVID-19, AM [employer]IN TE[employer]ER this proce dure NASOPHARYNGEAL SWAB are in t he results section. EKG, 12-LEAD STAT 07/19/2021 (PORTABLE) OSI CHEST Routine 07/08/2021 11:55 Cancer Results for PM [employer]IN TE[employer]ER this procedure are in the results section. OSI BONE DENSITY STUDY Routine 07/08/2021 11:54 Cancer R esults for PM [employer]ARIN TE[employer]ER this procedure are in the results section. OSI CHEST Routine 06/19/2021 11:54 Cancer Results for PM [employer]IN TE[employer]ER this procedure are in the results section. OSI CHEST Routine 06/03/2021 11:55 Cancer Results for PM [employer]IN TE[employer]ER this procedure are in the results section. after 03/09/[address] Chest Abdomen Pelvis with Contrast Lymphoma (01/27/2022 9:06 AM CDT) Anatomical Region Laterality Modality Chest, Abdomen, Pelvis Computed Tomograp hy Specimen (Source) Anatomical Collection Method Collection Time Re ceived Time Location / / Volume Laterality 01/28/2022 1:41 PM CDT Impressions 01/28/2022 1:56 PM CDT 1. Stable small volume adenopathy in [facility] chest, abdomen and pelvis when compared to the PET/CT of 11/12/2021. 2. Multiple lung lesions are are uncha nged since more recent chest CT of 01/05/2022 and remain indeterminate, infection, scar and/or tumor. Narrative 01/28/2022 1:56 PM CDT Examination: CT CHEST ABDOMEN PELVIS W C ONTRAST LYMPHOMA, 01/27/2022 9:06 AM Clinical History: Lymphadenopathy Indication: Multicompartment lymphadenop athy. Restaging to assess disease progression Comparison: CT chest 01/05/2022 and PET/C T 11/12/2021 Technique: CT of the chest, abdomen, and pelvis was performed with intravenous contrast. Findings: Chest: Extensive emphysematous changes are agai n identified throughout both lungs. A spiculated lesion in the left upper lobe (series 7 image [id number]), a partially cavitary pleural-based masslike opacity in the rig ht lower lobe (series 7 image [id number]) and a few other scattered nodular lesions such as in the lingula (series 7 image 62) remain stable and indeterminate since 01/05/2022. Differential considerations include infection, scar or tumor. There are some prominent axillary and me diastinal nodes that remain unchanged since 01/05/2022. No new or enlarging lymph nodes are seen. A small pericardial effusion is identifi ed. Abdomen and pelvis: There are no suspicious liver lesions. T he gallbladder is unremarkable. There is no biliary obstruction. The spleen is not enlarged. The pancreas and adrenal glands are unremarkable. The kidneys function without hydronephro sis. Tiny renal cortical cysts are seen. A few prominent retroperitoneal and righ t pelvic lymph nodes remain stable since the PET/CT of 5 10/13/2021. A primary care sales representative right external iliac node measures approximately 2 x 1.2 cm (series 6 image 251) compared to 2.1 x 1.1 cm previously. Degenerative changes are seen in the spi ne. Procedure Note Zena Singh MD - 01/28/2022 Examination: CT CHEST ABDOMEN PELVIS W C ONTRAST LYMPHOMA, 01/27/2022 9:06 AM Clinical History: Lymphadenopathy Indication: Multicompartment lymphadenop athy. Restaging to assess disease progression Comparison: CT chest 01/05/2022 and PET/C T 11/12/2021 Technique: CT of the chest, abdomen, and pelvis was performed with intravenous contrast. Findings: Chest: Extensive emphysematous changes are agai n identified throughout both lungs. A spiculated lesion in the left upper lobe (series 7 image 31), a partially cavitary pleural-based masslike opacity in the right lower lobe (series 7 image 85) and a few other scat tered nodular lesions such as in the lingula (series 7 image 62) remain stable and indeterminate since 01/05/2022. Differential considerations include infection, scar or tumor. There are some prominent axillary and me diastinal nodes that remain unchanged since 01/05/2022. No new or enlarging lymph nodes are seen. A small pericardial effusion is identifi ed. Abdomen and pelvis: There are no suspicious liver lesions. T he gallbladder is unremarkable. There is no biliary obstruction. The spleen is not enlarged. The pancreas and adrenal glands are unremarkable. The kidneys function without hydronephro sis. Tiny renal cortical cysts are seen. A few prominent retroperitoneal and righ t pelvic lymph nodes remain stable since the PET/CT of 5 10/13/2021. A primary care sales representative right external iliac node measures approximately 2 x 1.2 cm (series 6 image 251) compared to 2.1 x 1.1 cm previously. Degenerative changes are seen in the spi ne. IMPRESSION: 1. Stable small volume adenopathy in the chest, abdomen and pelvis when compared to the PET/CT of 11/12/2021. 2. Multiple lung lesions are are unchang ed since more recent chest CT of 01/05/2022 and remain indeterminate, infection, scar and/or tumor. [facility] CT ORDERABLES CT Neck with Contrast Lymphoma (01/27/2022 9:06 AM CDT) Anatomical Region Laterality Modality Neck Computed Tomography Specimen (Source) Anatomical Collection Method Collection Time Re ceived Time Location / / Volume Laterality 01/27/2022 9:23 AM CDT Impressions 01/27/2022 9:40 AM CDT 1. The solid and cystic lesion suspici ous to represent the parathyroid adenoma in the right paraesophageal region was better seen on the 4D CTA obtained on 10/16/2021. 2. Stable paraesophageal lymphadenopat hy compared to the 4D CTA. 3. Severe emphysema the bilateral pulm onary atelectasis, with suspicious nodule in the left apex better described on today's chest CT. Please refer to the report for the chest CT for complete characterization. Narrative 01/27/2022 9:40 AM CDT FULL RESULT: EXAMINATION: CT NECK W CONTRAST LYMPHOMA , on 01/27/2022 9:06 AM CLINICAL HISTORY: 81 years of age, Male, Lymphadenopathy. INDICATION: Multicompartment lymphadenop athy. Restaging to assess disease progression COMPARISON: Parathyroid the CTA dated 10/16/2021. TECHNIQUE: CT neck was performed followi ng administration of IV contrast. FINDINGS: Soft tissues: The solid and cystic lesio n suspicious to represent a parathyroid adenoma in the right paraesophageal region is not very well seen on today's study and was better characterized on the 4D C TA obtained on 10/16/2021. The cervical ly mphadenopathies located inferior to lesion in the esophago- tracheal groove are again seen, measuring 12 and 9 mm, unchanged compared to the 40 CTA.. Lymph nodes: Scattered subcentimeter lym ph nodes are present in the neck bilaterally, none of which is pathological by size or morphologic criteria. Pharynx/airway: The nasopharynx, orophar ynx, hypopharynx, larynx, and trachea are normal. Paranasal sinuses: Normal Major salivary glands: Normal. Thyroid: Normal. Vessels: Calcification of the bilateral carotid bifurcations. Bones: Multiple level degenerative ingram es of the cervical spine. Lung apices: Severe emphysema of the talib g apices, already present on previous study. There is a retractile nodule in the left pulmonary apex that is better described on characterize the chest obtained o n the same day. Please refer to the repo rt for the CT chest. Visualized brain parenchyma: Normal. Procedure Note Anthony Dotson MD - 01/27/2022Formatti ng of this note might be different from the original. FULL RESULT: EXAMINATION: CT NECK W CONTRAST LYMPHOMA , on 01/27/2022 9:06 AM CLINICAL HISTORY: 81 years of age, Male, Lymphadenopathy. INDICATION: Multicompartment lymphadenop athy. Restaging to assess disease progression COMPARISON: Parathyroid the CTA dated 10/16/2021. TECHNIQUE: CT neck was performed followi ng administration of IV contrast. FINDINGS: Soft tissues: The solid and cystic lesio n suspicious to represent a parathyroid adenoma in the right paraesophageal region is not very well seen on today's study and was better characterized on the 4D CTA obtained on 10/16/2021. The cervical lymphadenopath ies located inferior to lesion in the esophago- tracheal groove are again seen, measuring 12 and 9 mm, unchanged compared to the 40 CTA.. Lymph nodes: Scattered subcentimeter lym ph nodes are present in the neck bilaterally, none of which is pathological by size or morphologic criteria. Pharynx/airway: The nasopharynx, orophar ynx, hypopharynx, larynx, and trachea are normal. Paranasal sinuses: Normal Major salivary glands: Normal. Thyroid: Normal. Vessels: Calcification of the bilateral carotid bifurcations. Bones: Multiple level degenerative ingram es of the cervical spine. Lung apices: Severe emphysema of the talib g apices, already present on previous study. There is a retractile nodule in the left pulmonary apex that is better described on characterize the chest obtained on the same day. Please refer to the report for the CT chest. Visualized brain parenchyma: Normal. IMPRESSION: 1. The solid and cystic lesion suspiciou s to represent the parathyroid adenoma in the right paraesophageal region was better seen on the 4D CTA obtained on 10/16/2021. 2. Stable paraesophageal lymphadenopathy compared to the 4D CTA. 3. Severe emphysema the bilateral pulmon shaquille atelectasis, with suspicious nodule in the left apex better described on today's chest CT. Please refer to the report for the chest CT for complete characterization. [facility] ORDERABLES .Serum Creatinine (01/27/2022 7:15 AM CDT)Only the most recent of17 results within the time period is included. athologist Signature Creatinine 1.09 0.67 - 1.17 [place] mg/dL Comment: Testing performed at [facility], [address] [place], [place] [id number] Specimen Anatomical Collection Method Collection Time Receive d Time (Source) Location / / Volume Laterality Blood 01/27/2022 7:15 AM 2 7:15 CDT AM CDT [facility] ORDERABLES Performing Organization Address City/State/[place] [address] [place] [address] (ABNORMAL) .CBC (01/27/2022 7:15 AM CDT)Only the most recent of14 resultswithin the time period is included. athologist Signature WBC 7.8 4.0 - 11.0 [place] K/uL Comment: All components of the CBC perfo rmed at [facility], [address] [place], [place] [id number] 3 RBC 4.01 (L) 4.50 - 6.00 M/uL [place] Comment: All components of the CBC perfo rmed at [facility], [address] [place] [address] 7757 3 Hgb 12.6 (L) 14.0 - 18.0 gm/dL [place] Comment: As part of CBC or as an individ ual orderable testing performed at [facility], [address] [place] [address]381 Hct 38.5 (L) 40.0 - 54.0 % [place] Comment: As part of CBC testing performe d at [facility], [address] [place] [address] 58553 MCV 96 82 - 98 fL [place] Comment: As part of CBC testing performe d at [facility], [address] [place] [address] 27014 MCH 31.4 (H) 27.0 - 31.0 pg [place] Comment: As part of CBC testing performe d at [facility], [address] [place] [address] 94570 MCHC 32.7 31.0 - 36.0 gm/dL [place] Comment: As part of CBC testing performe d at [facility], [address] [place] [address] 96985 RDW-SD 51.7 (H) 35.1 - 46.3 fL [place] Comment: As part of CBC testing performe d at [facility], [address] [place] [address] 34483 RDW-CV 15.3 12.0 - 15.5 % [place] Comment: As part of CBC testing performe d at [facility], [address] [place] [address] 42359 Platelet count 364 140 - 440 K/uL [facility] Comment: As part of CBC or an individual orderable testing performed at [facility], [address] [place] [address] 34289 MPV 8.7 4.0 - 10.4 fL [place] Comment: As part of CBC testing performe d at [facility], [address] [place] [address] Specimen Anatomical Collection Method Collection Time Receive d Time (Source) Location / / Volume Laterality Blood 01/27/2022 7:15 AM 07/19/202 2 7:15 CDT AM CDT [facility] ORDERABLES Performing Organization Address City/State/ZIP Code Phon e Number [facility] [place] [address] [address] [facility] TMP Interpretation Manual Antibody Screen Negative (01/27/2022 7:15 AM CDT)Only the most recent of2 resultswithin the time period is included. [facility] TMP Neg ABSC At the [facility] patient plasma shows no evidence of RBC alloantibodi es. Comment: ZACHARY CARTER MD, PhD - [id number] Dictated by: ZACHARY CARTER MD, Ph D - [id number] Dictated Date/Time: 01.28.2022 8:08 AM C DT Transcribed Date/Time: 01.28.2022 8:08 AM CDT Electronically Signed By: ZACHARY CARTER MD, PhD - [id number] on 01.28.2022 8:08 AM C Specimen Anatomical Collection Method Collection Time Receive d Time (Source) Location / / Volume Laterality Blood 01/27/2022 7:15 AM 2 1:47 CDT PM CDT [facility] TEST ORDERABLES Performing Organization Address City/State/ZIP Code Phon e Number [facility] Unless otherwise noted, [place] [address] [place] all lab tests performed by: Division of Pathology and Laboratory Medicine [address] [place] [address] Clot Expiration Date (01/27/2022 7:15 AM CDT)Only the most recent of2 results within the time period is included. [facility] Signature T & S 01/30/2022 [facility] Specimen Anatomical Collection Method Collection Time Receive d Time (Source) Location / / Volume Laterality Blood 01/27/2022 7:15 AM 2 1:47 CDT PM CDT [facility] TEST ORDERABLES Performing Organization Address City/State/ZIP Code Phon e Number [facility] Unless otherwise noted, [place] [address] CENTER all lab tests performed by: Division of Pathology and Laboratory Medicine [address] [facility] Glomerular Filtration Rate (01/27/2022 7:15 AM CDT)Only the most recent of17 resultswithin the time period is included. athologist Signature eGFR-AA 72 >=60 [place] mL/min/1.73 sq. m Comment: Normal eGFR >= [...] 5 Kidney failure <15 Testing performed at [facility], [address] [place] [address] eGFR-TRACI 62 >=60 mL/min/1.73 sq. m [place] Comment: Normal eGFR >= 60 mL/min/1.73 m2 [...] 5 Kidney failure <15 Testing performed at [facility], [address] [place] [address] Specimen Anatomical Collection Method Collection Time Receive d Time (Source) Location / / Volume Laterality Blood 01/27/2022 7:15 AM 2 7:15 CDT AM CDT [facility] ORDERABLES Performing Organization Address City/[facility] [place] [address] [place] [address] Fractionated Bilirubin (01/27/2022 7:15 AM CDT)Only the most recent of13 results within the time period is included. athologist Signature Bili Total 0.6 <=1.2 mg/dL [place] Comment: Indocyanine Green (ICG) may cause falsel y elevated bilirubin results. Total and direct bilirubin must not be measured from samples containing indocyanine green. False elevation of total bilirubin can b e seen in patients with IgG concentrations above 28 g/L. Testing performed at [facility], [address] [place] [address] Bili Direct <0.2 <=0.3 mg/dL [place] Comment: Indocyanine Green (ICG) may cause falsel y elevated bilirubin results. Total and direct bilirubin must not be measured from samples containing indocyanine green. Testing performed at [facility], [address] [place] [address] Bili Indirect See Note 0.0 - 0.9 mg/dL [facility] Y Comment: Unable to calculate Indirect Bilirubin r esult due to some parameters are outside reportable range Testing performed at [facility], [address] [place] [address] Specimen Anatomical Collection Method Collection Time Receive d Time (Source) Location / / Volume Laterality Blood 01/27/2022 7:15 AM 2 7:15 CDT AM CDT [facility] ORDERABLES Performing Organization Address City/[facility]/[place] [address] Antibody Screen Manual (01/27/2022 7:15 AM CDT)Only the most recent of2 results within the time period is included. Patholo gist Method Time Signature ABSC Interp Negative ABSC [facility] Specimen Anatomical Collection Method Collection Time Receive d Time (Source) Location / / Volume Laterality Blood 01/27/2022 7:15 AM 2 1:47 CDT PM CDT [facility] TEST ORDERABLES Performing Organization Address City/State/ZIP Code Phon e Number [facility] Unless otherwise noted, [address] all lab tests performed by: Division of Pathology and Laboratory Medicine [address] [place] [address] [place] ABORh Manual (01/27/2022 7:15 AM CDT)Only the most recent of2 resultswithin the time period is included. P athologist Signature ABORh Manual A POS [facility] Specimen Anatomical Collection Method Collection Time Receive d Time (Source) Location / / Volume Laterality Blood 01/27/2022 7:15 AM 2 1:47 CDT PM CDT [facility] TEST ORDERABLES Performing Organization Address City/State/ZIP Code Phon e Number [facility] Unless otherwise noted, [address] all lab tests performed by: Division of Pathology and Laboratory Medicine [address] [place] [address] [place] TMP Interpretation ABORh Discrepancy (01/27/2022 7:15 AM CDT)Only the most recent of3 resultswithin the time period is included. P athologist Signature TMP ABORh Disc . [facility] CENTER Comment: ZACHARY CARTER MD, PhD - [id number] Dictated by: ZACHARY CARTER MD, Ph D - [id number] Dictated Date/Time: 01.28.2022 18:01 PM CDT Transcribed Date/Time: 01.28.2022 18:01 PM CDT Electronically Signed By: ZACHARY CARTER MD, PhD - [id number] on 01.28.2022 18:01 PM Specimen Anatomical Collection Method Collection Time Receive d Time (Source) Location / / Volume Laterality Blood 01/27/2022 7:15 AM 2 1:47 CDT PM CDT [facility] TEST ORDERABLES Performing Organization Address City/State/ZIP Code Phon e Number [facility] Unless otherwise noted, [place], [place] [id number] [place] [address] all lab tests performed by: Division of Pathology and Laboratory Medicine [address] (ABNORMAL) Differential (01/27/2022 7:15 AM CDT)Only the most recent of14 resultswithin the time period is included. athologist Signature Neutrophil % 57.1 42.0 - 66.0 [place] % Comment: All components of the Different ial performed at [facility], [address] [place] [address] Lymphocyte % 29.3 24.0 - 44.0 % [place] Comment: As part of the Differential miguel ting performed at [facility], [address] [place] [address] 11754 Monocyte % 10.2 (H) 2.0 - 7.0 % [place] Comment: As part of the Differential miguel ting performed at [facility], [address] [place] [address] 14421 Eosinophil % 2.7 1.0 - 4.0 % [place] Comment: As part of the Differential miguel ting performed at [facility], [address] [place] [address] 06810 Basophil % 0.4 0.0 - 1.0 % [place] Comment: As part of the Differential miguel ting performed at [facility], [address] [place] [address] IGRE % 0.3 0.0 - 0.4 % [place] Comment: IGRE % count includes Metamyelocytes, My elocytes, and Promyelocytes. As part of the Differential testing perf ormed at [facility], [address], [place] [address] Neutrophil Abs 4.44 1.70 - 7.30 K/uL [facility] Comment: As part of the Differential miguel ting performed at [facility], [address] [place] [address]6555 Lymphocyte Abs 2.27 1.00 - 4.80 K/uL [facility] Comment: As part of the Differential miguel ting performed at [facility], [address] [place] [address], [place] [id number] Monocyte Abs 0.79 (H) 0.08 - 0.70 K/uL [facility] Comment: As part of the Differential miguel ting performed at [facility], [address] [place] [address], [place] [address] Eosinophil Abs 0.21 0.04 - 0.40 K/uL [facility] Comment: As part of the Differential miguel ting performed at [facility], [address] [place] [address]2032 Basophil Abs 0.03 0.00 - 0.10 K/uL [facility] Comment: As part of the Differential miguel ting performed at [facility], [address] [place] [address] 14940 IG Abs 0.02 0.00 - 0.04 K/uL [place] Comment: As part of the Differential miguel ting performed at [facility], [address] [place] [address]402 Specimen Anatomical Collection Method Collection Time Receive d Time (Source) Location / / Volume Laterality Blood 01/27/2022 7:15 AM 7:15 CDT AM CDT [facility] ORDERABLES Performing Organization Address City/State/[place] [address] [place] [address] Uric Acid (01/27/2022 7:15 AM CDT)Only the most recent of2 resultswithin the time period is included. athologist Signature Uric Acid 5.8 3.4 - 7.0 [place] mg/dL Comment: Testing performed at [facility], [address] [place] [address] Specimen Anatomical Collection Method Collection Time Receive d Time (Source) Location / / Volume Laterality Blood 01/27/2022 7:15 AM 2 7:15 CDT AM CDT [facility] ORDERABLES Performing Organization Address City/[facility]/ZIP Code Phon e Number [address] (ABNORMAL) BUN (01/27/2022 7:15 AM CDT)Only the most recent of17 resultswithin the time period is included. athologist Signature BUN 25 (H) 6 - 23 mg/dL [place] Comment: Testing performed at [facility], [address] [place] [address] Specimen Anatomical Collection Method Collection Time Receive d Time (Source) Location / / Volume Laterality Blood 01/27/2022 7:15 AM 2 7:15 CDT AM CDT [facility] ORDERABLES Performing Organization Address City/[facility]/ZIP Code Phon e Number [address] ALT (01/27/2022 7:15 AM CDT)Only the most recent of13 resultswithin the time period is included. P athologist Signature ALT 20 <=41 U/L [place] Comment: Testing performed at [facility], [address] [place] [address] Specimen Anatomical Collection Method Collection Time Receive d Time (Source) Location / / Volume Laterality Blood 01/27/2022 7:15 AM 2 7:15 CDT AM CDT [facility] ORDERABLES Performing Organization Address City/[facility]/ZIP Code Phon e Number [address] Aspartate Aminotransferase (01/27/2022 7:15 AM CDT)Only the most recent of13 resultswithin the time period is included. P athologist Signature AST 26 <=40 U/L [place] Comment: Testing performed at [facility], [address] [place] [address] Specimen Anatomical Collection Method Collection Time Receive d Time (Source) Location / / Volume Laterality Blood 01/27/2022 7:15 AM 2 7:15 CDT AM CDT [facility] ORDERABLES Performing Organization Address City/[facility]/ZIP Code Phon e Number [place], [place] [id number] [place] [address] (ABNORMAL) Total Protein (01/27/2022 7:15 AM CDT)Only the most recent of13 resultswithin the time period is included. athologist Signature Total Protein 11.4 (H) 6.4 - 8.3 [place] g/dL Comment: Testing performed at [facility], [address] [place] [address] Specimen Anatomical Collection Method Collection Time Receive d Time (Source) Location / / Volume Laterality Blood 01/27/2022 7:15 AM 2 7:15 CDT AM CDT [facility] ORDERABLES Performing Organization Address City/[facility]/[place] [address] [place] [address] Phosphorus Level (01/27/2022 7:15 AM CDT)Only the most recent of12 resultswithin the time period is included. athologist Signature Phosphorus 2.9 2.5 - 4.5 [place] mg/dL Comment: Testing performed at [facility], [address] [place] [address] Specimen Anatomical Collection Method Collection Time Receive d Time (Source) Location / / Volume Laterality Blood 01/27/2022 7:15 AM 2 7:15 CDT AM CDT [facility] ORDERABLES Performing Organization Address City/[facility]/[place] [address] [place] [address] Alkaline Phosphatase (01/27/2022 7:15 AM CDT)Only the most recent of13 results within the time period is included. athologist Signature Alk Phos 58 40 - 129 U/L [place] Comment: Testing performed at [facility], [address] [place] [address] Specimen Anatomical Collection Method Collection Time Receive d Time (Source) Location / / Volume Laterality Blood 01/27/2022 7:15 AM 2 7:15 CDT AM CDT [facility] ORDERABLES Performing Organization Address City/[facility]/ZIP [place] Phon e Number [address] Magnesium Level (01/27/2022 7:15 AM CDT)Only the most recent of11 resultswithin the time period is included. athologist [facility] Magnesium 1.8 1.6 - 2.6 [place] mg/dL Comment: Testing performed at [facility], [address] [place] [address] Specimen Anatomical Collection Method Collection Time Receive d Time (Source) Location / / Volume Laterality Blood 01/27/2022 7:15 AM 2 7:15 CDT AM CDT [facility] ORDERABLES Performing Organization Address City/[facility]/ZIP Code Phon e [address] LDH (01/27/2022 7:15 AM CDT)Only the most recent of2 resultswithin the time period is included. athologist Signature LDH 185 135 - 225 [place] U/L Comment: Results greater than 1651 U/L may not be reliable due to matrix effect with extended dilution as it exceeds the master craftsman's recommended limit. Caution should be exercised when interpreting such values and done in conjunction with clinical context. Testing performed at [facility], [address] [place] [address] Specimen Anatomical Collection Method Collection Time Receive d Time (Source) Location / / Volume Laterality Blood 01/27/2022 7:15 AM 2 7:15 CDT AM CDT [place] [place] LAB BLOOD ORDERABLES Performing Organization Address City/[facility]/[place] [address] [place] [address] (ABNORMAL) Glucose Level (01/27/2022 7:15 AM CDT)Only the most recent of14 resultswithin the time period is included. P athologist Signature Glucose Level 104 (H) 70 - 99 [place] mg/dL Comment: Effective 02/05/16, the glucose reference intervals have been updated based on [place] [employer] guidelines (Standards of Medical Care in Diabetes 2016. Diabetes Care 2016; 39: S13-S22). Fasting blood glucose: Normal: 70-99 mg/dL Impaired fasting glucose (increased risk for diabetes or pre-diabetes): 100- 125 mg/dL Diabetes mellitus: >/=126 mg/dL Random blood glucose: Normal: 70-199 mg/dL Note: Random glucose >100 mg/dL is assoc iated with increased risk for diabetes Testing performed at [facility], [address] [place] [address] Specimen Anatomical Collection Method Collection Time Receive d Time (Source) Location / / Volume Laterality Blood 01/27/2022 7:15 AM 2 7:15 CDT AM CDT [place] [place] LAB BLOOD ORDERABLES Performing Organization Address City/State/[place] [address] [place] [address] Calcium Level (01/27/2022 7:15 AM CDT)Only the most recent of16 resultswithin the time period is included. athologist Signature Calcium Lvl 9.6 8.4 - 10.2 [place] mg/dL Comment: Testing performed at [facility], [address] [place] [address] Specimen Anatomical Collection Method Collection Time Receive d Time (Source) Location / / Volume Laterality Blood 01/27/2022 7:15 AM 2 7:15 CDT AM CDT [place] LAB BLOOD ORDERABLES Performing Organization Address City/State/[place] [address] [place] [address] (ABNORMAL) Albumin Level (01/27/2022 7:15 AM CDT)Only the most recent of15 resultswithin the time period is included. athologist Signature Albumin Lvl 3.3 (L) 3.5 - 5.2 [place] gm/dL Comment: Testing performed at [facility], [address] [place] [address] Specimen Anatomical Collection Method Collection Time Receive d Time (Source) Location / / Volume Laterality Blood 01/27/2022 7:15 AM 7:15 CDT AM CDT [place] LAB BLOOD ORDERABLES Performing Organization Address City/[facility] [place] [address] [place] [address] (ABNORMAL) Electrolyte Panel (01/27/2022 7:15 AM CDT)Only the most recent of15 resultswithin the time period is included. athologist Signature Sodium Lvl 133 (L) 136 - 145 [place] mEq/L Comment: Testing performed at [facility], [address] [place] [address] Potassium Lvl 4.8 3.5 - 5.1 mEq/L [facility] Comment: Testing performed at [facility], [address] [place] [address] Chloride 101 98 - 107 mEq/L [place] Comment: Testing performed at [facility], [address] [place] [address] CO2 22 22 - 29 mEq/L [place] Comment: Testing performed at [facility], [address] [place] [address] Anion Gap 10 4 - 14 mEq/L [place] Comment: Testing performed at [facility], [address] [place] [address] Specimen Anatomical Collection Method Collection Time Receive d Time (Source) Location / / Volume Laterality Blood 01/27/2022 7:15 AM 2 7:15 CDT AM CDT [place] LAB BLOOD ORDERABLES Performing Organization Address City/[facility]/[place] [address] [address] [facility] (ABNORMAL) IgG Subclasses (01/16/2022 9:11 AM CDT)Only the most recent of5 resultswithin the time period is included. Analysis Performed At Patho logist Time Signature IgG Total-Sor[place] 6120 (H) 767 - 1590 [place] MD mg/dL [facility] IgG1-[place] 3890 (H) 341 - 894 [place] MD mg/dL [facility] IgG2-[place] 312 171 - 632 [place] MD mg/dL [facility] IgG3-[place] 38.8 18.4 - DE MD 106.0 MARYA mg/dL [facility] IgG4-[place] 1790.0 (H) 2.4 - DE MD 121.0 MARYA mg/dL [facility] Comment: Test Performed by: [facility] [place] [address] [address] Speaker Wirer: Sajan Field M.D. Ph. D.; CLIA# [id number] Specimen Anatomical Collection Method Collection Time Receive d Time (Source) Location / / Volume Laterality Blood 01/16/2022 9:11 AM 2 9:11 CDT AM CDT [facility] - 2 6:55 PM CDT At the [facility] Taz Virgen MD LAB BLOOD ORDERABLES Performing Organization Address City/State/ZIP Code Phon e Number [facility] CANCER Unless otherwise noted, [place] [address] [place] all lab tests performed by: Division of Pathology and Laboratory Medicine Yogesh Hughes (ABNORMAL) C3 Complement (01/16/2022 9:11 AM CDT)Only the most recent of3 resultswithin the time period is included. P athologist Signature C3-[place] 58 (L) 75 - 175 [facility] mg/dL [facility] Comment: Test Performed by: [facility] [address] [place] [address] Speaker Wirer: Sajan Field M.D. Ph. D.; CLIA# [id number] Specimen Anatomical Collection Method Collection Time Receive d Time (Source) Location / / Volume Laterality Blood 01/16/2022 9:11 AM 2 9:11 CDT AM CDT Narrative [facility] - 2 5:25 PM CDT At the [facility] Taz Virgen MD LAB BLOOD ORDERABLES Performing Organization Address City/State/[facility] Phon e Number [facility] Unless otherwise noted, [address] all lab tests performed by: Division of Pathology and Laboratory Medicine [address] (ABNORMAL) C4 Complement (01/16/2022 9:11 AM CDT)Only the most recent of3 resultswithin the time period is included. athologist [address] 4 (L) 14 - 40 [facility] mg/dL [facility] Comment: Test Performed by: [facility] [place] [address] Speaker Wirer: Sajan Field M.D. Ph. D.; CLIA# [id number] Specimen Anatomical Collection Method Collection Time Receive d Time (Source) Location / / Volume Laterality Blood 01/16/2022 9:11 AM 2 9:11 CDT AM CDT Narrative [facility] - 2 6:50 PM CDT At the [facility] Taz Virgen MD LAB BLOOD ORDERABLES Performing Organization Address City/State/[facility] Phon e Number [facility] Unless otherwise noted, [address] all lab tests performed by: Division of Pathology and Laboratory Medicine [address] (ABNORMAL) Sed Rate (01/16/2022 9:02 AM CDT)Only the most recent of3 results within the time period is included. athologist Signature Sed Rate 28 (H) 0 - 9 mm/hr [place] Comment: Performed at Rick Malhotra [facility], [address] [place] [address] Specimen Anatomical Collection Method Collection Time Receive d Time (Source) Location / / Volume Laterality Blood 01/16/2022 9:02 AM 2 9:11 CDT AM CDT [facility] - 01/16/2022 10:35 AM CDT At the [facility] Taz Virgen MD LAB BLOOD ORDERABLES Performing Organization Address City/[facility]/[place] [address] [place] [address] CRP (01/16/2022 9:02 AM CDT)Only the most recent of4 resultswithin the time period is included. athologist Signature CRP 5.79 mg/L [place] Comment: Reference ranges for HS CRP assay are as follows: Reference ranges when used to assess ca rdiac risk: <1.00 mg/L Low cardiovascular risk 1.00-3.00 mg/L Average cardiovascular risk >3.00 mg/L High cardiovascular risk. Reference ranges when used to assess inf lammatory responses: Less than or equal to 10.00 mg/L. [facility], [address] [place] [address] Specimen Anatomical Collection Method Collection Time Receive d Time (Source) Location / / Volume Laterality Blood 01/16/2022 9:02 AM 2 9:12 CDT AM CDT [facility] - 01/16/2022 9:53 AM CDT At the [facility] Taz Virgen MD LAB BLOOD ORDERABLES Performing Organization Address City/State/[place] [address] [place] [address] (ABNORMAL) TSH (01/16/2022 9:02 AM CDT)Only the most recent of4 resultswithin the time period is included. athologist Signature TSH 12.25 (H) 0.27 - 4.20 [place] mcunit/mL Comment: Testing performed at [facility], [address] [place] [address] Specimen Anatomical Collection Method Collection Time Receive d Time (Source) Location / / Volume Laterality Blood 01/16/2022 9:02 AM 2 9:12 CDT AM CDT [facility] - 01/16/2022 9:53 AM CDT At the [facility] Taz Virgen MD LAB BLOOD ORDERABLES Performing Organization Address City/State/ZIP Code Phon e Number [place], [place] [address] [place] [address] (ABNORMAL) Lipase Level (01/16/2022 9:02 AM CDT)Only the most recent of2 results within the time period is included. P athologist Signature Lipase Lvl 84 (H) 13 - 60 U/L [place] Comment: Testing performed at [facility], [address] [place] [address] Specimen Anatomical Collection Method Collection Time Receive d Time (Source) Location / / Volume Laterality Blood 01/16/2022 9:02 AM 2 9:12 CDT AM CDT [facility] - 01/16/2022 9:37 AM CDT At the [facility] Taz Virgen MD LAB BLOOD ORDERABLES Performing Organization Address City/[facility]/[place] [address] [place] [address] Amylase Level (01/16/2022 9:02 AM CDT)Only the most recent of2 resultswithin the time period is included. P athologist Signature Amylase Lvl 74 28 - 100 [place] U/L Comment: Testing performed at [facility], [address] [place] [address] Specimen Anatomical Collection Method Collection Time Receive d Time (Source) Location / / Volume Laterality Blood 01/16/2022 9:02 AM 2 9:12 CDT AM CDT [facility] - 01/16/2022 9:37 AM CDT At the [facility] Taz Virgen MD LAB BLOOD ORDERABLES Performing Organization Address City/State/[place] [address] [facility] [address] Chest with Contrast (01/05/2022 9:16 AM CDT) Anatomical Region Laterality Modality Chest Computed Tomography Specimen (Source) Anatomical Collection Method Collection Time Re ceived Time Location / / Volume Laterality 01/05/2022 1:06 PM CDT Impressions 01/05/2022 4:01 PM CDT 1. New left upper lobe nodule and no s ignificant change of right lower lobe masslike opacity, additional left upper lobe nodule and lingular opacities. Follow-up is advised. 2. Cardiomegaly with slight increase o f moderate sized pericardial effusion. 3. Small right pleural effusion. 4. Stable enlarged mediastinal and hil ar nodes. I personally reviewed these image(s) aline monteiro with the resident's/fellow's interpretations, certify that if a procedure was performed I was physically present, and agree with the final report. 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 Findings: Annotations are written as (series/image number). Lines and tubes: None. Lower neck and thyroid: The thyroid is n ormal in size. Lungs and airways: No significant change of right lower lobe masslike opacity with prior FDG avid mass activity measuring 5.1 x 3 cm. An 11 mm spiculated nodule in the left upper lobe (7/35) is new when compared to PET/CT on 11/12/2021. Otherwi se consolidative opacity of the lingula is stable compared to 09/14/2021. A nodular opacity in the left upper lobe (7/68) is stable compared to PET/CT on 11/12/2021. No other suspicious pulmonary nodules. S evere emphysema with biapical scarring. Pleural spaces: Small right pleural effu esequiel. No pneumothorax. Lymph nodes: Stable prominent mediastina l and hilar lymph nodes with metabolic activity on prior PET/CT. Cardiovascular: The left atrium and righ t cardiac chambers are enlarged. Increased moderate pericardial effusion. Extensive multivessel coronary artery calcifications. The thoracic aorta and main pulmon shaquille artery are normal in diameter. Moder ate atherosclerotic calcifications of the thoracic aorta and its major branches. Upper abdomen: The adrenal glands are no rmal. Subcentimeter perigastric and periportal lymph nodes. Bones and soft tissues: Degenerative alva nge of the thoracic spine and generalized osteopenia. Bilateral gynecomastia. Procedure Note Elian Merritt MD - 01/05/2022Form atting of this note might be different from the original. 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 Findings: Annotations are written as (series/image number). Lines and tubes: None. Lower neck and thyroid: The thyroid is n ormal in size. Lungs and airways: No significant change of right lower lobe masslike opacity with prior FDG avid mass activity measuring 5.1 x 3 cm. An 11 mm spiculated nodule in the left upper lobe (7/35) is new when compared to PET/CT on 11/12/2021. Otherwise consolidat alexandr opacity of the lingula is stable compared to 09/14/2021. A nodular opacity in the left upper lobe (7/68) is stable compared to PET/CT on 11/12/2021. No other suspicious pulmonary nodules. Severe emphysema with biapical scarring. Pleural spaces: Small right pleural effu esequiel. No pneumothorax. Lymph nodes: Stable prominent mediastina l and hilar lymph nodes with metabolic activity on prior PET/CT. Cardiovascular: The left atrium and righ t cardiac chambers are enlarged. Increased moderate pericardial effusion. Extensive multivessel coronary artery calcifications. The thoracic aorta and main pulmonary artery are normal in diameter. Moderate atheroscler otic calcifications of the thoracic aorta and its major branches. Upper abdomen: The adrenal glands are no rmal. Subcentimeter perigastric and periportal lymph nodes. Bones and soft tissues: Degenerative alva nge of the thoracic spine and generalized osteopenia. Bilateral gynecomastia. IMPRESSION: 1. New left upper lobe nodule and no sig nificant change of right lower lobe masslike opacity, additional left upper lobe nodule and lingular opacities. Follow-up is advised. 2. Cardiomegaly with slight increase of moderate sized pericardial effusion. 3. Small right pleural effusion. 4. Stable enlarged mediastinal and hilar nodes. I personally reviewed these image(s) aline ng with the resident's/fellow's interpretations, certify that if a procedure was performed I was physically present, and agree with the final report. Noa Tang MD IMG CT ORDERABLES POC Creatinine (01/05/2022 8:38 AM CDT) P athologist Signature POC Crea 1.1 0.6 - 1.3 POC [facility] mg/dL Comment: Medications, especially hydroxyurea or s upplements, such as ascorbate, can interfere with test results causing a falsely and significantly higher result than expected. If a problem is suspected with a patient's result, a sample should be sent to the laboratory for confirmatory testing. Method description: The i-STAT is an hailey lyzer used for in vitro quantification of various analytes in whole blood. The device uses a single disposable cartridge which contains microfabricated sensors, a calibration solution, fluidics system, and a waste chamber. Each test cartridge contains ch emically sensitive biosensors on a silicon chip that are configured to perform specific tests. The microfabricated sensors measure analyte concentration by an electrochemical assay. POC eGFR-AA 72 >=60 mL/min/1.73 m2 POC [facility] OR Comment: Normal eGFR >= 60 mL/min/1.73 m2 The eGFR is calculated using the CKD-EPI equation. The eGFR declines with age. eGFR <60 mL/min/1.73 m2 is considered as "decreased" This equation should only be used for patients 18 and older. According to the National Kid[employer] ion's Kidney Disease Outcome Quality Initiative (KDOQI) classification and 2012 Kidney Disease Improving Global Outcomes (KDIGO) Clinical Practice Guideline, the stage of CKD should be categorized based on estimated GFR. Stage Description GFR mL/min/1.73 m2 1 Kidney damage with normal or high GFR >=90 2 Kidney damage with mild decrease in GF R 60-89 3a Mild to moderate decrease in GFR 45-59 3b Moderate to severe decrease in GFR 30-44 4 Severe decrease in GFR 15-29 5 Kidney failure <15 (or dialysis) POC eGFR-TRACI 62 >=60 mL/min/1.73 m2 POC [facility] Comment: Normal eGFR >= 60 mL/min/1.73 m2 The eGFR is calculated using the CKD-EPI equation. The eGFR declines with age. eGFR <60 mL/min/1.73 m2 is considered as "decreased" This equation should only be used for patients 18 and older. According to the National Kid[employer] ion's Kidney Disease Outcome Quality Initiative (KDOQI) classification and 2012 Kidney Disease Improving Global Outcomes (KDIGO) Clinical Practice Guideline, the stage of CKD should be categorized based on estimated GFR. Stage Description GFR mL/min/1.73 m2 1 Kidney damage with normal or high GFR >=90 2 Kidney damage with mild decrease in GF R 60-89 3a Mild to moderate decrease in GFR 45-59 3b Moderate to severe decrease in GFR 30-44 4 Severe decrease in GFR 15-29 5 Kidney failure <15 (or dialysis) POC Clean Dev Yes POC [facility] Performing Lab [facility] POC TELCO R Comment: [facility] lisa CHU [facility] ,[address] [place] [address], [place] [address], Point of Care Speaker Wirer: Vivi Gibbons MD Specimen Anatomical Collection Method Collection Time Receive d Time (Source) Location / / Volume Laterality Blood 01/05/2022 8:38 AM 2 8:38 CDT AM CDT Noa Tang MD POCT ORDERABLES - DEVICE Performing Organization Address City/State/ZIP Code Phon e Number POC [facility] Intraoperative PTHi Spec 2 (11/25/2021 8:25 AM CDT) P athologist Signature IO PTHI S2 35.9 pg/mL [facility] Comment: No reference range has been established Testing Performed at [facility] Lab Printed [employer] [facility], [address] [place] [address], [address], [place] [address] % Drop S2 53.4 >=50.0 % [facility] Comment: Note: New Methodology and Reference Ra nge change effective 10/28/2017 at 1400 % drop of intraoperative PTH is calculat ed as: ((Baseline PTH Post Sample) Baseline PTH) x 100 Testing Performed at [facility] Lab [employer] [facility], [address], [address], [place] [address] Specimen Anatomical Collection Method Collection Time Receive d Time (Source) Location / / Volume Laterality Blood 11/25/2021 8:25 AM 2 8:34 CDT AM CDT Sonia Ferreira MD LAB BLOOD ORDERABLES Performing Organization Address [facility] Number [facility] [address] [facility] [place] [address] [address] (ABNORMAL) Intraoperative PTHi Spec 1 (11/25/2021 8:22 AM CDT) athologist [facility] IO PTHI S1 39.2 pg/mL [facility] Comment: No reference range has been established Testing Performed at [facility] [employer] [facility], [address], [address], [place] [phone] % Drop S1 49.2 (L) >=50.0 % [facility] Comment: Note: New Methodology and Reference Ra nge change effective 10/28/2017 at 1400 % drop of intraoperative PTH is calculat ed as: ((Baseline PTH Post Sample) Baseline PTH) x 100 Testing Performed at [facility] Lab [employer] [facility], [facility] [facility], [address], [place] [address] Specimen Anatomical Collection Method Collection Time Receive d Time (Source) Location / / Volume Laterality Blood 11/25/2021 8:22 AM 2 8:34 CDT AM CDT Sonia Ferreira MD LAB BLOOD ORDERABLES Performing Organization Address [facility] Number [facility] [address] [place] [address]. [place] [address] [address] Pathology Surgical Interpretation (11/25/2021 8:13 AM CDT)Only the most recent of2 resultswithin the time period is included. Component Value Ref Test Analysis Performed Pathologis t Range Method Time At Signature Submitted Primary 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dism [E21.0] 11/10 [facility] Clinical History 2 9:25 AM LABS Per EMR: Imaging shows a lar ge abnormal cystic lesion in the RIGHT paravertebral area at the level of the inferior thyroid (sestamibi and CT scan). 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 CDT Diagnosis A: Parathyroid gland, right superior, parathyroidectomy: [facility] Electronically Enlarged, hypercellular para thyroid gland consistent with nodular parathyroid hyperplasia 2 9:25 AM LABS signed by Sayed Size: 3.2 x 1.8 x 0.5 cm CDT Jenaro Weight: 1.703 g Remington valencia MD on Percent stromal fat: Less than 5% 11/28/2021 at Cell type: chief cells (70%) and oncocytic cells (30%) 9:25 AM [facility] Gross A: [facility] Description Parathyroid, right, right baca perior parathyroid gland: A 3.2 x 1.8 x 0.5 cm medley, partially cystic soft tissue fragment that weighs 1.703 g. Touch prep is performed. 2 9:25 AM LABS SECTION CODE: A1-representat alexandr sections submitted for frozen section diagnosis and permanent diagnosis; A2-remainder of specimen. KR CDT Intraoperative A: [facility] Evaluation Parathyroid, right, right superior parathyroid gland: 2 9:25 AM LABS Hypercellular parathyroid tissue. CDT Signed by Dr. Hyman. KR Disclaimer "Some tests reported [facility] here may have been 2 9:25 AM LABS developed and CDT performance characteristics determined by [facility] Pathology and Laboratory Medicine. These tests have not been specifically cleared or approved by the U.S. Food and Drug Administration. If applicable, controls were reviewed and showed appropriate reactivity." Specimen Anatomical Collection Method Collection Time Receive d Time (Source) Location / / Volume Laterality Tissue 11/25/2021 8:13 AM 2 8:19 (Parathyroid, CDT AM CDT Right) Comment: [facility] 3 Sonia Ferreira MD LAB PATHOLOGY ORDERABLES Performing Organization Address City/State/ZIP Code Phon e Number [facility] AP LABS [facility] [place] [address] [address] (ABNORMAL) Intraoperative PTHi Baseline (11/25/2021 7:38 AM CDT) P athologist Signature IO PTHI BL 77.1 (H) 15.0 - 65.0 [facility] pg/mL Comment: Note: New Methodology and Reference Ra nge change effective 10/28/2017 at 1400 Testing Performed at [facility] Lab [employer] [facility], [address], [address], [place] [address] Specimen Anatomical Collection Method Collection Time Receive d Time (Source) Location / / Volume Laterality Blood 11/25/2021 7:38 AM 2 7:46 CDT AM CDT Sonia Ferreira MD LAB BLOOD ORDERABLES Performing Organization Address City/[facility]/ZIP Code Phon e Number [facility] [address] [facility] [place] [address] [address] (ABNORMAL) POC Glucose Screen (11/25/2021 [...] Sample Type Venous POC TELCOR Performing Lab [facility] POC TELCO R Comment: [facility], [address] [place] [id number]; Lab Direct or: Denia Mcclellan MD Specimen Anatomical Collection Method Collection Time Receive d Time (Source) Location / / Volume Laterality Blood 11/25/2021 6:28 AM 2 6:28 CDT AM CDT Sonia Ferreira MD POCT ORDERABLES - DEVICE Performing Organization Address City/[facility]/ZIP Code Phon e Number POC TELCOR COVID-19 (SARS-CoV-2) PCR-Asymptomatic MC (11/21/2021 2:09 PM CDT) [facility] gist Method Time Signature COVID19 (SARS Not Detected Not Detected NIKOLE CHU CoV-2) [facility] Comment: This test is a qualitative reverse-trans criptase polymerase chain reaction (RT- PCR) developed for the Rosa OR[employer] Ak[employer]0 system and intended for qualitative detection of SARS CoV-2 RNA in nasopharyngeal a nd oropharyngeal swab specimens collecte d from any individuals, including those suspected o f COVID-19 by their healthcare provider, and those without symptoms or other reasons to suspect COVID-19. A fact sheet for patients provided by the master craftsman ( [employer]) can be rev iewed at: https://www.fda.gov/media/007094/downloa d. A fact sheet for Health Care providers is provided by the master craftsman ([employer]) and can be reviewed at: https://www.fda.gov/media/086100/download Results must be interpreted within the c [...] were verified by the Microbiology Laboratory at [facility], CLIA Accreditation #: [id number] and CAP Accreditation #: [id number]. COVID19 SARS Source 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 Swab DE MD PATEL [facility] COVID19 SARS Indication Pre-Out of OR Procedure [facility] Specimen (Source) Anatomical Collection Method Collection Time Re ceived Time Location / / Volume Laterality Nasopharyngeal Swab 11/21/2021 2:09 11/21 PM CDT 6:26 PM CDT Sonia Ferreira MD MICROBIOLOGY - GENERAL ORDER GIGI Performing Organization Address City/State/ZIP Code Phon e Number [facility] CANCER Unless otherwise noted, [place] [address] CENTER all lab tests performed by: Division of Pathology and Laboratory Medicine [facility] PETCT Subsequent Treatment Strategy (11/12/2021 12:00 PM [...] FULL RESULT: Examination: PETCT SUBSEQUENT TREATMENT STRATEGY [[id number]], 11/12/2021 12:00 PM. Clinical History: Non-Hodgkin lymphoma, [...] the left hand. PETCT SUBSEQUENT TREATMENT STRATEGY [[id number]]. Findings: Head and Neck: The known parathyroid [...] FULL RESULT: Examination: PETCT SUBSEQUENT TREATMENT STRATEGY [[id number]], 11/12/2021 12:00 PM. Clinical History: Non-Hodgkin lymphoma, [...] the left hand. PETCT SUBSEQUENT TREATMENT STRATEGY [[id number]]. Findings: Head and Neck: The known parathyroid [...] 2. Interval decrease in the size and FDG uptake of the right lower lobe mass that is consistent with rounded pneumonia/atelectasis. There has been an overall decrease in the FDG uptake of the pulmonary parenchyma and pleura, consistent with a resolving infe ctious or inflammatory process. Lowell Croft MD IMG PETCT ORDERABLES Glucose, Random (11/12/2021 9:28 AM CDT) athologist Signature Glucose Random 98 70 - 199 [place] mg/dL Comment: Effective 02/05/16, the glucose reference intervals have been updated based on [place] [employer] guidelines (Standards of Medical Care in Diabetes 2016. Diabetes Care 2016; 39: S13-S22) Fasting blood glucose: Normal: 70-99 mg/dL Impaired fasting glucose (increased risk for diabetes or pre-diabetes): 100-125 mg/dL Diabetes mellitus: >/= 126 mg/dL Random blood glucose: Normal: 70-199 mg/dL Note: Random glucose >100 mg/dL is assoc iated with increased risk for diabetes [facility], [address] [place] [address] Specimen Anatomical Collection Method Collection Time Receive d Time (Source) Location / / Volume Laterality Blood 11/12/2021 9:28 AM 9:29 CDT AM CDT Lowell Croft MD LAB BLOOD ORDERABLES Performing Organization Address City/State/ZIP Code Phon e Number [facility] [place] [address] [place] [address] Protein Electrophoresis Path Review (11/12/2021 9:28 AM CDT)Only the most recent of2 resultswithin the time period is included. 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 If a paraproteinemia is suspected clinically, serum free light chain bahman NIKOLE CHU Interp dies, serum protein SULEMAN studies, serum immunoglobulin MARYA quantitation and urine Bence-Mancia protein studies are recom mended. CANCER CENTER Comment: MD Giulia BONILLA [id number] Dictated by: MD Giulia BONILLA [id number] Dictated Date/Time: 11.16.2021 17:04 PM CDT Transcribed Date/Time: 11.16.2021 17:04 PM CDT Electronically Signed By: MD Giulia DANIEL [id number] on 11.16.2021 17:04 PM Specimen Anatomical Collection Method Collection Time Receive d Time (Source) Location / / Volume Laterality Blood 11/12/2021 9:28 AM CDT 12:57 PM CDT Lowell Croft MD LAB BLOOD ORDERABLES Performing Organization Address City/State/ZIP Code Phon e Number [facility] Unless otherwise noted, [place], [place] [id number] [place] [address] all lab tests performed by: Division of Pathology and Laboratory Medicine [address] [place] [address] SULEMAN Path Review (11/12/2021 9:28 AM CDT)Only the most recent of2 resultswithin the time period is included. Component Value Ref Test Analysis Performed At [facility] gist Range Method Time [facility] SULEMAN Path Int The follow-up serum protein [...] if clinically indicated. Comment: MD Giulia BONILLA [id number] Dictated by: MD Giulia BONILLA [id number] Dictated Date/Time: 11.16.2021 17:04 PM CDT Transcribed Date/Time: 11.16.2021 17:04 PM CDT Electronically Signed By: MD Giulia DANIEL [id number] on 11.16.2021 17:04 PM Specimen Anatomical Collection Method Collection Time Receive d Time (Source) Location / / Volume Laterality Blood 11/12/2021 9:28 AM 2 CDT 12:57 PM CDT Lowell Croft MD LAB BLOOD ORDERABLES Performing Organization Address City/State/ZIP Code Phon e Number [facility] Unless otherwise noted, [address] all lab tests performed by: Division of Pathology and Laboratory Medicine [address] [place] [address] Vitamin D 25OH (11/12/2021 9:28 AM CDT)Only the most recent of3 resultswithin the time period is included. athologist Signature Vitamin D 25 OH 49 30 - 100 [place] ng/mL Comment: Reference Range: Deficiency: <10 ng/mL Insufficiency: 10-29 ng/mL Sufficiency: 30-100 ng/mL Potential toxicity: >100 ng/mL [facility], [address] [place] [address] Specimen Anatomical Collection Method Collection Time Receive d Time (Source) Location / / Volume Laterality Blood 11/12/2021 9:28 AM 2 9:29 CDT AM CDT Lowell Croft MD LAB BLOOD ORDERABLES Performing Organization Address City/State/ZIP [place] Phon e Number [place], [place] [id number] [place] [address] (ABNORMAL) Prothrombin Time with INR (11/12/2021 9:28 AM CDT)Only the most recent of7 resultswithin the time period is included. athologist [facility] PT 14.0 (H) 11.5 - 13.9 [place] second(s) Comment: Testing performed at [facility], [address] [place] [address] INR 1.11 (H) 0.90 - 1.10 [place] Comment: Testing performed at [facility], [address] [place] [address] Specimen Anatomical Collection Method Collection Time Receive d Time (Source) Location / / Volume Laterality Blood 11/12/2021 9:28 AM 2 9:29 CDT AM CDT Narrative [facility] - 11/12/2021 9:54 AM CDT This lab cannot be scheduled at the [facility] locations due to collection/proccessing restrictions: [facility] and [facility]. [place] LAB BLOOD ORDERABLES Performing Organization Address City/[facility]/ZIP Code Phon e Number [place], [place] [id number] [place] [address] SULEMAN (11/12/2021 9:28 AM CDT)Only the most recent of3 resultswithin the time period is included. [facility] See Comment [facility] Specimen Anatomical Collection Method Collection Time Receive d Time (Source) Location / / Volume Laterality Blood 11/12/2021 9:28 AM 2 2:17 CDT PM CDT Lowell Croft MD LAB BLOOD ORDERABLES Performing Organization Address City/[facility] Phon e Number [facility] Unless otherwise noted, [place] [address] CENTER all lab tests performed by: Division of Pathology and Laboratory Medicine Sandra5 Lalo Hughes (ABNORMAL) Complement Total (11/12/2021 9:28 AM CDT) athologist [facility] Complement <3 (L) 30 - 75 [facility] unit/ CANCER CENTER Comment: Test Performed by: [facility] [address] [address] Speaker Wirer: Sajan Field M.D. Ph. D.; IA# [id number] Specimen Anatomical Collection Method Collection Time Receive d Time (Source) Location / / Volume Laterality Blood 11/12/2021 9:28 AM 2 9:29 CDT AM CDT Lowell Croft MD LAB BLOOD ORDERABLES Performing Organization Address City/[facility] Phon e Number [facility] Unless otherwise noted, [address] all lab tests performed by: Division of Pathology and Laboratory Medicine [address] [place] [address] (ABNORMAL) SPEP (11/12/2021 9:28 AM CDT)Only the most recent of3 resultswithin the time period is included. athologist Signature TOT PROTEIN 10.0 (H) 6.4 - 8.3 [facility] gm/[facility] Albumin 3.4 (L) 3.6 - 5.4 [facility] gm/[facility] Alpha 1 0.4 0.2 - 0.4 [facility] Globulin gm/dL [facility] Alpha 2 1.1 (H) 0.5 - 1.0 [facility] Globulin gm/[facility] Beta Globulin 1.1 0.5 - 1.1 [facility] gm/[facility] Gamma Globulin 4.0 (H) 0.7 - 1.6 [facility] Specimen Anatomical Collection Method Collection Time Receive d Time (Source) Location / / Volume Laterality Blood 11/12/2021 9:28 AM 2 CDT 2:17 PM CDT Lowell Croft MD LAB BLOOD ORDERABLES Performing Organization Address City/[facility] Phon e Number [facility] Unless otherwise noted, [address] all lab tests performed by: Division of Pathology and Laboratory Medicine [address] [place] [address] Hemoglobin A1c (11/12/2021 9:28 AM CDT)Only the most recent of2 resultswithin the time period is included. athologist Signature A1C 5.3 4.3 - 5.6 % [facility] Comment: HbA1c values >=6.5% are diagnostic of di abetes mellitus. Diagnosis should be confirmed by repeat testing. Therapeutic Action suggested: >8.0% HbA1 c; Goal of therapy: <7.0% HbA1c Testing performed at Rick Malhot[facility], [address] [place] [address] Specimen Anatomical Collection Method Collection Time Receive d Time (Source) Location / / Volume Laterality Blood 11/12/2021 9:28 AM 2 9:29 CDT AM CDT [place] LAB BLOOD ORDERABLES Performing Organization Address City/[facility]/[place] [address] [address] [facility] IgA (11/12/2021 9:28 AM CDT)Only the most recent of2 resultswithin the time period is included. athologist Signature IgA 273 85 - 499 [facility] mg/dL [facility] Specimen Anatomical Collection Method Collection Time Receive d Time (Source) Location / / Volume Laterality Blood 11/12/2021 9:28 AM 2 2:17 CDT PM CDT Lowell Croft MD LAB BLOOD ORDERABLES Performing Organization Address City/[facility]/ZIP Code Phon e Number [facility] Unless otherwise noted, [address] all lab tests performed by: Division of Pathology and Laboratory Medicine [address] IgM (11/12/2021 9:28 AM CDT)Only the most recent of2 resultswithin the time period is included. athologist Signature IgM 79 35 - 242 [facility] mg/dL [facility] Specimen Anatomical Collection Method Collection Time Receive d Time (Source) Location / / Volume Laterality Blood 11/12/2021 9:28 AM 2 2:17 CDT PM CDT Lowell Croft MD LAB BLOOD ORDERABLES Performing Organization Address City/[facility]/ZIP Code Phon e Number [facility] Unless otherwise noted, [address] all lab tests performed by: Division of Pathology and Laboratory Medicine [address] (ABNORMAL) IgG (11/12/2021 9:28 AM CDT)Only the most recent of2 resultswithin the time period is included. athologist Signature IgG 3,950 (H) 610 - 1,616 [facility] mg/dL CAN[facility] CENTER Specimen Anatomical Collection Method Collection Time Receive d Time (Source) Location / / Volume Laterality Blood 11/12/2021 9:28 AM 2 2:17 CDT PM CDT Lowell Croft MD LAB BLOOD ORDERABLES Performing Organization Address City/[facility]/ZIP [place] Phon e Number [facility] Unless otherwise noted, [address] all lab tests performed by: Division of Pathology and Laboratory Medicine [address] [facility] [place] (ABNORMAL) Beta 2 Microglobulin (11/12/2021 9:28 AM CDT) athologist Signature Beta2 4.8 (H) 0.8 - 2.3 [facility] Microglob mg/L [facility] Specimen Anatomical Collection Method Collection Time Receive d Time (Source) Location / / Volume Laterality Blood 11/12/2021 9:28 AM 2 2:17 CDT PM CDT Lowell Croft MD LAB BLOOD ORDERABLES Performing Organization Address City/[facility] Phon e Number [facility] Unless otherwise noted, [address] all lab tests performed by: Division of Pathology and Laboratory Medicine [facility] [facility], 12-Lead (Scheduled) (11/12/2021) Specimen (Source) Anatomical Location Collection Method / Collectio n Time Received Time / Laterality Volume Narrative This result has an attachment that is no t available. [place] ECG ORDERABLES Performing Organization Address City/[facility]/ZIP [place] Phon e Number ADAN IECG (ABNORMAL) Total Volume (10/20/2021 6:00 AM CDT)Only the most recent of3 results within the time period is included. athologist Signature Total Volume 2,050 (H) 1,200 - [facility] 1,500 QUITMAN mL/24 h CANCER CENTER Comment: Collection date/time has been modified t o: 06:00:00. Previous collection date/time: 09:24:15. Corrected from 2049 mL/24 h [HI] on 10/10 08/02 15:19:05 CDT by Kena Thompson. Hrs Collected 24 [facility] Comment: Collection date/time has been modified t o: 06:00:00. Previous collection date/time: 09:24:15. Corrected from 24 [NA] on 10/20/21 15:19 :05 CDT by Kena Thompson. Start Date 10/19/2021 [facility] Comment: Collection date/time has been modified t o: 06:00:00. Previous collection date/time: 09:24:15. Corrected from 10/19/21 0:00:00 CDT [NA] on 10/20/21 15:19:05 CDT by Kena Thompson. End Date 10/20/2021 [facility] CENTER Comment: Collection date/time has been modified t o: 06:00:00. Previous collection date/time: 09:24:15. Corrected from 10/20/21 0:00:00 CDT [NA] on 10/20/21 15:19:05 CDT by Kena Thompson. U24 Comment 6am to 6am [facility] [place] Comment: Collection date/time has been modified t o: 06:00:00. Previous collection date/time: 09:24:15. Corrected from 6am to 6am [NA] on 15:19:05 CDT by Kena Thompson. Specimen Anatomical Collection Method Collection Time Receive d Time (Source) Location / / Volume Laterality Urine 24 Hr 10/20/2021 6:00 AM 3:18 CDT PM CDT Karen Coates MD URINE ORDERABLES Performing Organization Address City/State/ZIP Code Phon e Number [facility] Unless otherwise noted, [place] [address] [place] all lab tests performed by: Division of Pathology and Laboratory Medicine [facility]5 [facility] Sodium 24 HR Urine (10/20/2021 6:00 AM CDT) athologist Signature U Sodium 94 mEq/L [facility] Comment: Normal range not available for collections less than 24 hours in duration. U24 Sodium 193 40 - 220 mEq/24 hr DE MD PATEL FIDEL [facility] Specimen Anatomical Collection Method Collection Time Receive d Time (Source) Location / / Volume Laterality Urine 24 Hr 10/20/2021 6:00 AM 2 4:16 CDT PM CDT Narrative [facility] - 2 6:00 PM CDT Drop off urine on 10/20 at [facility] Karen Coates MD URINE ORDERABLES Performing Organization Address City/State/ZIP Code Phon e Number [facility] Unless otherwise noted, [address] all lab tests performed by: Division of Pathology and Laboratory Medicine [address] (ABNORMAL) Calcium 24 HR Urine (10/20/2021 6:00 AM CDT) athologist Signature U Calcium 3.0 mg/dL [facility] Comment: Normal range not available for collections less than 24 hours in duration. U24 Calcium 61.5 (L) 100.0 - 300.0 mg/24hr [facility] Specimen Anatomical Collection Method Collection Time Receive d Time (Source) Location / / Volume Laterality Urine 24 Hr 10/20/2021 6:00 AM 2 4:16 CDT PM CDT Narrative [facility] - 2 6:00 PM CDT Drop off urine on 10/20 at [facility] Karne Coates MD URINE ORDERABLES Performing Organization Address City/State/ZIP Code Phon e Number [facility] Unless otherwise noted, [address] all lab tests performed by: Division of Pathology and Laboratory Medicine [address] Creatinine 24 HR Urine (10/20/2021 6:00 AM CDT) athologist Signature U Creatinine 48.8 40.0 - [facility] 278.0 mg/dL [facility] Comment: The reference range listed is f or first morning urine collection. U24 Creatinine 1,000.4 980.0 - 2,200.0 mg/24hr U T [facility] Specimen Anatomical Collection Method Collection Time Receive d Time (Source) Location / / Volume Laterality Urine 24 Hr 10/20/2021 6:00 AM 2 4:16 CDT PM CDT Narrative [facility] - 2 6:00 PM CDT Drop off urine on 10/20 at [facility] Karen Coates MD URINE ORDERABLES Performing Organization Address City/State/ZIP Code Phon e Number [facility] Unless otherwise noted, [place] [address] [place] all lab tests performed by: Division of Pathology and Laboratory Medicine [facility]5 [facility] NM CT 4D Neck (associated with Sestamibi [...] thyroid adenoma (type B or C). Ashley Guerrero 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 IMG CT ORDERABLES NM Sestamibi Parathyroid SPECT/CT [...] 3:17 PM Clinical History: 51-year-old patient wi th primary 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dism Indication: Localization of parathyroid adenoma Comparison: Ultrasound of the neck 022 Technique: Following the intravenous adm inistration of [...] the original. FULL RESULT: Examination: Parathyroid Scintigraphy, 3:17 PM Clinical History: 51-year-old patient wi th primary 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dism Indication: Localization of parathyroid adenoma Comparison: Ultrasound of the neck 022 Technique: Following the intravenous adm inistration of [...] Parathyroid adenoma is seen along the ri ght tracheoesophageal groove. Ashley Guerrero 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 IMG NM ORDERABLES (ABNORMAL) PTH Intact (10/16/2021 12:25 PM CDT)Only the most recent of3 results within the time period is included. athologist Signature PTH Intact 112.5 (H) 15.0 - [facility] 65.0 pg/mL CANCER CENTER Specimen Anatomical Collection Method Collection Time Receive d Time (Source) Location / / Volume Laterality Blood 10/16/2021 12:25 10/16/2021 8:02 PM CDT PM CDT Narrative [facility] - 8:17 PM CDT At [facility] Karen Coates MD LAB BLOOD ORDERABLES Performing Organization Address City/State/ZIP Code Phon e Number [facility] Unless otherwise noted, [place] [address] CENTER all lab tests performed by: Division of Pathology and Laboratory Medicine [address] Free T4 (10/16/2021 12:25 PM CDT)Only the most recent of2 resultswithin the time period is included. athologist Signature T4 Free 1.15 0.93 - 1.70 [facility] ng/dL Comment: Testing performed at [facility], [address] [facility], [place] [address] Specimen Anatomical Collection Method Collection Time Receive d Time (Source) Location / / Volume Laterality Blood 10/16/2021 12:25 10/16/2021 PM CDT 12:37 PM CDT Narrative [facility] - 10/16/2021 1:13 PM CDT At [facility] Karen Coates MD LAB BLOOD ORDERABLES Performing Organization Address City/[facility]/[place] [address] [address] [facility] Add-On Test (10/14/2021 2:12 PM CDT)Only the most recent of5 resultswithin the time period is included. athologist Signature Ordered Test Not [facility] Comment: no specimen container to add it on to, notified Ashley Guerrero 10/14/2021 2:29:19 PM CDT. JPA Test Needed PTH [facility] Specimen Anatomical Collection Method Collection Time Receive d Time (Source) Location / / Volume Laterality Existing 10/14/2021 2:12 PM 2:12 CDT PM CDT Ashley Guerrero NP LAB BLOOD ORDERABLES Performing Organization Address City/State/ZIP Code Phon e Number [facility] Unless otherwise noted, [place] [address] [place] all lab tests performed by: Division of Pathology and Laboratory Medicine [address] [place] [address] Bone Mineral Density Both Hips and Spine [...] g/cm2 Score Score AP Spine (L1-L4) 10/13/2021 0.783 -2.8 -1.5 Femoral Neck (Left) 10/13/2021 0.480 -3.3 -1.7 Total Hip (Left) 10/13/2021 0.538 -3.3 -2.1 Femoral Neck (Right) 10/13/2021 0.561 -2.7 -1.1 Total Hip (Right) 10/13/2021 0.607 -2.8 -1.6 1/3 Forearm (Left) 10/13/2021 0.462 -6.7 -4.4 For postmenopausal women and men [...] with the final report. Ashley Guerrero NP IMDanny DXA ORDERABLES US Head Neck Soft Tissue [...] roidism Comparison: None. This is a baseline .Pretty Russo Marya examination. Technique: Grayscale and color Doppler u [...] suprasternal lymph node is seen. Procedure Note David Kang MD - 10/13/2021 FULL RESULT: Examination: ULTRASOUND SOFT TISSUE HEAD &NECK on 10/13/2021 9:52 AM Clinical History: Primary hyperparathyro idism 81-year-old male with history of primary 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dism. Indication: Other:, primary hyperparathy roidism Comparison: None. This is a baseline Pretty [facility] examination. Technique: Grayscale and color Doppler u [...] IMPRESSION: 1. A 1.2 cm hypervascular nodule sandwic hed between the left mid thyroid lobe and [...] that is no t available. Lo Leon ARCGIS DEVELOPER PFT ORDERABLES Performing Organization Address City/State/ZIP Code Phon e Number [facility] 6 minute walk test (10/13/2021 8:55 AM CDT) Specimen (Source) Anatomical Collection Method Collection Time Re ceived Time Location / / Volume Laterality 10/13/2021 8:24 AM CDT Narrative This result has an attachment that is no t available. Lo Leon ARCGIS DEVELOPER PFT ORDERABLES Performing Organization Address City/State/ZIP Code Phon e Number [place] Dihydroxyvitamin D 1,25 Level (10/13/2021 7:58 AM CDT)Only the most recent of2 resultswithin the time period is included. athologist [facility] 1,25-Vitamin 55 18 - 64 [facility] D-[place] pg/ CANCER [place] Comment: ADDITIONAL INFORMATIO N This test was developed and its performa nce characteristics determined by [facility] in a manner co nsistent with CLIA requirements. This test has not been tristan ared or approved by the U.S. Food and Drug Administration. Test Performed by: [place] [id number] Speaker Wirer: Sajan Field M.D. Ph. D.; CLIA# [id number] Specimen Anatomical Collection Method Collection Time Receive d Time (Source) Location / / Volume Laterality Blood 10/13/2021 7:58 AM 2 9:16 CDT AM CDT Ashley Guerrero NP LAB BLOOD ORDERABLES Performing Organization Address City/[facility] Phon e Number [facility] CANCER Unless otherwise noted, [place] [address] [place] all lab tests performed by: Division of Pathology and Laboratory Medicine [facility]5 [facility] CTX Beta Crosslaps (10/13/2021 7:58 AM CDT) athologist [facility] CTX 159 10 - 854 [facility] pg/mL CANCER CENTER Comment: Males: <30 years: not established 30-50 years: 16 - 584 pg/mL 51-70 years: 10 - 704 pg/mL >70 years: 10 - 854 pg/mL Females: Premenopausal: 25 - 573 pg/mL Postmenopausal: 104 - 1008 pg/mL Specimen Anatomical Collection Method Collection Time Receive d Time (Source) Location / / Volume Laterality Blood 10/13/2021 7:58 AM 2 8:50 CDT AM CDT Ashley Guerrero NP LAB BLOOD ORDERABLES Performing Organization Address City/[facility] Phon e Number [facility] CANCER Unless otherwise noted, [address] all lab tests performed by: Division of Pathology and Laboratory Medicine Yogesh Hughes Anti-Neutrophil Cytoplasmic Antibodies Vascultitis Panel (10/13/2021 7:58 AM CDT) athologist [facility] Myeloperox <0.2 <0.4 [facility] Ab-[place] (Negative) CANCER CENTER Units Proteinase 3 <0.2 <0.4 [facility] Ab-[place] (Negative) [facility] CENTER Units Comment: Test Performed by: [facility] [place] [address] Speaker Wirer: Sajan Field M.D. Ph. D.; CLIA# [id number] Specimen Anatomical Collection Method Collection Time Receive d Time (Source) Location / / Volume Laterality Blood 10/13/2021 7:58 AM 2 9:16 CDT AM CDT Taz Virgen MD LAB BLOOD ORDERABLES Performing Organization Address City/[facility] Phon e Number [facility] CANCER Unless otherwise noted, [address] all lab tests performed by: Division of Pathology and Laboratory Medicine Yogesh Hughes Cyclic Citrullinated Peptide Ab (10/13/2021 7:58 AM CDT) athologist [facility] CCP [facility] <15.6 <20.0 [facility] (Negative) [facility] Units Comment: Test Performed by: [facility] [place] [address] Speaker Wirer: Sajan Field M.D. Ph. D.; CLIA# [id number] Specimen Anatomical Collection Method Collection Time Receive d Time (Source) Location / / Volume Laterality Blood 10/13/2021 7:58 AM 2 9:16 CDT AM CDT Taz Virgen MD LAB BLOOD ORDERABLES Performing Organization Address City/[facility] Phon e Number [facility] CANCER Unless otherwise noted, [address] all lab tests performed by: Division of Pathology and Laboratory Medicine Yogesh Hughes Alk Phos Bone (10/13/2021 7:58 AM CDT) [facility] AlkPhos 8.8 0 - 20 [facility] Bone-Sor[place] mcg/L CANCER CENTER Comment: ADDITIONAL INFORMATIO N Liver-derived alkaline phosphatase (ALP) increases apparent measured bone alkaline phosphatase (BAP) in this assay by 2.5 mcg/L to 5.8 mcg/L for every 100 U/L of liver ALP. Accordingly, serum specimens with signif icant elevations of liver ALP activity may yield artificiall y elevated results in the BAP assay. Test Performed by: [facility] [address] [place] [address] Speaker Wirer: Sajan Field M.D. Ph. D.; CLIA# [id number] Specimen Anatomical Collection Method Collection Time Receive d Time (Source) Location / / Volume Laterality Blood 10/13/2021 7:58 AM 2 9:16 CDT AM CDT Ashley Guerrero NP LAB BLOOD ORDERABLES Performing Organization Address City/[facility] Phon e Number [facility] CANCER Unless otherwise noted, [address] all lab tests performed by: Division of Pathology and Laboratory Medicine [address] Osteocalcin (10/13/2021 7:58 AM CDT) [facility] Osteocalcin 10 9 - 42 [facility] ng/mL CANCER CENTER Specimen Anatomical Collection Method Collection Time Receive d Time (Source) Location / / Volume Laterality Blood 10/13/2021 7:58 AM 2 8:49 CDT AM CDT Ashley Guerrero NP LAB BLOOD ORDERABLES Performing Organization Address City/[facility] Phon e Number [facility] CANCER Unless otherwise noted, [address] all lab tests performed by: Division of Pathology and Laboratory Medicine [address] (ABNORMAL) Rheumatoid Factor Quant (10/13/2021 7:58 AM CDT) [facility] Rheumatoid 75 (H) <=14 IU/mL [facility] Specimen Anatomical Collection Method Collection Time Receive d Time (Source) Location / / Volume Laterality Blood 10/13/2021 7:58 AM 2 8:50 CDT AM CDT Taz Virgen MD LAB BLOOD ORDERABLES Performing Organization Address City/[facility] Phon e Number [facility] CANCER Unless otherwise noted, [address] all lab tests performed by: Division of Pathology and Laboratory Medicine Yogesh Hughes (ABNORMAL) [place] Miscellaneous Test (09/15/2021 5:04 PM MANDARIN TEACHER) [facility] Method Time Signature Soriano RL Test See Footnote [facility] (A) [facility] Comment: Test Result Flag Unit RefValue Immunoglobulin Subclass 1610 .0 H mg/dL 2.4 - 121.0 IgG4, S Test Performed by: [facility] [address] [place] [address] Speaker Wirer: Sajan Olsen. Ph.D.; CLIA# [id number] Specimen Anatomical Collection Method Collection Time Receive d Time (Source) Location / / Volume Laterality Varies 09/15/2021 5:04 PM 2 7:18 MANDARIN TEACHER PM MANDARIN TEACHER Narrative [facility] - 2 5:44 PM MANDARIN TEACHER Immunoglobulin Subclass IgG4 Bolivar Crisostomo NP LAB BLOOD ORDERABLES Performing Organization Address City/[facility] Phon e Number [facility] CANCER Unless otherwise noted, [address] all lab tests performed by: Division of Pathology and Laboratory Medicine Yogesh Hughes NM Lung Perfusion (09/15/2021 10:27 AM MANDARIN TEACHER) Anatomical Region Laterality Modality Lung Single-Photon Emissi on Computed Tomography (SPECT) Specimen (Source) Anatomical Collection Method Collection Time Re ceived Time Location / / Volume Laterality 09/15/2021 10:49 AM MANDARIN TEACHER Impressions 09/15/2021 10:52 AM MANDARIN TEACHER Low probability of pulmonary embolism. Narrative 09/15/2021 10:52 AM MANDARIN TEACHER FULL RESULT: Examination: Lung Perfusion Study, 022 [...] original. 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 No superimposed pneumonia. Narrative 09/14/2021 9:16 PM MANDARIN TEACHER FULL RESULT: Examination: CT CHEST WO CONTRAST, [...] (ABNORMAL) Troponin T (In-House) (09/14/2021 6:14 PM MANDARIN TEACHER) athologist Signature Troponin T 26 (H) <=18 ng/L [facility] CANCER CENTER Comment: < 19 ng/L Suggest retest [...] / / Volume Laterality Blood 09/14/2021 6:14 PM 6:21 MANDARIN TEACHER PM MANDARIN TEACHER Bolivar Crisostomo NP LAB BLOOD ORDERABLES Performing Organization Address City/State/ZIP Code Phon e Number DE MD MARYA CANCER Unless otherwise noted, [place] [address] [place] all lab tests performed by: Division of Pathology and Laboratory Medicine [address] [facility] Respiratory Viral Panel + COVID-19, Nasopharyngeal Swab (09/14/2021 11:04 AM MANDARIN TEACHER)Only the most recent of2 resultswithin the time period is included. [facility] Method Time Signature Adenovirus Not Not [place] MD Detected Detected [facility] Coronavirus 229E Not Not [place] MD Detected Detected [facility] Coronavirus HKU1 Not Not [place] MD Detected Detected [facility] Coronavirus NL63 Not Not [place] MD Detected Detected [facility] Coronavirus OC43 Not Not [place] MD Detected Detected [facility] COVID19 Not Not [place] MD (SARS-CoV-2) Detected Detected [facility] Human Not Not [place] MD Metapneumovirus Detected Detected [facility] Human Not Not [place] MD Rhinovirus/Enterov Detected Detected [facility] Influenza A Not Not [place] MD Detected Detected [facility] Influenza A H1 Not Not [place] MD Detected Detected [facility] Influenza A H1 Not Not [place] MD 2009 Detected Detected [facility] Influenza A H3 Not Not [place] MD Detected Detected [facility] Influenza B Not Not [place] MD Detected Detected [facility] Parainfluenza 1 Not Not [place] MD Detected Detected [facility] Parainfluenza 2 Not Not [place] MD Detected Detected [facility] Parainfluenza 3 Not Not [place] MD Detected Detected [facility] Parainfluenza 4 Not Not [place] MD Detected Detected [facility] Respiratory Not Not [place] MD Syncytial Virus Detected Detected [facility] Bordetella Not Not [place] MD Parapertussis Detected Detected [facility] Bordetella Not Not [place] MD pertussis Detected Detected [facility] Chlamydiophila Not Not [place] MD pneumoniae Detected Detected [facility] Mycoplasma Not Not [place] MD pneumoniae Detected Detected [facility] Specimen (Source) Anatomical Collection Method Collection Time Re ceived Time Location / / Volume Laterality Nasopharyngeal Swab 09/14/2021 11:04 03/0 12/2021 AM MANDARIN TEACHER 11:15 AM MANDARIN TEACHER Narrative [place] [facility] - 12:13 PM MANDARIN TEACHER The BioFire RP2.1 is a real-time, nested multiplexed polymerase chain reaction test designed to simul taneously identify nucleic acids from 22 different viruses and bacteria associated with respiratory tract infection, including SARS-CoV-2, from a single nasopharyngeal swab (VOUCHER EXAMINER) specimen obtai vini from individuals suspected of [...] that may not be detected by an VOUCHER EXAMINER specimen. Internal controls are used to monitor [...] and high-complexity tests. The Microbiology Laboratory at [facility], CLIA Accreditation #[id number] and CAP Accreditation #[id number], verified the per formance characteristics of this assay. [facility] at [facility] performs the assay using the Bonanza System. Pattie Perez MD MICROBIOLOGY - GENERAL ORDER GIGI Performing Organization Address City/State/ZIP Code Phon e Number [facility] Unless otherwise noted, [place] [address] [place] all lab tests performed by: Division of Pathology and Laboratory Medicine [address] [facility] (ABNORMAL) Cardiac Panel (09/14/2021 11:04 AM MANDARIN TEACHER)Only the most recent of2 resultswithin the time period is included. athologist Signature CK 18 (L) 39 - 308 [facility] U/L [facility] CK MB <2.0 <=10.4 [facility] ng/mL [facility] Troponin T 29 (H) <=18 ng/L [facility] Comment: < 19 ng/L Suggest retest at [...] Volume Laterality Blood 09/14/2021 11:04 09/14/2021 AM MANDARIN TEACHER 11:24 AM MANDARIN TEACHER Pattie Perez MD LAB BLOOD ORDERABLES Performing Organization Address City/[facility] Phon e Number [facility] CANCER Unless otherwise noted, [address] all lab tests performed by: Division of Pathology and Laboratory Medicine [address] [facility] [place] (ABNORMAL) aPTT (09/14/2021 11:04 AM MANDARIN TEACHER)Only the most recent of4 resultswithin the time period is included. P athologist Signature aPTT 23.7 (L) 24.7 - 36.8 Banner(s) [facility] Specimen Anatomical Collection Method Collection Time Receive d Time (Source) Location / / Volume Laterality Blood 09/14/2021 11:04 09/14/2021 AM MANDARIN TEACHER 11:14 AM MANDARIN TEACHER Pattie Perez MD LAB BLOOD ORDERABLES Performing Organization Address [facility] Phon e Number [facility] CANCER Unless otherwise noted, [address] all lab tests performed by: Division of Pathology and Laboratory Medicine [address] (ABNORMAL) NT-Pro BNP (In-House) (09/14/2021 11:04 AM MANDARIN TEACHER)Only the most recent of2 resultswithin the time period is included. P athologist Signature NT ProBNP 953 (H) <=450 pg/mL [facility] Specimen Anatomical Collection Method Collection Time Receive d Time (Source) Location / / Volume Laterality Blood 09/14/2021 11:04 09/14/2021 AM MANDARIN TEACHER 11:18 AM MANDARIN TEACHER Pattie Perez MD LAB BLOOD ORDERABLES Performing Organization Address City/[facility] Phon e Number [facility] Unless otherwise noted, [address] all lab tests performed by: Division of Pathology and Laboratory Medicine [address] (ABNORMAL) D-dimer (09/14/2021 11:04 AM MANDARIN TEACHER)Only the most recent of2 results within the time period is included. P athologist Signature D-Dimer 1.08 (H) 0.10 - 0.50 [facility] MD [facility] mcg/ml FEU [facility]ER CENTER Comment: The cut off value for exclusion of venou s thromboembolism is <0.51 mcg/mL FEUs (fibrinogen equival ent units). Specimen Anatomical Collection Method Collection Time Receive d Time (Source) Location / / Volume Laterality Blood 09/14/2021 11:04 09/14/2021 AM MANDARIN TEACHER 11:14 AM MANDARIN TEACHER Pattie Perez MD LAB BLOOD ORDERABLES Performing Organization Address City/State/ZIP Code Phon e Number [facility] CANCER Unless otherwise noted, [place] [address] [place] all lab tests performed by: Division of Pathology and Laboratory Medicine [address] X-ray Chest 1 View (09/14/2021 11:01 AM MANDARIN TEACHER) Anatomical Region Laterality Modality Chest Digital Radiography Specimen (Source) Anatomical Collection Method Collection Time Re ceived Time Location / / Volume Laterality 09/14/2021 11:24 AM MANDARIN TEACHER Impressions 09/14/2021 11:27 AM MANDARIN TEACHER Right hilar mass and parahilar opacities. Bilateral pulmonary parenchymal opacities similar prior studies of July 23, 2021. Narrative 09/14/2021 11:27 AM MANDARIN TEACHER FULL RESULT: Examination: XR CHEST 1 VW, [...] IMG DIAGNOSTIC IMAGING ORDER GIGI (ABNORMAL) Free Hyden/Free Lambda Ratio (09/03/2021 12:24 PM MANDARIN TEACHER)Only the most recent of2 resultswithin the time period is included. P athologist Signature FKap/FLam RT 3.75 (H) 0.26 - [place] MD [place] 1.65 CANCER CENTER Specimen Anatomical Collection Method Collection Time Receive d Time (Source) Location / / Volume Laterality Blood 09/03/2021 12:24 09/03/2021 1:08 PM MANDARIN TEACHER PM MANDARIN TEACHER Noa Tang MD LAB BLOOD ORDERABLES Performing Organization Address City/State/ZIP Code Phon e Number [place] MD [place] CANCER Unless otherwise noted, [place] [address] [place] all lab tests performed by: Division of Pathology and Laboratory Medicine [address] [place] [address] Joseph Joseph Virus Panel Path Review (09/03/2021 12:24 PM MANDARIN TEACHER) Component Value Ref Test Analysis Performed At Patholo gist Range Method Time Signature EBV Panel LA EBV serology (positive VCA I gG & EBNA IgG) most compatible with past infection. Interpret with caution if the patient is receiving IVIG. [place] MD Praful [place] Reviewed and Electronically signed by Pathologist: CANCER Zana Quiñones MD, PhD #[id number] CE NTER Comment: Test performed by immunoassay intended f or the qualitative detection of IgG and IgM antibodies to the viral capsid antigen (VCA) of the Joseph-Joseph virus (EBV) and IgG antibodies to the EBV nuclear antigen (EBNA). When equivocal results are obtained, ano ther specimen should be collected 10-14 days later. ZANA QUIÑONES MD, PhD - [id number] Dictated by: ZANA QUIÑONES MD, PhD - [phone] Dictated Date/Time: 09.07.2021 11:43 AM MANDARIN TEACHER Transcribed Date/Time: 09.07.2021 11:43 AM MANDARIN TEACHER Electronically Signed By: ZANA QUIÑONES MD, PhD - [id number] on 09.07.2021 11:43 AM Specimen Anatomical Collection Method Collection Time Receive d Time (Source) Location / / Volume Laterality Blood 09/03/2021 12:24 09/05/2021 8:54 PM MANDARIN TEACHER AM MANDARIN TEACHER Noa Tang MD MICROBIOLOGY - GENERAL ORDER GIGI Performing Organization Address City/[facility] Phon e Number [facility] CANCER Unless otherwise noted, [address] all lab tests performed by: Division of Pathology and Laboratory Medicine [facility] (ABNORMAL) Free Lambda Light Chain (09/03/2021 12:24 PM MANDARIN TEACHER)Only the most recent of2 resultswithin the time period is included. P athologist Signature Free Lambda 240.29 (H) 5.71 - [facility] 26.30 mg/L [facility] Specimen Anatomical Collection Method Collection Time Receive d Time (Source) Location / / Volume Laterality Blood 09/03/2021 12:24 09/03/2021 1:08 PM MANDARIN TEACHER PM MANDARIN TEACHER Noa Tang MD LAB BLOOD ORDERABLES Performing Organization Address City/[facility] Phon e Number [facility] CANCER Unless otherwise noted, [address] all lab tests performed by: Division of Pathology and Laboratory Medicine [address] (ABNORMAL) Free Hyden Light Chain (09/03/2021 12:24 PM MANDARIN TEACHER)Only the most recent of2 resultswithin the time period is included. P athologist Signature Free Hyden 901.50 (H) 3.30 - [facility] 19.40 mg/L [facility] Specimen Anatomical Collection Method Collection Time Receive d Time (Source) Location / / Volume Laterality Blood 09/03/2021 12:24 09/03/2021 1:08 PM MANDARIN TEACHER PM MANDARIN TEACHER Noa Tang MD LAB BLOOD ORDERABLES Performing Organization Address City/[facility]/ZIP Code Phon e Number [facility] Unless otherwise noted, [address] all lab tests performed by: Division of Pathology and Laboratory Medicine Yogesh Hughes (ABNORMAL) EBV Antibody Panel (09/03/2021 12:24 PM MANDARIN TEACHER) athologist [facility] VCA-M Int Negative Negative [facility] VCA-G Int Positive (A) Negative [facility] EBNA Int Positive (A) Negative [facility] Specimen Anatomical Collection Method Collection Time Receive d Time (Source) Location / / Volume Laterality Blood 09/03/2021 12:24 09/03/2021 3:43 PM MANDARIN TEACHER PM MANDARIN TEACHER Noa Tang MD LAB BLOOD ORDERABLES Performing Organization Address City/[facility]/ZIP Code Phon e Number [facility] Unless otherwise noted, [address] all lab tests performed by: Division of Pathology and Laboratory Medicine Yogesh Hughes Manual Confirm ABORh (09/01/2021 1:44 PM MANDARIN TEACHER) athologist [facility] Confirm ABORh A POS [facility] Specimen Anatomical Collection Method Collection Time Receive d Time (Source) Location / / Volume Laterality Blood 09/01/2021 1:44 PM 2 8:03 MANDARIN TEACHER PM MANDARIN TEACHER Lexi Lockett NP BLOOD BANK TEST ORDERABLES Performing Organization Address City/[facility]/ZIP Code Phon e Number [facility] Unless otherwise noted, [address] all lab tests performed by: Division of Pathology and Laboratory Medicine Yogesh Hughes MD COVID-19 (JAMEL-CoV-2) PCR Asymptomatic (09/01/2021 1:28 PM MANDARIN TEACHER)Only the most recent of2 resultswithin the time period is included. Component Value Ref Range Test Analysis Performed Pathologis t Method Time At [facility] COVID19 SARS Pre-OR Procedure [facility] Indication [facility] COVID19 SARS Not Detected Not [facility] Result Detected [facility] COVID19 SARS SARS-CoV-[address] [facility] Reference Range: Not Detected [facility] Methodology: The Izquierdo Real Time SARS-CoV-2 assay is a qualitative real-time reverse pulp beater polymerase chain reaction (director of casino-PCR) test to detect RNA from SARS-CoV-2 in nasal, nasopharyngeal and oropharyngeal swabs from patients with signs and symptoms of infection who ar e suspected of COVID-19 by their health care provider. The Izquierdo RealTime SARS-CoV-2 performed on the NephroPlus000 System is a dual target assay with [...] high- complexity Molecular Diagnostics Laboratory (MDL) at [facility] under the Food and Drug Administration (FDA) s Emergency Use Authorization. Factsheet for patients: https://www.[facility].org/AbbottFac tSheetPatients Factsheet for healthcare pro viders: https://www.[facility].org/AbbottFactSheetHCP Test performed by: [facility] Molecular Diagnostic Lab [address] [place] [address] Specimen (Source) Anatomical Collection Method Collection Time Re ceived Time Location / / Volume Laterality Nasopharyngeal Swab 09/01/2021 1:28 09/01 PM MANDARIN TEACHER 5:56 PM MANDARIN TEACHER David Boyer MD MICROBIOLOGY - GENERAL ORDER GIGI Performing Organization Address City/State/ZIP Code Phon e Number [facility] CANCER Unless otherwise noted, [address] all lab tests performed by: Division of Pathology and Laboratory Medicine [facility]5 Lalojorge CARTER Lymphoma B Hodgkin Interpretation and Report (08/15/2021 4:45 PM MANDARIN TEACHER) Specimen Anatomical Collection Method Collection Time Receive d Time (Source) Location / / Volume Laterality 08/15/2021 4:45 PM 5:58 MANDARIN TEACHER PM MANDARIN TEACHER Narrative This result has an attachment that is no t available. Dennis Mcconnell MD, MDA HP FLOW CYTOMETRY (HP FC ) Flow Cytometry Specimen Collection -Fine Needle Asp (08/15/2021 4:45 PM MANDARIN TEACHER) P athologist Signature Flow Cytometry Yes [facility] (Received) CANCER CENTER Comment: Test performed by: [facility] Flow Cytometry Laboratory [address] [place] [address] Beaker Ap Link [id number] [facility] Specimen Anatomical Collection Method Collection Time Receive d Time (Source) Location / / Volume Laterality Fine Needle Asp 08/15/2021 4:45 PM 2021 5:58 MANDARIN TEACHER PM MANDARIN TEACHER Dennis Mcconnell MD, MDA HP FC NONBLOOD COLLECTIO NS Performing Organization Address City/State/ZIP Code Phon e Number [facility] CANCER Unless otherwise noted, [place] [address] CENTER all lab tests performed by: Division of Pathology and Laboratory Medicine [address] [place] [address] Cytology Image-Guided FNA Interpretation (08/15/2021 2:05 PM MANDARIN TEACHER)Only the most recent of3 resultswithin the time period is included. Component Value Ref Test Analysis Performed Pathologis t Range Method Time At Signature Gross A: 08/19/2021 [facility] Description Specimens procured: 4:13 PM 5 Diff Quik; 5 Pap Stain Slides MANDARIN TEACHER 5 ml, slightly bloody fluid in RPMI 1 Cell Block Date/Time Placed in Formalin: 08/15/21 6:09 PM Size: 1.52 cm Specimen adequacy was performed by CARLOS Geronimo(ASCP). Immediate Adequate 08/19/2021 [facility] Assessment cellularity 4:13 PM MANDARIN TEACHER Major [facility]/benign 08/19/2021 [facility] Elect ronically Classification 4:13 PM gerson d by Ina Sun MD on 08/19/2021 a t 4:13 PM Diagnosis A. Lymph node, left interlobar, 11L, fine needle aspir ation: 08/19/2021 [facility] Electronically 4:13 PM signed by Ina No metastatic carcinoma identified MANDARIN TEACHER MD Dino on Polymorphous lymphocytes and scattered tingible-body macrophages present, favor reactive lymph node (see comment) 08/19/2021 at 4:13 PM Comment The aspirate smears show a p olymorphous lymphoid population consisting of predominantly small lymphocytes and scattered tingible-body macrophages. No atypical large cells are seen to suggest Hodgkin lym 0 08/19/2021 [facility] phoma. No granulomatous dise ase or metastatic carcinoma is present. No foci of necrosis or acute inflammation are present. Flow cytometry performed on the concurrent lymph node fine needle aspiration (C 4:13 P M [id number]) shows no immunophenotypic support for a B-cell ne oplasm. MANDARIN TEACHER The cell block preparation w as not contributory towards making the above diagnosis. Retained/Biomark SR: 10 S, 2 CB 08/19/2021 [facility] er Testing 4:13 PM MANDARIN TEACHER Informational Some tests 08/19/2021 [facility] Points reported here may 4:13 PM have been MANDARIN TEACHER developed and performance characteristics determined by [facility] Pathology and Laboratory Medicine. These tests have not been specifically cleared or approved by the U.S. Food and Drug Administration. Specimen Anatomical Collection Method Collection Time Receive d Time (Source) Location / / Volume Laterality Fine Needle Asp 08/15/2021 2:05 PM 2021 5:17 (Lymph Node(s), MANDARIN TEACHER PM MANDARIN TEACHER Left, Interlobar, 11L) Comment: 11L - 15.2 mm Dennis Mcconnell MD LAB CYTOLOGY ORDERABLES Performing Organization Address City/[facility] [place] [address] [address] Sodium Level, Urine (08/13/2021 10:35 AM MANDARIN TEACHER) athologist Signature U Sodium 47 mEq/L [facility] Comment: Normal range not available for collections less than 24 hours in duration. Specimen Anatomical Collection Method Collection Time Receive d Time (Source) Location / / Volume Laterality Urine 08/13/2021 10:35 08/13/2021 2:14 AM MANDARIN TEACHER PM MANDARIN TEACHER Chalo Logan NP URINE ORDERABLES Performing Organization Address [facility] Phon e Number [facility] Unless otherwise noted, [address] all lab tests performed by: Division of Pathology and Laboratory Medicine [address] Potassium Urine (08/13/2021 10:35 AM MANDARIN TEACHER) athologist Signature U Potassium 29 mEq/L [facility] Comment: Normal range not available for collections less than 24 hours in duration. Specimen Anatomical Collection Method Collection Time Receive d Time (Source) Location / / Volume Laterality Urine 08/13/2021 10:35 08/13/2021 2:14 AM MANDARIN TEACHER PM MANDARIN TEACHER Chalo Logan NP URINE ORDERABLES Performing Organization Address [facility] Phon e Number [facility] Unless otherwise noted, [address] all lab tests performed by: Division of Pathology and Laboratory Medicine [address] Osmolality Urine (08/13/2021 10:35 AM MANDARIN TEACHER) athologist Signature U Osmolality 259 50 - 1,400 [facility] mOsm/kg H2O [facility] Comment: Urinary osmolality may vary widely, depe [...] / Volume Laterality Urine 08/13/2021 10:35 08/13/2021 2:03 AM MANDARIN TEACHER PM MANDARIN TEACHER Chalo Logan NP URINE ORDERABLES Performing Organization Address [facility] Phon e Number [facility] Unless otherwise noted, [address] all lab tests performed by: Division of Pathology and Laboratory Medicine [address] Osmolality (08/13/2021 10:32 AM MANDARIN TEACHER) athologist Signature Osmolality 291 275 - 300 [facility] mOsm/kg H2O [facility] Comment: Units in mOsm per kg of water. Specimen Anatomical Collection Method Collection Time Receive d Time (Source) Location / / Volume Laterality Blood 08/13/2021 10:32 08/13/2021 2:03 AM MANDARIN TEACHER PM MANDARIN TEACHER Chalo Logan NP LAB BLOOD ORDERABLES Performing Organization Address City/State/ZIP Code Phon e Number [facility] CANCER Unless otherwise noted, [place] [address] CENTER all lab tests performed by: Division of Pathology and Laboratory Medicine [address] PETCT Initial Treatment Strategy (08/13/2021 10:09 AM MANDARIN TEACHER) Anatomical Region Laterality Modality Whole Body Positron Emission To mography (PET) Specimen (Source) Anatomical Collection Method Collection Time Re ceived Time Location / / Volume Laterality 08/13/2021 12:25 PM MANDARIN TEACHER Impressions 08/13/2021 1:11 PM MANDARIN TEACHER There are consolidative opacities in the lungs suspicious for infection. The masslike consolidation in the right lower lobe may represent an area of rounded pneumonia or rounded atelectasis. There are enlarged lymph nodes in the me diastinum and prominent lymph nodes in the abdomen and pelvis suspicious for lymphoproliferative disorder. Narrative 08/13/2021 1:11 PM MANDARIN TEACHER FULL RESULT: Examination: FDG PET/CT, 08/13/2021 10:09 [...] approximately 60-90 minutes. PET/CT imaging was performed fr om the skull to the thighs . Serum [...] B Core Total Antibody (08/07/2021 12:08 PM MANDARIN TEACHER) P athologist Signature HBc Total Negative Negative [facility]ER [place] Comment: Test Performed by: [facility] [address] [facility], [place], [place] [address] Speaker Wirer: Sajan Field M.D. Ph. D.; CLIA# [id number] Specimen Anatomical Collection Method Collection Time Receive d Time (Source) Location / / Volume Laterality Blood 08/07/2021 12:08 08/07/2021 1:23 PM MANDARIN TEACHER PM MANDARIN TEACHER Chalo Logan NP LAB BLOOD ORDERABLES Performing Organization Address City/State/ZIP Code Phon e Number [facility] Unless otherwise noted, [place] [address] CENTER all lab tests performed by: Division of Pathology and Laboratory Medicine [address] [place] [address] HCV Ab Path Interp (08/07/2021 12:08 PM MANDARIN TEACHER) Patholo gist Method Time Signature HCV Ab Path There is NO [facility] serologic [facility]ENTER evidence of Hepatitis C virus antibody. Comment: MD Giulia RAMON [id number] Dictated by: MD Giulia RAMON Dictated Date/Time: 08.08.2021 8:[address] Transcribed Date/Time: 08.08.2021 8:21 AM MANDARIN TEACHER Electronically Signed By: MD Giulia RAMON02 on 08.08.2021 8:21 AM C Specimen Anatomical Collection Method Collection Time Receive d Time (Source) Location / / Volume Laterality Blood 08/07/2021 12:08 08/07/2021 5:53 PM MANDARIN TEACHER PM MANDARIN TEACHER Chalo Logan NP LAB BLOOD ORDERABLES Performing Organization Address [facility]/ZIP Code Phon e Number [facility] DONOR [address] [address] Hepatitis C Virus Ab (08/07/2021 12:08 PM MANDARIN TEACHER) [facility] Method Time Signature HCVAb. Non Reactive Non Reactive [facility] DON[facility] [place] Comment: Antibody detection in the immunocompromi sed and immunosuppressed population may be delayed or absent entirely. Therefore serial testing, correlation with other clinical findings, and supplemental testin g (if available) should be taken into co nsideration when interpreting the results. Performed at: [facility] Blood Donor [address] [address] Specimen Anatomical Collection Method Collection Time Receive d Time (Source) Location / / Volume Laterality Blood 08/07/2021 12:08 08/07/2021 5:53 PM MANDARIN TEACHER PM MANDARIN TEACHER Chalo Logan NP LAB BLOOD ORDERABLES Performing Organization Address [facility] Code Phon e Number [address] [address] Hepatitis B Surface Ag w/Confirm (08/07/2021 12:08 PM MANDARIN TEACHER) athologist [facility] Hep Bs Ag-[place] Negative Negative [facility] Comment: Test Performed by: [place] [id number] Speaker Wirer: Sajan Field M.D. Ph. D.; CLIA# [id number] Specimen Anatomical Collection Method Collection Time Receive d Time (Source) Location / / Volume Laterality Blood 08/07/2021 12:08 08/07/2021 1:23 PM MANDARIN TEACHER PM MANDARIN TEACHER Chalo Logan NP LAB BLOOD ORDERABLES Performing Organization Address City/[facility]/ZIP Code Phon e Number [facility] Unless otherwise noted, [place] [address] CENTER all lab tests performed by: Division of Pathology and Laboratory Medicine [address] [place] [address] Hepatitis B Total Ig Core Ab (SCREENING) (anti-HBc total Ig; HBcAb total Ig) (08/07/2021 12:08 PM MANDARIN TEACHER) athologist [facility] HBcAb Received See Note [facility] Comment: HBcAb was sent to a reference l ab for testing. Expect results on Hepatitis B Core Total Ab within 96 hours. Specimen Anatomical Collection Method Collection Time Receive d Time (Source) Location / / Volume Laterality Blood 08/07/2021 12:08 08/07/2021 1:23 PM MANDARIN TEACHER PM MANDARIN TEACHER Chalo Logan NP LAB BLOOD ORDERABLES Performing Organization Address [facility]/ZIP [place] Phon e Number [facility] Unless otherwise noted, [address] all lab tests performed by: Division of Pathology and Laboratory Medicine [address] [place] [address] Hepatitis B Surface Ag (08/07/2021 12:08 PM MANDARIN TEACHER) athologist Signature HBsAg Received See Note [facility] Comment: HBsAg was sent to a reference l ab for testing. Expect results on Hepatitis B Surface Antigen w/ Confirm within 96 jatinder rs. Specimen Anatomical Collection Method Collection Time Receive d Time (Source) Location / / Volume Laterality Blood 08/07/2021 12:08 08/07/2021 1:23 PM MANDARIN TEACHER PM MANDARIN TEACHER Chalo Logan NP LAB BLOOD ORDERABLES Performing Organization Address [facility] Phon e Number [facility]CER Unless otherwise noted, [address] all lab tests performed by: Division of Pathology and Laboratory Medicine [address] [place], [place] [address] PSA (08/07/2021 12:08 PM MANDARIN TEACHER) athologist [facility] PSA 0.1 0.0 - 4.0 [facility] ng/mL CAN[facility]ER CENTER Comment: Results greater than 4519 ng/mL may not be reliable due to matrix effect with extended dilution as it exceeds the master craftsman's recommended limit. Caution should be exercised when interpreting baca ch values and done in conjunction with clinical context. PSA Indication Screening [facility] Specimen Anatomical Collection Method Collection Time Receive d Time (Source) Location / / Volume Laterality Blood 08/07/2021 12:08 08/07/2021 PM MANDARIN TEACHER 12:29 PM MANDARIN TEACHER Chalo Logan NP LAB BLOOD ORDERABLES Performing Organization Address [facility] Phon e Number [facility] Unless otherwise noted, [address] all lab tests performed by: Division of Pathology and Laboratory Medicine [address] [place] [address] IR CHEST XRAY 1 VIEW (07/23/2021 2:36 PM MANDARIN TEACHER)Only the most recent of2 results within the time period is included. Anatomical Region Laterality Modality Chest Digital Radiography Specimen (Source) Anatomical Location Collection Method / Collectio n Time Received Time / Laterality Volume Narrative 07/24/2021 9:26 AM MANDARIN TEACHER Date of Procedure: 07/23/21 Attending Physician: Dr. Vogel Laborer Filter Plant: Chidi Woodard Pre Procedure Diagnosis: Lung mass fou nd on diagnostic imaging of lung [[id number]] Post Procedure Diagnosis: Unchanged Indication: New mass [...] ORDERABLES Pathology Biopsy Interpretation (07/23/2021 11:12 AM MANDARIN TEACHER) Component Value Ref Test Analysis Performed Pathologis t Range Method Time At Signature Submitted Influenza [J11.1] 07/24/2021 [facility] Clinical Dehydration [E86.0] 8:28 AM History Patient on oxygen [Z99.81] MANDARIN TEACHER Lung cancer [C34.90] Hyposmolality and/or hyponatremia [E87.1] Influenzal pneumonia [J12.9] Lung mass found on diagnostic imaging of lung [R91.8] Diagnosis A. Lung, right lower lobe, biopsy: 07/24 [facility] Electronically 8:28 AM signed by Fragments of lung parenchyma with extensive sclerotic scarring; negative for tumor MANDARIN TEACHER Alvarado Ghosh MD AW/FMT on 07/24/19 22 at 07/24/2021 8:28 AM Gross A: 07/24/2021 [facility] Description Lung, right lower lobe, biop sy: Four white-medley soft tissue cores ranging from 0.6cm to 1.4 cm in length and 0.1 cm in diameter, entirely submitted in A1. ET 8:28 AM MANDARIN TEACHER Biomarker N/A. 07/24/2021 [facility] Block(s) 8:28 AM MANDARIN TEACHER Disclaimer "Some tests 07/24/2021 [facility] reported here may 8:28 AM have been MANDARIN TEACHER developed and performance characteristics determined by [facility] Pathology and Laboratory Medicine. These tests have not been specifically cleared or approved by the U.S. Food and Drug Administration. If applicable, controls were reviewed and showed appropriate reactivity." Specimen Anatomical Collection Method Collection Time Receive d Time (Source) Location / / Volume Laterality Tissue (Lung, 07/23/2021 11:12 07/23/2021 Right Lower AM MANDARIN TEACHER 12:09 PM MANDARIN TEACHER Lobe) Maryanne Blanco MD LAB PATHOLOGY ORDERABLES Performing Organization Address City/State/ZIP Code Phon e Number [facility] [place] [address] [address] [facility] [address] GUIDED BIOPSY LUNG/MEDIASTINAL (07/23/2021 11:01 AM MANDARIN TEACHER) Anatomical Region Laterality Modality Chest Computed Tomography Specimen (Source) Anatomical Location Collection Method / Collectio n Time Received Time / Laterality Volume Narrative 07/24/2021 9:26 AM MANDARIN TEACHER Date of Procedure: 07/23/21 Attending Physician: Dr. Vogel Laborer Filter Plant: Chidi Woodard Pre Procedure Diagnosis: Lung mass fou nd on diagnostic imaging of lung [[id number]] Post Procedure Diagnosis: Unchanged Indication: New mass [...] Shoulder 2+ Views Right (07/22/2021 12:46 PM MANDARIN TEACHER) Anatomical Region Laterality Modality Shoulder, Extremity Digital Radiography Specimen (Source) Anatomical Collection Method Collection Time Re ceived Time Location / / Volume Laterality 07/22/2021 12:53 PM MANDARIN TEACHER Impressions 07/22/2021 12:59 PM MANDARIN TEACHER 1. No acute bone or joint abnormality. 2. Glenohumeral and acromioclavicular joint osteoarthritis. 3. No suspicious bone lesion on conven tional radiography. Narrative 07/22/2021 12:59 PM MANDARIN TEACHER FULL RESULT: Examination: XR SHOULDER 2+ VW [...] portable technique. 1. Frontal (internal and external rotati on) and Y views of the right shoulder. 2. Frontal and lateral views of the righ t humerus. Findings: Right shoulder: There is no [...] or joint abnormality. 2. Glenohumeral and acromioclavicular margarita int osteoarthritis. 3. No suspicious bone lesion on conventi onal radiography. Linda Chand MD IMG DIAGNOSTIC IMAGING ORDERABLES XR Humerus 2 Views Minimum Right (07/22/2021 12:43 PM MANDARIN TEACHER) Anatomical Region Laterality Modality Arm, Extremity Digital Radiography Specimen (Source) Anatomical Collection Method Collection Time Re ceived Time Location / / Volume Laterality 07/22/2021 12:53 PM MANDARIN TEACHER Impressions 07/22/2021 12:59 PM MANDARIN TEACHER 1. No acute bone or joint abnormality. 2. Glenohumeral and acromioclavicular joint osteoarthritis. 3. No suspicious bone lesion on conven tional radiography. Narrative 07/22/2021 12:59 PM MANDARIN TEACHER FULL RESULT: Examination: XR SHOULDER 2+ VW [...] portable technique. 1. Frontal (internal and external rotati on) and Y views of the right shoulder. 2. Frontal and lateral views of the righ t humerus. Findings: Right shoulder: There is no [...] or joint abnormality. 2. Glenohumeral and acromioclavicular margarita int osteoarthritis. 3. No suspicious bone lesion on conventi onal radiography. Linda Chand MD IMG DIAGNOSTIC IMAGING ORDERABLES PTH-Related Peptide (07/21/2021 3:30 PM MANDARIN TEACHER) athologist Signature PTH 0.7 < or = 4.2 [facility] Peptide-[place] pmol/L [facility] Comment: ADDITIONAL INFORMATIO N This test was developed and its performa nce characteristics determined by [facility] in a manner co nsistent with CLIA requirements. This test has not been tristan ared or approved by the U.S. Food and Drug Administration. Test Performed by: [facility] [address] [address] Speaker Wirer: Sajan Field M.D. Ph. D.; CLIA# [id number] Specimen Anatomical Collection Method Collection Time Receive d Time (Source) Location / / Volume Laterality Blood 07/21/2021 3:30 PM 4:50 MANDARIN TEACHER PM MANDARIN TEACHER Linda Chand MD LAB BLOOD ORDERABLES Performing Organization Address City/State/ZIP Code Phon e Number [facility] Unless otherwise noted, [place], [place] [id number] [place] [address] all lab tests performed by: Division of Pathology and Laboratory Medicine [address] [place] [address] Urine SULEMAN Path Review (07/21/2021 3:00 PM MANDARIN TEACHER) Component Value Ref Test Analysis Performed At Patholo gist Range Method Time Signature UIFE Path Int The urine protein immunofixa tion electrophoretic patterns obtained with the use of antisera against IgG, IgA, IgM, bound kappa and bound lambda light chains, free kappa and free lambda light chains show [facility] diffuse polyclonal-appearing protein, but do not [facility]ARY[facility] show definitive evidence of a Bence-Mancia proteinuria. Follow-up Bence-Mancia protein studies are suggested, however, if clinically indicated. [facility]ENTER Comment: MD Giulia CHEN [id number] Dictated by: MD Giulia CHEN84 Dictated Date/Time: 07.29.2021 10:50 AM MANDARIN TEACHER Transcribed Date/Time: 07.29.2021 10:50 AM MANDARIN TEACHER Electronically Signed By: MD Giulia CHEN84 on 07.29.2021 10:50 AM Specimen Anatomical Collection Method Collection Time Receive d Time (Source) Location / / Volume Laterality Urine 24 Hr 07/21/2021 3:00 PM 2 MANDARIN TEACHER 10:21 AM MANDARIN TEACHER Maryanne Blanco MD URINE ORDERABLES Performing Organization Address City/State/ZIP Code Phon e Number [facility] Unless otherwise noted, [place] [address] [place] all lab tests performed by: Division of Pathology and Laboratory Medicine [address] [place] [address] Urine Prot Electrophoresis Path Review (07/21/2021 3:00 PM MANDARIN TEACHER) Component Value Ref Test Analysis Performed At [facility] gist Range Method Time Signature U ProE Path The urine protein DE MD [facility] pattern shows CANCER indistinct peaks CENTER from the alpha-1 through the gamma region. Please see concurrent immunofixation results. Comment: MD Giulia CHEN [id number] Dictated by: MD Giulia CHEN84 Dictated Date/Time: 07.29.2021 10:50 AM MANDARIN TEACHER Transcribed Date/Time: 07.29.2021 10:50 AM MANDARIN TEACHER Electronically Signed By: MD Giulia CHEN84 on 07.29.2021 10:50 AM Specimen Anatomical Collection Method Collection Time Receive d Time (Source) Location / / Volume Laterality Urine 24 Hr 07/21/2021 3:00 PM 2 MANDARIN TEACHER 10:21 AM MANDARIN TEACHER Maryanne Blanco MD URINE ORDERABLES Performing Organization Address City/[facility] Phon e Number [facility] CANCER Unless otherwise noted, [address] all lab tests performed by: Division of Pathology and Laboratory Medicine [address] (ABNORMAL) 24hr Urine Total Protein (07/21/2021 3:00 PM MANDARIN TEACHER) athologist [facility] UTP 47 mg/dL [facility] Comment: Caution is advised when interpreting campos ues greater than 555 mg/dL. Results requiring extended dilution beyo nd the master craftsman's recommended limit may not dilute linearly due to pot ential matrix effect. Correlation with clinical context is rec ommended. UTP 24 728 (H) <=149 mg/24hr [facility] Specimen Anatomical Collection Method Collection Time Receive d Time (Source) Location / / Volume Laterality Urine 24 Hr 07/21/2021 3:00 PM 2 MANDARIN TEACHER 11:50 AM MANDARIN TEACHER Maryanne Blanco MD URINE ORDERABLES Performing Organization Address [facility] Phon e Number [facility] Unless otherwise noted, [address] all lab tests performed by: Division of Pathology and Laboratory Medicine [address] Protein Electrophoresis Urine (07/21/2021 3:00 PM MANDARIN TEACHER) [facility] U Albumin % 9.3 % [facility] U Globulin% 90.7 % [facility] Specimen Anatomical Collection Method Collection Time Receive d Time (Source) Location / / Volume Laterality Urine 24 Hr 07/21/2021 3:00 PM 2 MANDARIN TEACHER 12:41 PM MANDARIN TEACHER Maryanne Blanco MD URINE ORDERABLES Performing Organization Address City/[facility] Phon e Number [facility] Unless otherwise noted, [address] all lab tests performed by: Division of Pathology and Laboratory Medicine [address] SULEMAN Urine (07/21/2021 3:00 PM MANDARIN TEACHER) athologist [facility] UIFE See Comment [facility] Specimen Anatomical Collection Method Collection Time Receive d Time (Source) Location / / Volume Laterality Urine 24 Hr 07/21/2021 3:00 PM 2 MANDARIN TEACHER 12:41 PM MANDARIN TEACHER Maryanne Blanco MD URINE ORDERABLES Performing Organization Address City/State/ZIP Code Phon e Number [facility] CANCER Unless otherwise noted, [place] [address] CENTER all lab tests performed by: Division of Pathology and Laboratory Medicine [address] Echocardiogram 2D Complete with Contrast (07/21/2021 12:26 PM MANDARIN TEACHER) Specimen (Source) Anatomical Collection Method Collection Time Re ceived Time Location / / Volume Laterality 07/21/2021 11:37 AM MANDARIN TEACHER Narrative ISCV - 07/21/2021 3:28 PM MANDARIN TEACHER Echocardiographic Report Interpretation Summary A two-dimensional transthoracic [...] Interpret 1 - Normal Hypokinetic 3 - Agapito netic 4 - Dyskinetic3-5 moderate 5 - Aneurysmal [...] 8.2 cm2 LVOT diam: 2.3 cm EDV(MOD-A4C): 64. 2 ml LVOT area: 4.0 cm2 ESV(MOD-A4C): 21. 5 ml EF(MOD-A4C): 66.6 % EDV(MOD-A2C): 57.2 ml ESV(MOD-A2C): 20.2 ml EDV(MOD-bp): 6 2.2 ml EF(MOD-A2C): 64.7 % ESV(MOD-bp): 22.1 ml EF(MOD-bp): 64.5 % EDV (MOD-bp) Index: 37.0 ml/m2 ESV (M OD-bp) Index: 13.2 ml/m2 RWT: 0.35 cm TAPSE (>1.6): 2.1 cm Doppler Measurements MV E max ravin: 51.4 cm/sec MV V2 max : 83.0 cm/sec MV A max ravin: 76.9 cm/sec MV max P.8 mmHg MV E/A: 0.67 MV V2 mean: 44.6 cm/sec MV mean P.89 mmHg MV V2 VTI: 13.9 cm MVA(VTI): 5.0 cm2 MV P1/2t max ravin: 51.4 cm/sec Ao V2 max: 109.4 cm/sec MV P1/2t: 85.2 msec Ao max P.8 mm Hg Ao V2 mean: 74.6 cm/sec MVA(P1/2t): 2.6 cm2 Ao mean P.4 mmHg MV dec slope: 176.8 cm/sec2 Ao V2 V TI: 19.5 cm ANABELA(I,D): 3.6 cm2 ANABELA(V,D): 3.6 cm2 LV V1 max P.8 mmHg SV(LVOT): 70. 1 ml LV V1 mean P.9 mmHg LV V1 max: 97.1 cm/sec LV V1 mean: 66.9 cm/sec LV V1 VTI: 17.3 cm PA V2 max: 77.1 cm/sec Med Peak E' V el: 7.9 cm/sec PA max P.4 mmHg PA V2 mean: 51.9 cm/sec PA mean P.2 mmHg PA V2 VTI: 13.0 cm Lat Peak E' Ravin: 8.3 cm/sec TR max v el: 307.3 cm/sec TR max P.8 mmHg RVSP(TR): 40.8 mmHg RAP systole: 3.0 mmHg ANABELA Index (I, D): 2.1 ANABELA Index (V,D): 2.1 Dimensionless In dex: 0.89 E/e' (avg): 6.3 E/e' (lat): 6.2 E/e' (sept): 6.5 Maryanne Blanco MD CV ECHO ORDERABLES Performing Organization Address City/State/ZIP Code Phon e Number [facility] Path Review (07/21/2021 6:14 AM MANDARIN TEACHER) Component Value Ref Test Analysis Performed Pathologis t Range Method Time At Signature SPE Path 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 There is no definitive evidence of an M- protein peak. DE MD Whyte If a paraproteinemia is susp ected clinically, serum protein immunofixation, serum immunoglobulin quantification, and urine Bence-Mancia protein studies are recommended. [facility] Comment: [place] [id number] Dictated by: [place] [id number] Dictated Date/Time: 07.25.2021 10:38 AM MANDARIN TEACHER Transcribed Date/Time: 07.25.2021 10:38 AM MANDARIN TEACHER Electronically Signed By: [place] [id number] on 07.25.2021 10:38 AM Specimen Anatomical Collection Method Collection Time Receive d Time (Source) Location / / Volume Laterality Blood 07/21/2021 6:14 AM 2 2:57 MANDARIN TEACHER PM MANDARIN TEACHER Maryanne Blanco MD LAB BLOOD ORDERABLES Performing Organization Address City/[facility] Phon e Number [facility] Unless otherwise noted, [address] all lab tests performed by: Division of Pathology and Laboratory Medicine [address] [place] [address] SULEMAN Path Review (07/21/2021 6:14 AM MANDARIN TEACHER) Component Value Ref Test Analysis Performed At [facility] gist Range Method Time Signature SULEMAN Path Int The serum protein immunofixa tion electrophoretic patterns obtained with the use of antisera against IgG, IgA, IgM, bound Hyden and bound Lambda light chain proteins show intense but diffuse staining in DE the IgG, kappa, and lambda lanes despite dilution. [facility] Although there is no definit alexandr evidence of a monoclonal gammopathy clinical correlation and close follow-up studies are recommended. [facility] Comment: [place] [id number] Dictated by: [place] [id number] Dictated Date/Time: 07.25.2021 10:38 AM MANDARIN TEACHER Transcribed Date/Time: 07.25.2021 10:38 AM MANDARIN TEACHER Electronically Signed By: [place] [id number] on 07.25.2021 10:38 AM Specimen Anatomical Collection Method Collection Time Receive d Time (Source) Location / / Volume Laterality Blood 07/21/2021 6:14 AM 2 MANDARIN TEACHER 2:57 PM MANDARIN TEACHER Maryanne Blanco MD LAB BLOOD ORDERABLES Performing Organization Address City/State/ZIP Code Phon e Number [facility] Unless otherwise noted, [address] all lab tests performed by: Division of Pathology and Laboratory Medicine [address] [place] [address] CT Chest Pulmonary Embolism with Contrast (07/19/2021 1:15 PM MANDARIN TEACHER) Anatomical Region Laterality Modality Chest Computed Tomography Specimen (Source) Anatomical Collection Method Collection Time Re ceived Time Location / / Volume Laterality 07/19/2021 1:28 PM MANDARIN TEACHER Impressions 07/19/2021 1:46 PM MANDARIN TEACHER 1. No evidence of pulmonary thromboemb olic [...] Small pericardial effusion. Narrative 07/19/2021 1:46 PM MANDARIN TEACHER FULL RESULT: Examination: CT CHEST PULMONARY EMBOLISM [...] right. IMPRESSION: 1. No evidence of pulmonary thromboembol ic disease. 2. Right atrial and ventricular dilatati on may reflect chronic right heart disease. Echocardiography may be helpful. 3. Right lower lobe paravertebral mass i s suspicious for a primary lung malignancy. Superimposed pneumonia is not excluded. Multifocal bilateral lung opacities may represent pneumonia versus metastatic or synchronous disease. 4. Right paratracheal, subcarinal and ri ght hilar lymphadenopathy. 5. Small right pleural effusion. Small p ericardial effusion. Mark Jonas MD [facility] CT ORDERABLES XR Chest 1 View Portable (07/19/2021 11:16 AM MANDARIN TEACHER) Anatomical Region Laterality Modality Chest Digital Radiography Specimen (Source) Anatomical Collection Method Collection Time Re ceived Time Location / / Volume Laterality 07/19/2021 11:51 AM MANDARIN TEACHER Impressions 07/19/2021 11:56 AM MANDARIN TEACHER 1. Bilateral interstitial-type pulmonary opacities are suspicious for emphysema. Superimposed infiltrate cannot be excluded. Comparison to prior chest imaging would be helpful. 2. A mass is visualized in the right l ower lung field that is worrisome for tumor. Chest CT is recommended for further evaluation. Narrative 07/19/2021 11:56 AM MANDARIN TEACHER FULL RESULT: Examination: XR CHEST 1 VW [...] Please correlate clinically. IMPRESSION: 1. Bilateral interstitial-type pulmonary opacities are suspicious for emphysema. Superimposed infiltrate cannot be excluded. Comparison to prior chest imaging would be helpful. 2. A mass is visualized in the right low er lung field that is worrisome for tumor. Chest CT is recommended for further evaluation. Mark Jonas MD [facility] DIAGNOSTIC IMAGING ORDER GIGI (ABNORMAL) Procalcitonin (07/19/2021 10:43 AM MANDARIN TEACHER) P athologist Signature Procalcitonin 0.13 (H) <=0.08 DE ng/mL [facility] Comment: Procalcitonin > 2.00 ng/mL: [...] with extended dilution as it exceeds the master craftsman's recommended limit. Caution should be exercised when interpreting such values and done in conjunction with clinical context. Specimen Anatomical Collection Method Collection Time Receive d Time (Source) Location / / Volume Laterality Blood 07/19/2021 10:43 07/19/2021 AM MANDARIN TEACHER 11:01 AM MANDARIN TEACHER Mark Jonas MD LAB BLOOD ORDERABLES Performing Organization Address City/State/ZIP Code Phon e Number [facility] Unless otherwise noted, [place], [place] [id number] [place] [address] all lab tests performed by: Division of Pathology and Laboratory Medicine [facility] OSI Chest (07/08/2021 11:55 PM MANDARIN TEACHER)Only the most recent of3 resultswithin the time period is included. Specimen (Source) Anatomical Location Collection Method / Collectio n Time Received Time / Laterality Volume Narrative Systemgenerated, Documentation - 022 11:55 PM MANDARIN TEACHER Study acquired at another institution. For comparison only. No MD Malhotra originated interpretation requested or a vailable. Linda Chand MD IMG OUTSIDE IMAGE ORDER GIGI OSI Bone Density Study (07/08/2021 11:54 PM MANDARIN TEACHER) Specimen (Source) Anatomical Location Collection Method / Collectio n Time Received Time / Laterality Volume Narrative Systemgenerated, Documentation - 022 11:54 PM MANDARIN TEACHER Study acquired at another institution. For comparison only. No MD Malhotra originated interpretation requested or a vailable. 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
--- OUTSIDE RECORDS SUMMARY | 2022-03-09 10:32 | XMS REPORT | Continuity of Care Document ---
:1940 Author Organization [facility] t Address [address] [place] [address] Care Team Providers Name Role Phone [phone] Primary Care Physician Unavailable SYSTEM, PROVIDER NOT IN Attending Clinician Unavailable Ira Guy Attending Clinician Daniel Burnett MD Attending Clinician DANIEL BURNETT Attending Clinician Unavailable IRA MCINTOSH Attending Clinician Unavailable YASISNE CARRION Attending Clinician Unavailable Yassine Carrion MD Attending Clinician Nnamdi Arevalo RN Attending Clinician Unavailable Noa Tang MD Attending Clinician NOA TANG Attending Clinician Unavailable Sonia Ferreira MD Attending Clinician SONIA FERREIRA Attending Clinician Unavailable Austin Weller RN Attending Clinician Unavailable Katie Mary Attending Clinician Bienvenido Guerrero NP Attending Clinician Jimi Templeton MD Attending Clinician Ken Mina CRNA Attending Clinician Gerson RELATIONSHIP MANAGEMENT LEAD, Kaylynn Attending Clinician Elizabeth Delgado MA Attending Clinician Unavailable Benedicto FUENTES, Windy Minaya Attending Clinician Alfred Hunt MD, Ag Attending Clinician [phone] KAREN COATES Attending Clinician Unavailable LUPILLO, BIENVENIDO E Attending Clinician Unavailable Jaxon CHU, Karen Attending Clinician Margaret FUENTES, Izabella Santos Attending Clinician Unavailable Pelon VELEZ, Lo Attending Clinician LO BIRD Attending Clinician Unavailable Nevaeh ROBLERO, Alyx Tafoya Attending Clinician ALYX KENT Attending Clinician Unavailable Joceline ROBLERO, Chalo Attending Clinician CHALO CAR Attending Clinician Unavailable Ang Galan MD Attending Clinician ANG GALAN Attending Clinician Unavailable Mirta Chi MA Attending Clinician Unavailable Frances Flores RN Attending Clinician Unavailable Pattie Perez MD Attending Clinician Roberth العراقي MD Attending Clinician ROBERTH العراقي Attending Clinician Unavailable Sadie Simmons APN Attending Clinician April Van MD Attending Clinician APRIL VAN Attending Clinician Unavailable Parisa Verde RN Attending Clinician Unavailable Alanna Boyer MD Attending Clinician ALANNA BOYER Attending Clinician Unavailable Simón Silva MD Attending Clinician Ava Taylor MD Attending Clinician Unavailable Raza CHU, Meg Attending Clinician Levy ROBLERO, Lexi Attending Clinician LEXI TURNER Attending Clinician Unavailable Leopoldo FUENTES, Man Iglesias Attending Clinician Unavailable Dennis Trivedi MD Attending Clinician Cira RD, Misty Lo Attending Clinician AG ALMANZAR Attending Clinician Unavailable DENNIS TRIVEDI Attending Clinician Unavailable Taryn CHU, Dorcas Attending Clinician Ranjit RN, Ann Lo Attending Clinician Unavailable Stalin REDDING, Dior Lo Attending Clinician Unavailable Pritesh CHU, Mark Attending Clinician John Elder MD Attending Clinician Katie CHU, Pedro Pandey Attending Clinician Francis CHU, Maryanne Attending Clinician MARYANNE LEVI Attending Clinician Unavailable Varun CHU, Khalif Curry Attending Clinician [phone] Iain WIGGINS, Milan Attending Clinician Christoph FUENTES, Rah Tunrer Attending Clinician Unavailable SONIA FERREIRA Admitting Clinician Unavailable ROBERTH العراقي Admitting Clinician Unavailable ALANNA BOYER Admitting Clinician Unavailable DENNIS TRIVEDI Admitting Clinician Unavailable JOHN ELDER Admitting Clinician Unavailable Payers Payer Name Policy Type Policy Number Effective Date Expiration Date S ource Problems Condition Condition Condition Status Onset Resolution Last Treating Co mments Source Name Details Category Date Date Treatment Clinician Date 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 Former smoker (16-pack year) with no diagnosis of COPD but diagnosti c imaging shows signs of emphysema . Clinicall y, patient reports no respirato ry symptoms since starting on Prednison e. PFTs and 6MWT are within normal limits. Patient will be placed in pending at this time. He has been encourage d to contact clinic if any respirato ry symptoms develop. 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 y of hu lui 00:00: [place] malnutriti malnutriti 00 on on [facility] Hypertensi Hypertensi Disease Active U nivers on on 07-24 ity of 00:00: [place] 00 [facility] Lung mass Lung mass Disease Active Uni vers found on found on 07-20 [place] diagnostic [place] of lung lung [facility] Influenzal Influenzal Disease Active U nivers pneumonia pneumonia 07-19 ity of 00:00: [place] 00 [facility] Acute Acute Disease Active Univers kidney kidney 08 [place] of injury due injury due [place] hypovolemi hypovolemi An derso a a [facility] Hyposmolal Hyposmolal Disease Active U nivers ity and/or ity and/or 07-19 it y of hyponatrem [place]onatrem [place] 00 [facility] Acute Acute Disease Resolve 2021-10-22 2021-10-22 [facility] respirator respirator d 07-19 00:00:00 14:01:13 [place] of y failure y failure 00[place] with with 00 hypoxia hypoxia [facility] Allergies, Adverse Reactions, Alerts This patient has no known allergies or adverse reactions. Family History Family Member Diagnosis Comments Start Date Stop Date Source Natural father -Unknown cancer [facility] Natural sister -Unknown cancer Unive rsity of [facility] Social History Social Habit Start Date Stop Date Quantity Comments Source History [employer] University o f Alcohol Std Drinks [facility] History [facility] University o f Alcohol Binge [place] MD [facility] History [facility] University o f Alcohol Comment [facility] Alcohol intake 2022-02-12 2022-02-12 Lifetime University of 00:00:00 00:00:00 non-drinker [place] MD Real mcfarlane (finding) [facility] Cigarettes smoked 2021-08-07 2021-08-07 Univers ity of current (pack per 00:00:00 00:00:00 [facility] day) - Reported Cancer Ce nter Tobacco use and 2021-08-07 2021-08-07 Smokeless Universit y of exposure 00:00:00 00:00:00 tobacco non-user [facility] History SDOH 2021-08-07 2021-08-07 1 University o f Alcohol Frequency 00:00:00 00:00:00 [facility] History of tobacco 1981-07-23 Current smoker Un iversity of use 00:00:00 [place] MD Alexander carlos [facility] Sex [birth year] M Universit y of 00:00:00 00:00:00 Katelyn carlos [facility] Smoking Status Start Date Stop Date Source Ex-smoker 2021-08-07 00:00:00 2021-08-07 00:00:00 Universi ty of [facility] Medications Ordered Filled Start Stop Current Ordering Indication Dosage Frequency Signature Comments Components Source Medication Medication Date Date Medication? Clinician (SIG) Name Name aspirin 81 Yes 81mg Take 81 mg U nivers mg EC 8-04 by mouth ity of tablet 10:15: daily. [place] [id number] MD Bang [facility]ris [facility] amLODIPine Yes 10mg Take 10 mg U nivers (NORVASC) 8-04 by mouth ity of 10 mg 10:15: daily. [facility] 43 MD Bang morris [facility] predniSONE Yes Hypertensio 10mg Take 2 Univers (DELTASONE) 7-12 n tablets ity o f 5 mg tablet 00:00: (10 mg) by [place] 00 mouth daily. [facility] traMADol 2021- Acute 50mg Take 1 Unive rs (Ultram) 50 5-17 06-16 postoperati tablet (50 ity of mg tablet 00:00: 00:00 ve pain mg) by Tay santana 00 :00 mouth every 6 Anderso (six) n hours as Cancer needed for Center moderate pain. amLODIPine 2021- No Hypertensio TAKE 2 Univers (NORVASC) 5 4-12 05-05 n TABLETS(10 i ty of mg tablet 00:00: 00:00 MG) BY Katelyn 00 :00 MOUTH MD DAILY [facility] predniSONE 2021- No Immunoglobu 10mg Take 1 Univers (DELTASONE) 09-19-16 kiah G4 tablet (10 ity of 10 mg 00:00: 00:00 related mg) by [place] tablet 00 :00 disease mouth MD daily. [facility] predniSONE 2021- No Immunoglobu 30mg Take 3 Univers (DELTASONE) 09-17-11 kiah G4 tablets it y of 10 mg 00:00: 00:00 related [place]30 [place] tablet [place] :00 disease mouth MD daily. [facility] ipratropium 2021- No Cough, 1{puff} Inhale 1 Univers -albuterol 09-15 04-06 unspecified puff by ity of (COMBIVENT 00:00: 00:00 mouth Katelyn RESPIMAT) 00 :00 every 6 MD 20 mcg-100 (six) Anderso mcg/puff hours as n inhaler needed for Cancer wheezing Center or shortness of breath. HYDROcodone 2021- No Cough, 5mL Take 5 mL Univers -homatropin 09-15-06 unspecified by mouth ity of e 00:00: 00:00 every 6 Katelyn (Hydromet) 00 :00 (six) MD 5 mg-1.5 hours as Anderso mg/5 mL needed for n syrup cough. [facility] HYDROcodone 2021- No Cough, 5mL Take 5 mL Univers -homatropin 09-15-07 unspecified by mouth ity of e (HYCODAN) 00:00[place]00 [place] 6 [place] syrup 5-1.5 00 :00 (six) MD mg/5mL hours as Anderso needed for n cough. [facility] [place] HYDROcodone 2021- No Cough, 5mL Take 5 mL Univers -homatropin 09-15-07 unspecified by mouth ity of e (HYCODAN) 00:00[place] 00:00 [place] 6 [place] syrup 5-1.5 00 :00 (six) MD mg/5mL hours as Anderso needed for n cough. [facility] HYDROcodone 2021- No Cough, 5mL Take 5 mL Univers -homatropin 3-07 unspecified by mouth ity of e (HYCODAN) 00:00[place] 00:00 [place] 6 [place] syrup 5-1.5 00 :00 (six) MD mg/5mL hours as Anderso needed for n cough. [facility] HYDROcodone 2021- No Cough, 5mL Take 5 mL Univers -homatropin 09-15- unspecified by mouth ity of e (HYCODAN) 00:00[place] 00:00 [place] 6 [place] syrup 5-1.5 00 :00 (six) MD mg/5mL hours as Anderso needed for n cough. [facility] HYDROcodone 2021- No Cough, 5mL Take 5 mL Univers -homatropin 09-15-07 unspecified by mouth ity of e (HYCODAN) 00:00: 00:00 [place] 6 [place] syrup 5-1.5 00 :00 (six) MD mg/5mL hours as Anderso needed for n cough. [facility] amLODIPine No Hypertensio TAKE 2 Univers (NORVASC) 5 -13 04-12 n TABLETS(10 i ty of mg tablet 00:00: 00:00 MG) BY [place] 00 :00 MOUTH DAILY [facility] mor[facility] amLODIPine 2021- No Hypertensio 10mg Take 2 Univers (NORVASC) 5 1-13 01-13 n tablets ity of mg tablet 00:00: 00:00 (10 mg) by Marimar gonzalez 00 :00 mouth daily. Bang morris [facility] atorvastati 2020-07 Yes 40mg Take 40 mg Univers n (LIPITOR) 2-28 by mouth ity of 40 mg 00:00: at [place] tablet 00 bedtime. MD Bang morris [facility] triamterene 2020-07- No 1{tbl} Take 1 U nivers -hydroCHLOR 09-08 tablet by it y of Othiazide 00:00: 00:00 mouth Katelyn (MAXZIDE-25 00 :00 every ) 37.5 morning. Anderso mg-25 mg n per tablet Cancer Center amLODIPine 2020-07 5mg Take 5 mg U nivers (NORVASC) 5 09-03 by mouth ity of mg tablet 00:00: 00:00 daily. [place] 00 :00 MD [facility] Immunizations Ordered Filled Immunization Date Status Comments [facility] e Immunization Name Name [facility] SARS-CoV-2 2021-10-14 Completed Univer sity of Vaccination (Purple 00:00:00 [facility]) [facility] SARS-CoV-2 2021-03-10 Completed Univer sity of Vaccination (Purple 00:00:00 [facility]) [facility] Pfizer SARS-CoV-2 2020-09-11 Completed Univer sity of Vaccination (Purple 00:00:00 [facility]) Cancer [facility] SARS-CoV-2 2020-08-21 Completed Univer sity of Vaccination (Purple 00:00:00 [facility]) [facility] Vital Signs Vital Name Observation Time Observation Value Comments Source Systolic blood 2021-12-25 14:36:12 130 mm[Hg] Univer sity of pressure [facility] Diastolic blood 2021-12-25 14:36:12 74 mm[Hg] Unive rsity of pressure [facility]n [facility] Heart rate 2021-12-25 14:36:12 80 /min Universi ty Katelyn [facility] Body temperature 2021-12-25 14:36:12 36.72 [place] Univ ersity Oriana [facility] Respiratory rate 2021-12-25 14:36:12 20 /min Univ ersity Oriana [facility] Body height 2021-12-25 14:36:12 170 cm Universi ty K[facility]n [facility] Body weight 2021-12-25 14:36:12 63.3 kg Universi ty [facility]n [facility] BMI 2021-12-25 14:36:12 21.90 kg/m2 Universi ty of [facility]n [facility] Oxygen saturation in 2021-12-25 14:36:12 97 /min University of Arterial blood by Katelyn helms Pulse oximetry Cancer Center Procedures Procedure Date / Time Performing Clinician Source Performed CT NECK W CONTRAST LYMPHOMA 2022-01-27 14:06:43 Ira Mcintosh [facility] CT CHEST ABDOMEN PELVIS W 2022-01-27 14:06:43 [facility]OMA [facility] Ca ncer Center COMPLETE BLOOD COUNT W/ 2022-01-27 12:15:10 [facility]do [facility] DIFFERENTIAL [facility] COMPREHENSIVE METABOLIC 2022-01-27 12:15[facility] LACTATE DEHYDROGENASE 2022-01-27 12:15:10 Ira Mcintosh [facility] sity [facility] MAGNESIUM LEVEL 2022-01-27 12:15:10 [facility]IC ACID 2022-01-27 12:15:10 [facility] PHOSPHORUS LEVEL 2022-01-27 12:15:[facility] CBC 2022-01-27 12:15:10 [facility] MANUAL DIFFERENTIAL 2022-01-27 12:15:10 [facility] GLUCOSE LEVEL 2022-01-27 12:15:10 [facility] BLOOD UREA NITROGEN 2022-01-27 12:15:10 [facility] ELECTROLYTE PANEL 2022-01-27 12:15:10 [facility] SERUM CREATININE 2022-01-27 12:15:10 [facility] .GLOMERULAR FILTRATION RATE 2022-01-27 12:15:10 [facility] CALCIUM LEVEL TOTAL 2022-01-27 12:15:10 [facility] ALBUMIN LEVEL 2022-01-27 12:15:[address] [facility] ALKALINE PHOSPHATASE 2022-01-27 12:15:10 Ira Mcintosh [facility] ALANINE AMINOTRANSFERASE 2022-01-27 12:15:10 [facility] [place] ASPARTATE AMINOTRANSFERASE 2022-01-27 12:15:10 [facility] [place] TOTAL PROTEIN 2022-01-27 12:15:[address] [facility] FRACTIONATED BILIRUBIN 2022-01-27 12:15:10 Ira Mcintosh [facility] ANTIBODY SCREEN MANUAL 2022-01-27 12:15:10 Ira Mcintosh [facility] ABORH MANUAL 2022-01-27 12:15:[address] [facility] TMP INTERPRETATION MANUAL 2022-01-27 12:15:10 [facility] ANTIBODY S[facility]EN NEGATIVE MD [facility] CLOT EXPIRATION DATE 2022-01-27 12:15:10 Ira Mcintosh [facility] TMP ABORH DISCREPANCY 2022-01-27 12:15:10 Ira Mcintosh [facility] INTERPRETATION [facility] C3 COMPLEMENT 2022-01-16 14:11:[address] [facility] C4 COMPLEMENT 2022-01-16 14:11:[address] [facility] IGG SUBCLASSES, SERUM 2022-01-16 14:11:50 Yassine Carrion [facility] BLOOD UREA NITROGEN 2022-01-16 14:02:00 Yassine Carrion [facility] COMPLETE BLOOD COUNT W/ 2022-01-16 14:02:00 Yassine Carrion [facility] DIFFERENTIAL [facility] SERUM CREATININE 2022-01-16 14:02:00 Yassine Carrion [facility] C REACTIVE PROTEIN 2022-01-16 14:02:00 Yassine Carrion [facility] SEDIMENTATION RATE 2022-01-16 14:02:00 Yassine Carrion [facility] NON-AUTOMATED [facility] THYROID STIMULATING HORMONE 2022-01-16 14:02:00 Yassine Carrion [facility] AMYLASE LEVEL 2022-01-16 14:02:00 [facility] LIPASE LEVEL 2022-01-16 14:02:00 [facility] SERUM CREATININE 2022-01-16 14:02:00 Yassine Carrion annette [facility] .GLOMERULAR FILTRATION RATE 2022-01-16 14:02:00 Yassine Carrion [facility] Results CBC 2022-01-16 14:02:[address] [facility] MANUAL DIFFERENTIAL 2022-01-16 14:02:00 Yassine Carrion [facility] CT CHEST W CONTRAST 2022-01-05 14:16:00 Clyde [facility] [place] [facility] POC CREATININE 2022-01-05 13:38:00 Luc[facility] C REACTIVE PROTEIN 2021-12-04 19:57:49 Yassine Carrion [facility] IGG SUBCLASSES, SERUM 2021-12-04 19:57:49 Yassine Carrion [facility] INTRAOPERATIVE PTHI SPEC 2 2021-11-25 13:25:00 Sonia Ferreira [facility] INTRAOPERATIVE PTHI SPEC 1 2021-11-25 13:22:00 Sonia Ferreira [facility] PATHOLOGY SURGICAL 2021-11-25 13:13:00 Sonia Ferreira [facility] INTERPRETATION [facility] INTRAOPERATIVE PTHI 2021-11-25 12:38:00 Sonia Ferreira [facility] Center PARATHYROIDECTOMY OR 2021-11-25 11:30:00 Sonia Ferreira [facility] EXPLORATION OF [facility] PARATHYROID(S) Center POC GLUCOSE SCREEN 2021-11-25 11:28:00 Sonia Ferreira [facility] Center COVID-19 (SARS-COV-2) 2021-11-21 19:09:00 Sonia Ferreira [facility] PCR-ASYMPTOMATIC [facility] PETCT SUBSEQUENT TREATMENT 2021-11-12 17:00:53 Daniel Burnett [facility] STRATEGY [facility] IGG SUBCLASSES, SERUM 2021-11-12 14:28:31 Daniel Burnett [facility] COMPLEMENT TOTAL 2021-11-12 14:28:31 [facility]PLETE BLOOD COUNT W/ 2021-11-12 14:28:31 Daniel Burnett [facility] DIFFERENTIAL [facility] TOTAL PROTEIN 2021-11-12 14:28:31 [facility] ALBUMIN LEVEL 2021-11-12 14:28:31 [facility] CALCIUM LEVEL TOTAL 2021-11-12 14:28:31 Daniel Burnett [facility] PHOSPHORUS LEVEL 2021-11-12 14:28:31 [facility] GLUCOSE, RANDOM 2021-11-12 14:28:31 Hortencia [facility] BLOOD UREA NITROGEN 2021-11-12 14:28:31 Daniel Burnett [facility] SERUM CREATININE 2021-11-12 14:28:31 Hortencia [facility] URIC ACID 2021-11-12 14:28:31 Hortencia [facility] FRACTIONATED BILIRUBIN 2021-11-12 14:28:31 Daniel Burnett Unive [facility] ALKALINE PHOSPHATASE 2021-11-12 14:28:31 Daniel Burnett [facility] LACTATE DEHYDROGENASE 2021-11-12 14:28:31 [facility] ALANINE AMINOTRANSFERASE 2021-11-12 14:28:31 Daniel Burnett [facility] MAGNESIUM LEVEL 2021-11-12 14:28:[address] [facility] ASPARTATE AMINOTRANSFERASE 2021-11-12 14:28:31 Daniel Burnett [facility] ELECTROLYTE PANEL 2021-11-12 14:28:31 Daniel Burnett [facility] VITAMIN D 25 HYDROXY LEVEL 2021-11-12 14:28:31 Daniel Burnett [facility] PROTEIN ELECTROPHORESIS, 2021-11-12 14:28:31 Daniel Burnett [facility] SERUM [facility] IMMUNOGLOBULIN A SERUM 2021-11-12 14:28:31 Daniel Burnett [facility] IMMUNOGLOBULIN M SERUM 2021-11-12 14:28:31 Daniel Burnett [facility] IMMUNOGLOBULIN G SERUM 2021-11-12 14:28:31 Daniel Burnett [facility] BETA 2 MICROGLOBULIN 2021-11-12 14:28:31 Daniel Burnett [facility] C3 COMPLEMENT 2021-11-12 14:28:[address] [facility] C4 COMPLEMENT 2021-11-12 14:28:[address] [facility] C REACTIVE PROTEIN 2021-11-12 14:28:31 Yassine Carrion [facility] SEDIMENTATION RATE 2021-11-12 14:28:31 Yassine Carrion [facility] NON-AUTOMATED [facility] HEMOGLOBIN A1C 2021-11-12 14:28:31 Katie Mercado [facility] PROTHROMBIN TIME 2021-11-12 14:28:31 Katie Mercado [facility] Results CBC 2021-11-12 14:28:31 Hortencia [facility] MANUAL DIFFERENTIAL 2021-11-12 14:28:31 Daniel Burnett [facility] SERUM CREATININE 2021-11-12 14:28:31 Hortencia [facility] .GLOMERULAR FILTRATION RATE 2021-11-12 14:28:31 Hortencia [facility] IMMUNOFIXATION 2021-11-12 14:28:31 Hortencia [facility] ELECTROPHORESIS [facility] .DR. RODRIGUEZ SULEMAN PATH 2021-11-12 14:28:31 [facility] .DR. RODRIGUEZ PROT ELEC 2021-11-12 14:28:[facility] EKG, 12-LEAD (SCHEDULED) 2021-11-12 00:00:00 Katie Mercado [facility] CALCIUM LEVEL 24 HOUR URINE 2021-10-20 11:00:00 Hu, [facility] CREATININE 24 HOUR URINE 2021-10-20 11:00:00 Hu, [facility] SODIUM 24 HOUR URINE 2021-10-20 11:00:00 Hu, [facility] .TOTAL VOLUME 2021-10-20 11:00:00 Hu, [facility] CT 4D NECK (ASSOCIATED WITH 2021-10-16 20:18:10 Bienvenido Guerrero [facility] NM STUDY) [facility] NM SESTAMIBI PARATHYROID 2021-10-16 20:17:46 Bienvenido Guerrero [facility] [place] SPECT/CT (WITH 4D NECK CT) MD Cindy thomas [facility] THYROID STIMULATING HORMONE 2021-10-16 17:25:00 Hu, [facility] FREE THYROXINE 2021-10-16 17:25:00 Hu, [facility] CALCIUM LEVEL TOTAL 2021-10-16 17:25:00 Hu, [facility] ALBUMIN LEVEL 2021-10-16 17:25:00 Hu, [facility] PHOSPHORUS LEVEL 2021-10-16 17:25:00 Hu, [facility] BLOOD UREA NITROGEN 2021-10-16 17:25:00 Hu, [facility] SERUM CREATININE 2021-10-16 17:25:00 Hu, [facility] PTH INTACT 2021-10-16 17:25:00 Hu, [facility] SERUM CREATININE 2021-10-16 17:25:00 Hu, [facility] .GLOMERULAR FILTRATION RATE 2021-10-16 17:25:00 Hu, [facility] GENERAL LABORATORY ADD ON 2021-10-14 19:12:00 Bienvenido Guerrero [facility] [place] TEST [facility] DEXA BONE MINERAL DENSITY 2021-10-13 20:34:43 Bienvenido Guerrero [facility] [place] BOTH HIPS AND SPINE [facility] US HEAD NECK SOFT TISSUE 2021-10-13 15:13:00 Bienvenido Guerrero Uni versity of [facility] SPIROMETRY W/O DILATORS, 2021-10-13 13:55:51 Lo Bird Un iversity [facility] DLCO AND BODY [facility] PLETHSMOGRAPHIC LUNG Center VOLUMES 6 MINUTE WALK TEST 2021-10-13 13:55:01 Lo Bird [facility] ANCA PANEL FOR VASCULITIS, 2021-10-13 12:58:00 [facility]ine [facility] BLOOD UREA NITROGEN 2021-10-13 12:58:00 Yassine Carrion [facility] COMPLETE BLOOD COUNT W/ 2021-10-13 12:58:00 Yassine Carrion [facility] DIFFERENTIAL [facility] SERUM CREATININE 2021-10-13 12:58:00 Yassine Carrion [facility] C REACTIVE PROTEIN 2021-10-13 12:58:00 Yassine Carrion [facility] SEDIMENTATION RATE 2021-10-13 12:58:00 Yassine Carrion [facility] NON-AUTOMATED [facility] CYCLIC CITRULLINE ANTIBODY 2021-10-13 12:58:00 Yassine Carrion [facility] IGG [facility] RHEUMATOID FACTOR 2021-10-13 12:58:00 Yassine Carrion [facility] QUANTITATIVE [facility] AMYLASE LEVEL 2021-10-13 12:58:[address] [facility] LIPASE LEVEL 2021-10-13 12:58:00 [facility] C3 COMPLEMENT 2021-10-13 12:58:[address] [facility] C4 COMPLEMENT 2021-10-13 12:58:[address] [facility] IGG SUBCLASSES, SERUM 2021-10-13 12:58:00 Yassine Carrion [facility] COMPREHENSIVE METABOLIC 2021-10-13 12:58:00 Bienvenido Guerrero [facility] PANEL [facility] MAGNESIUM LEVEL 2021-10-13 12:58:[address] [facility] PHOSPHORUS LEVEL 2021-10-13 12:58:00 Bienvenido Guerrero [facility] VITAMIN D 25 HYDROXY LEVEL 2021-10-13 12:58:00 Bienvenido Guerrero U [facility] DIHYDROXY VITAMIN D 1 25 2021-10-13 12:58:00 [facility] BETA CROSSLAPS 2021-10-13 12:58:00 Bienvenido Guerreroit y [facility] OSTEOCALCIN 2021-10-13 12:58:[address] [facility] ALKALINE PHOSPHATASE BONE 2021-10-13 12:58:00 Bienvenido Guerrero Un iversdavid [facility] Results CBC 2021-10-13 12:58:[address] [facility] MANUAL DIFFERENTIAL 2021-10-13 12:58:00 Yassine Carrion [facility] SERUM CREATININE 2021-10-13 12:58:00 Yassine Carrion annette [facility] .GLOMERULAR FILTRATION RATE 2021-10-13 12:58:00 Yassine Carrion annette [facility] GLUCOSE LEVEL 2021-10-13 12:58:[address] [facility] ELECTROLYTE PANEL 2021-10-13 12:58:00 Bienvenido Guerrero [facility] CALCIUM LEVEL TOTAL 2021-10-13 12:58:00 Bienvenido Guerrero [facility] ALBUMIN LEVEL 2021-10-13 12:58:[address] [facility] ALKALINE PHOSPHATASE 2021-10-13 12:58:00 Bienvenido Guerrero ity [facility] ALANINE AMINOTRANSFERASE 2021-10-13 12:58:00 [facility] ASPARTATE AMINOTRANSFERASE 2021-10-13 12:58:00 [facility] [place] TOTAL PROTEIN 2021-10-13 12:58:[address] [facility] FRACTIONATED BILIRUBIN 2021-10-13 12:58:00 Bienvenido Guerrero [facility] [place] COMPREHENSIVE METABOLIC 2021-09-19 14:58:00 Chalo Car [facility] PAN[facility] GLUCOSE LEVEL 2021-09-19 14:58:00 Chalo Car [facility] BLOOD UREA NITROGEN 2021-09-19 14:58:00 Chalo Car [facility] ELECTROLYTE PANEL 2021-09-19 14:58:00 Chalo Car [facility] SERUM CREATININE 2021-09-19 14:58:00 Chalo Car [facility] .GLOMERULAR FILTRATION RATE 2021-09-19 14:58:00 Diana Car [facility] CALCIUM LEVEL TOTAL 2021-09-19 14:58:00 Chalo Car [facility] ALBUMIN LEVEL 2021-09-19 14:58:00 Chalo Car [facility] ALKALINE PHOSPHATASE 2021-09-19 14:58:00 Chalo Car [facility] ALANINE AMINOTRANSFERASE 2021-09-19 14:58:00 Chalo Car [facility] ASPARTATE AMINOTRANSFERASE 2021-09-19 14:58:00 Chalo Car [facility] TOTAL PROTEIN 2021-09-19 14:58:00 Chalo Car [facility] FRACTIONATED BILIRUBIN 2021-09-19 14:58:00 Chalo Car [facility] GENERAL LABORATORY ADD ON 2021-09-16 01:24:00 Lia [facility] DIHYDROXY VITAMIN D 1 25 2021-09-15 23:04:00 Bolivar Crisostomo [facility] SORIANO MISCELLANEOUS TEST 2021-09-15 23:04:00 Bolivar Crisostomo [facility] NM LUNG PERFUSION 2021-09-15 16:27:24 Bolivar Crisostomo [facility] GENERAL LABORATORY ADD ON 2021-09-15 13:11:00 Bolivar [facility] TEST [facility] PTH INTACT 2021-09-15 08:42:[address] [facility] BASIC METABOLIC PANEL, 2021-09-15 08:42:00 Bolivar Crisostomo [facility] CALCIUM TOTAL [facility] MAGNESIUM LEVEL 2021-09-15 08:42:[address] [facility] PHOSPHORUS LEVEL 2021-09-15 08:42:00 Bolivar Crisostomo [facility] COMPLETE BLOOD COUNT W/ 2021-09-15 08:42:00 Bolivar Crisostomo [facility] DIFFERENTIAL [facility] GLUCOSE LEVEL 2021-09-15 08:42:[address] [facility] BLOOD UREA NITROGEN 2021-09-15 08:42:00 Bolivar Crisostomo [facility] ELECTROLYTE PANEL 2021-09-15 08:42:00 Andressa Bolivar [facility] SERUM CREATININE 2021-09-15 08:42:00 Andressa Bolivar [facility] .GLOMERULAR FILTRATION RATE 2021-09-15 08:42:00 Bolivar Crisostomo [facility] CALCIUM LEVEL TOTAL 2021-09-15 08:42:00 Bolivar Crisostomo [facility] Results CBC 2021-09-15 08:42:[address] [facility] MANUAL DIFFERENTIAL 2021-09-15 08:42:00 Andressa Bolivar [facility] ALBUMIN LEVEL 2021-09-15 08:42:[address] [facility] CT CHEST WO CONTRAST 2021-09-15 02:22:00 Bolivar Crisostomo [facility] TROPONIN T 2021-09-15 00:14:00 Andressa [facility] EKG, 12-LEAD (PORTABLE) 2021-09-15 00:00:00 Bolivar Crisostomo [facility] RESPIRATORY VIRAL PANEL + 2021-09-14 17:04:00 Ana [facility] COVID[facility], NASOPHARYNGEAL Real [facility] COMPLETE BLOOD COUNT W/ 2021-09-14 17:04:00 Ana [facility] DIFFERENTIAL [facility] COMPREHENSIVE METABOLIC 2021-09-14 17:04:00 Ana [facility] PANEL [facility] MAGNESIUM LEVEL 2021-09-14 17:04:00 Ana [facility] PHOSPHORUS LEVEL 2021-09-14 17:04:00 Ana [facility] CARDIAC PANEL 2021-09-14 17:04:00 Ana [facility] NT PRO BNP 2021-09-14 17:04[facility]00 [facility] 2021-09[facility]14 [facility]14 17:04:00 Ana [facility] D DIMER 2021-09-14 17:04:00 [facility] Results CBC 2021-09-14 17:04:00 Ana [facility] MANUAL DIFFERENTIAL 2021-09-14 17:04:00 Ana [facility] GLUCOSE LEVEL 2021-09-14 17:04:00 Ana [facility] BLOOD UREA NITROGEN 2021-09-14 17:04:00 Ana [facility] ELECTROLYTE PANEL 2021-09-14 17:04:00 Ana [facility] SERUM CREATININE 2021-09-14 17:04:00 Ana [facility] .GLOMERULAR FILTRATION RATE 2021-09-14 17:04:00 Ana [facility] CALCIUM LEVEL TOTAL 2021-09-14 17:04:00 Ana [facility] ALBUMIN LEVEL 2021-09-14 17:04:00 Ana [facility] ALKALINE PHOSPHATASE 2021-09-14 17:04:[address] [facility] ALANINE AMINOTRANSFERASE 2021-09-14 17:04:00 Ana [facility] ASPARTATE AMINOTRANSFERASE 2021-09-14 17:04:00 [facility] TOTAL PROTEIN 2021-09-14 17:04:00 Ana [facility] FRACTIONATED BILIRUBIN 2021-09-14 17:04:[address] [facility] XR CHEST 1 VW 2021-09-14 17:01:33 Ana [facility] PATHOLOGY SURGICAL 2021-09-03 21:57:00 Alanna Boyer [facility] INTERPRETATION [facility] BIOPSY OR EXCISION OF LYMPH 2021-09-03 21:05:00 Rosalind [facility] NODE(S); OPEN, [facility] INGUINOFEMORAL NODE(S) Center GALINA JOSEPH VIRUS PANEL 2021-09-03 18:24:00 Noa Tang [facility] PATH REVIEW [facility] PROTEIN ELECTROPHORESIS, 2021-09-03 18:24:00 Noa Tang [facility] [place] SERUM [facility] IGG SUBCLASSES, SERUM 2021-09-03 18:24:[address] [facility] FREE KAPPA LIGHT CHAIN 2021-09-03 18:24:00 Noa Tang [facility] FREE LAMBDA LIGHT CHAIN 2021-09-03 18:24:00 Ilicris No[address] Univ [facility] IMMUNOFIXATION 2021-09-03 18:24:00 [facility] ELECTROPHORESIS [facility] IMMUNOGLOBULIN A SERUM 2021-09-03 18:24:00 Iliesilan Noa Unive [facility] IMMUNOGLOBULIN M SERUM 2021-09-03 18:24:00 Iliesilan, Noa Unive [facility] GALINA JOSEPH VIRUS PANEL 2021-09-03 18:24:00 IliCarla lynchria [facility] IMMUNOGLOBULIN G SERUM 2021-09-03 18:24:00 Ilicris, Noa Unive [facility] FREE KAPPA/FREE LAMBDA 2021-09-03 18:24:00 IliCarla lynchria Unive [facility] RATIO [facility] .DR. RODRIGUEZ PROT ELEC 2021-09-03 18:24:00 Carla Tangria [facility] PATH REVIEW [facility] .DR. RODRIGUEZ SULEMAN PATH 2021-09-03 18:24:00 Ilicris Noa Unive [facility] PROTHROMBIN TIME 2021-09-01 19:48:18 [facility] APTT 2021-09-01 19:48:18 [facility] HEMOGLOBIN A1C 2021-09-01 19:48:18 [facility] FREE THYROXINE 2021-09-01 19:48:18 Levy [facility] THYROID STIMULATING HORMONE 2021-09-01 19:48:18 [facility] COMPLETE BLOOD COUNT W/ 2021-09-01 19:48:18 Levy [facility] DIFFERENTIAL [facility] COMPREHENSIVE METABOLIC 2021-09-01 19:48:18 Levy [facility] PANEL [facility] GLUCOSE LEVEL 2021-09-01 19:48:18 Levy [facility] BLOOD UREA NITROGEN 2021-09-01 19:48:18 Levy [facility] ELECTROLYTE PANEL 2021-09-01 19:48:18 [facility] SERUM CREATININE 2021-09-01 19:48:18 [facility] .GLOMERULAR FILTRATION RATE 2021-09-01 19:48:18 [facility] CALCIUM LEVEL TOTAL 2021-09-01 19:48:18 Levy [facility] ALBUMIN LEVEL 2021-09-01 19:48:18 Levy [facility] ALKALINE PHOSPHATASE 2021-09-01 19:48:18 Levy [facility] ALANINE AMINOTRANSFERASE 2021-09-01 19:48:18 Levy Lexi [facility] ASPARTATE AMINOTRANSFERASE 2021-09-01 19:48:18 Lexi Turner [facility] TOTAL PROTEIN 2021-09-01 19:48:18 Levy [facility] FRACTIONATED BILIRUBIN 2021-09-01 19:48:18 [facility] Results CBC 2021-09-01 19:48:18 Levy [facility] MANUAL DIFFERENTIAL 2021-09-01 19:48:18 Levy [facility] ANTIBODY SCREEN MANUAL 2021-09-01 19:48:18 [facility] ABORH MANUAL 2021-09-01 19:48:18 Levy [facility] Center CLOT EXPIRATION DATE 2021-09-01 19:48:18 Levy [facility] TMP ABORH DISCREPANCY 2021-09-01 19:48:18 Levy [facility] INTERPRETATION [facility] TMP INTERPRETATION MANUAL 2021-09-01 19:48:18 Lexi Turner [facility] ANTIBODY SCREEN NEGATIVE MD [facility] [place] MANUAL CONFIRM ABORH 2021-09-01 19:44:41 Levy [facility] TMP ABORH DISCREPANCY 2021-09-01 19:44:41 Levy [facility] INTERPRETATION [facility] MD PHILLIPS19 (SARS-COV-2) 2021-09-01 19:28:00 Alanna Boyer [facility] PCR ASYMPTOMATIC [facility] HP FC FLOW CYTOMETRY BLOOD 2021-08-15 22:45:00 Dennis [facility]rivedi [facility] COLLECTION [facility] HP FC LYMPHOMA B HODGKIN 2021-08-15 22:45:00 Dennis Trivedi [facility] INTERPRETATION AND REPORT [facility] CYTOLOGY IMAGE-GUIDED FNA 2021-08-15 20:05:00 Dennis Trivedi [facility] [place] INTERPRETATION [facility] CYTOLOGY IMAGE-GUIDED FNA 2021-08-15 19:58:00 Dennis Trivedi [facility] [place] INTERPRETATION [facility] CYTOLOGY IMAGE-GUIDED FNA 2021-08-15 19:52:00 Dennis Trivedi [facility] [place] INTERPRETATION [facility] BRONCHOSCOPY WITH EBUS 2021-08-15 19:04:00 [facility] PERIPHERAL LESION-RADIAL MD [facility] MD PHILLIPS19 (SARS-COV-2) 2021-08-13 16:58:00 Dennis Trivedi [facility] PCR ASYMPTOMATIC [facility] OSMOLALITY URINE 2021-08-13 16:35:00 Joceline, Latira [facility] POTASSIUM LEVEL URINE 2021-08-13 16:35:00 Chalo Car [facility] SODIUM URINE 2021-08-13 16:35:00 [facility] BASIC METABOLIC PANEL, 2021-08-13 16:32:24 Chalo Car [facility] CALCIUM TOTAL [facility] OSMOLALITY 2021-08-13 16:32:24 Joceline [facility] GLUCOSE LEVEL 2021-08-13 16:32:24 Joceline [facility] BLOOD UREA NITROGEN 2021-08-13 16:32:24 Chalo Car [facility] ELECTROLYTE PANEL 2021-08-13 16:32:24 Chalo Car [facility] SERUM CREATININE 2021-08-13 16:32:24 Joceline [facility] .GLOMERULAR FILTRATION RATE 2021-08-13 16:32:24 Diana Car [facility] CALCIUM LEVEL TOTAL 2021-08-13 16:32:24 Chalo Car [facility] PETCT INITIAL TREATMENT 2021-08-13 16:09:00 Chalo [facility] STRATEGY [facility] COMPREHENSIVE METABOLIC 2021-08-07 18:08:00 [facility] COMPLETE BLOOD COUNT W/ 2021-08-07 18:08:00 [facility] DIFFERENTIAL [facility] PROTHROMBIN TIME 2021-08-07 18:08:00 Chalo Car [facility] APTT 2021-08-07 18:08:00 Chalo Car [facility] HEPATITIS B SURFACE 2021-08-07 18:08:00 Chalo Car [facility] ANTIGEN, SERUM [facility] HEPATITIS B CORE ANTIBODY 2021-08-07 18:08:00 Chalo Car [facility] HEPATITIS C VIRUS ANTIBODY 2021-08-07 18:08:00 Joceline [facility] THYROID STIMULATING HORMONE 2021-08-07 18:08:00 Diana Car [facility] PROSTATE SPECIFIC ANTIGEN 2021-08-07 18:08:00 Joceline [facility] GLUCOSE LEVEL 2021-08-07 18:08:00 Joceline [facility] BLOOD UREA NITROGEN 2021-08-07 18:08:00 Joceline [facility] ELECTROLYTE PANEL 2021-08-07 18:08:00 Chalo Car [facility] SERUM CREATININE 2021-08-07 18:08:00 Chalo Car [facility] .GLOMERULAR FILTRATION RATE 2021-08-07 18:08:00 Diana Car [facility] CALCIUM LEVEL TOTAL 2021-08-07 18:08:00 Chalo Car [facility] ALBUMIN LEVEL 2021-08-07 18:08:00 Joceline [facility] ALKALINE PHOSPHATASE 2021-08-07 18:08:00 Chalo Car [facility] ALANINE AMINOTRANSFERASE 2021-08-07 18:08:00 Chalo Car [facility] ASPARTATE AMINOTRANSFERASE 2021-08-07 18:08:00 Joceline [facility] TOTAL PROTEIN 2021-08-07 18:08:00 Joceline [facility] FRACTIONATED BILIRUBIN 2021-08-07 18:08:00 Chalo Car [facility] Results CBC 2021-08-07 18:08:00 JocelineChalo steward [facility] MANUAL DIFFERENTIAL 2021-08-07 18:08:00 Chalo Car Univer sity [facility] HEPATITIS B CORE TOTAL 2021-08-07 18:08:00 Chalo Car [facility] [place] ANTIBODY [facility] HEPATITIS B SURFACE AG 2021-08-07 18:08:00 Chalo Car [facility] [place] W/CONFIRM [facility] TMP HCVAB INTERP 2021-08-07 18:08:00 Chalo Car [facility] GENERAL LABORATORY ADD ON 2021-08-07 17:44:00 Joceline [facility] TEST [facility] MAGNESIUM LEVEL 2021-07-24 12:51:00 Pedro Wilson [facility] PHOSPHORUS LEVEL 2021-07-24 12:51:00 Pedro Wilson [facility] COMPLETE BLOOD COUNT W/ 2021-07-24 12:51:00 Pedro Wilson [facility] [place] DIFFERENTIAL [facility] COMPREHENSIVE METABOLIC 2021-07-24 12:51:00 Perdo Wilson [facility] [place] PANEL [facility] PROTHROMBIN TIME 2021-07-24 12:51:00 Brian Williamson [facility] GLUCOSE LEVEL 2021-07-24 12:51:00 Pedro Wilson [facility] BLOOD UREA NITROGEN 2021-07-24 12:51:00 Pedro Wilson [facility] ELECTROLYTE PANEL 2021-07-24 12:51:00 Pedro Wilson [facility] SERUM CREATININE 2021-07-24 12:51:00 Pedro Wilson [facility] .GLOMERULAR FILTRATION RATE 2021-07-24 12:51:00 Pedro Wilson [facility] CALCIUM LEVEL TOTAL 2021-07-24 12:51:00 Pedro Wilson [facility] ALBUMIN LEVEL 2021-07-24 12:51:00 Pedro Wilson [facility] ALKALINE PHOSPHATASE 2021-07-24 12:51:00 Pedro Wilson [facility] ALANINE AMINOTRANSFERASE 2021-07-24 12:51:[address] ASPARTATE AMINOTRANSFERASE 2021-07-24 12:51:00 Pedro Wilson [facility] TOTAL PROTEIN 2021-07-24 12:51:00 Pedro Wilson [facility] FRACTIONATED BILIRUBIN 2021-07-24 12:51:00 Pedro Wilson [facility] Results CBC 2021-07-24 12:51:00 Pedro Wilson [facility] MANUAL DIFFERENTIAL 2021-07-24 12:51:00 Pedro Wilson [facility] IR CHEST XRAY 1 VIEW 2021-07-23 20:36:04 Chidi Woodard Uni [facility] IR CHEST XRAY 1 VIEW 2021-07-23 17:56:56 Chidi Woodard Uni [facility] PATHOLOGY BIOPSY 2021-07-23 17:12:00 Maryanne Levi [facility] INTERPRETATION [facility] IR CT GUIDED BIOPSY 2021-07-23 17:01:53 Belinda Colbert [facility] LUNG/MEDIASTINAL [facility] MAGNESIUM LEVEL 2021-07-23 12:10:00 Pedro Wilson [facility] PHOSPHORUS LEVEL 2021-07-23 12:10:00 Pedro Wilson [facility] COMPLETE BLOOD COUNT W/ 2021-07-23 12:10:00 Pedro Wilson Uni [facility] DIFFERENTIAL [facility] COMPREHENSIVE METABOLIC 2021-07-23 12:10:00 Pedro Wilson [facility] PROTHROMBIN TIME 2021-07-23 12:10:00 Brian Williamson [facility] GLUCOSE LEVEL 2021-07-23 12:10:00 Pedro Wilson [facility] BLOOD UREA NITROGEN 2021-07-23 12:10:00 Pedro Wilson [facility] ELECTROLYTE PANEL 2021-07-23 12:10:00 Pedro Wilson [facility] SERUM CREATININE 2021-07-23 12:10:00 Pedro Wilson [facility] .GLOMERULAR FILTRATION RATE 2021-07-23 12:10:00 Pedro Wilson [facility] CALCIUM LEVEL TOTAL 2021-07-23 12:10:00 Pedro Wilson [facility] ALBUMIN LEVEL 2021-07-23 12:10:00 Pedro Wilson [facility] ALKALINE PHOSPHATASE 2021-07-23 12:10:00 Pedro Wilson [facility] ALANINE AMINOTRANSFERASE 2021-07-23 12:10:00 Pedro [facility] ASPARTATE AMINOTRANSFERASE 2021-07-23 12:10:00 Pedro Wilson [facility] TOTAL PROTEIN 2021-07-23 12:10:00 Pedro Wilson [facility] FRACTIONATED BILIRUBIN 2021-07-23 12:10:00 Pedro Wilson [facility] Results CBC 2021-07-23 12:10:00 Pedro Wilson [facility] MANUAL DIFFERENTIAL 2021-07-23 12:10:00 Pedro Wilson [facility] XR SHOULDER 2+ VW RIGHT 2021-07-22 18:46:00 Brian Williamson [facility] XR HUMERUS 2 VIEWS MINIMUM 2021-07-22 18:43:00 Brian Williamson [facility] MAGNESIUM LEVEL 2021-07-22 11:27:00 Pedro Wilson [facility] PHOSPHORUS LEVEL 2021-07-22 11:27:00 Pedro Wilson [facility] COMPLETE BLOOD COUNT W/ 2021-07-22 11:27:00 Pedro Wilson [facility] [place] DIFFERENTIAL [facility] COMPREHENSIVE METABOLIC 2021-07-22 11:27:00 Pedro Wilson [facility] VITAMIN D 25 HYDROXY LEVEL 2021-07-22 11:27:00 Belinda Colbert [facility] GLUCOSE LEVEL 2021-07-22 11:27:00 Pedro Wilson [facility] BLOOD UREA NITROGEN 2021-07-22 11:27:00 Pedro Wilson [facility] ELECTROLYTE PANEL 2021-07-22 11:27:00 Pedro Wilson [facility] SERUM CREATININE 2021-07-22 11:27:00 Pedro Wilson [facility] .GLOMERULAR FILTRATION RATE 2021-07-22 11:27:00 ePdro Wilson [facility] CALCIUM LEVEL TOTAL 2021-07-22 11:27:00 Pedro Wilson [facility] ALBUMIN LEVEL 2021-07-22 11:27:00 Pedro Wilson [facility] ALKALINE PHOSPHATASE 2021-07-22 11:27:00 Pedro Wilson [facility] ALANINE AMINOTRANSFERASE 2021-07-22 11:27:00 Pedro [facility] [place] ASPARTATE AMINOTRANSFERASE 2021-07-22 11:27:00 Pedro Wilson [facility] TOTAL PROTEIN 2021-07-22 11:27:00 Pedro Wilson [facility] FRACTIONATED BILIRUBIN 2021-07-22 11:27:00 Pedro Wilson [facility] Results CBC 2021-07-22 11:27:00 Pedro Wilson [facility] MANUAL DIFFERENTIAL 2021-07-22 11:27:00 Pedro Wilson [facility] PTH-RELATED PEPTIDE 2021-07-21 21:30:00 Brian Williamson [facility] PROTEIN ELECTROPHORESIS 2021-07-21 21:00:00 Belinda Colbert [facility] URINE [facility] URINE TOTAL PROTEIN 2021-07-21 21:00:00 [facility] .TOTAL VOLUME 2021-07-21 21:00:00 [facility] IMMUNOFIXATION 2021-07-21 21:00:00 [facility] ELECTROPHORESIS URINE [facility] .DR. MERON Islas PROT ELEC PATH 2021-07-21 21:00:00 [facility] REVIEW [facility] .DR. CHANCE UIFE PATH REVIEW 2021-07-21 21:00:00 [facility] ECHOCARDIOGRAM 2D COMPLETE 2021-07-21 18:26:04 Belinda Colbert [facility] W CONTRAST [facility] PTH INTACT 2021-07-21 12:14:00 Belinda Colbert [facility] PROTEIN ELECTROPHORESIS, 2021-07-21 12:14:00 Belinda Colbert [facility] SERUM [facility] FREE KAPPA LIGHT CHAIN 2021-07-21 12:14:00 Belinda Colbert [facility] FREE LAMBDA LIGHT CHAIN 2021-07-21 12:14:[address] [facility] MAGNESIUM LEVEL 2021-07-21 12:14:00 Pedro Wilson [facility] PHOSPHORUS LEVEL 2021-07-21 12:14:00 Pedro Wilson [facility] COMPLETE BLOOD COUNT W/ 2021-07-21 12:14:00 Pedro Wilson [facility] [place] DIFFERENTIAL [facility] COMPREHENSIVE METABOLIC 2021-07-21 12:14:00 Pedro iWlson [facility] [place] PANEL [facility] GLUCOSE LEVEL 2021-07-21 12:14:00 Pedro Wilson [facility] BLOOD UREA NITROGEN 2021-07-21 12:14:00 Pedro Wilson [facility] ELECTROLYTE PANEL 2021-07-21 12:14:00 Pedro Wilson [facility] SERUM CREATININE 2021-07-21 12:14:00 Pedro Wilson [facility] .GLOMERULAR FILTRATION RATE 2021-07-21 12:14:00 Pedro Wilson [facility] CALCIUM LEVEL TOTAL 2021-07-21 12:14:00 Pedro Wilson [facility] ALBUMIN LEVEL 2021-07-21 12:14:00 Pedro Wilson [facility] ALKALINE PHOSPHATASE 2021-07-21 12:14:00 Pedro Wilson [facility] ALANINE AMINOTRANSFERASE 2021-07-21 12:14:[address] [facility] ASPARTATE AMINOTRANSFERASE 2021-07-21 12:14:00 Pedro Wilson [facility] TOTAL PROTEIN 2021-07-21 12:14:00 Pedro Wilson [facility] FRACTIONATED BILIRUBIN 2021-07-21 12:14:00 Pedro Wilson [facility] Results CBC 2021-07-21 12:14:00 Pedro Wilson [facility] MANUAL DIFFERENTIAL 2021-07-21 12:14:00 Pedro Wilson [facility] FREE KAPPA/FREE LAMBDA 2021-07-21 12:14:00 Maryanne Levi [facility] RATIO [facility] IMMUNOFIXATION 2021-07-21 12:14:00 [facility] [place] ELECTROPHORESIS [facility] .DR. AHN PROT ELEC PATH 2021-07-21 12:14:00 [facility] .DR. AHN SULEMAN PATH REVIEW 2021-07-21 12:14:[address] [facility] MAGNESIUM LEVEL 2021-07-20 13:14:00 Pedro Wilson [facility] PHOSPHORUS LEVEL 2021-07-20 13:14:00 Pedro Wilson [facility] COMPLETE BLOOD COUNT W/ 2021-07-20 13:14:00 Pedro Wilson [facility] [place] DIFFERENTIAL [facility] COMPREHENSIVE METABOLIC 2021-07-20 13:14:00 Pedro Wilson [facility] [place] PANEL [facility] GLUCOSE LEVEL 2021-07-20 13:14:00 Pedro Wilson [facility] BLOOD UREA NITROGEN 2021-07-20 13:14:00 Pedro Wilson [facility] ELECTROLYTE PANEL 2021-07-20 13:14:00 Pedro Wilson [facility] SERUM CREATININE 2021-07-20 13:14:00 Pedro Wilson [facility] .GLOMERULAR FILTRATION RATE 2021-07-20 13:14:00 Pedro Wilson [facility] CALCIUM LEVEL TOTAL 2021-07-20 13:14:00 Pedro Wilson [facility] ALBUMIN LEVEL 2021-07-20 13:14:00 Pedro Wilson [facility] ALKALINE PHOSPHATASE 2021-07-20 13:14:00 Pedro Wilson [facility] ALANINE AMINOTRANSFERASE 2021-07-20 13:14:00 Pedro Wilson [facility] ASPARTATE AMINOTRANSFERASE 2021-07-20 13:14:00 Pedro Wilson [facility] TOTAL PROTEIN 2021-07-20 13:14:00 Pedro Wilson [facility] FRACTIONATED BILIRUBIN 2021-07-20 13:14:00 Pedro Wilson [facility] Results CBC 2021-07-20 13:14:00 Pedro Wilson [facility] MANUAL DIFFERENTIAL 2021-07-20 13:14:00 Pedro Wilson [facility] GENERAL LABORATORY ADD ON 2021-07-19 21:12:00 John Elder [facility] TEST [facility] CT CHEST PULMONARY EMBOLISM 2021-07-19 19:15:44 Fabio Jimenez [facility] W CONTRAST [facility] XR CHEST 1 VW PORTABLE 2021-07-19 17:16:27 [facility] RESPIRATORY VIRAL PANEL + 2021-07-19 16:43:00 Fabio Jimenez [facility] COVID-19, NASOPHARYNGEAL MD [facility] COMPLETE BLOOD COUNT W/ 2021-07-19 16:43:00 Fabio Jimenez [facility] DIFFERENTIAL [facility] COMPREHENSIVE METABOLIC 2021-07-19 16:43:00 Fabio Jimenez [facility] PANEL [facility] MAGNESIUM LEVEL 2021-07-19 16:43:00 Tony [facility] PHOSPHORUS LEVEL 2021-07-19 16:43:00 Tony [facility] CARDIAC PANEL 2021-07-19 16:43:00 Tony [facility] NT PRO BNP 2021-07-19 16:43:00 Tony [facility] PROTHROMBIN TIME 2021-07-19 16:43:00 Tony [facility] APTT 2021-07-19 16:43:00 Tony [facility] D DIMER 2021-07-19 16:43:00 Tony [facility] Results CBC 2021-07-19 16:43:00 Pritesh [facility] MANUAL DIFFERENTIAL 2021-07-19 16:43:00 Pritesh [facility] GLUCOSE LEVEL 2021-07-19 16:43:00 Pritesh [facility] BLOOD UREA NITROGEN 2021-07-19 16:43:00 Pritesh [facility] ELECTROLYTE PANEL 2021-07-19 16:43:00 Pritesh [facility] SERUM CREATININE 2021-07-19 16:43:00 Pritesh [facility] .GLOMERULAR FILTRATION RATE 2021-07-19 16:43:00 Pritesh [facility] CALCIUM LEVEL TOTAL 2021-07-19 16:43:00 Pritesh [facility] ALBUMIN LEVEL 2021-07-19 16:43:00 Pritesh [facility] ALKALINE PHOSPHATASE 2021-07-19 16:43:00 Pritesh [facility] ALANINE AMINOTRANSFERASE 2021-07-19 16:43:00 Mark Jonas [facility] ASPARTATE AMINOTRANSFERASE 2021-07-19 16:43:00 Mark Jonas U [facility] TOTAL PROTEIN 2021-07-19 16:43:00 Pritesh [facility] FRACTIONATED BILIRUBIN 2021-07-19 16:43:00 Mark Jonas [facility] PROCALCITONIN 2021-07-19 16:43:00 Pritesh [facility] EKG, 12-LEAD (PORTABLE) 2021-07-19 00:00:00 Fabio Jimenez [facility] Center OSI CHEST 2021-07-09 05:55:00 [facility] OSI BONE DENSITY STUDY 2021-07-09 05:54:00 Janel Almanzar [facility] OSI CHEST 2021-06-20 05:54:00 [facility] OSI CHEST 2021-06-04 05:55:00 [facility] Plan of Care Planned Activity Planned Date Details Comments Source Future Scheduled 2022-03-09 COVID-19 Vaccination [facility] Test 08:41:02 (5 - Booster for MD Oskar Cancer Pfizer series) [code Center = COVID-19 Vaccination (5 - Booster for Pfizer series)] Encounters Start End Encounter Admission Attending Care Care Encounter Source Date/Time Date/Time Type Type Clinicians Facility Department ID 2021-11-04 Outpatient SYSTEM, SRE[facility] ELI [id number] 10:20:16 PROVIDER Estuardo o n 2021-09-08 Outpatient SYSTEM, [facility]I [id number] 09:27:17 PROVIDER Estuardo o n 2021-07-10 Outpatient SYSTEM, SREED[facility]AR ELI [id number] 18:01:53 PROVIDER Estuardo o n 2022-02-13 2022-02-13 Margot Mcintosh, 1.2.840.1 [id number] Univers 00:00:00 00:00:00 Only Hongyan 75732.1.1 ity of 3.412.2.7 [place] .3.856439 MD Clarke [facility] 2022-02-12 2022-02-12 Telemmargarito Burnett, 1.2.840.1 [id number] [facility] 15:20:00 15:40:00 ne Daniel 67139.1.1 ity of 3.412.2.7 [place] .3.245762 MD Russo8 [facility] 2022-02-12 2022-02-12 [facility] [id number] 07:13:37 07:13:37 DANIEL Marte [facility] 2022-02-05 2022-02-05 Margot Mcintosh 1.2.840.1 [id number] Univers 00:00:00 00:00:00 Only Hongyan 52647.1.1 ity of 3.412.2.7 [place] .3.598527 MD Clarke [facility] 2022-02-04 2022-02-04 Margot Mcintosh 1.2.840.1 [id number] Univers 00:00:00 00:00:00 Only Hongyan 27052.1.1 ity of 3.412.2.7 [place] .3.878093 MD Clarke [facility] 2022-02-04 2022-02-04 Margot Mcintosh 1.2.840.1 [id number] Univers 00:00:00 00:00:00 Only Hongyan 14693.1.1 ity of 3.412.2.7 [place] .3.829277 MD Clarke [facility] 2022-02-04 2022-02-04 Margot Burnett 1.2.840.1 [id number] Univers 00:00:00 00:00:00 Only Daniel 77949.1.1 ity of 3.412.2.7 [place] .3.913487 MD Clarke [facility] 2022-01-29 2022-01-29 Telemedicfarshad Burnett, 1.2.840.1 [id number] [facility] 10:00:00 10:37:33 daily Etienne 68943.1.1 ity of 3.412.2.7 [place] .3.022748 MD Clarke [facility] 2022-01-29 2022-01-29 Outpatient NABIL BURNETT MDA MDA [id number] 09:32:35 10:37:33 DANIEL morris 2022-01-27 2022-01-27 Beronica Mcintosh 1.2.840.1 [id number] [facility] 07:15:00 09:40:00 Procedure Ira 75487.1.1 it y of 3.412.2.7 [place] .3.997363 MD Clarke [facility] 2022-01-27 2022-01-27 Outpatient NABIL MCINTOSH MDA MDA [id number] 07:17:13 07:17:13 IRA morris 2022-01-27 2022-01-27 Outpatient NABIL MCINTOSH MDA MDA [id number] 07:04:21 07:08:55 IRA morris 2022-01-27 2022-01-27 Travel 1.2.840.1 1.2.281.127 [id number] Univers 00:00:00 00:00:00 76781.1.1 350.1.13.41 ity of 3.412.2.7 [place]3.698 [place] .3.006405 084.8 MD Clarke [facility] 2022-01-19 2022-01-19 Margot Mcintosh 1.2.840.1 [id number] Univers 00:00:00 00:00:00 Only Ira 93890.1.1 ity of 3.412.2.7 [place] .3.525041 MD Clarke [facility] 2022-01-16 2022-01-16 Outpatient YASSINE WEAVER MDA MDA [id number] 09:02:25 09:04:25 Estuardo morris 2022-01-16 2022-01-16 Travel 1.2.840.1 1.2.974.358 [id number] Univers 00:00:00 00:00:00 68354.1.1 350.1.13.41 ity of 3.412.2.7 [place]7.3.698 [place] .3.702062 084.8 MD Clarke [facility] 2022-01-15 2022-01-15 Yassine Crawley 1.2.840.1 [id number] Univers 00:00:00 00:00:00 Only Diego 44631.1.1 ity of 3.412.2.7 [place] .3.478954 MD Clarke [facility] 2022-01-13 2022-01-13 Yassine Crawley 1.2.840.1 [id number] Univers 00:00:00 00:00:00 Only Dieog 09955.1.1 ity of 3.412.2.7 [place] .3.613345 MD Clarke [facility] 2022-01-06 2022-01-06 Telemmargarito Burnett 1.2.840.1 [id number] Univers 16:40:00 17:00:00 ne Daniel 28319.1.1 ity of 3.412.2.7 [place] .3.283955 MD Clarke [facility] 2022-01-06 2022-01-06 Outpatient NABIL BURNETT [facility] [id number] 07:31:11 07:31:11 DANIEL [facility] 2022-01-06 2022-01-06 Telephone Mickey, 1.2.840.1 [id number] Univers 00:00:00 00:00:00 Nnamdi Yin 22750.1.1 ity of 3.412.2.7 [place] .3.197643 MD Clarke [facility] 2022-01-06 2022-01-06 Margot Mcintosh 1.2.840.1 [id number] Univers 00:00:00 00:00:00 Only Ira 78052.1.1 ity of 3.412.2.7 [place] .3.266897 MD Clarke [facility] 2022-01-05 2022-01-05 Beronica Tang 1.2.840.1 [id number] [facility] 09:05:00 10:30:00 Procedure Noa 06205.1.1 it y of 3.412.2.7 [place] .3.038454 MD Russo8 [facility] 2022-01-05 2022-01-05 Outpatient NABIL TANG MDA MDA [id number] 08:20:18 08:20:18 NOA morris 2022-01-05 2022-01-05 Travel 1.2.840.1 1.2.478.237 [id number] Univers 00:00:00 00:00:00 92063.1.1 350.1.13.41 ity of 3.412.2.7 [place]7.3.698 [place] .3.727493 084.8 .8 [facility] 2021-12-29 2021-12-29 Orders Yassine Carrion 1.2.840.1 [id number] Univers 00:00:00 00:00:00 Only Diego 82950.1.1 ity of 3.412.2.7 [place] .3.570096 MD Clarke [facility] 2021-12-25 2021-12-25 Office Bhanu Ferreira2.840.1 [id number] [facility] 09:40:00 10:26:43 Visit Sonia Ingram 22515.1.1 ity of 3.412.2.7 [place] .3.884702 MD Russo8 [facility] 2021-12-25 2021-12-25 Outpatient NABIL FERREIRA MDA MDA [id number] 09:25:25 10:26:43 SONIA morris 2021-12-25 2021-12-25 Travel 1.2.840.1 1.2.462.904 [id number] [facility] 00:00:00 00:00:00 65244.1.1 350.1.13.41 ity of 3.412.2.7 2.[place]7.3.698 [place] .3.341273 084.8 MD Clarke [facility] 2021-12-12 2021-12-12 Orders Nithin, 1.2.840.1 [id number] Univers 00:00:00 00:00:00 Only [place] Garces 38367.1.1 it y of 3.412.2.7 [place] .3.608089 MD Clarke [facility] 2021-12-10 2021-12-10 TelemYassine Li 1.2.840.1 [id number] Univers 13:00:00 13:13:51 ne Taek 95722.1.1 ity of 3.412.2.7 [place] .3.306182 MD Clarke [facility] 2021-12-04 2021-12-04 Outpatient YASSINE WEAVER [facility] [id number] 14:48:15 14:50:55 [facility] 2021-12-04 2021-12-04 Travel 1.2.840.1 1.2.955.903 [id number] Univers 00:00:00 00:00:00 79829.1.1 350.1.13.41 ity of 3.412.2.7 2.[place]7.3.698 [place] .3.541494 084.8 MD Clarke [facility] 2021-12-04 2021-12-04 Margot Carrion Sang 1.2.840.1 [id number] Univers 00:00:00 00:00:00 Only Taek 59878.1.1 ity of 3.412.2.7 [place] .3.386872 MD Clarke [facility] 2021-12-04 2021-12-04 Margot Carrion Sang 1.2.840.1 [id number] Univers 00:00:00 00:00:00 Only Taek 20657.1.1 ity of 3.412.2.7 [place] .3.176820 MD Russo8 [facility] 2021-12-03 2021-12-03 Orders Rogelio, 1.2.840.1 [id number] Univers 00:00:00 00:00:00 Only Katie L 65958.1.1 i ty of 3.412.2.7 [place] .3.710975 MD Russo8 [facility] 2021-11-27 2021-11-27 Telephone [place], 1.2.840.1 [id number] Univers 00:00:00 00:00:00 Katie Geeta 44571.1.1 i ty of 3.412.2.7 [place] .3.194267 MD Russo8 [facility] 2021-11-26 2021-11-26 Orders [facility], 1.2.840.1 [id number] Univers 00:00:00 00:00:00 Only Bienvenido Patel 08537.1.1 it y of 3.412.2.7 [place] .3.285975 MD Russo8 [facility] 2021-11-25 2021-11-25 Outpatient EL SREEDHAR FERREIRA Adonis Endo [id number] MD 05:53:00 14:06:00 SONIA morris 2021-11-25 2021-11-25 [facility], 1.2.840.1 [id number] Univers 05:53:00 14:06:00 Encounter Sonia Ingram 96651.1.1 it y of 3.412.2.7 [place] .3.495796 MD Clarke [facility] 2021-11-25 2021-11-25 Surgery [place], 1.2.840.1 [id number] Univers 07:00:00 09:25:00 Sonia Ingram 16258.1.1 ity of 3.412.2.7 [place] .3.950036 MD Clarke [facility] 2021-11-25 2021-11-25 Anesthesia Jimi Templeton 1.2.840.1 [id number] Univers 06:58:00 09:18:00 Event Ken Mina 38265.1.1 ity of 3.412.2.7 [place] .3.028646 MD Clarke [facility] 2021-11-25 2021-11-25 Orders Rogelio, 1.2.840.1 [id number] Univers 00:00:00 00:00:00 Only Katie L 58373.1.1 i ty of 3.412.2.7 [place] .3.197236 MD Clarke [facility] 2021-11-25 2021-11-25 Orders [place], 1.2.840.1 [id number] Univers 00:00:00 00:00:00 Only Katie L 25271.1.1 i ty of 3.412.2.7 [place] .3.421645 MD Clarke [facility] 2021-11-25 2021-11-25 Travel 1.2.840.1 1.2.442.365 [id number] Univers 00:00:00 00:00:00 89178.1.1 350.1.13.41 ity of 3.412.2.7 2.2.7.3.698 [place] .3.065055 084.8 MD Clarke [facility] 2021-11-24 2021-11-24 Anesthesia Gerson, 1.2.840.1 [id number] Univers 23:59:59 23:59:59 Event Kaylynn 41871.1.1 ity of 3.412.2.7 [place] .3.861660 MD Clarke [facility] 2021-11-24 2021-11-24 POMARISSA Mercado, 1.2.840.1 [id number] Univers 15:30:00 16:00:00 Appointmen Katie L 37677.1.1 ity of ts 3.412.2.7 [place] .3.647033 MD Clarke [facility] 2021-11-24 2021-11-24 Orders Clyde, 1.2.840.1 [id number] Univers 00:00:00 00:00:00 Only Noa 84868.1.1 ity of 3.412.2.7 [place] .3.527016 MD Russo8 [facility] 2021-11-21 2021-11-21 Clinical Katie Mercado 1.2.840.1 [id number] Univers 15:00:00 15:00:00 Support Elizabeth Delgado 63285.1.1 ity of 3.412.2.7 [place] .3.234545 MD Russo8 [facility] 2021-11-21 2021-11-21 Travel 1.2.840.1 1.2.041.840 [id number] Univers 00:00:00 00:00:00 76708.1.1 350.1.13.41 ity of 3.412.2.7 2.2.7.3.698 Te esther .3.899747 08Joseline.8 .8 [facility] 2021-11-17 2021-11-17 Telemedici Yassine Cariron 1.2.840.1 [id number] Univers 15:30:00 15:30:00 ne Diego 56229.1.1 ity of 3.412.2.7 [place] .3.823613 MD Clarke [facility] 2021-11-13 2021-11-13 Office Hortencia 1.2.840.1 [id number] Univers 13:00:00 13:20:00 Visit Daniel 72345.1.1 ity of 3.412.2.7 [place] .3.857906 MD Russo8 [facility] 2021-11-13 2021-11-13 Outpatient NABIL BURNETT [facility] [id number] 12:47:31 12:47:31 [facility] 2021-11-13 2021-11-13 Travel 1.2.840.1 1.2.752.292 [id number] Univers 00:00:00 00:00:00 58706.1.1 350.1.13.41 ity of 3.412.2.7 2.2.7.3.698 [place] .3.607204 084.8 MD Clarke [facility] 2021-11-12 2021-11-12 Ancillary Hortencia, 1.2.840.1 [id number] Univers 10:30:00 13:00:00 Procedure Daniel 78007.1.1 it y of 3.412.2.7 [place] .3.863008 MD Clarke [facility] 2021-11-12 2021-11-12 Travel 1.2.840.1 1.2.995.874 [id number] Univers 00:00:00 00:00:00 69931.1.1 350.1.13.41 ity of 3.412.2.7 2.2.7.3.698 [place] .3.998287 084.8 MD Clarke [facility] 2021-10-31 2021-10-31 Telephone Benedicto 1.2.840.1 [id number] Univers 00:00:00 00:00:00 [place] T 22247.1.1 it y of 3.412.2.7 [place] .3.843621 MD Clarke [facility] 2021-10-22 2021-10-22 Office Jhon 1.2.840.1 [id number] Univers 10:00:00 11:12:17 Visit Sonia Ingram 81443.1.1 ity of 3.412.2.7 [place] .3.666119 MD Clarke [facility] 2021-10-22 2021-10-22 Outpatient ANBIL FERREIRA MDA MDA [id number] 09:48:47 11:12:17 SNOIA morris 2021-10-22 2021-10-22 Travel 1.2.840.1 1.2.059.868 [id number] [facility] 00:00:00 00:00:00 77723.1.1 350.1.13.41 ity of 3.412.2.7 2.2.7.3.698 [place] .3.737926 084.8 MD .8 [facility] 2021-10-21 2021-10-21 Orders [place], 1.2.840.1 [id number] Univers 00:00:00 00:00:00 Only Katie Connor 15080.1.1 i ty of 3.412.2.7 [place] .3.897361 MD Clarke [facility] 2021-10-21 2021-10-21 Prep for Rogelio, 1.2.840.1 [id number] Univers 00:00:00 00:00:00 Surgery Katie Connor 27246.1.1 i ty of 3.412.2.7 [place] .3.218277 MD Clarke [facility] 2021-10-21 2021-10-21 Refill Maurimoiseselenoe 1.2.840.1 [id number] Univers 00:00:00 00:00:00 Jagruti, 09663.1.1 ity of Ag 3.412.2.7 [place] .3.915896 MD Clarke [facility] 2021-10-20 2021-10-20 Outpatient EL JAXON, KAREN MDA MDA [id number] 09:17:54 09:21:00 [facility] 2021-10-20 2021-10-20 Travel 1.2.840.1 1.2.295.237 [id number] Univers 00:00:00 00:00:00 09500.1.1 350.1.13.41 ity of 3.412.2.7 2.2.7.3.698 [place] .3.460524 084.8 MD Clarke [facility] 2021-10-16 2021-10-16 Ancillary 1.2.840.1 [id number] Univers 15:00:00 15:15:00 Procedure 30576.1.1 it y of 3.412.2.7 [place] .3.485667 MD Clarke [facility] 2021-10-16 2021-10-16 Ancillary Puls, 1.2.840.1 [id number] Univers 13:00:00 15:00:00 Procedure Bienvenido E 52228.1.1 ity of 3.412.2.7 [place] .3.586033 .8 [facility] 2021-10-16 2021-10-16 Outpatient MDA MDA [id number] 14:16:43 14:16:43 Estuardo o arturo 2021-10-16 2021-10-16 Outpatient LUPILLO, MDA MDA [id number] 12:42:04 12:42:04 [facility] [place] 2021-10-16 2021-10-16 Outpatient JAXON KAREN MDA MDA [id number] 12:25:35 12:31:18 Estuardo morris 2021-10-16 2021-10-16 Travel 1.2.840.1 1.2.159.071 [id number] [facility] 00:00:00 00:00:00 96216.1.1 350.1.13.41 ity of 3.412.2.7 2.2.7.3.698 [place] .3.218330 084.8 .8 [facility] 2021-10-15 2021-10-15 TelemYassine Li 1.2.840.1 [id number] [facility] 13:30:00 13:31:07 ne Diego 56110.1.1 ity of 3.412.2.7 [place] .3.004407 MD Russo8 [facility] 2021-10-15 2021-10-15 Outpatient YASSINE WEAVER [facility] MDA [id number] 13:02:17 13:31:07 Estuardosuzanne morris 2021-10-15 2021-10-15 [facility] Karen 1.2.840.1 [id number] [facility] 10:45:00 11:08:46 ne 01214.1.1 ity of 3.412.2.7 [place] .3.174236 MD Russo8 [facility] 2021-10-15 2021-10-15 Outpatient JAXON [facility] MDA [id number] 10:22:48 11:08:46 Estuardo morris 2021-10-14 2021-10-14 Telephone Robles, 1.2.840.1 [id number] [facility] 00:00:00 00:00:00 Izabella Danielle [id number] ity of 3.412.2.7 [place] .[id number] MD Russo8 [facility] 2021-10-14 2021-10-14 Telephone Puls, 1.2.840.1 [id number] Univers 00:00:00 00:00:00 Bienvenido Patel [id number] it y of 3.412.2.7 [place] .[id number] MD Russo8 [facility] 2021-10-13 2021-10-13 [facility] Pelon, 1.2.840.1 [id number] Univers 08:03:39 23:59:00 [place] 42151.1.1 it y of 3.412.2.7 [place] .3.464486 MD Russo8 [facility] 2021-10-13 2021-10-13 Outpatient EL PELON, MDA MDA [id number] 08:03:39 23:59:00 LO morris 2021-10-13 2021-10-13 Ancillary Puls, 1.2.840.1 [id number] Univers 15:40:00 16:00:00 Procedure Bienvenido Patel 46607.1.1 ity of 3.412.2.7 [place] .3.983971 MD Russo8 [facility] 2021-10-13 2021-10-13 Ancillary Puls, 1.2.840.1 [id number] Univers 14:30:00 15:30:00 Procedure Bienvenido Patel 49205.1.1 ity of 3.412.2.7 [place] .3.131013 MD Russo8 [facility] 2021-10-13 2021-10-13 Outpatient EL PULS, MDA MDA [id number] MD 14:13:58 14:13:58 BIENVENIDO morris 2021-10-13 2021-10-13 Office Conaty, 1.2.840.1 [id number] [facility] 13:00:00 13:20:00 Visit Alyx Tafoya 42353.1.1 ity of 3.412.2.7 [place] .3.972696 .8 [facility] 2021-10-13 2021-10-13 Outpatient NABIL KENT [facility] MDA [id number] MD 12:06:48 13:20:00 JASHANNAN Estuardo o arturo 2021-10-13 2021-10-13 Outpatient LUPILLO [facility] MDA [id number] MD 09:16:58 09:16:58 BIENVENIDO morris 2021-10-13 2021-10-13 Hospital Jerelmaria luzdesiree, 1.2.840.1 [id number] [facility] 08:00:00 08:02:00 Encounter Lo 49418.1.1 it y of 3.412.2.7 [place] .3.906426 MD Russo8 [facility] 2021-10-13 2021-10-13 [facility] [id number] 08:00:00 08:02:00 LO morris 2021-10-13 2021-10-13 [facility] Yassine Carrion 1.2.840.1 [id number] [facility] 07:41:46 07:59:00 Encounter Diego 83112.1.1 it y of 3.412.2.7 [place] .3.229920 MD Russo8 [facility] 2021-10-13 2021-10-13 Outpatient YASSINE CARRION [facility] [id number] [place] 07:41:46 07:59:00 Estuardosuzanne morris 2021-10-13 2021-10-13 Orders Iliescu, 1.2.840.1 [id number] Univers 00:00:00 00:00:00 Only Noa 09923.1.1 ity of 3.412.2.7 [place] .3.738928 MD Russo8 [facility] 2021-10-13 2021-10-13 Travel 1.2.840.1 1.2.982.392 2023 [id number] Univers 00:00:00 00:00:00 58551.1.1 350.1.13.41 ity of 3.412.2.7 [place]7.3.698 [place] .3.509811 084.8 MD Russo8 [facility] 2021-09-30 2021-09-30 [facility], 1.2.840.1 [id number] Univers 10:00:00 10:14:14 ne Daniel 56516.1.1 ity of 3.412.2.7 [place] .3.754537 MD Russo8 [facility] 2021-09-30 2021-09-30 Outpatient HORTENCIA, [facility] [id number] 09:35:47 10:14:14 DANIEL ford 2021-09-28 2021-09-28 Documentat Arnaldo, 1.2.840.1 [id number] Univers 00:00:00 00:00:00 ion Ira 63991.1.1 ity of 3.412.2.7 [place] .3.056192 MD Russo8 [facility] 2021-09-25 2021-09-25 [facility], 1.2.840.1 [id number] Univers 00:00:00 00:00:00 Only Bienvenido Patel 23963.1.1 it y of 3.412.2.7 [place] .3.509089 MD Russo8 [facility] 2021-09-22 2021-09-22 [facility], 1.2.840.1 [id number] Univers 15:00:00 15:30:00 daily Isabel 11941.1.1 ity of 3.412.2.7 [place] .3.788582 MD Russo8 [facility] 2021-09-19 2021-09-19 [facility], 1.2.840.1 [id number] Univers 08:36:44 23:59:00 Gurvinder Isabel 29708.1.1 it y of 3.412.2.7 [place] .3.783812 [facility] 2021-09-19 2021-09-19 Outpatient NABIL CAR SREEDHAR MDA [id number] 08:36:44 23:59:00 CHALO morris 2021-09-19 2021-09-19 Consult Ang Galan 1.2.840.1 [id number] Univers 10:00:00 10:00:00 Yassine Carrion 79627.1.1 ity of 3.412.2.7 [place] .3.998036 MD Clarke [facility] 2021-09-19 2021-09-19 Outpatient NABIL ZACPRADIPANG [facility] MDA [id number] 09:04:36 09:52:43 Estuardo morris 2021-09-19 2021-09-19 Travel 1.2.840.1 1.2.274.177 [id number] [id number] Univers 00:00:00 00:00:00 51041.1.1 350.1.13.41 ity of 3.412.2.7 2.[place]7.3.698 [place] .3.751225 084.8 MD Clarke [facility] 2021-09-19 2021-09-19 Telephone Santamand, 1.2.840.1 [id number] Univers 00:00:00 00:00:00 Mirta Morris 00078.1.1 i ty of 3.412.2.7 [place] .3.088036 MD Clarke [facility] 2021-09-17 2021-09-17 Telephone Ilicris, 1.2.840.1 [id number] Univers 00:00:00 00:00:00 Noa 05398.1.1 ity of 3.412.2.7 [place] .3.651664 MD Clarke [facility] 2021-09-17 2021-09-17 Orders Iliescu, 1.2.840.1 [id number] Univers 00:00:00 00:00:00 Only Noa 56185.1.1 ity of 3.412.2.7 [place] .3.026014 MD Russo8 [facility] 2021-09-17 2021-09-17 Orders Pelon, 1.2.840.1 [id number] Univers 00:00:00 00:00:00 Only Lo 73461.1.1 ity of 3.412.2.7 [place] .3.726448 .8 [facility] 2021-09-16 2021-09-16 Telephone Clyde, 1.2.840.1 [id number] Univers 00:00:00 00:00:00 Noa 62966.1.1 ity of 3.412.2.7 [place] .3.648921 MD Russo8 [facility] 2021-09-16 2021-09-16 Orders Joceline, 1.2.840.1 [id number] Univers 00:00:00 00:00:00 Only Chalo 45582.1.1 ity of 3.412.2.7 [place] .3.294981 .8 [facility] 2021-09-16 2021-09-16 Telephone Frances Flores 1.2.840.1 [id number] Univers 00:00:00 00:00:00 Garry 39941.1.1 ity of 3.412.2.7 [place] .3.640628 MD Russo8 [facility] 2021-09-14 2021-09-15 Emergency Pattie Perez 1.2.840.1 [id number] [facility] 10:04:00 18:15:00 Roberth العراقي 93180.1.1 ity of 3.412.2.7 [place] .3.347046 MD Russo8 [facility] 2021-09-14 2021-09-15 Outpatient ER SREEDHAR العراقي Emergency [id number] MD 10:04:00 18:15:00 ROBERTH morris 2021-09-15 2021-09-15 Orders Joceline 1.2.840.1 [id number] Univers 00:00:00 00:00:00 Only Latira 41080.1.1 ity of 3.412.2.7 [place] .3.698875 MD Russo8 [facility] 2021-09-14 2021-09-14 Orders Troy, 1.2.840.1 [id number] Univers 00:00:00 00:00:00 Only Sadie L 85588.1.1 ity of 3.412.2.7 [place] .3.260846 MD Russo8 [facility] 2021-09-14 2021-09-14 Travel 1.2.840.1 1.2.499.028 [id number] [id number] Univers 00:00:00 00:00:00 59901.1.1 350.1.13.41 ity of 3.412.2.7 2.[place]7.3.698 [place] .3.163030 084.8 MD Clarke [facility] 2021-09-12 2021-09-12 Telephone Clyde, 1.2.840.1 [id number] Univers 00:00:00 00:00:00 Noa 96699.1.1 ity of 3.412.2.7 [place] .3.561972 MD Clarke [facility] 2021-09-12 2021-09-12 Orders Clyed, 1.2.840.1 [id number] Univers 00:00:00 00:00:00 Only Noa 49697.1.1 ity of 3.412.2.7 [place] .3.402282 MD Clarke [facility] 2021-09-05 2021-09-05 Ancillary Stacy, 1.2.840.1 [id number] Univers 20:00:00 20:05:00 Procedure April 28319.1.1 it y of [place] 3.412.2.7 [place] .3.286429 MD Clarke [facility] 2021-09-05 2021-09-05 Outpatient NABIL VAN, [facility] [id number] 11:17:44 11:17:44 APRIL morris 2021-09-04 2021-09-04 Telephone Iliescu, 1.2.840.1 [id number] Univers 00:00:00 00:00:00 Noa 69093.1.1 ity of 3.412.2.7 [place] .3.499025 MD Russo8 [facility] 2021-09-04 2021-09-04 Telephone Mehreen, 1.2.840.1 [id number] Univers 00:00:00 00:00:00 Parisa 32339.1.1 ity of [place] 3.412.2.7 Adrien as .3.958638 MD Russo8 [facility] 2021-09-03 2021-09-03 [facility], 1.2.840.1 [id number] Univers 12:36:00 18:29:00 Encounter Alanna 42389.1.1 it y of 3.412.2.7 [place] .3.710290 MD Russo8 [facility] 2021-09-03 2021-09-03 Outpatient [facility] Thoracic [id number] MD 12:36:00 18:29:00 ALANNA Adonis [facility] 2021-09-03 2021-09-[address] [facility], 1.2.840.1 [id number] Univers 15:00:00 17:45:00 Alanna 00145.1.1 ity of 3.412.2.7 [place] .3.136184 MD Russo8 [facility] 2021-09-03 2021-09-03 Anesthesia Ricardo, [place] 1.2.840.1 [id number] Univers 15:35:00 16:32:00 Event Ava Taylor 04665.1.1 ity of 3.412.2.7 [place] .3.550310 MD Russo8 [facility] 2021-09-03 2021-09-03 [facility], 1.2.840.1 [id number] Univers 12:15:42 12:35:00 Encounter Noa 35325.1.1 it y of 3.412.2.7 [place] .3.909977 .8 [facility] 2021-09-03 2021-09-03 Outpatient NABIL TANG MDA [facility] [id number] 12:15:42 12:35:00 NOA ford n 2021-09-03 2021-09-03 Travel 1.2.840.1 1.2.837.145 [id number] Univers 00:00:00 00:00:00 82611.1.1 350.1.13.41 ity of 3.412.2.7 2.2.7.3.698 [place] .3.474358 084.8 MD Russo8 [facility] 2021-09-03 2021-09-03 Orders Clyde, 1.2.840.1 [id number] Univers 00:00:00 00:00:00 Only Noa 40091.1.1 ity of 3.412.2.7 [place] .3.537419 MD Russo8 [facility] 2021-09-02 2021-09-[address] [facility] Raza, 1.2.840.1 [id number] 1 [id number] Univers 14:23:20 14:23:20 Event Meg 36568.1.1 ity of 3.412.2.7 [place] .3.763069 MD Russo8 [facility] 2021-09-02 2021-09-02 RENETTA Turner, 1.2.840.1 [id number] Univers 10:00:00 10:30:00 Appointmen Lexi 33003.1.1 ity of ts 3.412.2.7 [place] .3.753964 MD Russo8 [facility] 2021-09-02 2021-09-02 Outpatient NABIL TURNER MDA [facility] [id number] 07:27:06 07:27:06 LEXI Munoz arturo 2021-09-01 2021-09-01 Clinical Lexi Turner 1.2.840.1 [id number] Univers 13:30:00 13:45:54 Support Man Mina 89460.1.1 ity of 3.412.2.7 [place] .3.183051 MD Clarke [facility] 2021-09-01 2021-09-01 Outpatient NABIL TURNER [facility] [id number] 13:14:49 13:45:54 LEXI Munoz [facility] 2021-09-01 2021-09-01 Outpatient [facility] [id number] 13:35:53 13:36:17 LEXIFRANCISCO martins 2021-09-01 2021-09-01 Travel 1.2.840.1 1.2.690.459 [id number] [id number] Univers 00:00:00 00:00:00 20473.1.1 350.1.13.41 ity of 3.412.2.7 2.[place]7.3.698 [place] .3.682210 084.8 MD Clarke [facility] 2021-08-26 2021-08-26 Meri Boyer, 1.2.840.1 [id number] Univers 11:00:00 12:11:52 Alanna 08622.1.1 ity of 3.412.2.7 [place] .3.599698 MD Clarke [facility] 2021-08-26 2021-08-26 Outpatient ROS[facility]IND [facility] [id number] MD 10:25:28 12:11:52 ALANNA Estuardo [facility] 2021-08-26 2021-08-26 Travel 1.2.840.1 1.2.915.642 [id number] [facility] 00:00:00 00:00:00 42846.1.1 350.1.13.41 ity of 3.412.2.7 2.2.7.3.698 [place] .3.458177 084.8 MD Russo8 [facility] 2021-08-20 2021-08-20 Documentat Jayesh, 1.2.840.1 [id number] Univers 00:00:00 00:00:00 an Collins 09064.1.1 ity of 3.412.2.7 [place] .3.647923 .8 [facility] 2021-08-20 2021-08-20 Orders Iliescu, 1.2.840.1 [id number] Univers 00:00:00 00:00:00 Only Noa 12692.1.1 ity of 3.412.2.7 [place] .3.256711 MD Russo8 [facility] 2021-08-18 2021-08-18 [facility] Ag Almanzar 1.2.840.1 [id number] Univers 11:00:00 11:30:00 Misty Denis 15330.1.1 ity of 3.412.2.7 [place] .3.453446 MD Russo8 [facility] 2021-08-18 2021-08-18 Outpatient NABIL OCHOA MDA [facility] [id number] 11:20:27 11:20:27 Alexander HUNT 2021-08-15 2021-08-15 Hospital Jayesh, 1.2.840.1 [id number] Univers 09:49:00 15:54:00 Encounter Dennis 39841.1.1 it y of 3.412.2.7 [place] .3.909950 MD Russo8 [facility] 2021-08-15 2021-08-15 Outpatient NABIL TRIVEDI MDA Pul Med [id number] 09:49:00 15:54:00 DENNIS morris 2021-08-15 2021-08-15 Anesthesia Taryn, 1.2.840.1 [id number] Univers 13:34:00 14:32:00 Event Dorcas 08643.1.1 ity of 3.412.2.7 [place] .3.920341 MD Russo8 [facility] 2021-08-15 2021-08-15 Surgery Jayesh, 1.2.840.1 [id number] Univers 11:00:00 13:00:00 Dennis 97371.1.1 ity of 3.412.2.7 [place] .3.665291 .8 [facility] 2021-08-15 2021-08-15 Travel 1.2.840.1 1.2.546.066 [id number] Univers 00:00:00 00:00:00 37951.1.1 350.1.13.41 ity of 3.412.2.7 2.2.7.3.698 [place] .3.898526 084.8 .8 [facility] 2021-08-14 2021-08-14 Anesthesia Ranjit, 1.2.840.1 [id number] Univers 23:59:59 23:59:59 Event Ann Lo 83409.1.1 it y of 3.412.2.7 [place] .3.429881 .8 [facility] 2021-08-14 2021-08-14 Consult Jayesh, 1.2.840.1 [id number] Univers 14:00:00 15:35:35 Dennis 27684.1.1 ity of 3.412.2.7 [place] .3.874826 .8 [facility] 2021-08-14 2021-08-14 Outpatient EL SREEDHAR TRIVEDI [facility] [id number] 13:40:49 15:35:35 DENNIS Mrate [facility] 2021-08-14 2021-08-14 POEM 1.2.840.1 [id number] Univers 11:00:00 11:30:00 Appointmen 10666.1.1 i ty of ts 3.412.2.7 [place] .3.790554 MD Russo8 [facility] 2021-08-14 2021-08-14 Outpatient EL [facility] [id number] 07:13:20 07:13:20 Estuardo [facility] 2021-08-14 2021-08-14 Travel 1.2.840.1 1.2.148.969 [id number] [id number] Univers 00:00:00 00:00:00 74728.1.1 350.1.13.41 ity of 3.412.2.7 2.2.7.3.698 [place] .3.495820 08Joseline.8 MD Clarke [facility] 2021-08-13 2021-08-13 Clinical Lo Bird 1.2.840.1 [id number] [facility] 11:30:00 11:30:00 Support Dior Gant 92754.1.1 ity of 3.412.2.7 [place] .3.491789 MD Clarke [facility] 2021-08-13 2021-08-13 Ancillary Joceline 1.2.840.1 [id number] 1 [id number] [facility] 08:30:00 11:00:00 Procedure Chalo 64038.1.1 it y of 3.412.2.7 [place] .3.647892 MD Clarke [facility] 2021-08-13 2021-08-13 Outpatient NABIL BIRD MDA MDA [id number] 10:35:52 10:58:13 LO morris 2021-08-13 2021-08-13 Outpatient NABIL CAR MDA [facility] [id number] 10:15:05 10:24:59 CHALO morris 2021-08-13 2021-08-13 Outpatient [facility] [id number] 08:18:42 08:18:42 CHALO morris 2021-08-13 2021-08-13 Travel 1.2.840.1 1.2.426.538 [id number] [id number] Univers 00:00:00 00:00:00 00967.1.1 350.1.13.41 ity of 3.412.2.7 2.2.7.3.698 [place] .3.979654 08Joseline.8 MD [facility] 2021-08-08 2021-08-08 Prep for Pelon 1.2.840.1 [id number] Univers 00:00:00 00:00:00 Surgery Lo 97477.1.1 ity of 3.412.2.7 [place] .3.133163 MD Clarke [facility] 2021-08-07 2021-08-07 [facility] Joceline, 1.2.840.1 [id number] [facility] 11:47:19 23:59:00 Encounter Chalo 37093.1.1 it y of 3.412.2.7 [place] .3.318556 MD Russo8 [facility] 2021-08-07 2021-08-07 Outpatient [facility] [id number] 11:47:19 23:59:00 CHALO Hammondsuzanne ford arturo 2021-08-07 2021-08-07 Office Clyde, 1.2.840.1 [id number] [facility] 10:30:00 11:37:50 Visit Noa 05935.1.1 ity of 3.412.2.7 [place] .3.710034 MD Russo8 [facility] 2021-08-07 2021-08-07 Outpatient [facility] [id number] 10:00:50 11:37:50 NOA Estuardo ford arturo 2021-08-07 2021-08-07 Travel 1.2.840.1 1.2.835.639 [id number] Univers 00:00:00 00:00:00 66976.1.1 350.1.13.41 ity of 3.412.2.7 2.2[place]7.3.698 [place] .3.362699 084.8 .8 [facility] 2021-07-29 2021-07-29 Ancillary Senechalle 1.2.840.1 [id number] Univers 22:10:00 22:15:00 Procedure Jagruti 21938.1.1 i ty of Ag 3.412.2.7 [place] .3.091958 MD Russo8 [facility] 2021-07-29 2021-07-29 Ancillary Senechalle 1.2.840.1 [id number] 1 [id number] Univers 22:05:00 22:10:00 Procedure Jagruti 33872.1.1 i ty of Ag 3.412.2.7 [place] .3.722421 .8 [facility] 2021-07-29 2021-07-29 Ancillary Senechalle 1.2.840.1 [id number] 1 [id number] Univers 22:00:00 22:05:00 Procedure Jagruti 85385.1.1 i ty of Ag 3.412.2.7 [place] .3.818000 .8 [facility] 2021-07-29 2021-07-29 Ancillary Senechalle 1.2.840.1 [id number] 1 [id number] Univers 21:55:00 22:00:00 Procedure Jagruti 79328.1.1 i ty of Ag 3.412.2.7 [place] .3.899139 .8 [facility] 2021-07-29 2021-07-29 Ancillary Senechalle 1.2.840.1 [id number] 1 [id number] Univers 21:50:00 21:55:00 Procedure Jagruti 62575.1.1 i ty of Ag 3.412.2.7 [place] .3.764164 .8 [facility] 2021-07-29 2021-07-29 Outpatient EL SENECHALLE MDA MDA [id number] 21:49:30 21:49:30 Alexander HUNT 2021-07-29 2021-07-29 Outpatient EL SENECHALLE MDA MDA [id number] 21:49:29 21:49:29 Alexander HUNT 2021-07-29 2021-07-29 Outpatient EL SENECHALLE MDA MDA [id number] 21:49:28 21:49:28 Alexander HUNT 2021-07-29 2021-07-29 Outpatient EL SENECHALLE MDA MDA [id number] 21:49:28 21:49:28 Alexander HUNT 2021-07-29 2021-07-29 Outpatient EL SENECHALLE MDA MDA [id number] 21:49:27 21:49:27 Alexander HUNT 2021-07-19 2021-07-24 [facility], Mark 1.2.840.1 [id number] [facility] 10:08:00 14:35:00 Encounter John Elder 47350.1.1 ity of [place]ykofi Pedro Katherin 3.412.2.7 [place] Maryanne Levi .3.829973 M Ag Javier .8 [facility] 2021-07-19 2021-07-24 [facility] [id number] 10:08:00 14:35:00 Alexander HUNT 2021-07-24 2021-07-24 Refill Alfred 1.2.840.1 [id number] [facility] 00:00:00 00:00:00 Jagruti 05965.1.1 ity of Ag 3.412.2.7 [place] .3.584468 .8 [facility] 2021-07-23 2021-07-23 Inpatient [facility] [id number] 08:54:06 16:34:03 [facility] 2021-07-23 2021-07-23 Anesthesia Varun 1.2.840.1 [id number] [facility] 10:33:00 11:43:00 Event Khalif 99122.1.1 ity of Patricio 3.412.2.7 [place] .3.307420 .8 [facility] 2021-07-23 2021-07-23 Margot Timmons 1.2.840.1 [id number] [facility] 00:00:00 00:00:00 Only Milan 25974.1.1 ity of 3.412.2.7 [place] .3.550441 .8 [facility] 2021-07-22 2021-07-22 [facility] [id number] 15:42:48 16:07:21 Alexander HUNT 2021-07-19 2021-07-19 Travel 1.2.840.1 1.2.437.176 [id number] Univers 00:00:00 00:00:00 45405.1.1 350.1.13.41 ity of 3.412.2.7 2.2[place]7.3.698 [place] .3.743182 084.8 MD Russo8 [facility] 2021-07-15 2021-07-15 Telephone Christoph, 1.2.840.1 [id number] Univers 00:00:00 00:00:00 Celaysheia 29986.1.1 i ty of S 3.412.2.7 [place] .3.886194 MD Russo8 [facility] 2021-07-15 2021-07-15 Travel 1.2.840.1 1.2.603.577 [id number] [id number] Univers 00:00:00 00:00:00 83370.1.1 350.1.13.41 ity of 3.412.2.7 2.2.7.3.698 [place] .3.146508 084.8 MD Russo8 [facility] Results Test Description Test Time Test Comments Results Result Comments Source POC Creatinine 2022-01-05 13:40:30 Test Item Value Reference Range Interpretation Comme nts POC Crea (test code = 1.1 mg/dL 0.6-1.3 Medica tions, especially 81512-1) hydroxyurea or supplements, such as ascorba te, can interfere with test results causing a false ly and significantly h igher result than expected. If a problem is suspected with a patient's result, a sampl e should be sent to the lab oratory for confirmatory te sting. Method description: Th e i-STAT is an analyzer used f or in vitro quantification of various analytes in who le blood. The device uses a s norma disposable cart ridge which contains microf abricated sensors, a hal bration solution, fluid ics system, and a waste chamber . Each test cartridge conta ins chemically sensitive biose nsors on a silicon chip th at are configured to p erform specific tests. The micr ofabricated sensors measure analyte concentration b y an electrochemical assay. POC eGFR-AA (test code = 72 See_Comment Nor mal eGFR >= 60 mL/min/1.73 52493-7) m2 The eGFR is calculated using the CKD-E PI equation. The eGFR declin es with age. eGFR <60 mL/min /1.73 m2 is considered as " decreased" This equation should only be used for patients 18 and older. According to th e [employer] on's Kidney Disease Outcome Quality Initiative (KDO QI) classification and 2012 Kidney Disease Improvi ng Global Outcomes (KDIGO ) Clinical Practice Guidel ine, the stage of CKD should b e categorized based on estima dena GFR. Stage Description GFR mL/min/1.73 m21 Kidney rony ge with normal or high GFR >=9 02 Kidney damage with mil d decrease in GFR 60-893a Mil d to moderate decrease in GFR 45-593b Moderate to sev ere decrease in GFR 30-444 Nora re decrease in GFR 15-295 Kidn ey failure <15 (or dialysis) [ Automated message] The sy stem which generated this result transmitted ref erence range: >=60 mL/min/1.7 3 m2. The reference range was not used to interpret th is result as normal/abnormal . POC eGFR-TRACI (test code = 62 See_Comment No rmal eGFR >= 60 mL/min/1.73 03613-1) m2 The eGFR is calculated using the CKD-E PI equation. The eGFR declin es with age. eGFR <60 mL/min /1.73 m2 is considered as " decreased" This equation should only be used for patients 18 and older. According to th e [employer]'s Kidney Disease Outcome Quality Initiative (KDO QI) classification and 2012 Kidney Disease Improvi ng Global Outcomes (KDIGO ) Clinical Practice Guidel ine, the stage of CKD should b e categorized based on estima dena GFR. Stage Description GFR mL/min/1.73 m21 Kidney rony ge with normal or high GFR >=9 02 Kidney damage with mil d decrease in GFR 60-893a Mil d to moderate decrease in GFR 45-593b Moderate to sev ere decrease in GFR 30-444 Nora re decrease in GFR 15-295 Kidn ey failure <15 (or dialysis) [ Automated message] The sy stem which generated this result transmitted ref erence range: >=60 mL/min/1.7 3 m2. The reference range was not used to interpret th is result as normal/abnormal . POC Clean Dev (test code Yes = 6672) Performing Lab (test code [facility] = 90683) [place] [facility] ,[address] [place] [address], [place] [address], Point of Care Online Advertising Analyst: Arleen Gibbons MD [place] [facility] 2021-11-28 14:25:46 Test Item Value Reference Range Interpretation Comments Submitted Clinical History o1vacFGlXPTvhQG2MH (test code = 93430) VkCJEgt7tse4ElpWMb cGFyXGpleHBhbmRcbm 24cCJ3gS16BY4dIABi XtM3XLSdeoC7Pop6RB KtVBVpzWQyY614j0kv w2oermYzkJP2MYLiGE VzC4QjFA6eRIAblJMc Y8woTQVbFCJaH7MmCQ 2xWTWoMiq7JLJ8HPs2 XHBhcGVydzEyMjQwXH EaoULowHC9ZBKkND4i cmdsMTgwMFxtYXJncj O6NBZouBBsA0XnDDKw EZ6bkqssCYJ8TIolIN FcAHO6KfKpOAFjb2Rl kau9IqFseVWoXBpqdI AexgqjajYfJEXmhE8q cnkgaHlwZXJwYXJhdG v4rk4fMVikwTObYGFk LjBdXHBhclxwYXIgUG VyIEVNUjogXGNmMVxj kXBdlGH2LoFEhVGcjP 7xDKScq1juJWZjmOKz Z8GdRIQnu4SeIJluT3 pnjUksZCnmx9gurbKc xjO1bTBrWjxABBMyeQ FyYXZlcnRlYnJhbCBh hdLvOGV0GNUgBCVvER QwrAJsXlY6gLKtqN2l BHZxh3CouIb9ng6zSQ Wqe5NbyOJwjGXiNXSj PDYAHPGxZ5CzMR3bEA 7fC3syYhBzzYKzZHJo fD0uLKzgVWHnH4neHx SekCMqk34gfYB6LLF3 k7BbFrLVDSzXFBEuXT AkJKNvsXscN8VxcFQv GHQvjVk9fz7iEIFaDN Mnf63xZIc4nVOiYHBo q2YhDvjkRXWwas7= Diagnosis (test code = 34) z3rhdBKvUFVjbRH6FE QuMELbm6dhf2JsjTPs cGFyXGpleHBhbmRcbm 31hDF7tU16ZV6aOYXy OkB8CPKegsK2Eku9ST PdUQTmoHRrR410l0ud w3wyfqKciND9GXCoPP LhA0TbIE2hLQMkmKFk T95jcEPpYEW7HHEsJK YvuUGcIRAlBIE8SOSc fTOqH5gfEXRxIM1cbn dyMTgwMFxtYXJndDE0 ZYXbdYVxN5UzZRSgOV pbMLIoonu2EtEdTi4g dGVyeTcyMFxwYXJkXH IlFWkrYNTbMcXsI7Sp HMQ4TFSrpyY5fYhwk6 ewOXmlTT1tOTIgmZui dCBzdXBlcmlvciwgcG OwJEWnwOFofXPoA4Fl uXa6VBSpitzinTydWJ kbnF61DdHaO8EyVBYd rKNnY1JtQZJtcLSjup LtnTq3mTUeXARmwnY4 jUnlp2efRZjbZJ5eIA FgsrVrr8MhrgRzn9w7 xEDtb2Y0xMDgGGqpik 83AIF5d8wlhMLgEGfm LcuncFFsmdM1IIpANA JXKNgKHiTuMS8vCIdZ R8WUYDoUFtfpONs2Tc rjuSR2l1apnTBnx3e2 EWluXDZ2cGEgimJ5nF doa1liDVn8qBMkjNpv p7bpg5kxjWPrCZmsQt kiiJCjaqF5VFtQIKOB VRsTWcEsVJ6xHObTX1 VRYjS6XcX4SIC1IHis fXtcZmxkcnNsdCBcJz ZiuZ6wpTgpnX0iRwJb MFxwYXJcbGkxNDQwXG tfmmN7DMUsD2h9IUwr Fg8uQLxhTM14GRboFU 41IGNtXHBhciBXZWln fEC9BXSmKwBjIMdadH HsSLPgxkDtulCae6Ro e36ydHFbIVN3UVoycp 39SPR6t2uvcOOvMGbx CryxvLRakkN7SUxNQH COESuZKcOeOI5uLDqN P9FPATdIJcpcOEo6Qn hyfSX6g5jepDFsq5s1 BBlqTXA6aWzpp9VgjC gyveI0BZccMzvtyIW7 RAeyFjxqiZ3bbFAWME DUEdgPYrdgktBsPJ1U FAWYZF3DsBG9UOl8iU B7Tm39QVQuDYVisGKm EXmfF589KSKeXTxaPY ZzMjBccGFyIENlbGwg vEmuGCssLFMed7IzF8 U1PMZoBZtwj5icBSXm KWuxj6OtHBcJYDMIUV 3JDI0nmVQ3DAdVQVHI T6gQhQT9GGx1wPM4F8 17XGZsZHJzbHQgXCcx R483P7lbSFVfJ7ZygF V6CNCbGYdxf8nxZVWv SPugl1UkPWbQEEWWMU 2TRZ1bmDL8WKuHJACP HVtqZZr2OFjdnCG0n1 voaCJxj1s7VDcnMCC1 fVxwbGFpblxmczIwIC JwQmHgKAWwydCfk44b k2M5fUinJHLjzSjiQV gzMCUpXHBhclxwYXJc nPfiTJyiujRzGV9VD4 NNSFxwYXJcdiBTTUFS NZeXD7NgYGLNZIKPEA ChGpLULZ4iVkM3XMF6 AF6tIkX4ORi6sSW8JK 3qLDk5DSvbBPLjQ18C CcXLZKTNY38ALVRHIV YZB0EOCHXGPBbGL7OX UN1QDAOCJQGTCW1WNW pLUsSMLBvLX8CYLH3Q UNQOWBOHCH9ULoCkTB wCK7YDM5vEPKWjVBYY MZDNLLXqAmFFXC9cDR r1KsTuyHtaVAAdQMsc c0RrsqpvHVb7Alm7My q9F8Tih32enWDkEQU1 AwQ3OFFmzJPbf3PykV qxiJdvLSykNDa5TJo5 YUNUSNHLRT1NSPRHW7 4DFGIIEMIMY2JIEBCB PuAOJXWRK14TNZFSIK NBZ0OAL3fPUBAWPfIK BZFWB72SHSHACRPGP7 VORCBBVVRPUkVGUkVT DG0IIMAWDKZYMS4QLL kWDoUaXIBGQ4XNXeQL Y4wmPXXQJBQCHINbKK 5EfQ== Gross Description (test h8okxTXuRIGkiAO5AW code = [id number]) RlVKSod5qbl5GnsNZm cGFyXGpleHBhbmRcbm 88fDB0hH14DS4jCUEj LmQ3BHImvvL3Jum3KZ FhHCDbdPLmG469h1wn x5imgaIctJO8ZGZsRU LgD9LbYU7dBUVccZGp C01yeKGkFXG9YIMeEI GpiRJvKEKiQPG5BUZb dSVqP9lyLHQiGL9slw dyMTgwMFxtYXJndDE0 TDKdfMFvN9QwDURzXE eyEXEygdy6CwVoZc2n dGVyeTcyMFxwYXJke1 luLWLozHHfEHV5LCef sCBmEHXlIXFoQQb6TU JrVHamqHXvYY1olOsx UugnbOtlk6MkaDFtZJ lkIDUxMDAyIFxcZGIg G9OZPOEaBZGpYNn1Fk EwTSb8ZUzcQ8LDZXLy QXI0QRy6WSWzKkQ6XM q4CRTSKf2jBNH9DGjz SJEpLIM5MXX5FEVhOQ QgMiBcXGZsIFxcZiBB cmlhbCBcXGZzIDEwIF ccPoIjRXorS57xdSmc iP3mOvkgmjLnCRQ4LU BhclxjZjEgUGFyYXRo fXYohIWwGVAtI0y5QE ByaWdodCBzdXBlcmlv mbLxXYGkuFf8fn7sGP BnbGFuZFxjZjAgOlxi MCAgQSAzLjIgeCAxLj ehsWZbBaCxX26enGMe CQTrPXM1cAJhsFilV0 lzdGljIHNvZnQgdGlz d0NwLKMaLBbqWK23UZ ZvDSJci8QgO1bsVFRf NjXwHEryTWIAu1UloP BwcmVwIGlzIHBlcmZv yv6wRD8lxSKbMTsdRw IwXGxpbjcyMCBTRUNU ZD1YQPVQMHU3SBVuBU VuZGFzaCByZXByZXNl zrAztYw7DJLkLTO8wZ 3vrmHzyNFcbZJ0SWBi Kc2nLWWzj9owhxFuAQ E0cM1cIKLuRNcij6Mp cyBhbmQgcGVybWFuZW 80NGFeFSpsd7Jiotnw KQLmPW9dKLNpLBEguI FpbmRlciBvZiBzcGVj kB0ndl1eLYuDs3uvtR svm6VrrKTnIV51REFj wQUzJKM6FM6vjKqcSV J9 Intraoperative Evaluation d3upwKDmQCGwiPS8QU (test code = [id number]) GvLCZby9ozr4GoyALi cGFyXGpleHBhbmRcbm 85qQS1yU21MR6xXNEu NmM6XSVynhJ5Upv9RS TwQOQyhVIkE983e2ns f1xdhiEjuGJ6RMQnDA TaC4ZxUM5jFYGmtEFz Q84pgAEtFSL7PHKiOH UmmRTpNTMcEAD5AKDm aERgU3gfZEKeVI2psl dyMTgwMFxtYXJndDE0 MGBnaXZmU3UkYHWlOI yxTGUrbck6TeNyGx7b dGVyeTcyMFxwYXJke1 udAGQpvMWsZRY7AAzn tAQgBDPeWKZcFQx8TZ SiQZahtATlJA9vsYbx ScekyOuji4ZhiMNnVV lkIDUxMDAyIFxcZGIg A6BZNKFrEWOgJFc6Ck TvNCe6NQkqO0ADUVEk LSK1AHt9YYBqKdX4IT n7GGYYEn3jKKH9TzAs DlMoUEG8VBL9HOIyZP QgMiBcXGZsIFxcZiBB cmlhbCBcXGZzIDEwIF tvOnEnHYymJ86zgIhg wE1wYdhvkiDwANK1SG BhclxjZjEgUGFyYXRo vJGqmSZxNDWtD6x4OH ByaWdodCBzdXBlcmlv txNqBTEdaBh9fx7eSF BnbGFuZDpccGFyXGxp NzIwXGxpbjcyMFxiMF xjZjAgSHlwZXJjZWxs vDepzkVyIEIoeUh0sm 9yEMP8qMNxeQKnGQFy hDKnUBktYGxxeB4xFP PeO35xTQRauNVHcr2v F7NyqnjsSBGniJFsbT PvgNxvOfalcJA3TTep CsygpL3hmIOTFZIBXe kCNvrxwlHsKX6DTX5L SsPRGG36YfYzVYZ1GV tKN9YIpBB5Qay8NPo2 fXtcZmxkcnNsdCBcJz VkaE1LNwphRielaMD3 YGuoUyctkI9taJFAWR REReqGMadrwkVnQA5P TC9SLZ2DuEPyMOB7wC P4URQZGpjbgHW4yAY9 tO29TRSoFOVanRGjTV zpZ955CUAxTTnfJWGa QaU8ISPxzLOhNPX9EG 4htOxxSQFcH8WjO8Ef weU4DLKsml1= Disclaimer (test code = n2usbLPzKVJueDMxXh 9844) EgTCVdLNFiv1fxWTBm bGFuZzEwMzNcZnRuYm mbrQAsHAQrAhZzb7sz r770yTUdd5eqMSUoRd Q2qWLlIKMuxIWaX166 VWOtMMzab5lrg9UpAV PrhKVqw7C3YNZJaikn pFr1jJhaY00ys6N3Yu vzG8jlEVFeWSYbX4Pu ZQ1sLPItYxa6FLT6CR Y4QYOlFVRqG5LjQS6m OINxlMZzJDu6u2zelN kwOVBtMNM7y0bcGBgd wuZqMQ0ypr8unHo3g4 xjczEgRGVmYXVsdCBQ OYMeZ8FckMytXl3xnA k6gEgdRvopAUP9Hpy4 KW8mjx81jie3tVqjIM YbbourWvD0CYduUGWd fbjuDRb2WYzqOHKwdJ T3ZMUnjYYtS8SxHRKv QL9rzpj6DLF1DYkjAW NmIiU3MUGcjRYiIBGh aBfxVFcur181CXC0Hs XgIQ2xN7Doj1Y8eO0w aXRcZGVmdGFiNzIwXG Watt3jnHExNRwlp4Qt PBZ5xvE9gXNljAXwRZ TcII61Qmjcy6CgUoho QBU3JKJnttQwl7Hnw6 mqBjTmmqVbQ4nsL4Mj ZHJoZWFkXHBnYnJkcm Asr4Vgc0GnwFLrzSr3 x9ijGJGnYLKjwAtrt2 ksKKU7IVUeR6H3rEEd w6nlLKgjURIroBM8ap N8ZMLqgVYbQ2ZvtJ5j QBBfIW4wpkp1q7pzRU G7WFwiXQEyAwK4pkL0 NDBcaGVhZGVyeTcyMF pwm088ILZ8LfUdEYXe z7OwY8HmsJkkN45dvM evQ94rFXAkcNhdcO9r zVbrcO7vEjYtAnZkKA xxbFxwbGFpblxmMVxm odA8DZxrfscpWFMuSQ jzU8nmMvBnLDJjsXjx JZsvf1TkRRIhJSGfSa yjheL0QVQMr22lSDSg d9CgQVDkuP7yqHHhXL jgciPqtJD0FEzcwoXn MjEmzsBoYELqkX2yVR VmFE1eOFTwdqKuov3d rkEkRMThYUCbH4Amdj boxCdczmVcSWNxtn7y qnJuELT4EKKKGH4CWF RkHOIuy52bKNBnyGwx xA1pxHHqtdInOPOnf1 VzaF4zdFDJWKZdW6xw QF9bXXbmx7KvmIFttH TiiZR7XSGws6DpQfCv dwEwvNIbvFHnU5FtoF dwX7baSGWkJOVytoIc nJMol8XhFKVgxZH4mH PyQX8ORdCMi87uOYLa ZCBEcnVnIEFkbWluaX E5gfG2nU2nXvHQDuMx cHBsaWNhYmxlLCBjb2 47ib2wjkD0RFBpFBBi gkkbb4WyGHEqWMNhoS 92RJUbCJGagj4speni kOIjnhIiV9Jepwf1yN 4iXHBsYWluXGYxXGZz MjJcbGFuZzEwMzNcaG ljaFxmMVxkYmNoXGYx LPhcB6suEqXlArWiIz xwYXJ9 [facility] Lake[facility]raoperative PTHi Spec 2 2021-11-25 14:00:43 Test Item Value Reference Range Interpretation Comments IO PTHI S2 (test 35.9 pg/mL No referenc e range has code = 48075-2) been establi shed Testing Performed at [facility], [address], [place], [place] [address] % Drop S2 (test 53.4 % See_Comment Note: New Me thodology and code = 8464) Reference Range change effective 2017 at 1400 % drop of intraoperative PTH is calculated as: ((Baseline PTH Post Sample) Baseline PTH) x 100 Test ing Performed at [facility], [facility], [address], [place], [place] [address] [Automated mess age] The system which ge nerated this result tra nsmitted reference range : >=50.0. The reference r maría was not used to int erpret this result as kevin l/abnormal. [facility] Lake[facility]raoperative PTHi Spec 1 2021-11-25 14:00:18 Test Item Value Reference Range Interpretation Comments IO PTHI S1 (test code 39.2 pg/mL No ref erence range = 77864-3) has been establ ished Testing Perform ed at [facility], [facility] [facility] [address] [facility], [address], [place] [address] % Drop S1 (test code = 49.2 % See_Comment L Note: New Methodology 8463) and Reference R maría change effectiv e 10/28/2017 at 14 00 % drop of intraoperative PTH is calculated as: ((Baseline PTH Post Sample) Baseline PTH) x 100 Testing Perform ed at [facility], [address], [address], [place] [address] [Automate d message] The sy stem which generated this result transmit dena reference range : >=50.0. The ref erence range was not u sed to interpret this result as normal/abnor mal. Lab Interpretation Abnormal (test code = 66954-1) [facility]ahIntraoperative PTHi Baseline 2021-11-25 13:25:02 Test Item Value Reference Range Interpretation Comments IO PTHI BL (test code = 77.1 pg/mL 15.0-65.0 H Note : New 5977) Methodology and Reference Range change effectiv e 10/28/2017 at 14 00 Testing Perform ed at [facility], [address], [address], [place] [address] Lab Interpretation Abnormal (test code = 01118-4) [facility] LakePO Glucose [id number] 11:43:04 Test Item Value Reference Interpretation Comments Range POC Glucose (test 102 mg/dL 70-99 H RN Notifie dCapillary code = 60180-3) blood sample s, e.g. obtained by fingerstick, ma y have inaccurate resu lts in patients with decreased perip heral blood flow. Met hod description: Al l results are amish sured using Electroch emistry test methodolog y. The glucose in the sample mixes with the reagents on the test strip. The reac tion produces an lucia ctric current. The am ount of current produce d is proportional to the glucose concent ration in the blood. PO Sample Type (test Venous code = 9554) Performing Lab (test [facility] Main Main [facility] code = 77621) [facility] MD [facility], [address], [place], [place] [address]; Online Advertising Analyst: Adilene Mcclellan MD Lab Interpretation Abnormal (test code = 99349-0) [facility] DecorahCOVID-19 (SARS-CoV-2) PCR- Asymptomatic [id number] 05:57:31 Test Item Value Reference Range Interpretation Comments COVID19 (SARS Not Detected Not Detected CoV-2) Result (test code = ____[place] [address]-9) qualitative reverse-transcr iptase polymerase luis antonio n reaction (RT-PC R) developed for t he Rosa ORA 680 0 system and inte nded for qualitative detection of SA RS CoV-2 RNA in nasopharyngeal and oropharyngeal s wab specimens colle cted from any indivi duals, including those suspected of CO VID-19 by their health care provider, and t hose without symptom s or other reasons t o suspect COVID-1 9. A fact sheet for patients provid ed by the manufacture r ([employer]ervault) c an be reviewed at:https://www. fda.go v/media/575631/ downlo ad. A fact shee t for Health Care pro viders is provided by the tool inspector ([employer]) and can be reviewed at: https://www.fda .gov/m edia/755342/ryne nload Results must be interpreted wit hin the context of all relevant clinic al and laboratory find ings and should not form the sole basis for a diagnosis or treatment decis ion. Positive result s do not rule out bacterial infec tion or co-infection with other viruses. Negative result s do not rule out SARS-CoV-2 and must be combined wit h clinical observations, p atient history, and/or epidemiological information. "Presumptive Positive" resul ts are due to partial amplification o f SARS-CoV-2 targ ets and indicates l ow amounts of viru s present in the specimen at or near the limit of detection. Regardless, individuals wit h "Presumptive Positive" resul ts should be manag ed per institutional guidelines as individuals pos itive for SARS-CoV-2 virus, including use o f appropriate inf ection control protoco ls. Internal contro ls are included to ass ess for possible amplification inhibitors. If inhibition is detected, testi ng is repeated and if inhibition is confirmed the specimen is res ulted as "Invalid". W hen an "Invalid" resul t occurs, it is recommended to wait 3 days before submitting a ne w specimen for te sting if clinically indicated. This assay has been approv ed by the FDA for use only under Emergency Use Authorization ( EUA) in laboratories that have been CLIA-certified to perform moderate-comple xity and high-comple xity tests. The performance characteristics of this assay were verified by the Microbiology Laboratory at [facility], CLIA Accreditation # : [id number] and CAP Accreditation # : [id number]. COVID19 SARS RELATIONSHIP MANAGEMENT LEAD Swab Source (test code = 91609) COVID19 SARS Pre-Out of OR Indication (test Procedure code = 62762) [facility] LakeDihydroxyvitamin D 1,25 Level 2021-10-16 07:35:32 Test Item Value Reference Range Interpretation Comments 1,25-Vitamin 55 pg/mL 18-64 -----ADDITIONAL D-De Graff (test INFORMATION---- Thi code = s test was jayne olguin and its 34981-4) performance characteristics determined by [facility] in a man ner consistent with CLIArequir ements. This test has not been cl eared or approved bythe U.S. Food and Drug Administration. Test Performed by:[facility] [id number] [place], [place] [address]Zjj Direct or: Sajan Field M.D. Ph. D.; CLIA# [id number] [facility] LakeComplete PFT ([place], DLCO, [place]) 2021-10-16 00:00:00 Test Item Value Reference Range Interpretation Comments FVC (L) pre (test code = 3.495 L 2.384-4.028 9507) FEV1 (L) pre (test code 2.390 L 1.524-2.914 = 9505) FEV1/FVC (%) pre (test 68.393 % 61.240-80.596 code = 9509) DLCO_SB ml/(min*mmHg) 10.835 See_Comment [Auto mated message] (test code = 9515) The syste [employer] ([employer]) which generated this result transmitted ref erence range: 4.507 - 21.093 ml/(min*mmHg). The reference range was not used to int erpret this result as normal/abnormal . TLC (L) (test code = 5.592 L 5.112-7.415 9513) RV (L) (test code = 2.007 L 2.109-3.458 L 9514) RV/TLC (%) (test code = 35.891 % 37.348-55.312 L 9517) FVC (% pred) pre (test 109 % code = 9520) FEV1 (%pred) pre (test 108 % code = 9518) FEV1/FVC (% pred) pre 96 % (test code = 9522) TLC (% pred) (test code 89 % = 9526) RV (% pred) (test code = 72 % 9527) RV/TLC (% pred) (test 77 % code = 9528) DLCO_SB (% pred) (test 85 % code = 9529) Lab Interpretation (test Abnormal code = 78828-8) [facility] LakeCyclic Citrullinated Peptide Ab 2021-10-14 20:10:47 Test Item Value Reference Range Interpretation Comments CCP Ab-Soriano (test <15.6 See_Comment Test Perf ormed by:Soriano code = 49902-5) [facility] ior [id number] [place], [place] [address]Lab Director: Phoenix Field M.D. Ph.D.; CLI A# [id number] [Automated mess age] The system which ge nerated this result transmit dena reference range: <20.0 (N egative) Units. The refe rence range was not used to interpret this result as normal/abnormal . [facility] Lake[facility] Add-On Test 2021-10-14 19:29:32 Test Item Value Reference Range Interpretation Comments Ordered (test code Test Not Added no spec imen = 6568) container to ad d it on to, notified Bienvenido Guerrero 10/14/2021 2:29:1 9 PM CDT. JPA Test Needed (test PTH code = 7604) [facility] LakeAnti-Neutrophil Cytoplasmic Antibodies Vascultitis [id number] 19:15:37 Test Item Value Reference Range Interpretation Comments Myeloperox Ab-Soriano <0.2 See_Comment [Automat ed message] The (test code = 94440-3) system which generated this result tra nsmitted reference range : <0.4 (Negative) Unit s. The reference range was not used to interpr et this result as normal/abnormal . Proteinase 3 Ab-Soriano <0.2 See_Comment Test P erformed by:Bo (test code = 20909-8) [facility] ior [id number] [facility] [place], [place] [address]Psj Direct or: Sajan stinson M.D. Ph.D.; CLIA# [id number] [Automated mess age] The system which ge nerated this result tra nsmitted reference range : <0.4 (Negative) Unit s. The reference range was not used to interpr et this result as normal/abnormal . [facility] LakeAlk Phos [id number] 15:56:31 Test Item Value Reference Range Interpretation Comments AlkPhos Bone-De Graff 8.8 See_Comment --------- ADDITION (test code = [place] [address]87[address]-6) INFORMATION---- --Liver-derived alkaline phosphatase (AL P) increases apparentmeasure d bone alkaline phosph atase (BAP) in this assay b y2.5 mcg/L to 5.8 mcg/L for e very 100 U/L of liver ALP.Ac cordingly, serum specimens with significant lucia vations ofliver ALP act ivity may yield artificia lly elevated resultsin the B AP assay. Test Performed by:[address] [address]Lab Director: Phoenix Field M.D. Ph.D.; CLI A# [id number] [Automated mess age] The system which ge nerated this result transmit dena reference range: 0 - 20 m cg/L. The reference range was not used to interpret th is result as normal/abnormal . [facility] LakeCTX Beta [id number] 14:37:11 Test Item Value Reference Range Interpretation Comments CTX (test code = 159 pg/mL 10-854 Males:<30 years: not 00338-4) mtldhlgicem36-7 0 years: 16 - 584 pg/mL5 1-70 years: 10 - 704 pg/mL>70 years: 10 - 854 pg/mL Females:Premeno pausal: 25 - 573 pg/mLPostmenopa usal: 104 - 1008 pg/mL [facility] LakeOsteocalcin2022-04-04 14:27:58 Test Item Value Reference Range Interpretation Comments Osteocalcin (test code = 6574) 10 ng/mL 9-42 [facility] LakeRheumatoid Factor [id number] 14:16:52 Test Item Value Reference Range Interpretation Comments Rheumatoid Factor (test 75 See_Comment H [Au tomated message] code = 54637-3) The system flipClass generated this result transmitted ref erence range: <=14 IU/ mL. The reference r maría was not used to interpret this result as normal/abnor mal. Lab Interpretation (test Abnormal code = 87615-0) [facility] LakeMayo Miscellaneous [id number] 23:44:35 Test Item Value Reference Interpretation Comments Range [facility] Test Result See Footnote A Test Re sult Flag (test code = 6385) Unit RefValue------- -- -- -- -- ----Immunoglobu li n Subclass 1610 .0 H mg/dL 2.4 - 121.0 IgG4, S Test Performed by: [facility] [address] [place] [address] Online Advertising Analyst: Phoenix Field M.D. Ph.D.; CLIA# [id number] TALITA (test code = Immunoglobulin TALITA) Subclass IgG4 Lab Interpretation Abnormal (test code = 35860-7) [facility] LakeTroponin T (In-House)2021-09-15 00:45:39 Test Item Value Reference Range Interpretation Comments Troponin T (test code = 26 ng/L See_Comment H < 19 ng/L Suggest 88920-9) retest at 3 to 6 hours later to rule o ut myocardial infa rction >= 19 to <=52 n g/L Possible myocar dial injury. Suggest retest at 3 hours. - a change of < 20 ng/L, r etest at 6 hours - a change of >= 20 ng/L, suggestive of myocardial infa rction > 52 ng/L Sugge stive of myocardial infarction Crit ical value will be r eported when cTnT is > 52 ng/L and only report ed for the first in a series. Hemolyzed speci mens with Hemolysis Index >100 (100 mg/dl or moderate hemoly sis) may cause interferences a nd falsely low res ults. [Automated mess age] The system Aride[employer] generated this result transmitted ref erence range: <=18. Th e reference range was not used to int erpret this result as normal/abnormal . Lab Interpretation Abnormal (test code = 30471-3) [facility] LakeD-[id number] 18:19:43 Test Item Value Reference Range Interpretation Comments D-Dimer (test code = 1.08 See_Comment H [place] [address]-4) exclusion of ve nous thromboembolism is <0.51 mcg/mL FEUs (fi brinogen equivalent unit s). [Automated mess age] The system which ge nerated this result tra nsmitted reference range : 0.10 - 0.50 mcg/ml FEU . The reference range was not used to interpr et this result as normal/abnormal . Lab Interpretation Abnormal (test code = 24718-3) [facility] 18:19:42 Test Item Value Reference Range Interpretation Comments aPTT (test code = 23.7 See_Comment L [Automate d message] 68358-6) The system [employer] generated this result transmitted ref erence range: 24.7 - 3 6.8 second(s). The reference range was not used to int erpret this result as normal/abnormal . Lab Interpretation (test Abnormal code = 39741-4) [facility] + COVID-19, Nasopharyngeal [id number] 18:13:15 Test Item Value Reference Range Interpretation Comments Adenovirus (test code = Not Detected Not Detected 5735) Coronavirus 229E (test Not Detected Not Detected code = 5349) Coronavirus HKU1 (test Not Detected Not Detected code = 5350) Coronavirus NL63 (test Not Detected Not Detected code = 5351) Coronavirus OC43 (test Not Detected Not Detected code = 5352) COVID19 (SARS-CoV-2) Not Detected Not Detected (test code = 16681-3) Human Metapneumovirus Not Detected Not Detected (test code = 6401) Human Not Detected Not Detected Rhinovirus/Enterovirus (test code = 7212) Influenza A (test code Not Detected Not Detected = 5618) Influenza A H1 (test Not Detected Not Detected code = 5619) Influenza A H1 2009 Not Detected Not Detected (test code = 5620) Influenza A H3 (test Not Detected Not Detected code = 5621) Influenza B (test code Not Detected Not Detected = 5622) Parainfluenza 1 (test Not Detected Not Detected code = 6779) Parainfluenza 2 (test Not Detected Not Detected code = 6780) Parainfluenza 3 (test Not Detected Not Detected code = 6781) Parainfluenza 4 (test Not Detected Not Detected code = 6782) Respiratory Syncytial Not Detected Not Detected Virus (test code = 7157) Bordetella Not Detected Not Detected Parapertussis (test code = 45268) Bordetella pertussis Not Detected Not Detected (test code = 4854) Chlamydiophila Not Detected Not Detected pneumoniae (test code = 5139) Mycoplasma pneumoniae Not Detected Not Detected (test code = 6203) TALITA (test code = TALITA) The BioFire RP2.1 is a real-time, nested multiplexed polymerase chain reaction test designed to simultaneously identify nucleic acids from 22 different viruses and bacteria associated with respiratory tract infection, including SARS-CoV-2, from a single nasopharyngeal swab (HEEL BRUSHER) specimen obtained from individuals suspected of respiratory tract infections, including COVID-19. Results must be interpreted within the context of all relevant clinical and laboratory findings and should not form the sole basis for a diagnosis or treatment decision. Positive results do not rule out coninfection with other organisms. Negative results in the setting of a respiratory illness may be due to infection with pathogens that are not detected by this panel, or a lower respiratory tract infection that may not be detected by an HEEL BRUSHER specimen. Internal controls are used to monitor all stages of the test process and assess for possible amplification inhibitors. If inhibition is detected, testing is repeated and if inhibition is confirmed the specimen is resulted as "Invalid". When an "Invalid" result occurs, it is recommended to wait 3 days before submitting a new specimen for testing if clinically indicated. This assay has been approved by the FDA for use in laboratories that have been CLIA-certified to perform moderate-complexity and high-complexity tests. The [facility], CLIA Accreditation #[id number] and CAP Accreditation #[id number], verified the performance characteristics of this assay. [facility] performs the assay using the AVOB System. [facility] ([facility]2021-09-14 17:51:40 Test Item Value Reference Range Interpretation Comments NT ProBNP (test code = 953 pg/mL See_Comment H [Aut omated message] 03661-4) The system [employer] generated this result transmit dena reference range : <=450. The refe rence range was not u sed to interpret th is result as normal/abnormal . Lab Interpretation (test Abnormal code = 45018-1) [facility] [id number] 17:40:05 Test Item Value Reference Range Interpretation Comments CK (test code = 2157-6) 18 U/L 39-308 L CK MB (test code = <2.0 See_Comment [Automat ed message] 25438-5) The system Arideas generated this result transmitted ref erence range: <=10.4 n g/mL. The reference r maría was not used to interpret this result as normal/abnor mal. Troponin T (test code = 29 ng/L See_Comment H < 19 ng/L Suggest 56666-9) retest at 3 to 6 hours later to rule o ut myocardial infa rction >= 19 to <=52 n g/L Possible myocar dial injury. Suggest retest at 3 hours. - a change of < 20 ng/L, r etest at 6 hours - a change of >= 20 ng/L, suggestive of myocardial infa rction > 52 ng/L Sugge stive of myocardial infarction Crit ical value will be r eported when cTnT is > 52 ng/L and only report ed for the first in a series. Hemolyzed speci mens with Hemolysis Index >100 (100 mg/dl or moderate hemoly sis) may cause interferences a nd falsely low res ults. [Automated mess age] The system Arideas generated this result transmitted ref erence range: <=18. Th e reference range was not used to int erpret this result as normal/abnormal . Lab Interpretation Abnormal (test code = 91335-7) [facility] Virus Panel Path Wyrcmg1513-20-32 17:43:19EBV Panel PREBV serology (positive VCA IgG & EBNA IgG) most compatible with past infection. Interpret with caution if the patient is receiving IVIG....Reviewed and Electronically signed by Pathologist:Zana Quiñones MD, PhD #[id number] [facility]ENTERUnMatagorda [facility] Medical CenterEBV Antibody [id number] 20:18:48 Test Item Value Reference Range Interpretation Comments VCA-M Int (test code = 7972) Negative Negative VCA-G Int (test code = 7970) Positive Negative A EBNA Int (test code = 5480) Positive Negative A Lab Interpretation (test code = Abnormal 52158-1) [facility] [place]/Free Lambda Ratio 2021-09-03 21:11:34 Test Item Value Reference Range Interpretation Comments FKap/FLam RT (test code = 5566) 3.75 0.26-1.65 H Lab Interpretation (test code = Abnormal 73432-8) [facility] Lake[facility] Lambda Light Kbqfs1066-60-74 21:11:33 Test Item Value Reference Range Interpretation Comments Free Lambda (test code = 5630) 240.29 mg/L 5.71-26.30 H Lab Interpretation (test code = Abnormal 79049-4) [facility] [place] Light Yffan3066-03-44 21:11:32 Test Item Value Reference Range Interpretation Comments Free [place] (test code = 5629) 901.50 mg/L 3.30-19.40 H Lab Interpretation (test code = Abnormal 76629-6) [facility] LakeMD COVID-19 (JAMEL-CoV-2) PCR Kwibnxwjnjgz2441-54-35 12:44:03 Test Item Value Reference Interpretation Comments Range COVID19 SARS Pre-OR Procedure Indication (test code = 23613) COVID19 SARS Result Not Detected Not Detected (test code = 36037-8) COVID19 SARS SARS-CoV-2 NOT Detected. Interpretation (test Reference Range: Not code = 95743) Detected Methodology: The Izquierdo RealTime SARS-CoV-2 assay is a qualitative real-time reverse certified physician's assistant polymerase chain reaction (landscaping manager-PCR) test to detect RNA from SARS-CoV-2 in nasal, nasopharyngeal and oropharyngeal swabs from patients with signs and symptoms of infection who are suspected of COVID-19 by their health care provider. The Izquierdo RealTime SARS-CoV-2 performed on the Amplimmune000 System is a dual target assay with primers and probes for the RdRp and N genes. Results must be interpreted within the context of all relevant clinical and laboratory findings, and epidemiological risk factors. Positive results are indicative of the presence of SARS-CoV-2 RNA; clinical correlation with patient history and other diagnostic information is necessary to determine patient infection status. Positive results do not rule out bacterial infection or co-infection with other viruses. Negative results do not preclude SARS-CoV-2 infection and should not be used as the sole basis for patient management decisions. The Izquierdo RealTime SARS-CoV-2 assay is for in vitro diagnostic use under FDA Emergency Use Authorization only. Testing is limited to laboratories certified under the Clinical Laboratory Improvement Amendments of 1988 (CLIA), 42U.S.C. 263a, to perform high complexity tests. The Test was performed by the CLIA-certified, high-complexity Molecular Diagnostics Laboratory (MDL) at [facility] under the Food and Drug Administration (FDA) s Emergency Use Authorization. Factsheet for patients: https://www.mdanderson.org/ AbbottFactSheetPatientsFact sheet for healthcare providers: https://www.mdanderson.org/ AbbottFactSheetHCP Test performed by:[facility] Molecular Diagnostic [address] [place] [address] [facility] LakeCytology Image-Guided FNA Mdomurvnfpwgqh6763-28-97 22:13:15 Test Item Value Reference Range Interpretation Comments Gross Description (test l0wcbUZkRRMxfNU6QkNhU code = 4218405424) DVlk9chn4NpfKJwsWBlTA cstJZpivCzgy68yQX9tJ5 1NC2eVPWpNkH1KRFayiZ2 Fno7QICpUPPtxFRwV001h 0hlp8ybegSimAC4FFOrKA XlK2LnWE5hDGGsdIEyN70 acILjWBW3ZDYdKPHzxSXq UKWeZAC1HBYpuEQhT6itO FFkIU2jgpjkHAscBQhvKW NyrVU5SWTdsZXmO9McDLJ pKZqhBAAkrcm7TfSfQg1a lLRafMviIRqcWCNwm7iyV OYbaXUlXRG0QLcvzRCiHH NdFABeUTq6MXPqOHaziKV qZL4bfSzxVpwumDovo5Ic dCBcXGlkIDUxMDAyIFxcZ OQiB7RAYRIgLyZ6Tmz0LW OtAPo0QLfgU4LRHOAxPRK 2FULbXqN6AuD2PRz6TNSG Ib3dMAS2IodqUHP6BPD5R pt4KRkpuGFaUIqiPpzpLJ xmIEFyaWFsIFxcZnMgMTA iAFazFpCbHC1buLtmxHKt blxiXGZzMjAgQTpccGFyX JYnWSIyQWYSqMIskI8elg MvxHOvD7EaGRU3CEKyhdF 1IERpZmYgUXVpazsgNSBQ AQXcM5NhjQ7pQ3ojRCGcL DNawzK8QP2cBLOfeAqqqD OilJCtrL7oBEneQol6mHX unA1pLaBUNKbnUVFqLEGI JLmrBONhp3KuUTPuxvSVB IUnC3SckCYcWSbsE8NiIK awGUNtpd6qpAacCiJukLL kpWOsuEuvCcywfKQ4UDft FrytmK5ubIXHBQUOLddII nfhzfHdFK3RQO8FZzSIUB 90WRWcHgZ8GZhMI0DFIZD ZZHJ1EJf5sKH4uD57EDNz GMQnsGXrEXmjQ189IMLiW BKsCkC6BMFoCDmrh5apUS JxNRxvs2YsLMoGFFAHYO8 MGU4xkHH2ONzJE1AFZGd1 PCS2BojwtRNGMMTXXHAZV BbamDp8FWm4wGihKqhfuv NkaSHwUbIrbQ4wtDpzkV6 cZnMyMFxjZjEgICBccHJv jTWsrBtnNuhrlBF7IWscN ocogK4rhGLTFJGLYznKNi kiiyVdKH2TEM3HOdWTVX3 1PLI0PxlTM3o0GUi6oFJ7 bJ90CRMaYMOqxLPtJOgnL 319NjowOSBQTXtcZmllbG W2GWjeOppwfX6soTIWYUO TSioTMaqwfkHzOC5WTV5O EQ3PgOxksHT2Tw3NpZG6q FasuXd6m4zssTBjl3y7AM ztLYM8qMcyiCDsauvmzqN wXGNmMVxwYXJccGFyIFNp atJ5SIVfTNRhN88oiSCuQ KOsfiveTrJhS7GtB3giQQ 4tIJEgmZJkE7fwj4ZgLQN zupEtio0zUUJvoIYKGtIS AKB4vI9mhtvlE1WyLINQJ Ebin4allBklu6UycACkME 35SHWgjLXkNFV3VA3moYu wYXJ9 Immediate Assessment Adequate cellularity (test code = 9837) Major Classification NFMC/benign (test code = 9839) Diagnosis (test code = q6zyiKQxKUIbuHF3NgQtS 34) DRir9bmv4NoqNQbxJFvSX omxBUoweZnmv92oWR0fV9 8TA0bVVYvBuP5KWLctjR1 Ebs7ECPgZTGyuAQgU270h 0iob2tvswQthBW5WEFhLK YdN2SrPK3wUSZkbEKwW53 xuWAyJDF0BREcSRZkzMGl JLXrMPH2RHJjiDWfP0iwE CGvCL2mvblhRQefPYgoFW TivYP3ZFMfiDJgG9JjFEJ eMSfbGWTkaag8MlCmTs7i rJRpcGsxACztF6ukmK2sN zK9BVygQ5oefK8rRVg8NP ltVAKtkEZ5tbK9VGGojTT uN1YsrB4kBWAuLF8fjwp7 b4rsDVC0GXefMDJzUrS9z tN9RCSckSFtMFuivPJhxq xmczIwXGNmMSBBLiBMeW1 swZJtv3RvTNYgHZH3AKxt nTSprO2pDLNrARZkUZimE mluZSBuZWVkbGUgYXNwaX JhdGlvbjpccGFyXHRhYlx fEFEmiTt4JtHjdPvnQeSc JY9aUQ8ycLRnqYM3jWMvI 0GcC4pyh97hKGxtPB58sH PtTBWdxAIrNNYhzIpiu9P qiC56bbCcvO1ywD1qtJRw yyLezdMvq3DywCTwllUxY HRpbmdpYmxlLWJvZHkgbW Derr7wdYRqETCulNGpz0I rmDeoSkA3y9UgyjUaK6Gh rwQxuQnsgUmhwb2lYTCfy 1ClXCUfiN6ntjBpCPhnDL J9 Comment (test code = e0mrnCKbZTUurOY5FjWuL 9835) DLro8svw6SkmSOfgJYkXS ymfRFhtrHbwh55qAP7pM7 9QF0rAXVtLmD4UEMczdX0 Lpx8QPNsDSWyrSVwR511q 4voy2uwfkZsmCC7sKxySY ChjfsiPcS9WSoeQDRykby dROb1HRxnHCYkbYH8IBUe mSIpQ0JjRCHwXR0glgx8O QH8ZSudTFNoOyO3QUOxwN AtZTMhvGgdOBtqs856FAR 5NzIwXHBhcmRcdHgxNDQw QURjJ9o6xKNwGRYwjDk0C UjqSLH0WxEnKNa0nCy4Zd TasWn3HkXlNPM2KMT3CSb 8rWFpUDurXAY3KAD4FAHd fMkxWNIcMAy0xSDaFjVgQ WD1PXH9LtZvdQzyIlZ5NO i6fLP6GHXdRHZdXUuwLZJ zMjAgVGhlIGFzcGlyYXRl KONoGPNqxgOyqD98VFOkz J3ehZ1witTxb5WuDWg8qU Qcl6kwYBQkvAViSXYyw28 xG64kd9uohPtrAuUoHmWj cxVof03odlRrhWu4WRHyT LanVVx8eOKuw0A3tOGjWO PjVCAsX4K3oWGpHIQmsFb kL0gmoAOfHt1cfAHtKZMr u7AiYVruug1cSn7zWNS9g ZtiKUenbYAqU1EuB9BndD HlPNBfZJHrJS0uiB2hj1A vH7VooHWAb3Nsz7goKXp8 aHFyj90zLiFJbcHebcUwq IpgdKX6i7ZqNIFqm4Jxm4 Xit3SkuTX7BNU7LRCtSuF gEJWcbO9wjIVaiDPgmUOn j3OhyY5zXu7pMg2nfNAnE aXmNZGbx3BismPygzEvY1 K4KAFhaoIpHJ2oAJByd39 gYXJlIHByZXNlbnQuIEZs f2aaW2a2w12aiUR7XIVlr sMsje3nZNNuycL8nOSeK8 9rM4QineNivNGgiK7yxVV ch0KhLQZvouXaatCrYHsf KHHimFsiFTOsk13tHFQzW y4vWXUjRHPgDSLbs4fxSK 3hYPxfoYSwt3RbHX1taHb wbLNhu7UfwH2ruOOag5Zf YSBCLWNlbGwgbmVvcGxhc 20uICBccGFyXHBhclxwYX PnDAZ8QrZfNRM8BLS9NIx 3yFPpOwIimZfuQEqsVLZ6 SuCyEYd1qAJfKtKvjYp5P BUzSRS1SWz8ZRw2dDE8YB LumYw8MdAsHDC5VycjRGy 8mBv4NPHprLj4QiTzUZG1 MTAwODAgVGhlIGNlbGwgY qgeJ8qrlQOicKOaHGAhg1 7wh1AwKM5ffMEwe511taz jgUOhbuampY80IPKlibUy JFciihhqhCyuHOKjz5VrM DAvWJvhs1Jvhv4ssOJkbD == Retained/Biomarker h6iklVCnPBDqbZH7MyTzK Testing (test code = UJon3yvp2VbsLQwwUAzQR 1557) uczRWjrjXqky01eRR5tL1 9JS4sBJEkPeX7MFHresJ3 Pkk5NMBcKRMmxPLeX915p 9gak1gbayDzxYD2rNieUP XvvutmAxI5EFfdROFwgnk eFYz5WOsrTMFfxYE7GRSn vRPkQ2PsLPIlDP7dmby0L CS9BOwcRXPjXqN3NSAouO MfZWBkpVfnHEipf509UGK 0WwDoYKYocuHbvGkflW5y ZnMyMCBTUjogMTAgUywgM iBDQlxwYXJ9 Informational Points p3mscNAqWNFxiRDyAfUpA (test code = 9836) MPcVWVnv8dhEDRjpPAeBu EwMzNcZnRuYmpcdWMxXGR uQoKzh9tck112mMNux5lc LFFnEsX2wKMaCYRnrVBuC 470WXIvRXtrv2cdr1VvYI UuaABdy0J6SEINLTfgOLY RPNw9r0zmSxGqPbB5oIRz ZSmcP5egsdMcgQIpEHAlQ Zp7qQ06VKQcvB4yaERnTM iikaKvDsB7MPngFKVdGaW 3LRWdxJMfRCZrM8eoITDg JJosKHQoLQgeaWYjGJY1f Xjvw3Q7mSKtjDAheBfvFa UiYuIxRwDSy1XqDYj0mAg sQ6QdXLCfMwC9tDMxVGSy ZQrzXGFqJVJtvxK3nW61L WszobG7aBUgk8Acn58zo8 53xM9cpQZfIEG8AJKxAXT xgKYqAEUeZZS4LSVakLVe N5yfASEbKU0vjingZKdwO HmfWKXzlFJ9CUCqyEHpH4 WxSQYhVLxgXLXzwzk9RbI hNs7awQPfjXquVFewp4ti y5issKKiNux1RXYdDlUnV fpwOOpzn8Yde4dlFIBnwx 7jJKU5kOPayPgwn3W5jNO xXGRudGJsbnNiZGJcZmV0 WIleBQ0odf82FFCjZMD1l s3esCPlmFlbquLutKAuFJ kwM0YjRGZib071OLXvY0O mYJVhz6J9xsRaEbJbPPNr kNT9naB4RDNfXDo0jHTxv vK3ypFenHBqK3geqS2nVM EcQT2rzagup4jjLRjlVRk jXYEitKB9aaE6JQCkaUMu G8QrxH6rLPCxBRcpSZKwm xg8BnXpBg9rjSAdjHsuDK xzYmtwYWdlXHBnbmNvbnR ccGduZGVjXHBsYWluXHBs YWluXGYwXGZzMjRccWxcc FyvdV3gEnCvNtAuAAccWE 7hBGRzZ4owgKYuVGOjRSV iN9tnZcXkdK9haCcgPCvs acY0TSesA17zZLK1UQO3s yByZXBvcnRlZCBoZXJlIG 5zoTBdHFCtVFDfVB0wINK 2ZWxvcGVkIGFuZCBwZXJm g1IqGC2jNUOdfYQuVAW3C KUvx0BtH2ZfYSD7RFYauO 5lZCBieSBVVCBNRCBBbmR nvuChgtOFHGWwh6tcV6vy RC2aNApnJw9oCSFrvtodV WVkaWNpbmUuIFRoZXNlIH Xdu7KhNIbivdWbxb16TSB rKP5zf7GhY7mscAXgySs5 PVLuSRZmYLLkp0KxWLJjz d18WMAkHqqtpFocUKEvFa 7eDy9xTFAcugGmZYQ8StN KYG8ytmixsJRrnAeqvh9j XHBsYWluXGYyXGZzMjJcb GFuZzEwMzNcaGljaFxmMl ieMmPhEUPsUCciE4xoHfD cZnMyMlxwYXJ9 [facility] LakeFlow Cytometry Specimen Collection -Fine Needle [id number] 16:01:16 Test Item Value Reference Range Interpretation Comments Flow Cytometry Yes Test performe d by:The (Received) (test code [facility] = 8319) [facility]Flow [facility] metry [address] [place] [address] Miley Loera (test V20-139710 code = 48311) [facility] LakeHepatitis B Core Total Antibody 2021-08-08 22:05:46 Test Item Value Reference Range Interpretation Comments HBc Total Ab-De Graff Negative Negative Test Perf ormed by:De Graff (test code = [facility] - 75538-9) [facility] [employer] [address] [place], [place] [address]Ywo Director: Phoenix Field M.D. Ph. D.; CLIA# [id number] [facility]edo[facility] B Surface Ag w/Confirm 2021-08-08 21:47:03 Test Item Value Reference Range Interpretation Comments Hep Bs Ag-De Graff Negative Negative Test Perform ed by:De Graff (test code = [facility] - 5196-1) [facility] [employer] [address] [employer] [place], [place] [address]Lwj Director: Phoenix Field M.D. Ph. D.; CLIA# [id number] [facility] LakeTMP HCV Ab Path [id number] 14:21:27 Test Item Value Reference Range Interpretation Comments HCV Ab Path There is NO Interp (test serologic code = 8923) evidence of ____REMIGIO BELL Hepatitis C NANI MUÑOZ MD virus antibody. - 92146Icnpj dena by: REMIGIO MUÑOZ MD - [id number] Date/Time: 07.13 8:21 AM ROLLER INSPECTOR AND MENDER Tra nscribed Date/Time: 07.13 8:21 AM CSTElectronical ly Signed By: REMIGIO MUÑOZ MD - [id number] on 07.13 8:21 AM C [facility] LakeHepatitis C Virus [id number] 03:09:38 Test Item Value Reference Range Interpretation Comments HCVAb. (test Non Reactive Non Reactive Antibody detect ion in the code = 5762) immunocompromis ed and immunosuppresse d population may be delayed or absent entirely. There fore serial testing, correl ation with other clinical findings, and supplementa l testing (if available) should be taken into cons ideration when interpreti ng the results.Perform ed at:[facility] Blood Donor [address] [place] [address] [phone] [facility] LakeHepatitis B Surface [id number] 19:23:34 Test Item Value Reference Range Interpretation Comments HBsAg Received (test See Note HBsAg w as sent to a code = 45815) reference lab for testing. Expect results on Hepatitis B Surface Antigen w/ Conf irm within 96 hours . [facility] LakeHepatitis B Total Ig Core Ab (SCREENING) (anti-HBc total Ig; HBcAb total Ig)2021-08-07 19:23:33 Test Item Value Reference Range Interpretation Comments HBcAb Received (test See Note HBcAb w as sent to a code = 67038) reference lab for testing. Expect results on Hepatitis B Core Total Ab within 96 hours. [facility] LakePSA2022-01-27 19:06:27 Test Item Value Reference Range Interpretation Comments PSA (test code = 0.1 ng/mL 0.0-4.0 Results gre ater than 6743) 4519 ng/mL may not be reliable due to matrix effect with ext ended dilution as it exceeds the manufacture r's recommended lozano it. Caution should be exercised when interpreting doyle ch values and done in conjunction wit h clinical contex t. PSA Indication (test Screening code = 9395) [facility] LakeUrine SULEMAN Path [id number] 16:50:11UIFE Path IntThe urine protein immunofixation electrophoretic patterns obtained with the use of antisera against IgG, IgA, IgM, bound kappa and bound lambda light chains, free kappa and free lambda light chains show diffuse polyclonal-appearing protein, but do not show definitive evidence of a Bence-Gladys fatemeh proteinuria. Follow-up Bence-Mancia protein studies are suggested, however, if clinically indicated. [facility]ENTERUnMat[facility]ord[facility] CenterIFE Braze8982-47-08 16:50:10 Test Item Value Reference Range Interpretation Comments UIFE (test code = 7916) See Comment [facility] LakeUrine Prot Electrophoresis Path Wihedu8055-82-75 16:50:09 Test Item Value Reference Range Interpretation Comments U ProE Path The urine protein Int (test electrophoretic code = pattern shows TABITHA MARINO 7803) indistinct peaks from MD MERON - the alpha-1 through 39724Ffd tated by: the gamma region. EDSON ZUÑIGA MD - Please see concurrent 07186H ictated immunofixation Date/Time: results. 10:50 AM ROLLER INSPECTOR AND MENDER Transcribed Date/Time: 07.12 10:50 AM CSTElectronical ly Signed By: TABITHA CHANCE MD - 1018 4 on 07.29.2021 10:5 0 AM [facility] LakeProtein Electrophoresis Urine 2021-07-29 16:50:08 Test Item Value Reference Range Interpretation Comments U Albumin % (test code = 7676) 9.3 % U Globulin% (test code = 8523) 90.7 % [facility] LakePTH-Related Rbvxeyc2373-55-18 20:53:36 Test Item Value Reference Range Interpretation Comments PTH 0.7 pmol/L See_Comment -----ADDITIONAL Peptide-May INFORMATION---- Th o (test is test was dev eloped and its code = performance 71144-3) characteristics determined by [facility] in a manner consistent with CLIArequirement s. This test has not been cleare d or approved bythe U.S. Food and Drug Administration. Test Performed by:[facility] [address] [place], [place] [address]Onz Direct or: Sajan Field M.D. Ph. D.; CLIA# [id number] [Aut omated message] The system Arideas generated this result transmit dena reference range: < or = 4 .2. The reference range was not u sed to interpret this result as normal/abnormal. 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 There is no definitive evidence of an M-protein peak.If a paraproteinemia is suspected clinically, serum protein immunofixation, serum immunoglobulin quantification, and urine Bence-Mancia protein studies are recommended. [facility]ENTERUnMatagord[facility] CenterIFE Path Ugguwi8966-43-48 16:38:16IFE Path IntThe serum protein immunofixation electrophoretic patterns obtained with the use of antisera against IgG, IgA, IgM, bound [place] and bound Lambda light chain proteins show intense but diffusestaining in the IgG, kappa, and lambda lanes despite dilution. Although there is no definitive evidence of a monoclonal gammopathy clinical correlation and close follow-up studies are recommended. [facility]ENTERUnMatagorda Regional Medical CenterPathology Biopsy Psevwzoubvvapw3657-41-63 14:28:05 Test Item Value Reference Range Interpretation Comments Submitted Clinical History w7xmiUAsBCZwo7qtOJU (test code = 88775) mbGFuZzEwMzNcZnRuYm pcdWMxIHtccnRmMVxzc 2BjT3InDjJcKTujjjAu XGRlZmxhbmcxMDMzXGZ 0bmJqXHVjMVxkZWZmMH xvNn2gaLBuuWeeZqCyS CLur4dfyfJFblwezBd0 q5cpDYHhEnV2bFMwIMb lA8nynePtjGWsKLUuRU e1eR90HSCqzC1wuZWlF NrkstOrOyJ8SSraVGYw WkM1EIGrxBVnAZCoF9b yZWQwXGdyZWVuMFxibH ZhVRR5pHkwn4D5kTEji GVldHtcZjBcZnMyMiBO l0VgDTt5jTqaT7FhREX qWaL3zWVeYBLgDZzqNC LuKKXbliA6mH74MYlqi hK4uNUaw8Shm71dr859 zV8ceYTdIML9AXFaCZY mmHLmAVMvQQK0WTPlzU KjM2dfGJKmYS6tagrzU JglBZrxFXTcoDL6WWRh mSTwL2ZsWXGpYNpeANW indz1IhYtJj1nkNZkcU gbDObzl4var1zyfXBzH sq5GGZbNoJtMefcVXcu k6Aca3wtJSSgvr5lLSR 7iASjaDwpv8L6rFFwGU QvgDLzxwPpFYAsNxV4Y EoiJY6dru15GJAnMHH2 qu3pcJOigAwsqzXywFL vJUofT3OeFPTdz402PM XdX4RoSIFqq6Q7xcEnB wAzVNHolFX7ewI6EIDo KTw1sWGfcaN9rlNrlGZ sD9uouA6qAHVhGD3pgr wnt5snSCcfSSrwKHDar UV0ftL6ECNrbTAiL7Yx wS3tNEYiXKvtEPVjgtq 9NtRhPp3oyIOirPmrDW xzYmtwYWdlXHBnbmNvb nRccGduZGVjXHBsYWlu XHBsYWluXGYwXGZzMjR exIrazEqrkI8mJzEkUq LsWQlbPH8eXKFaI6aro JJzITRoPXNbS8lwIwOy mL3raRkjUUrbcqBuXGf qMmx6JT98ZSCiJwOwSe DgOWIjyxMWOZo0GFHpq UohkpCcUSu8ZuBzSRHk vvDFWENxQI87TV4lFE5 0dFtoasNvCww3JuheST buGKQoTAVgDqVuYQ5jF ZWcU4YfHI18UP3tmRXb APq7qR9qhY5xNPmrtKx gUV3eI65mVXe0jR7oAF SfSN1eZGAxGEg6PbEhP HBhciBJbmZsdWVuemFs MYHgXUVjn68yQHDgSbL qAwgjZYOvinLXoW6eTL 9it0YjWo77maVky43mA OdkW62sz6XtJuZmpBTo eJ3pXV9xWBd4fbefZ4O 5ET47QBrrhMEkqmqhDM xmczIyXGxhbmcxMDMzX GkeH7gxAiQoWXBweFtx BOjln6XdKXUlRMBzTyX ccGFyfX0= Diagnosis (test code = 34) l7zqhMJnGHRqoGO8YmB kECIvb9nha2MglSFbaH AmWZwdcVUmmtKnyp75i XK6bQ20PO9qIBXzHpD2 TVImwxN1Kdq2TTAlUYM toAPzP513i9ylg9dwmz ZpqUF1HXZyLCGlC7McU J7fPRUhgUKpB45mtBAk NYH8DVKsMXJviPPkSDT oDVT0ZTOndJOmE4jmMT SyYQ3ygudsCBqfHWshR QBpoAQ1YOJcjAFcI9Px RBOkCJxzYPGywmp4ViE hVb2icRQviRvtUPcwJL JkXHBsYWluXGZzMjBcY 1DiVBSsKNc4hwjqRHZw R8t6MBxga9BjLWqbWcS sBBLxe0ZwpZxbjNOcDQ xpNzIwXGxpbjcyMFxjZ xJnmKBcTXCjVWvlOX36 isXbKcEmjJ7hRVOhiuF cO8d0vPFak9k2eJKqhW KjbuArofPag1OtVUYco VqyXIUrZDUwoC8qLyEq DJmeyPw5XXBad9NtsUK kk2OmaXLfECAnwpRknP QzBGTWP1ZHLQnuGVCrS DEvMTMvMjAyMlxwYXJ9 Gross Description (test p9hjzGTmSINhnFF8DfQ code = [id number]) lVEOna2djk8FqfPBumW QpMBmqzCEdsoHqca53y QG1xA15RQ4oIWNsRgX2 IHBiiaT3Asj2XWHhZTM csBExF304t3itn3rbih NboPG5BRQwFUYuY8OsC H3lLNRbeXHqE72ubCZu EEW5BTNaFYGxiUGeFDP zUHK3EWRitNEgL0prMN XeIX9zyzdiYOylPCeeJ VRbxQP4USPwaDUcC6Wt UTNvKUxuAOHrtan0TiR gDp3ffLZrpZfsVXtjZB San0vuQPOrrURzWSX6H FxcaWQgNTEwMDAgXFx0 TDCeIVchbAAsMW0hmBt rNnuyqKltk1FglTVsXL lkIDUxMDAyIFxcZGIgT 1ZSICIgQzMyNjMyNSIg OUc0YRrnJ7EIDBIkQTL 3BKp0KNH6GxS9QUb5IM XVWg3rCXK3AVW3UAE1M RC2BNXkUJxoaPYqUYqx ZmwgXFxmIEFyaWFsIFx cZnMgMTAgXFxmYiBcXG 5jfVxwbGFpblxiXGZzM jAgQTpccGFyXGNmMSBM oI8xTPOxiYubjRLlm3o mpcIvx0DgFEMyvW8ro2 s8BMJbFDTrZMEkAw83r aP2iVp8GF19DL6nm80z ePV8zMPndCNpD56dVIP vvyXxE5anDwZqvo9tWI AuNmNtIHRvIDEuNCBjb MTbusItRT9jbYciBW8f IDAuMSBjbSBpbiBkaWF qQKMohxzsAJ40aENtmD bgc1WqnYi4fXSyCNcnF WTnJqDmAABxy0XnM6X3 LXAaWHazl8deLAZmPGc lh5KpPEbRXSDTKM3ZJS 9dhWN7AZdKR2CAB9aBc ZBmNVB9sKT4NUHPOngw eMZ6sGX0jW65VNBaQVC qiPQtRCzzD382QNK8HI NkGYyui8hsUWJaTRott 8IuJQsEXENYHP3ODV0h tRL3DGiWJ5QKHXfqARU gWvoiaCWICSJ2LWpwtC rghAy7j7qfaTNym3r9M DljUEZ2xSndeJMpcips cuOxl3afkUwqv5PndEZ dVQ48TKDxsRQnFGU2FW 8uhQhlHWU2 Biomarker Block(s) (test b4gdbBUvBVLezNK0SiG code = 9841) dVWSgo3ggz8QhyBZmgP SgSRtxhZYrhgCueb27n YG2qF76JV1uLWAvWrE2 UXCinzO2Sth4YCOeIHP xdLPlC901l5iyy2pkrk TqzGH9fPutJOPbxmjmY bR4BRbxDKZumpfuDQs8 IChiHOKeuWQ5IJLzeQP yH8QnCTNdTO0vtcc5QU U7GQpzPMObWkG8PMFkz CXiRCQveRhdLFwku787 RUO6VbAoFJXwbaYqsYv ovK5gRtLcNKZUQ5QgGR Bhcn0= Disclaimer (test code = x5rqzFBeNTEkdYGbPiI 9844) zRZCqFDEbk2kvIVYhwB FuZzEwMzNcZnRuYmpcd NUtMIMlWjAoi3mjy916 sHLit5ftGZWfEoM6tDF jYFJajVPpH465NDSkWB bgp3dgq8SyZUAaqUVkb 7M8JOJTuzpadCv1tFlo U16uk8S3VulpD3lzEDL cCLQuZ8AnQU5cDIFkUi g7ZTA4LTH4BDWqEKWrG 9QrDA5eKOQstKDaVHs5 e3zefXewWBFfPTG2p0l rIIlklcQyYO3mmk7ucN q3h9tejoInVADoJUJij CZKBSHlY1KznHjvGk3i kWd8eXuwMtruDVX8Amy 3RL5kmf07rmh5dAbjJX CbafjjMlY5NCsqUXUld oqzRGb4MWqaEBPsuLP6 EFKnzFEjG0HvCZQbCW7 qcgg1HHD0OEefVZWxWh T7HUTiyDUsSLPqkFcgF Cozl083QLW2QoMoXB6z E4Fin4J9eS4pxWVkQEA gbAQqUwEqLKSfed8nvN AkMJbnt7SiMVC1slK7d OAbuMOfEKImYW79Lnel q9AzOttvALX4TLKytrR zy8Usm5viKxKtxkAiY9 rbB6VlMAKgRYDsGMObM hTzfpOzu4Kit2LxnWIj aSj2p0djIIWyZISviKy kt6kzFPW1KNRdF6Z1zZ Pbt4uoTKvmLPLmlIQ1y aN3WKGqnBFtS7CxdB3z QFJnNX0ygmh7m9gaAEZ 1LDzqWRGpOgK3atK9FA BcaGVhZGVyeTcyMFxmb 844SWN2UcYpXXSxj7Kg K7VvrPdnD43uqDdaL64 eLDZdmBigcX9bqTmpeT 5cZjBcZnMyNFxxbFxwb UYuzmobKXxikuM5DLbj yarxLLVrERcoU1lbZkY uVJDouKihJTpdr9NvFO LlAIZbDsxwhkG2ISIXr 30sMOAro4OuDQAasH6z bRQfHIkvkwMreMB5VXr hdmUgYmVlbiBkZXZlbG 2oTCTuYN4eVITeabAel f6vkgIxSFZtJCOtU8Fb cmlzdGljcyBkZXRlcm1 jpiSrIUT3ESIFZH9EPW ClMTBdk14sFJRryVyfz I6phYKtyfOmIRIcb0Al kU0ayGEIDQLyD0rdVC6 xFBrzu7YkjSOwnBBjcR M3VNOrw7EjCeIdfeRpi LOjyXTzO2WljUxgB3he FVDtKGWtatIeqQCcn9K iPITorLT2yEWrQM1QVl FYv22eBBGiABRHyzPlE OOufUrofDZ6roC4pQ4d LiBJZiBhcHBsaWNhYmx jVMNfr998ye0nkaC1UJ WkVYDergvzr5MyKFEjV YRzgQ04KJDaPBPapg9e sspwrHUrueZbW0Nibty 6dX5aNBLfRScqTOKlEM ZzMjJcbGFuZzEwMzNca GljaFxmMVxkYmNoXGYx VBucQ2ubDsOpSdIlWzy wYXJ9 [facility] Total [id number] 18:17:29 Test Item Value Reference Range Interpretation Comments UTP (test code = 7921) 47 mg/dL Cauti on is advised when interpreting va lues greater than 55 5 mg/dL.Results r equiring extended diluti on beyond the tool inspector's recommendedlimi t may not dilute line stephanie due to potential ma trix effect.Correlat ion with clinical contex t is recommended. UTP 24 (test code = 728 See_Comment H [Automa dena message] 5024) The system [employer] generated this result transmitted ref erence range: <=149 mg /24hr. The reference r maría was not used to int erpret this result as normal/abnormal . Lab Interpretation Abnormal (test code = 38641-4) [facility] 22:53:00 Test Item Value Reference Range Interpretation Comments Procalcitonin (test 0.13 ng/mL See_Comment H Procalci tonin > 2.00 code = 9379) ng/mL: Procalci tonin levels above 2. 00 ng/mL are highl y suggestive of a high risk for system atic bacterial infec tion/ severe sepsis a nd/or septic shock. Procalcitonin < 0.50 ng/mL: Procalci tonin levels below 0. 50 ng/mL are at lo w risk for progression to severe sepsis a nd/ or septic shock. Procalcitonin ( ProCT) between 0.15 an d 2.0 ng/mL do not ex clude infection, dale use localized infec tions (without system ic signs) may be associated with such low levels. Res ults greater than 40 0 ng/mL may not b e reliable due to the matrix effect w ith extended diluti on as it exceeds the tool inspector's recommended lozano it. Caution should be exercised when interpreting doyle ch values and done in conjunction wit h clinical contex t. [Automated mess age] The system [employer] generated this result transmitted ref erence range: <=0.08. The reference range was not used to int erpret this result as normal/abnormal . Lab Interpretation Abnormal (test code = 65239-0) [facility] [place]
[2022-03-09] MEDS ORDERED: METHYLPREDNISOLONE 125 MG INJ ONE (10:54)
[2022-03-09] MEDS ORDERED: ACETAMINOPHEN 500 MG TAB ONE (10:54)
[2022-03-09] MEDS ORDERED: ONDANSETRON 4 MG/2 ML VIAL ONE (10:55)
[2022-03-09] MEDS ORDERED: NA CHLORIDE 0.9% 1,000 ML ONE ×2 (10:55→17:20)
[2022-03-09 11:03] LABS: Absolute Lymphocytes (CBC) 0.6 K/uL (0.7-4.9); Hematocrit 35.5 % (39.6-49.0); Lymphocytes % 3.8 % (15.3-44.8); MCV 90.5 fL (80-100); MPV 7.5 fL (7.6-11.3); RBC Red Blood Cell Count 3.92 M/uL (4.33-5.43)
[2022-03-09 11:15] LABS: Protime INR 1.13
[2022-03-09 11:18] LABS: Albumin 2.4 g/dL (3.4-5.0); Bilirubin Total 0.9 mg/dL (0.2-1.0); Potassium 3.3 mmol/L (3.5-5.1); Protein, Total 9.1 g/dL (6.4-8.2)
--- NOTE | 2022-03-09 11:31 | RAD REPORT ---
EXAM DESCRIPTION: RAD - Chest Single View - 03/09/2022 11:24 am CLINICAL HISTORY: Cough COMPARISON: Chest Pa And Lat (2 Views) dated 07/08/2021; Chest Pa And Lat (2 Views) dated 06/19/2021; Chest Single View dated 06/03/2021; Chest Pa And Lat (2 Views) dated 08/07/2020; THORAX WO CONTRAST d ated 06/29/2011 FINDINGS: Lines: None. Lungs: No evidence of edema or pneumonia. Chain sutures in the left lung. Emphysema. Right apical sca rring. Pleural: No significant pleural effusions or pneumothorax. Cardiac: The heart size is within normal limits. Mediastinum: Within normal limits. Bones: No acute fractures. Other: None IMPRESSION: Emphysema without superimposed acute process.
--- NOTE | 2022-03-09 12:27 | RAD REPORT ---
EXAM DESCRIPTION: CTAbdomen Pelvis W Contrast - 03/09/2022 11:57 am CLINICAL HISTORY: fever, abd pain COMPARISON: Abdomen Pelvis Wo Contrast dated 12/13/2021 TECHNIQUE: CT of the abdomen and pelvis was performed. All CT scans are performed using dose optimization technique as appropriate and may include automated exposure control or mA/KV adjustment according to patient size. FINDINGS: Lower chest: Mild nodularity within the lung bases of doubtful acute clinical significance . Small pericardial effusion. This is unchanged. Mild circumferential thickened distal esophagus. Liver: No acute abnormality or suspicious lesions. Biliary: No biliary ductal dilatation. Stomach: No significant focal abnormality. Duodenum: No significant focal abnormality. Pancreas: No significant abnormality. Spleen: No significant abnormality. Adrenal: No suspicious lesions. Kidney/ureter: No hydronephrosis. No renal calculi. Nonspecific perinephric stranding. Too small to c haracterize renal lesions which are statistically benign. Retroperitoneum: No retroperitoneal adenopathy. Surgical changes in the right inguinal region. Vascular: No aneurysm. Atherosclerosis. Bowel: Diverticulosis. No evidence of acute diverticulitis. No appendix identified. No secondary sign s of acute appendicitis.. Peritoneum: No ascites or free air. Bladder: Bladder wall thickening hyperenhancement. Reproductive: No adnexal masses. Bones: Mild superior endplate deformity at L4 on L5 is chronic. Other: n/a IMPRESSION: Bladder wall thickening and mucosal hyperenhancement concerning for infection or inflamm ation. Correlate with urinalysis. Other incidental findings are unchanged and as noted above.
[2022-03-09 12:52] LABS: Urine Blood 2+ (Negative); Urine Glucose Negative (Negative); Urine Protein 2+ (Negative); Urine Specific Gravity <=1.005 (1.005-1.030)
[2022-03-09] MEDS ORDERED: CEFTRIAXONE 1000 MG/VIAL ONE (13:09)
[2022-03-09 13:14] LABS: Urine Bacteria >50 /HPF (<20); Urine RBC <5 /HPF (None Seen)
--- NOTE | 2022-03-09 13:38 | EDPHYS ---
Physician Documentation [facility] Name: Durga Fonseca Age: 81 yrs Sex: Male : 1940 Arrival Date: 03/09/2022 Time: 10:11 Bed 15 Private MD: ED Physician Marlon Phelps HPI: 03/09 10:43 This 81 yrs old Male presents to ER via Wheelchair with complaints of nausea, cough, rn chills. 10:44 The patient reports fever, not measured (subjective). Onset: The symptoms/episode rn began/occurred 1 week(s) ago. Modifying factors: there are no obvious modifying factors. Associated signs and symptoms: Pertinent positives: chills, cough, nausea. Severity of symptoms: At their worst the symptoms were moderate in the emergency department the symptoms are unchanged. The patient has experienced a previous episode. The patient has not recently seen a physician. 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 . Historical: - Allergies: 10:22 No Known Allergies; aa5 - Home Meds: 18:08 amlodipine 5 mg tab once daily [Active]; atorvastatin 20 mg Oral tab 1 tab once daily jg9 [Active]; - PMHx: 10:22 Hypercholesterolemia; Hypertensive disorder; IGG4; Pancreatitis; aa5 - PSHx: 10:22 Parathyroid SX; aa5 - Immunization history:: Adult Immunizations unknown. - Social history:: Smoking status: Patient denies any tobacco usage or history of. - Family history:: not pertinent. - Hospitalizations: : No recent hospitalization is reported. 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 Exam: 10:46 Constitutional: This is a well developed, well nourished patient who is awake, alert, rn and in no acute distress. Head/Face: Normocephalic, atraumatic. Eyes: Periorbital areas with no swelling, redness, or edema. ENT: dry MM Cardiovascular: tachycardic, regular Respiratory: + mild tachypnea, speaking full sentences, no retractions Abdomen/GI: soft, mild mid abdominal tenderenss, no distension or masses Skin: Warm, dry MS/ Extremity: Pulses equal, no cyanosis. Neuro: Awake and alert, GCS 15, oriented to person, place, time, and situation. Motor strength 5/5 in all extremities. Sensory grossly intact. Vital Signs: 10:20 BP 148 / 93; Pulse 110; Resp 20 S; Temp 99.2(TE); Pulse Ox 95% on R/A; Weight 61.69 kg aa5 (R); Height 5 ft. 8 in. (172.72 cm) (R); 10:30 BP 146 / 72; Pulse 108; Resp 24 S; Pulse Ox 94% on R/A; jg9 11:00 BP 131 / 66; Pulse 99; Resp 23 S; Pulse Ox 94% on R/A; jg9 11:30 BP 123 / 65; Pulse 84; Resp 24 S; Pulse Ox 93% on R/A; jg9 13:15 BP 124 / 68; Pulse 72; Resp 19 S; Pulse Ox 96% on R/A; jg9 14:00 BP 114 / 73; Pulse 72; Resp 16 S; Pulse Ox 90% on R/A; jg9 15:00 BP 118 / 59; Pulse 70; Resp 29; Pulse Ox 93% on R/A; jg9 16:00 BP 122 / 65; Pulse 66; Resp 17 S; Pulse Ox 94% on R/A; jg9 17:00 BP 127 / 62; Pulse 67; Resp 19 S; Pulse Ox 93% on 2 lpm NC; jg9 18:00 BP 139 / 90; Pulse 81; Resp 27 S; Pulse Ox 94% on 2 lpm NC; jg9 10:20 Body Mass Index 20.68 (61.69 kg, 172.72 cm) aa5 MDM: 10:23 Patient medically screened. rn 13:34 Differential diagnosis: viral Infection, bacterial infection, URI, pneumonia UTI. Data rn reviewed: vital signs, nurses notes, lab test result(s), radiologic studies, CT scan, plain films, and as a result, I will admit patient. Counseling: I had a detailed discussion with the patient and/or guardian regarding: the historical points, exam findings, and any diagnostic results supporting the discharge/admit diagnosis, lab results, radiology results, the need for further work-up and treatment in the hospital. Medical screen evaluation completed. EMTALA emergency medical condition absent. Response to treatment: the patient's symptoms have mildly improved after treatment, and as a result, I will admit patient. Admission orders: after a detailed discussion of the patient's condition and case, the admit orders are written by me. ED course: Pt with sepsis, does not meet criteria for severe sepsis, has source (A) of UTI; SIRS Criteria (B) of Temp, tachycardia, tachypnea, and WBC > 75851. Does not show evidence of organ dysfunction at this time. Will admit to hospitalist service for further care. . 03/09 10:36 Order name: Blood Culture Adult (2) 03/09 10:36 Order name: CBC with Diff; Complete Time: 11:46 03/09 10:36 Order name: CMP; Complete Time: 11:46 03/09 10:36 Order name: Lactate; Complete Time: 11:46 03/09 10:36 Order name: Protime (+inr); Complete Time: 11:46 03/09 10:36 Order name: Ptt, Activated; Complete Time: 11:46 03/09 10:36 Order name: Urine Culture 03/09 10:36 Order name: Urine Microscopic Only; Complete Time: 13:15 03/09 10:36 Order name: SARS-COV-2 RT PCR (Document "Date of Onset" if Symptomatic); Complete Time: rn 12:28 03/09 10:36 Order name: Flu; Complete Time: 11:46 03/09 12:52 Order name: Urine Dipstick-Ancillary; Complete Time: 13:15 [facility] 03/09 15:21 Order name: NT PRO-BNP [facility] 03/09 17:50 Order name: Phosphorus [facility] 03/09 17:50 Order name: NT PRO-BNP [facility] 03/09 10:36 Order name: Chest Single View XRAY; Complete Time: 11:46 rn 03/09 10:36 Order name: Cardiac monitoring; Complete Time: 10:56 rn 03/09 10:36 Order name: EKG - Nurse/Tech; Complete Time: 11:03 rn 03/09 10:36 Order name: IV Saline Lock - Large Bore; Complete Time: 10:56 rn 03/09 10:36 Order name: Labs collected and sent; Complete Time: 10:56 rn 03/09 10:36 Order name: O2 Per Protocol; Complete Time: 10:47 rn 03/09 10:36 Order name: O2 Sat Monitoring; Complete Time: 10:47 rn 03/09 10:36 Order name: Urine Dipstick-Ancillary (obtain specimen); Complete Time: 13:19 rn 03/09 10:45 Order name: CT Abd/Pelvis - IV Contrast Only; Complete Time: 12:28 rn 03/09 17:50 Order name: Magnesium EDMS Administered Medications: 11:00 Drug: NS 0.9% 1000 ml Route: IV; Rate: 1000 ml; Site: right forearm; jg9 13:15 Follow up: IV Status: Completed infusion; IV Intake: 1000ml jg9 11:00 Drug: Zofran (Ondansetron) 4 mg Route: IVP; Site: right forearm; jg9 12:00 Follow up: Response: No adverse reaction jg9 11:03 Drug: Acetaminophen 1000 mg Route: PO; jg9 12:00 Follow up: Response: No adverse reaction jg9 11:03 Drug: SOLU-Medrol (methylPrednisoLONE) 125 mg Route: IVP; Site: right forearm; jg9 12:00 Follow up: Response: No adverse reaction jg9 13:05 Drug: Rocephin (cefTRIAXone) 1 grams Route: IV; Rate: calculated rate; Site: right j9 forearm; 13:15 Follow up: IV Status: Completed infusion; IV Intake: 10ml jg9 Disposition Summary: 03/09/22 13:37 Hospitalization Ordered Hospitalization Status: Inpatient Admission rn Condition: Stable rn Problem: new rn Symptoms: have improved rn Bed/Room Type: Standard rn Provider: Rambo Galvan(03/09/22 13:59) rn Location: Telemetry/MedSurg (Inpatient)(03/09/22 18:57) bd Room Assignment: [facility](03/09/22 18:57) bd Diagnosis - UTI/ Urinary tract infection, site not specified rn - Sepsis, unspecified organism rn Forms: - Medication Reconciliation Form rn - SBAR form rn Signatures: Dispatcher [employer] EDMS Shraddha Arechiga bd Marquita Gong, RN RN Marlon Castillo MD MD rn Calderon, Audri RN [place] aa5 Connie Hernandes RN RN jg9 Corrections: (The following items were deleted from the chart) 10:56 10:36 Accucheck ordered. rn jg9 13:59 13:37 Anders Noel rn, rn 16:28 13:34 ED course: Pt with sepsis, does not meet criteria for severe sepsis, has source rn (A) of UTI; SIRS Criteria (B) of Temp, tachycardia, tachypnea, and WBC > 83320. Does not shows evidence of organ dysfunction at this time. Will admit to hospitalist service for further care. . rn 17:58 13:37 Telemetry/MedSurg (Inpatient) [place] [facility]ones 17:58 13:37 rn karen 18:57 17:58 [facility] ER HOLD dw bd 18:57 17:58 ERHOLD- bd
--- NOTE | 2022-03-09 13:38 | ER ---
Nurse's Notes [facility] Name: Durga Fonseca Age: 81 yrs Sex: Male : 1940 Arrival Date: 03/09/2022 Time: 10:11 Bed 15 Private MD: Diagnosis: UTI/ Urinary tract infection, site not specified;Sepsis, unspecified organism Presentation: 03/09 10:20 Chief complaint: Patient states: abd pain, nausea/vomiting/diarrhea, cough, urinary aa5 frequency/burning, also reports chills/sweats. Reports symptoms began 1 week ago. 10:20 Coronavirus screen: cough unrelated to allergies, diarrhea, nausea, vomiting. Ebola aa5 Screen: No symptoms or risks identified at this time. Initial Sepsis Screen: Does the patient meet any 2 criteria? HR > 90 bpm. Does the patient have a suspected source of infection? Yes:. Risk Assessment: Do you want to hurt yourself or someone else? Patient reports no desire to harm self or others. Onset of symptoms was February 2022. 10:20 Acuity: АНДРЕЙ 3 aa5 10:20 Method Of Arrival: Wheelchair aa5 Triage Assessment: 10:15 General: Appears in no apparent distress. Behavior is calm, cooperative. jg9 Historical: - Allergies: 10:22 No Known Allergies; aa5 - Home Meds: 18:08 amlodipine 5 mg tab once daily [Active]; atorvastatin 20 mg Oral tab 1 tab once daily jg9 [Active]; - PMHx: 10:22 Hypercholesterolemia; Hypertensive disorder; IGG4; Pancreatitis; aa5 - PSHx: 10:22 Parathyroid SX; aa5 - Immunization history:: Adult Immunizations unknown. - Social history:: Smoking status: Patient denies any tobacco usage or history of. - Family history:: not pertinent. - Hospitalizations: : No recent hospitalization is reported. Screenin:05 Abuse screen: Denies threats or abuse. Denies injuries from another. Nutritional jg9 screening: No deficits noted. Tuberculosis screening: No symptoms or risk factors identified. Fall Risk None identified. Assessment: 11:00 Reassessment: No changes from previously documented assessment. Patient and/or family jg9 updated on plan of care and expected duration. Pain level reassessed. Patient is alert, oriented x 3, equal unlabored respirations, skin warm/dry/pink. Pain: Complains of pain in abdomen. GI: Bowel sounds present X 4 quads. Abd is soft and non tender X 4 quads. 12:00 Reassessment: Patient and/or family updated on plan of care and expected duration. Pain jg9 level reassessed. Patient is alert, oriented x 3, equal unlabored respirations, skin warm/dry/pink. patient back from CT still unable to urinate-patient reports that just prior to the onset of his pain that he was carrying 40 lb salt bag a couple weeks ago and shortly after he was experiencinghematurina. 13:00 Reassessment: No changes from previously documented assessment. Patient and/or family jg9 updated on plan of care and expected duration. Pain level reassessed. Patient is alert, oriented x 3, equal unlabored respirations, skin warm/dry/pink. 14:00 Reassessment: Patient and/or family updated on plan of care and expected duration. Pain jg9 level reassessed. Patient is alert, oriented x 3, equal unlabored respirations, skin warm/dry/pink. Patient resting in bed SpO2 dropped to 90% patient in no distress-1 L O2 applied for comfort. Vital Signs: 10:20 BP 148 / 93; Pulse 110; Resp 20 S; Temp 99.2(TE); Pulse Ox 95% on R/A; Weight 61.69 kg aa5 (R); Height 5 ft. 8 in. (172.72 cm) (R); 10:30 BP 146 / 72; Pulse 108; Resp 24 S; Pulse Ox 94% on R/A; jg9 11:00 BP 131 / 66; Pulse 99; Resp 23 S; Pulse Ox 94% on R/A; jg9 11:30 BP 123 / 65; Pulse 84; Resp 24 S; Pulse Ox 93% on R/A; jg9 13:15 BP 124 / 68; Pulse 72; Resp 19 S; Pulse Ox 96% on R/A; jg9 14:00 BP 114 / 73; Pulse 72; Resp 16 S; Pulse Ox 90% on R/A; jg9 15:00 BP 118 / 59; Pulse 70; Resp 29; Pulse Ox 93% on R/A; jg9 16:00 BP 122 / 65; Pulse 66; Resp 17 S; Pulse Ox 94% on R/A; jg9 17:00 BP 127 / 62; Pulse 67; Resp 19 S; Pulse Ox 93% on 2 lpm NC; jg9 18:00 BP 139 / 90; Pulse 81; Resp 27 S; Pulse Ox 94% on 2 lpm NC; jg9 10:20 Body Mass Index 20.68 (61.69 kg, 172.72 cm) aa5 ED Course: 10:00 Patient has correct armband on for positive identification. Bed in low position. Call jg9 light in reach. Side rails up X 1. 10:11 Patient arrived in ED. am2 10:21 Arm band placed on. aa5 10:23 Marlon Phelps MD is Attending Physician. rn 10:24 Triage completed. aa5 10:31 Connie Hernandes RN is Primary Nurse. jg9 10:41 Inserted saline lock: 22 gauge in right forearm, using aseptic technique. Blood jg9 collected. 10:47 Flu Sent. kc6 10:47 SARS-COV-2 RT PCR (Document "Date of Onset" if Symptomatic) Sent. kc6 11:26 Chest Single View XRAY In Process Unspecified. EDMS 11:59 CT Abd/Pelvis - IV Contrast Only In Process Unspecified. EDMS 13:36 Anders Noel is Hospitalizing Provider. rn 13:59 Rambo Galvan MD is Hospitalizing Provider. rn 18:09 No provider procedures requiring assistance completed. jg9 18:09 Patient admitted, IV remains in place. j9 19:11 Primary Nurse role handed off by Connie Hernandes, GINA mw2 19:18 Indira Elizondo RN is Primary Nurse. vc1 Administered Medications: 11:00 Drug: NS 0.9% 1000 ml Route: IV; Rate: 1000 ml; Site: right forearm; jg9 13:15 Follow up: IV Status: Completed infusion; IV Intake: 1000ml j9 11:00 Drug: Zofran (Ondansetron) 4 mg Route: IVP; Site: right forearm; jg9 12:00 Follow up: Response: No adverse reaction j9 11:03 Drug: Acetaminophen 1000 mg Route: PO; jg9 12:00 Follow up: Response: No adverse reaction j9 11:03 Drug: SOLU-Medrol (methylPrednisoLONE) 125 mg Route: IVP; Site: right forearm; jg9 12:00 Follow up: Response: No adverse reaction jg9 13:05 Drug: Rocephin (cefTRIAXone) 1 grams Route: IV; Rate: calculated rate; Site: right jg9 forearm; 13:15 Follow up: IV Status: Completed infusion; IV Intake: 10ml jg9 Medication: 18:09 VIS not applicable for this client. jg9 Intake: 13:15 IV: 10ml; Total: 10ml. jg9 13:15 IV: 1000ml; Total: 1010ml. jg9 Outcome: 13:37 Decision to Hospitalize by Provider. rn 18:09 Admitted to ER Hold. Please see [facility] for further documentation. j9 18:09 Condition: stable 19:46 Patient left the ED. vc1 Signatures: Dispatcher [employer] EDMS Marlon Phelps MD MD rn Calderon, Audri, RN RN [id number] Ava Haines Maya Ayers 2 Connie Hernandes RN RN jg9 Indira Elizondo RN RN vc1 Emily Lea kc6
[2022-03-09] MEDS ORDERED: HYDROCODONE/APAP 5/325 MG TAB PO PRN (15:21)
[2022-03-09] MEDS ORDERED: ACETAMINOPHEN 500 MG TAB PO PRN (15:27)
[2022-03-09] MEDS ORDERED: ONDANSETRON 4 MG/2 ML VIAL IV PRN (15:27)
[2022-03-09] MEDS ORDERED: NA CHLORIDE 0.9% 1,000 ML IV SCH (16:00)
[2022-03-09] MEDS ORDERED: POTASSIUM CL SA 10 MEQ TAB PO ONE ×2 (17:00→17:20)
[2022-03-09] MEDS ORDERED: VANCOMYCIN 1.5 GM in NA CHLORIDE 0.9% 500 ML IVPB ONE (17:00)
[2022-03-09] MEDS ORDERED: CEFEPIME 1 GM in NA CHLORIDE 0.9% 100 ML IV SCH (17:00)
[2022-03-09 17:49] LABS: Magnesium 2.3 mg/dL (1.8-2.4); Phosphorus 2.7 mg/dL (2.5-4.9)
[2022-03-09 17:52] VITALS: BMI 20.7
--- NOTE | 2022-03-09 18:31 | P.HP ---
Certification for Inpatient Patient admitted to: Inpatient With expected LOS: >2 Midnights Patient will require the following post-hospital care: None Practitioner: I am a practitioner with admitting privileges, knowledge of patient current condition, hospital course, and medical plan of care. Services: Services provided to patient in accordance with Admission requirements found in Title 42 Section 412.3 of the Code of Federal Regulations <Werner Ortiz Amanda - Last Filed: 03/09/22 18:35> Patient History Date of Service: 03/09/22 Reason for admission: Subjective fever, cough and chills History of Present Illness: Patient is an 81-year-old male with a past medical history significant for IgG4 related disease, HLD, hypertension who presents with complaint of subjective fever, cough and chills. Patient reported the symptoms have been ongoing for the past 3 days. Patient reported associated signs and symptoms of diaphoresis, dysuria, urinary frequency, generalized jionts\body pains, tremors and diarrhea. Patient reports that he normally experiences 3 episodes of diarrhea in the morning and after that diarrhea resolves. Patient reported that most of his symptoms are related to his IgG4 related disease. Patient follow-up with his doctors at [facility] for management of IgG4 related disease. Patient denies any other signs and symptoms. Symptoms are aggravated or relieved by nothing. Patient reported that he called his doctors at [facility] and he was informed to go to his nearest ER. Patient decided to present to the hospital as directed. - Past Medical/Surgical History Has patient received pneumonia vaccine in the past: Yes Diabetic: No -: IgG4, gammaglobulinemia -: Hypertension -: Hyperlipidemia -: Removal parathyroid nodule 11/25 2021 -: Angioplasty-1994 -: Removal of left lower lobe of lungs - Family History Father -: Cancer Notes: lymphnodes Mother -: Lung disease Notes: PNA - Social History Smoking Status: Never smoker Alcohol use: No CD- Drugs: No Caffeine use: No Place of Residence: Home <Werner Ortiz - Last Filed: 03/09/22 18:35> Date of Service: 03/09/22 <Rambo Galvan - Last Filed: 03/09/22 19:26> Allergies No Known Allergies Allergy (Verified 08/07/20 16:35) Home Medications: Amlodipine Besylate 10 mg PO DAILY 02/25/18 Atorvastatin Calcium [Lipitor*] 40 mg PO BEDTIME 02/25/18 predniSONE [Prednisone] 2 tab PO DAILY 03/09/22 Review of Systems General: Fever, Chills, Sweats, Malaise, Other (Diaphoresis, generalized body pains) Eyes: Unremarkable ENT: Unremarkable Respiratory: Cough Cardiovascular: Unremarkable Gastrointestinal: Nausea, Abdominal Pain, Diarrhea Genitourinary: Dysuria, Frequency Musculoskeletal: Back Pain, Other (Generalized joints\body pains.) Integumentary: Unremarkable Neurological: Unremarkable Lymphatics: Unremarkable <Werner Ortiz E - Last Filed: 03/09/22 18:35> Physical Examination - Vital Signs Blood Pressure: 118/59 Pulse: 70 Respirations: 18 Pulse Ox (%): 93 - Physical Exam General: Alert, Oriented x3, Cooperative HEENT: Atraumatic, Normocephalic, PERRLA Neck: Supple, 2+ carotid pulse no bruit, JVD not distended Respiratory: Clear to auscultation bilaterally, Diminished Cardiovascular: Normal pulses, Regular rate/rhythm Capillary refill: <2 Seconds Gastrointestinal: Normal bowel sounds, Soft and benign Musculoskeletal: No clubbing, No swelling, No contractures Integumentary: No rashes, No breakdown, No significant lesion Neurological: Normal gait, Normal speech Lymphatics: No axilla or inguinal lymphadenopathy - Studies Laboratory Data (last 24 hrs) 03/09/22 10:50: PT 12.5, INR 1.13, APTT 26.5 03/09/22 10:50: Sodium 135 L, Potassium 3.3 L, BUN 31 H, Creatinine 1.49 H, Glucose 144 H, Total Bilirubin 0.9, AST 22, ALT 21, Alkaline Phosphatase 75 03/09/22 10:50: WBC 15.40 H, Hgb 12.1 L, Hct 35.5 L, Plt Count 257 Microbiology Data (last 24 hrs): 03/09/22 10:44 Nasopharnyx Influenza Type A Antigen Screen - Final 03/09/22 10:44 Nasopharnyx Influenza Type B Antigen Screen - Final <Werner Ortiz - Last Filed: 03/09/22 18:35> - Studies Laboratory Data (last 24 hrs) 03/09/22 10:50: PT 12.5, INR 1.13, APTT 26.5 03/09/22 10:50: Sodium 135 L, Potassium 3.3 L, BUN 31 H, Creatinine 1.49 H, Glucose 144 H, Total Bilirubin 0.9, AST 22, ALT 21, Alkaline Phosphatase 75 03/09/22 10:50: WBC 15.40 H, Hgb 12.1 L, Hct 35.5 L, Plt Count 257 Microbiology Data (last 24 hrs): 03/09/22 10:44 Nasopharnyx Influenza Type A Antigen Screen - Final 03/09/22 10:44 Nasopharnyx Influenza Type B Antigen Screen - Final <Rambo Galvan - Last Filed: 03/09/22 19:26> Assessment and Plan - Plan --UTI POA. Continue antibiotics. Urine cultures pending. --Sepsis POA. Likely urosepsis. Blood cultures pending. Continue antibiotics. --IgG4 related disease. Patient follows up with his doctors at [facility]. Continue prednisone. --Hyperlipidemia. Continue statin. --Hypertension. Stable. Continue home medications --Diarrhea. Patient reports daily episodes of diarrhea x3 after which diarrhea resolves. Continue supportive care. --Chronic pain syndrome. We will manage pain with current pain medication regimen. 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 Nephrology consulted. Further management per optical assistant. --Elevated BNP. BNP 870. A dose of Lasix IV ordered. Echocardiogram to assess LV\valvular function and wall motion. Will reassess BNP levels in a.m. -- Leukocytosis. Blood cultures pending. Continue antibiotics. --Anemia of chronic disease. H&H stable. We will continue to monitor hemoglobin and transfuse if less than 7.0. -- DVT prophylaxis with heparin subQ Discharge Plan: Longterm Plan to discharge in: Greater than 2 days - Advance Directives Does patient have a Living Will: No Does patient have a Durable POA for Healthcare: No Physician Review: Patient Assessed, Agree with Above Assessment and Plan Critical Care: No <Werner Ortiz - Last Filed: 03/09/22 18:35> Physician Review: Patient Assessed, Agree with Above Assessment and Plan <Rambo Galvan - Last Filed: 03/09/22 19:26>
[2022-03-09] MEDS ORDERED: FUROSEMIDE 20 MG/ 2ML VIAL IV ONE (19:00)
[2022-03-09] MEDS ORDERED: FUROSEMIDE 20 MG/ 2ML VIAL ONE (19:31)
[2022-03-09 21:27] LABS: Urine Bilirubin Negative (Negative); Urine Blood Trace-intact (Negative); Urine Clarity Clear (Clear); Urine Color Yellow (Yellow); Urine Glucose 1+ (Negative); Urine Protein Trace (Negative); Urine Urobilinogen 0.2 mg/dL (0.2-1.0); Urine pH 5.5 (5.0-7.0)
[2022-03-09] MEDS: ATORVASTATIN 40 MG TAB PO SCH (21:30)
[2022-03-09] MEDS: HEPARIN 5000 UNIT/ML 1 ML VIAL SQ SCH (21:30)
[2022-03-09 22:17] LABS: Urine Bacteria 20-50 /HPF (<20); Urine RBC <5 /HPF (None Seen)
[2022-03-10 06:07] LABS: Absolute Lymphocytes (CBC) 0.6 K/uL (0.7-4.9); Hematocrit 34.1 % (39.6-49.0); Lymphocytes % 3.5 % (15.3-44.8); MCV 92.8 fL (80-100); MPV 7.6 fL (7.6-11.3); RBC Red Blood Cell Count 3.68 M/uL (4.33-5.43)
[2022-03-10 06:21] LABS: Potassium 3.4 mmol/L (3.5-5.1); Uric Acid 6.6 mg/dL (3.5-7.2)
--- NOTE | 2022-03-10 07:54 | P.CNS ---
Date of Consult: 03/10/22 Reason for Consult: ALEJANDRA/ CKD Requesting Physician: Rambo Galvan Chief Complaint: Subjective fever, cough and chills History of Present Illness: Patient is an 81-year-old male with a past medical history significant for IgG4 related disease, HLD, hypertension who presents with complaint of subjective fever, cough and chills. Patient reported the symptoms have been ongoing for the past 3 days. Patient reported associated signs and symptoms of diaphoresis, dysuria, urinary frequency, generalized jionts\body pains, tremors and diarrhea. Patient reports that he normally experiences 3 episodes of diarrhea in the morning and after that diarrhea resolves. Patient reported that most of his symptoms are related to his IgG4 related disease. Patient follow-up with his doctors at [facility] for management of IgG4 related disease. Patient denies any other signs and symptoms. Symptoms are aggravated or relieved by nothing. Patient reported that he called his doctors at [facility] and he was informed to go to his nearest ER. Patient decided to present to the hospital as directed. Denies NSAIDs. Reports urinary frequency day and night but denies BPH. Reports an recent episode of several days of hematuria that has now resolved. 10:43 This 81 yrs old Male presents to ER via Wheelchair with complaints of nausea, cough, rn chills. 10:44 The patient reports fever, not measured (subjective). Onset: The symptoms/episode rn began/occurred 1 week(s) ago. Modifying factors: there are no obvious modifying factors. Associated signs and symptoms: Pertinent positives: chills, cough, nausea. Severity of symptoms: At their worst the symptoms were moderate in the emergency department the symptoms are unchanged. The patient has experienced a previous episode. The patient has not recently seen a physician. 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 . Allergies No Known Allergies Allergy (Verified 08/07/20 16:35) Home medications list reviewed: Yes Home Medications: Amlodipine Besylate 10 mg PO DAILY 02/25/18 Atorvastatin Calcium [Lipitor*] 40 mg PO BEDTIME 02/25/18 predniSONE [Prednisone] 2 tab PO DAILY 03/09/22 - Past Medical/Surgical History Diabetic: No -: IgG4, gammaglobulinemia -: Hypertension -: Hyperlipidemia -: CKD III with proteinuria (Dr. Kumari) -: Removal parathyroid nodule 11/25 2021 -: Angioplasty-1994 -: Removal of left lower lobe of lungs - Family History Father Medical History: Cancer Notes: lymphnodes Mother Medical History: Lung disease Notes: PNA - Social History Alcohol use: No CD- Drugs: No Caffeine use: No Place of Residence: Home Review of Systems 10-point ROS is otherwise unremarkable General: Malaise Genitourinary: Frequency, Hematuria Physical Examination Temp Pulse Resp BP Pulse Ox 97.1 F 96 H 19 130/60 96 03/10/22 04:00 03/10/22 04:00 03/10/22 04:00 03/10/22 04:00 03/10/22 04:00 General: In no apparent distress, Oriented x3, Cooperative HEENT: Atraumatic Neck: Supple Respiratory: Clear to auscultation bilaterally Cardiovascular: No edema, Regular rate/rhythm Gastrointestinal: Soft and benign, Non-distended Musculoskeletal: No clubbing, No contractures Integumentary: No rashes, No cyanosis Neurological: Normal speech Laboratory Data (last 24 hrs) 03/09/22 10:50: PT 12.5, INR 1.13, APTT 26.5 03/09/22 10:50: Sodium 135 L, Potassium 3.3 L, BUN 31 H, Creatinine 1.49 H, Glucose 144 H, Total Bilirubin 0.9, AST 22, ALT 21, Alkaline Phosphatase 75 03/09/22 10:50: WBC 15.40 H, Hgb 12.1 L, Hct 35.5 L, Plt Count 257 Imagings Data: EXAM DESCRIPTION: RAD - Chest Single View - 03/09/2022 11:24 am CLINICAL HISTORY: Cough COMPARISON: Chest Pa And Lat (2 Views) dated 07/08/2021; Chest Pa And Lat (2 Views) dated 06/19/2021; Chest Single View dated 06/03/2021; Chest Pa And Lat (2 Views) dated 08/07/2020; THORAX WO CONTRAST dated 06/29/2011 FINDINGS: Lines: None. Lungs: No evidence of edema or pneumonia. Chain sutures in the left lung. Emphysema. Right apical scarring. Pleural: No significant pleural effusions or pneumothorax. Cardiac: The heart size is within normal limits. Mediastinum: Within normal limits. Bones: No acute fractures. Other: None IMPRESSION: Emphysema without superimposed acute process. EXAM DESCRIPTION: CTAbdomen Pelvis W Contrast - 03/09/2022 11:57 am CLINICAL HISTORY: fever, abd pain COMPARISON: Abdomen Pelvis Wo Contrast dated 12/13/2021 TECHNIQUE: CT of the abdomen and pelvis was performed. All CT scans are performed using dose optimization technique as appropriate and may include automated exposure control or mA/KV adjustment according to patient size. FINDINGS: Lower chest: Mild nodularity within the lung bases of doubtful acute clinical significance. Small pericardial effusion. This is unchanged. Mild circumferential thickened distal esophagus. Liver: No acute abnormality or suspicious lesions. Biliary: No biliary ductal dilatation. Stomach: No significant focal abnormality. Duodenum: No significant focal abnormality. Pancreas: No significant abnormality. Spleen: No significant abnormality. Adrenal: No suspicious lesions. Kidney/ureter: No hydronephrosis. No renal calculi. Nonspecific perinephric stranding. Too small to characterize renal lesions which are statistically be nign. Retroperitoneum: No retroperitoneal adenopathy. Surgical changes in the right inguinal region. Vascular: No aneurysm. Atherosclerosis. Bowel: Diverticulosis. No evidence of acute diverticulitis. No appendix identified. No secondary signs of acute appendicitis.. Peritoneum: No ascites or free air. Bladder: Bladder wall thickening hyperenhancement. Reproductive: No adnexal masses. Bones: Mild superior endplate deformity at L4 on L5 is chronic. Other: n/a IMPRESSION: Bladder wall thickening and mucosal hyperenhancement concerning for infection or inflammation. Correlate with urinalysis. Other incidental findings are unchanged and as noted above. 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
--- NOTE | 2022-03-10 08:15 | EKG ---
Test Date: 2022-03-09 Test Time: 11:06:06 Power Switchboard Operator: MIGDALIA MEASUREMENT RESULTS: Intervals: Rate: 95 SC: 152 QRSD: 150 QT: 412 QTc: 517 [place]: P: 39 SC: 152 QRS: 8 T: 39 INTERPRETIVE STATEMENTS: Normal sinus rhythm Right bundle branch block Abnormal ECG Compared to ECG 06/03/2021 17:25:53 T-wave abnormality no longer present Possible ischemia no longer present Electronically Signed On 03-10-22 08:12:13 CDT by Bentley Ca
[2022-03-10] MEDS ORDERED: CEFEPIME 1 GM in NA CHLORIDE 0.9% 100 ML IV SCH (09:00)
[2022-03-10] MEDS ORDERED: POTASSIUM CL SA 10 MEQ TAB PO ONE (09:00)
[2022-03-10] MEDS ORDERED: CEFTRIAXONE 1000 MG/VIAL ONE (09:08)
[2022-03-10] MEDS: HEPARIN 5000 UNIT/ML 1 ML VIAL SQ SCH ×2 (09:12→20:44)
[2022-03-10] MEDS: AMLODIPINE 10 MG TAB PO SCH (09:13)
[2022-03-10] MEDS: predniSONE 10 MG TAB PO SCH (09:13)
[2022-03-10] MEDS: ASPIRIN EC 81 MG TAB PO SCH (09:13)
[2022-03-10] MEDS: TAMSULOSIN 0.4 MG SR CAP PO SCH ×2 (09:14→20:44)
[2022-03-10] MEDS: CEFTRIAXONE 1,000 MG in NA CHLORIDE 0.9% 50 ML IVPB SCH (09:14)
[2022-03-10 10:46] LABS: Blood Morphology Comment NOT SEEN (NOT SEEN); Platelet Estimate ADEQ; White Blood Cell Scan OK (OK)
[2022-03-10 12:42] LABS: UR PROTEIN 69.8 mg/dL (<11.9); Urine Protein/Creatinine Ratio 1.14 ratio (<0.15)
[2022-03-10 13:01] LABS: Specific Gravity 1.017 (1.005-1.030); Urine Bilirubin NEGATIVE (Negative); Urine Blood Trace (Negative); Urine Clarity Clear (Clear); Urine Color Light-Yellow (Yellow); Urine Glucose 1+ (Negative); Urine Mucus Slight /HPF (None Seen); Urine Protein 1+ (Negative); Urine RBC <5 /HPF (None Seen); Urine Urobilinogen Normal (Normal); Urine pH 5.5 (5.0-7.0)
--- NOTE | 2022-03-10 20:09 | P.PN ---
Subjective Date of Service: 03/10/22 Chief Complaint: Subjective fever, cough and chills Subjective: Improving No acute events overnight. He states that he feels much better since admission. Overnight, 4/4 blood cultures have returned positive for gram-negative rods. Review of Systems 10-point ROS is otherwise unremarkable Genitourinary: Dysuria, Frequency Physical Examination - Vital Signs Temperature: 97 F Blood Pressure: 160/71 Pulse: 79 Respirations: 18 Pulse Ox (%): 96 - Physical Exam General: Alert, In no apparent distress, Oriented x3 HEENT: Atraumatic, PERRLA, Mucous membr. moist/pink, EOMI, Sclerae nonicteric Neck: Supple, JVD not distended Respiratory: Clear to auscultation bilaterally, Normal air movement Cardiovascular: No edema, Regular rate/rhythm, Normal S1 S2, No gallops, No rubs, No murmurs Gastrointestinal: Normal bowel sounds, Soft and benign, Non-distended, No tenderness, No rebound, No guarding Musculoskeletal: No clubbing Integumentary: No rashes Neurological: Normal speech, Cranial nerves 3-12 intact, Normal affect - Studies Microbiology Data (last 24 hrs): 03/09/22 11:20 Blood - Blood Blood Culture Gram Stain - Final 03/09/22 11:20 Blood - Blood Gram Stain - Final 03/09/22 10:50 Blood - Blood Blood Culture Gram Stain - Final 03/09/22 10:50 Blood - Blood Gram Stain - Final Assessment And Plan - Plan # Sepsis likely secondary to Urinary Tract Infection with Gram-Negative Bacteremia He meets sepsis criteria based on HR > 90 bpm, RR > 20 breaths/min, WBC > 12,000, and the suspected source is a UTI with bacteremia. - Sepsis order set was initiated - Initial Lactate was 1.5 - Blood cultures drawn before antibiotics were given - Broad spectrum antibiotics started: Vancomycin + Cefepime - switched to ceftriaxone - In regards to fluids: - 30 mL/kg of IV fluids was not administered given SBP > 90, MAP > 65, lactic acid < 4 # IgG4-Related Disease, stable - Continue home prednisone # Hypertension # Hyperlipidemia - Continue home meds Rambo Galvan M.D. Discharge Plan: Home Plan to discharge in: Greater than 2 days
[2022-03-10] MEDS: ATORVASTATIN 40 MG TAB PO SCH (20:44)
[2022-03-11] MEDS ORDERED: VANCOMYCIN 1 GM in NA CHLORIDE 0.9% 250 ML IVPB SCH (05:00)
[2022-03-11 05:37] LABS: Absolute Lymphocytes (CBC) 0.8 K/uL (0.7-4.9); Hematocrit 34.4 % (39.6-49.0); Lymphocytes % 5.5 % (15.3-44.8); MCV 92.2 fL (80-100); MPV 7.7 fL (7.6-11.3); RBC Red Blood Cell Count 3.73 M/uL (4.33-5.43)
[2022-03-11 05:54] LABS: Bilirubin Total 0.2 mg/dL (0.2-1.0); Potassium 4.6 mmol/L (3.5-5.1); Protein, Total 8.3 g/dL (6.4-8.2); Uric Acid 5.9 mg/dL (3.5-7.2)
[2022-03-11] MEDS ORDERED: CEFTRIAXONE 1000 MG/VIAL ONE (08:40)
[2022-03-11] MEDS: CEFTRIAXONE 1,000 MG in NA CHLORIDE 0.9% 50 ML IVPB SCH (09:08)
[2022-03-11] MEDS: AMLODIPINE 10 MG TAB PO SCH (09:09)
[2022-03-11] MEDS: predniSONE 10 MG TAB PO SCH (09:09)
[2022-03-11] MEDS: HEPARIN 5000 UNIT/ML 1 ML VIAL SQ SCH ×2 (09:09→21:45)
[2022-03-11] MEDS: TAMSULOSIN 0.4 MG SR CAP PO SCH ×2 (09:09→21:45)
[2022-03-11] MEDS: ASPIRIN EC 81 MG TAB PO SCH (09:09)
--- NOTE | 2022-03-11 11:33 | P.PN ---
Date of Service: 03/11/22 (S) Pt reports doing ok, reports that bladder emptying and stream of urine have improved on alpha martita therapy. No report of abd pain, dysuria or nausea currenty. (O) Vitals reviewed in the EMR General: In no apparent distress, Oriented x3, Cooperative HEENT: Atraumatic Neck: Supple Respiratory: Clear to auscultation bilaterally Cardiovascular: No edema, Regular rate/rhythm Gastrointestinal: Soft and benign, Non-distended Musculoskeletal: No clubbing, No contractures or edema Integumentary: No rashes, No cyanosis Neurological: Normal speech Laboratory Data (last 24 hrs) Reviewed in the EMR Imagings Data: EXAM DESCRIPTION: RAD - Chest Single View - 03/09/2022 11:24 am CLINICAL HISTORY: Cough COMPARISON: Chest Pa And Lat (2 Views) dated 07/08/2021; Chest Pa And Lat (2 Views) dated 06/19/2021; Chest Single View dated 06/03/2021; Chest Pa And Lat (2 Views) dated 08/07/2020; THORAX WO CONTRAST dated 06/29/2011 FINDINGS: Lines: None. Lungs: No evidence of edema or pneumonia. Chain sutures in the left lung. Emphysema. Right apical scarring. Pleural: No significant pleural effusions or pneumothorax. Cardiac: The heart size is within normal limits. Mediastinum: Within normal limits. Bones: No acute fractures. Other: None IMPRESSION: Emphysema without superimposed acute process. EXAM DESCRIPTION: CTAbdomen Pelvis W Contrast - 03/09/2022 11:57 am CLINICAL HISTORY: fever, abd pain COMPARISON: Abdomen Pelvis Wo Contrast dated 12/13/2021 TECHNIQUE: CT of the abdomen and pelvis was performed. All CT scans are performed using dose optimization technique as appropriate and may include automated exposure control or mA/KV adjustment according to patient size. FINDINGS: Lower chest: Mild nodularity within the lung bases of doubtful acute clinical significance. Small pericardial effusion. This is unchanged. Mild circumferential thickened distal esophagus. Liver: No acute abnormality or suspicious lesions. Biliary: No biliary ductal dilatation. Stomach: No significant focal abnormality. Duodenum: No significant focal abnormality. Pancreas: No significant abnormality. Spleen: No significant abnormality. Adrenal: No suspicious lesions. Kidney/ureter: No hydronephrosis. No renal calculi. Nonspecific perinephric stranding. Too small to characterize renal lesions which are statistically benign. Retroperitoneum: No retroperitoneal adenopathy. Surgical changes in the right inguinal region. Vascular: No aneurysm. Atherosclerosis. Bowel: Diverticulosis. No evidence of acute diverticulitis. No appendix identified. No secondary signs of acute appendicitis.. Peritoneum: No ascites or free air. Bladder: Bladder wall thickening hyperenhancement. Reproductive: No adnexal masses. Bones: Mild superior endplate deformity at L4 on L5 is chronic. Other: n/a IMPRESSION: Bladder wall thickening and mucosal hyperenhancement concerning for infection or inflammation. Correlate with urinalysis. Other incidental findings are unchanged and as noted above. Conclusions/Impression: 1. Stage I AELJANDRA resolved, possibly underlying CKD NOS in the setting of proteinuria, other. Cont to monitor 2. Gram negative sepsis likely 2nd to urinary source. Pyuria, acute cystitis. F/u final UCx, cont Abx 3. Proteinuria, unspecified Reports of underlying IgG4 disease, possibly related or other, would re-assess as OP with UACR or 24h urine. Pt remains on PO Prednisone. 4. Suspected BPH with LUTS No hydro on imaging, cont alpha martita, pt reports symptomatic improvement Kali Sahu MD, [place]
--- NOTE | 2022-03-11 12:00 | CON ---
History Of Present Illness: The patient is an 81-year-old male. I was consulted for urine and blood culture being positive with gram-negative rods. The patient came in with lower abdominal discomfort . CT scan of abdomen and pelvis on admission showed the patient has bladder inflammation. The patie nt feels much better as currently the patient is being treated with Rocephin. He has significant pas t medical history of IgG4 related disease, HLD, hypertension, prostate problems. Coming in with feve r, cough, and chills and lower abdominal pain. The patient also had diaphoresis and dysuria. Denies any chest pain, abdominal pain, constipation at this time. Past Medical History: IgG4 gammaglobulinemia, hypertension, hyperlipidemia, removal of parathyroid n odule, angioplasty, removal of left lower lobe of lung. Social History: Nonsmoker, nondrinker. Family History: Noncontributory. Medications: Rocephin. See MAR for other medications. Allergies: NO KNOWN DRUG ALLERGIES. Review of Systems: A 10-point review was performed. Physical Examination: General: This is an 81-year-old male, very pleasant to talk, lying in bed, not in any acute cardiopu lmonary distress. Vital Signs: Temperature 96.8, pulse 60, respirations 18, blood pressure 153/72. HEENT: Unremarkable. Neck: Supple. Lungs: Clear to auscultation. Heart: S1, S2. Regular. Abdomen: Soft, nontender. Bowel sounds present. Extremity: No edema. Laboratory Data: Shows WBC 15.5, hemoglobin 11.4, platelets are 296. Chemistry shows sodium 138, po tassium 4.6, chloride 110, bicarb 24, BUN 35, creatinine 1.2, glucose 130. Albumin level is 2. Live r enzymes are elevated to 90 and 87 AST an ALT. Micro data; blood cultures are growing gram-negative rods, sensitivity and specificity pending. Urine culture; gram-negative abdullahi, sensitivity and specif icity pending. Assessment And Plan: An 81-year-old male with cystitis and urosepsis, coming in with significant his tory of IgG4 gammaglobulinemia, blood cultures positive with gram-negative rods, also sensitivity and specificity pending. Consider treatment for 14 days. Can be switched to oral if organism is sensit alexandr to oral antibiotic. Hold any chemo treatment till the completion of antibiotic treatment. Monit or for signs of any infection with WBC and fever trends. Leukocytosis most likely secondary to bacte remia and urinary tract infection, moderate protein-calorie malnourishment, elevated liver enzymes. Thank you Dr. Galvan for consult. NF/MODL Voice ID: [id number] Report ID: [id number]
[2022-03-11] MEDS: ATORVASTATIN 40 MG TAB PO SCH (21:45)
--- NOTE | 2022-03-11 23:15 | P.PN ---
Subjective Date of Service: 03/11/22 Chief Complaint: Subjective fever, cough and chills No acute events overnight. He states that he feels back to baseline today. He denies any dysuria, pyuria, frequency, or chills. Review of Systems 10-point ROS is otherwise unremarkable Physical Examination - Vital Signs Temperature: 97.1 F Blood Pressure: 144/65 Pulse: 73 Respirations: 16 Pulse Ox (%): 97 - Studies Microbiology Data (last 24 hrs): 03/09/22 11:20 Blood - Blood Blood Culture Gram Stain - Final 03/09/22 11:20 Blood - Blood Gram Stain - Final 03/09/22 10:50 Blood - Blood Blood Culture Gram Stain - Final 03/09/22 10:50 Blood - Blood Gram Stain - Final Assessment And Plan - Plan - Physical Exam General: Alert, In no apparent distress, Oriented x3 HEENT: Atraumatic, PERRLA, Mucous membr. moist/pink, EOMI, Sclerae nonicteric Neck: Supple, JVD not distended Respiratory: Clear to auscultation bilaterally, Normal air movement Cardiovascular: No edema, Regular rate/rhythm, Normal S1 S2, No gallops, No rubs, No murmurs Gastrointestinal: Normal bowel sounds, Soft and benign, Non-distended, No tenderness, No rebound, No guarding Musculoskeletal: No clubbing Integumentary: No rashes Neurological: Normal speech, Cranial nerves 3-12 intact, Normal affect # Sepsis likely secondary to Urinary Tract Infection with Gram-Negative Bacteremia He meets sepsis criteria based on HR > 90 bpm, RR > 20 breaths/min, WBC > 12,000, and the suspected source is a UTI with bacteremia. - Sepsis order set was initiated - Initial Lactate was 1.5 - Blood cultures drawn before antibiotics were given - Broad spectrum antibiotics started: Vancomycin + Cefepime - switched to ceftriaxone - In regards to fluids: - 30 mL/kg of IV fluids was not administered given SBP > 90, MAP > 65, lactic acid < 4 - Awaiting culture speciation and sensitivities - Consulted Infectious Diseases due to immunosupressed state - Spoke with Dr. Patten - recommendations appreciated # IgG4-Related Disease, stable - Continue home prednisone # Hypertension # Hyperlipidemia - Continue home meds Rambo Galvan M.D. Physician Review: Patient Assessed, Agree with Above Assessment and Plan
[2022-03-12 06:08] LABS: Absolute Lymphocytes (CBC) 1.2 K/uL (0.7-4.9); Hematocrit 34.9 % (39.6-49.0); Lymphocytes % 16.1 % (15.3-44.8); MCV 92.1 fL (80-100); MPV 7.6 fL (7.6-11.3); RBC Red Blood Cell Count 3.79 M/uL (4.33-5.43)
[2022-03-12 06:23] LABS: Bilirubin Total 0.3 mg/dL (0.2-1.0); Potassium 3.7 mmol/L (3.5-5.1)
--- NOTE | 2022-03-12 07:06 | ECHO ---
HEIGHT: 5 ft 8 in WEIGHT: 136 lb 8 oz DATE OF STUDY: 03/10/[address]: Werner Ortiz 2-DIMENSIONAL: YES M.MODE: YES DOPPLER: YES COLOR FLOW: YES TDS: NO PORTABLE: YES DEFINITY: NO BUBBLE STUDY: NO DIAGNOSIS: ELEVATED BNP CARDIAC HISTORY: CATHERIZATION: SURGERY: PROSTHETIC VALVE: PACEMAKER: MEASUREMENTS (cm) DIASTOLIC (NORMALS) SYSTOLIC (NORMALS) IVSd 1.0 (0.6-1.2) LA Diam (1.9-4.0) LVEF 67% LVIDd 4.1 (3.5-5.7) LVIDs 2.6 (2.0-3.5) %FS 37% LVPWd 0.9 (0.6-1.2) Ao Diam 2.9 (2.0-3.7) 2 DIMENSIONAL ASSESSMENT: RIGHT ATRIUM: NORMAL LEFT ATRIUM: NORMAL RIGHT VENTRICLE: NORMAL LEFT VENTRICLE: NORMAL TRICUSPID VALVE: NORMAL MITRAL VALVE: NORMAL PULMONIC VALVE: NORMAL AORTIC VALVE: SCLEROSIS PERICARDIAL EFFUSION: TRACE AORTIC ROOT: NORMAL LEFT VENTRICULAR WALL MOTION: NORMAL DOPPLER/COLOR FLOW: MILD TRICUSPID REGURGITATION. NORMAL RIGHT VENTRICULAR SYSTOLIC PRESSURE. COMMENTS: NORMAL LEFT VENTRICULAR SIZE AND FUNCTION. AORTIC SCLEROSIS. TRACE PERICARDIAL EFFUSION. MILD TRICUSPID REGURGITATION. NORMAL RIGHT VENTRICULAR SYSTOLIC PRESSURE. TECHNOLOGIST: Rich BONILLA
[2022-03-12 08:32] VITALS: O2SAT 97
[2022-03-12 08:50] VITALS: BP 140/72; TEMP 98.3
--- NOTE | 2022-03-12 08:59 | P.DS ---
Admission Date: 03/09/22 Discharge Date: 03/12/22 Disposition: ROUTINE DISCHARGE Discharge Condition: GOOD Reason for Admission: Subjective fever, cough and chills Consultations: 1. Nephrology 2. Infectious Diseases Hospital Course: DIAGNOSES: # Sepsis likely secondary to Salmonella Urinary Tract Infection and Bacteremia # IgG4-Related Disease, stable # Hypertension # Hyperlipidemia HOSPITAL COURSE: Mr. Durga Fosneca is a pleasant 81 year old male with a past medical history significant for IgG4-related disease, hypertension, and hyperlipidemia who was admitted to the [facility] on 03/09/2022 for fever, chills, and dysuria. He was admitted to the Medicine service for further evaluation. Upon evaluation, he was found to have a urinary tract infection with bacteremia. Both his urine cultures and blood cultures returned positive for pansensitive Salmonella. Infectious Diseases was consulted and he was evaluated by Dr. Patten. Given that he improved significantly from a clinical standpoint, Dr. Patten felt that he could be discharged home with 14 days of amoxicillinclavulanate. Initially, the plan was to discharge him on ciprofloxacin; however, he has a prolonged QTc interval, so Augmentin was used instead. Of note, he was found to have mildly elevated LFTs during his hospitalization. It was not felt that this had to do with his current admission as he did not report any abdominal symptoms. It was recommended that he hold his atorvastatin and limit his acetaminophen intake until he sees his PCP. He verbalized understanding of this plan. On 03/12/2022, he was seen on rounds and deemed medically stable for discharge. He was discharged with instructions to schedule follow-up appointments with his PCP in 3-5 days for repeat blood work and to follow-up with MD Schmitt as previously scheduled. He was provided prescriptions for amoxicillin-calvulanate and tamsulosin. He and his were given the opportunity to ask questions and reported no further questions. Furthermore, all questions were answered to the best of my ability. Today, I personally spent 25 minutes on his case, of which greater than 50% of the time was spent in patient education, counseling, and coordination of care as described above. - Physical Exam General: Alert, In no apparent distress, Oriented x3 HEENT: Atraumatic, PERRLA, Mucous membr. moist/pink, EOMI, Sclerae nonicteric Neck: Supple, JVD not distended Respiratory: Clear to auscultation bilaterally, Normal air movement Cardiovascular: No edema, Regular rate/rhythm, Normal S1 S2, No gallops, No rubs, No murmurs Gastrointestinal: Normal bowel sounds, Soft and benign, Non-distended, No tenderness, No rebound, No guarding Musculoskeletal: No clubbing Integumentary: No rashes Neurological: Normal speech, Cranial nerves 3-12 intact, Normal affect Vital Signs/Physical Exam: Temp Pulse Resp BP Pulse Ox 98.3 F 74 16 140/72 97 03/12/22 08:00 03/12/22 08:00 03/12/22 08:00 03/12/22 08:00 03/12/22 08:00 Laboratory Data at Discharge: WBC 7.70 K/uL (4.3-10.9) D 03/12/22 05:20 Hgb 12.1 g/dL (13.6-17.9) L 03/12/22 05:20 Hct 34.9 % (39.6-49.0) L 03/12/22 05:20 Plt Count 327 K/uL (152-406) 03/12/22 05:20 PT 12.5 SECONDS (9.5-12.5) 03/09/22 10:50 INR 1.13 03/09/22 10:50 APTT 26.5 SECONDS (24.3-36.9) 03/09/22 10:50 Sodium 139 mmol/L (136-145) 03/12/22 05:20 Potassium 3.7 mmol/L (3.5-5.1) 03/12/22 05:20 BUN 28 mg/dL (7-18) H 03/12/22 05:20 Creatinine 1.08 mg/dL (0.55-1.3) 03/12/22 05:20 Glucose 86 mg/dL (74-106) 03/12/22 05:20 Uric Acid 5.9 mg/dL (3.5-7.2) 03/11/22 05:11 Phosphorus 2.7 mg/dL (2.5-4.9) 03/09/22 17:10 Magnesium 2.3 mg/dL (1.8-2.4) 03/09/22 17:10 Total Bilirubin 0.3 mg/dL (0.2-1.0) 03/12/22 05:20 AST 71 U/L (15-37) H 03/12/22 05:20 ALT 104 U/L (12-78) H 03/12/22 05:20 Alkaline Phosphatase 60 U/L (45-117) 03/12/22 05:20 Home Medications: Amlodipine Besylate 10 mg PO DAILY 02/25/18 predniSONE [Prednisone] 2 tab PO DAILY 03/09/22 Amox/Clavulanate [Augmentin 875-125 Tab] 875 mg PO BID 14 Days #28 tab 03/12/22 Tamsulosin [Flomax*] 0.4 mg PO DAILY #30 cap 03/12/22 New Medications: Amox/Clavulanate [Augmentin 875-125 Tab] 875 mg PO BID 14 Days #28 tab Tamsulosin [Flomax*] 0.4 mg PO DAILY #30 cap Physician Discharge Instructions: 1. Please schedule a follow-up appointment with your PCP in 3-5 days to repeat your liver function tests - Hold your atorvastatin (Lipitor) and limit your acetaminophen (Tylenol) intake until your appointment 2. Please follow-up with MD Schmitt as previously scheduled Diet: Regular Activity: Ad bradford Followup: NONE,NONE [Primary Care Provider] -
[2022-03-12] MEDS ORDERED: POTASSIUM CL SA 10 MEQ TAB PO ONE (09:00)
[2022-03-12] MEDS: TAMSULOSIN 0.4 MG SR CAP PO SCH (09:03)
[2022-03-12] MEDS: AMLODIPINE 10 MG TAB PO SCH (09:03)
[2022-03-12] MEDS: predniSONE 10 MG TAB PO SCH (09:04)
[2022-03-12] MEDS: HEPARIN 5000 UNIT/ML 1 ML VIAL SQ SCH (09:04)
[2022-03-12] MEDS: ASPIRIN EC 81 MG TAB PO SCH (09:04)
[2022-03-12] MEDS: CEFTRIAXONE 1,000 MG in NA CHLORIDE 0.9% 50 ML IVPB SCH (09:05)
[2022-03-12] MEDS ORDERED: AMOX/K CLAV 875 MG TAB PO ONE (10:00)
[2022-03-13 13:01] LABS: Albumin, (SPE) 2.4 g/dL (3.8-4.8); Alpha-1-Globulins 0.5 g/dL (0.2-0.3); Alpha-2-Globulins 1.1 g/dL (0.5-0.9); Gamma Globulins 2.5 g/dL (0.8-1.7); INTERPRETATION REPORT
[2022-03-13 20:11] LABS: Immunoglobulin A 185 mg/dL (70-320); Immunoglobulin G 3352 mg/dL (600-1540); Immunoglobulin M 54 mg/dL (50-300)
== END 2022-03-12 10:15 | disposition home or self-care (01) | DRG 872 ==
LOC: ER 10:10 → ERHOLD 15:13 → 4TH 19:24
PROVIDERS: ADMIT Internal Medicine; ATTEND Internal Medicine
DX: A02.1 Salmonella sepsis (principal); N39.0 Urinary tract infection, site not specified; N17.9 Acute kidney failure, unspecified; E78.5 Hyperlipidemia, unspecified; D89.89 Other specified disorders involving the immune mechanism, not elsewhere classified; N40.1 Benign prostatic hyperplasia with lower urinary tract symptoms; I12.9 Hypertensive chronic kidney disease with stage 1 through stage 4 chronic kidney disease, or unspecified chronic kidney disease; N18.30 Chronic kidney disease, stage 3 unspecified; E88.09 Other disorders of plasma-protein metabolism, not elsewhere classified; Z20.822 Contact with and (suspected) exposure to COVID-19
CPT/HCPCS: 36415; 71045; 74177; 80048; 80053; 81001; 81003; 81015; 82550; 82570; 82784; 83605; 83735; 83880; 83930; 83935; 84100; 84132; 84156; 84165; 84550; 85025; 85610; 85730; 86335; 87040; 87077; 87086; 87088; 87186; 87205; 87804; 93005; 93306; 96361; 96374; 96375; 99285; J1644; J1940; J2405; J2930; J3370; J7030; J7040; J7512; Q9967; U0003